=== PATIENT | female | born 1980 | race Caucasian/White ===

== ENCOUNTER 2023-03-25 15:29 | Emergency (ER) | payer MEDICAID, SELFPAY ==
[2023-03-25] VITALS (21 sets, daily range): BP systolic 124–144; BP diastolic 68–90; PULSE 68–133; RESP 15–27; TEMP 36.8; O2SAT 96–100
--- NOTE | ~2023-03-25 | CT_ITS ---
EXAMINATION: CT abdomen pelvis w con DATE: 03/25/2023 18:23 INDICATION: LUQ pain, elevated lipase TECHNIQUE: Computed tomography (CT) of the abdomen and pelvis was performed with 100 mL Omnipaque-350 intravenous contrast. Automated exposure control and iterative reconstruction technique were employe d. The dose-length product was 600.39 mGy-cm. COMPARISON: None. FINDINGS: Lower thorax: Unremarkable Liver: Normal. Biliary/Gallbladder: Gallbladder is collapsed, with mild wall hyperemia. No bile duct dilation. Pancreas: Mildly enlarged. Peripancreatic fluid about the pancreatic head Spleen: Normal. Adrenals:No mass. Kidneys: No suspicious mass, obstructing stone, or hydronephrosis. Bilateral subcentimeter hypodensit ies, likely cysts GI tract: Mild distal esophageal and gastric wall edema. Inflammatory change/fluid at the second port ion of the duodenum. No small or large bowel dilation. Normal appendix. Mesentery/Peritoneum: No ascites, mass, or free air. Retroperitoneum: No mass. Pelvis: Pelvic organs are within normal limits. Soft Tissues: Soft tissues and body wall unremarkable. Bones: No acute osseous finding. IMPRESSION: Acute uncomplicated interstitial pancreatitis. Duodenitis, possibly reactive to the pancreatitis. Mild esophagitis/gastritis. Reviewed, dictated and finalized at location K. CIATE DEAN
[2023-03-25 16:44] LABS: Basophils Percent Auto 0.3 % (0.2-1.2); Eosinophils Absolute Auto 0.2 K/mm3 (0-0.3); Eosinophils Percent Auto 1.5 % (0-4.4); Hematocrit 41.3 % (37.0-47.0); Hemoglobin 13.2 g/dL (12.0-15.0); Immature Granulocyte Absolute 0.04 K/mm3 (0.00-0.031); Immature Granulocyte Percent A 0.3 % (0-0.5); Lymphocytes Absolute Auto 2.94 K/mm3 (0.9-3.2); Lymphocytes Percent Auto 24.3 % (18.3-44.2); Mean Corpuscular Hemoglobin 29.5 pg (26-34); Mean Corpuscular Volume 92.4 fl (80-100); Mean Platelet Volume 9.2 fl (7.4-10.4); Monocytes Absolute Auto 0.9 K/mm3 (0.1-0.6); Monocytes Percent Auto 7.1 % (2.6-8.5); Neutrophils Percent Auto 66.5 % (45.5-73.1); Platelet Count Result 255 k/mm3 (150-375); Red Blood Count 4.47 M/mm3 (4.2-5.4); Red Cell Distribution Width 13.9 % (11.5-14.5); White Blood Count 12.1 K/mm3 (4.5-10.0)
[2023-03-25 16:49] LABS: Appearance Urine Clear (Clear); Bacteria Urine 3+ /hpf; Bilirubin Urine Negative (Negative); Blood Urine Negative (Negative); Color Urine Yellow (Yellow); Glucose Urine UA Negative (Negative); Ketones Urine Trace mg/dL (Negative); Leukocyte Esterase Ur Negative LEU/UL (Negative); Nitrate Urine Positive (Negative); Non Pathogenic Casts 0-2; Protein Urine Negative (Negative); RBC Urine 0-2 /hpf (0-2); Specific Grav Ur 1.027 (1.001-1.035); Squamous Epithelial Cell Urine Few /hpf (Few); Urobilinogen Urine 0.2 mg/dL (<2.0); pH Urine 5.5 (5.0-9.0)
[2023-03-25 16:59] LABS: Add Urine Microscopic? YES
[2023-03-25 17:26] LABS: Alanine Aminotransferase 19 U/L (6-35); Albumin Level 4.4 g/dL (3.5-5.1); Alkaline Phosphatase 71 U/L (38-126); Anion Gap 12 mmol/L (8-16); Aspartate Amino Transferase 26 U/L (14-36); Bilirubin,Total 0.4 mg/dL (0.2-1.3); Blood Urea Nitrogen 13 mg/dL (7-17); Calcium 9.5 mg/dL (8.4-10.2); Carbon Dioxide 23 mmol/L (22-30); Chloride 104 mmol/L (98-107); Estimated CRCL calculation 55 ml/min; Estimated Glomerular Filt Rate > 60; Glucose 109 mg/dL (65-110); Potassium 3.8 mmol/L (3.4-5.0); Sodium 139 mmol/L (137-145)
[2023-03-25] MEDS: KETOROLAC 30 MG/ML VIAL (*BKC) IV PUSH (17:26)
[2023-03-25 17:34] LABS: Pregnancy On Board Control Positive; Urine Pregnancy Test Negative
[2023-03-25 17:35] LABS: Lipase 569 U/L (23-300)
--- NOTE | 2023-03-25 18:12 | ED.ABDPAIN ---
HPI - Abdominal Pain General Chief Complaint: Abdominal Pain Stated Complaint: right abd pain Time Seen by Provider: 03/25/23 16:45 History of Present Illness HPI narrative: Patient is a 42-year-old female presenting with abdominal pain. Patient states that for the last 2 3 weeks she has had intermittent left upper quadrant pain. Associated with vomiting and diarrhea. States that she was hoping it would go away but it has continued so she came in for evaluation. States that she has not vomited in the last 4 days. She has been using Tylenol and ibuprofen with moderate temporary relief. No fevers, chest pain, shortness of breath, cough, dysuria, hematuria, flank pain, leg swelling. Related Data Allergies Allergy/AdvReac Type Severity Reaction Status Date / Time Penicillins Allergy Hives Verified 03/25/23 15:55 Review of Systems Review of Systems: All systems reviewed & are unremarkable except as noted in HPI and below Exam Narrative: GENERAL: Well-appearing, In no acute distress, pleasant cooperative HEAD: Normocephalic, atraumatic. EYES: PERRLA and EOMI. ENT: Nares clear, no rhinorrhea or epistaxis. Mucous membranes moist. NECK: Supple. CHEST: Clear to auscultation. No respiratory distress. HEART: Regular rate and rhythm. ABDOMEN: Soft,+ left upper quadrant tenderness without guarding or rebound EXTREMITIES: Normal range of motion. No edema. SKIN: Warm, dry, no rash. NEURO: No focal deficits. Alert and oriented x3. PSYCH: Normal mood and affect. Course Vital Signs Vital signs: Vital Signs Temperature 98.2 F 03/25/23 15:52 Pulse Rate 89 03/25/23 15:52 Respiratory Rate 18 03/25/23 15:52 Blood Pressure 132/80 03/25/23 15:52 Pulse Oximetry 100 03/25/23 15:52 Oxygen Delivery Room Air 03/25/23 15:52 Temperature 98.3 F 03/25/23 18:02 Pulse Rate 68 03/25/23 20:15 Respiratory Rate 15 03/25/23 20:15 Blood Pressure 124/70 03/25/23 18:02 Pulse Oximetry 99 03/25/23 20:15 Oxygen Delivery Room Air 03/25/23 15:52 MDM - Abdominal Pain MDM Narrative Medical decision making narrative: 42-year-old female presenting with several weeks of intermittent left upper quadrant pain associated with vomiting. Vital stable. Blood work with mild leukocytosis. Lipase is mildly elevated at 569. UA is contaminated, she denies urinary symptoms. CT abdomen pelvis with evidence of acute uncomplicated pancreatitis. I suspect the patient has been dealing with symptoms related to pancreatitis for the last several weeks. States that she actually has not vomited for at least 4 days. Patient is given an oral oxycodone and was able to eat a meal. States that her pain is controlled and she is not nauseated. Feel that she is safe for outpatient management. Will send in for short course of oxycodone and Zofran. Advised close PCP follow-up. Appropriate return precautions given. She is agreeable with this plan. Discharged in stable condition. Differential Diagnosis Differential diagnosis: Likely abdominal pain, acute appendicitis, constipation, diverticulitis and pancreatitis Medical Records Attestation: I reviewed the patient's medical records. Lab Data Attestation: I reviewed the patient's lab results. 03/25/23 16:38 03/25/23 16:38 Labs: Lab Results 03/25/23 03/25/23 Range/Units 16:37 16:38 WBC 12.1 H (4.5-10.0) K/mm3 RBC 4.47 (4.2-5.4) M/mm3 Hgb 13.2 (12.0-15.0) g/dL Hct 41.3 (37.0-47.0) % MCV 92.4 (80-100) fl MCH 29.5 (26-34) pg MCHC 32.0 (32-36) g/dl RDW 13.9 (11.5-14.5) % Plt Count 255 (150-375) k/mm3 MPV 9.2 (7.4-10.4) fl Immature Gran % (Auto) 0.3 (0-0.5) % Neut % (Auto) 66.5 (45.5-73.1) % Lymph % (Auto) 24.3 (18.3-44.2) % [place] % (Auto) 7.1 (2.6-8.5) % Eos % (Auto) 1.5 (0-4.4) % Baso % (Auto) 0.3 (0.2-1.2) % Lymph # (Auto) 2.94 (0.9-3.2) K/mm3 [place] # (Auto) 0.9 H (0.
--- NOTE | 2023-03-25 19:41 | PC.NURSE ---
this rn assumed care of patient. this rn took patient report from alberto dixon.
[2023-03-25] MEDS: oxyCODONE HCL (*CRX) 5 MG TAB IR PO (19:52)
--- NOTE | 2023-03-25 20:32 | PC.NURSE ---
pt stated she was able to keep food/ drink down from PO challenge. Pt was noted to continue eating her own food from personal lunchbox. EDP made aware and verbalized understanding that pt was able to pass PO challenge.
== END 2023-03-25 21:22 | disposition home or self-care (01) ==
PROVIDERS: Emergency Provider Emergency Medicine
DX: K85.80 Other acute pancreatitis without necrosis or infection (principal); K29.80 Duodenitis without bleeding; K20.90 Esophagitis, unspecified without bleeding; K29.70 Gastritis, unspecified, without bleeding
CPT/HCPCS: 36415; 74177; 80053; 81001; 81025; 83690; 85025; 87077; 87086; 87186; 96374; 99284; A9270; J1170; J1885; Q9967

== ENCOUNTER 2023-03-29 14:55 | Emergency (ER) | payer MEDICAID, SELFPAY ==
--- NOTE | ~2023-03-29 | CT_ITS ---
EXAMINATION: CT abdomen pelvis w con DATE: 03/29/2023 17:04 INDICATION: Left upper quadrant and epigastric abdominal pain. TECHNIQUE: Computed tomography (CT) of the abdomen and pelvis was performed with 100 mL Omnipaque 350 intravenous contrast. Automated exposure control and iterative reconstruction technique were employe d. The dose-length product was 629.02 mGy-cm. COMPARISON: CT abdomen and pelvis 03/25/2023 FINDINGS: The visualized portions of the lung bases demonstrate minimal atelectasis. No pleural effus ion. The heart size is normal. No pericardial effusion. The liver, gallbladder, spleen, and adrenal g lands are normal. There are cysts in the kidneys measuring up to 8 mm on the right. There is fat stra nding around the head of the pancreas, consistent with acute interstitial pancreatitis. There are no dilated loops of bowel. The appendix is normal. There are no pathologically enlarged lymph nodes. The re is no free intraperitoneal fluid. There is mild thoracic and lumbar spondylosis. IMPRESSION: 1. Stable acute interstitial pancreatitis. Reviewed, dictated and finalized at location E. L DRIER
[2023-03-29 15:03] VITALS: BP 140/79; PULSE 88; RESP 18; TEMP 36.6; O2SAT 100
--- NOTE | 2023-03-29 15:59 | ED.GENADULT ---
HPI - General Adult General Chief complaint: Abdominal Pain <REGINA Lester Last Filed: 03/29/23 16:10> Stated complaint: abd pain <Eric Terry PA-C - Last Filed: 03/29/23 16:10> Time Seen by Provider: 03/29/23 15:58 <Eric Terry PA-C - Last Filed: 03/29/23 16:10> Focused HPI: This is a 42-year-old female who presents to the ED with chief complaint of epigastric pain ongoing for the last several weeks and worse last night. Recently diagnosed with pancreatitis in the ER and was able to go home. Reports that she went to her doctor today who told her to come back to the ER since she is having increased pain. Denies fevers, chills, nausea, vomiting. Does admit to alcohol use. GENERAL: Well-appearing, well-nourished, and in no acute distress. HEAD: Normocephalic, atraumatic. CHEST: Clear to auscultation. No respiratory distress. HEART: Regular rate and rhythm. NEURO: Alert and oriented x3. Patient screened in triage and initial orders placed. Additional care and disposition to be based upon diagnostic testing and treatment. <REGINA Lester Last Filed: 03/29/23 16:10> Source: patient and old records reviewed <REGINA Wilkins Last Filed: 03/29/23 17:55> Mode of arrival: ambulatory <REGINA Wilkins Last Filed: 03/29/23 17:55> Limitations: no limitations <REGINA Wilkins Last Filed: 03/29/23 17:55> History of Present Illness HPI narrative: Patient states she has not drink in the last several days. She has been taking oxycodone for her pain which does help. She has been taking she Zofran for nausea. Denies any further vomiting. States she would not have come to the ED today if her primary did not tell her to. Denies fevers. She does mention her primary told her she had a UTI. She admits to urinary frequency over last 1 week, denies dysuria or hematuria. <REGINA Wilkins Last Filed: 03/29/23 17:55> Related Data Allergies/adverse reactions: Allergies Allergy/AdvReac Type Severity Reaction Status Date / Time Penicillins Allergy Hives Verified 03/29/23 15:07 <REGINA Lester Last Filed: 03/29/23 16:10> Review of Systems Review of Systems: CONSTITUTIONAL: Denies fever, chills, or sweats. GASTROINTESTINAL: See HPI. GENITOURINARY: See HPI. <REGINA Wilkins Last Filed: 03/29/23 17:55> All systems reviewed & are unremarkable except as noted in HPI and below <REGINA Wilkins Last Filed: 03/29/23 17:55> Exam Narrative: GENERAL: Well appearing, obese with BMI of 30.9, non-toxic, in no acute distress. HEAD: Normocephalic, atraumatic. RESPIRATORY: Airway patent, respirations nonlabored. Clear to auscultation bilaterally, no rales, rhonchi, wheezing. CARDIOVASCULAR: Regular rate and rhythm without murmurs, rubs, or gallops. ABDOMINAL: Soft, tenderness in epigastric pain and left upper quadrant, nondistended. Normoactive BS. MUSCULOSKELETAL: Moves all extremities. No gross deformities. SKIN: Warm, dry, normal color. NEURO: A&O X3. Speech clear. Cranial nerves II-XII grossly intact. Steady gait. No ataxic movements. PSYCHIATRIC: Appropriate mood and affect. Normal interaction. <REGINA Wilkins Last Filed: 03/29/23 17:55> Course Vital Signs Vital signs: Vital Signs Temperature 98 F 03/29/23 15:03 Pulse Rate 88 03/29/23 15:03 Respiratory Rate 18 03/29/23 15:03 Blood Pressure 140/79 03/29/23 15:03 Pulse Oximetry 100 03/29/23 15:03 Oxygen Delivery Room Air 03/29/23 15:03 Temperature 98 F 03/29/23 15:03 Pulse Rate 76 03/29/23 16:09 Respiratory Rate 20 03/29/23 16:09 Blood Pressure 137/66 03/29/23 16:09 Pulse Oximetry 100 03/29/23 16:09 Oxygen Delivery Room Air 03/29/23 15:03 <Eric Terry PA-C - Last Filed: 03/29/23 16:10> Vital Signs Temperature 98 F 03/29/23 15:03 Pulse Rate 88
[2023-03-29 16:09] VITALS: BP 137/66; PULSE 76; RESP 20; O2SAT 100
[2023-03-29 16:17] LABS: Basophils Absolute Auto 0.1 K/mm3 (0.0-0.1); Basophils Percent Auto 0.6 % (0.2-1.2); Eosinophils Absolute Auto 0.2 K/mm3 (0-0.3); Eosinophils Percent Auto 1.2 % (0-4.4); Hematocrit 40.2 % (37.0-47.0); Hemoglobin 12.8 g/dL (12.0-15.0); Immature Granulocyte Absolute 0.04 K/mm3 (0.00-0.031); Immature Granulocyte Percent A 0.3 % (0-0.5); Lymphocytes Absolute Auto 3.31 K/mm3 (0.9-3.2); Lymphocytes Percent Auto 25.6 % (18.3-44.2); Mean Corpuscular HGB Conc 31.8 g/dl (32-36); Mean Corpuscular Hemoglobin 29.7 pg (26-34); Mean Corpuscular Volume 93.3 fl (80-100); Mean Platelet Volume 9.4 fl (7.4-10.4); Monocytes Percent Auto 7.8 % (2.6-8.5); Neutrophils Absolute Auto 8.3 K/mm3 (1.3-6.7); Neutrophils Percent Auto 64.5 % (45.5-73.1); Platelet Count Result 326 k/mm3 (150-375); Red Blood Count 4.31 M/mm3 (4.2-5.4); Red Cell Distribution Width 13.6 % (11.5-14.5); White Blood Count 12.9 K/mm3 (4.5-10.0)
[2023-03-29 16:24] LABS: Appearance Urine Cloudy (Clear); Bacteria Urine 4+ /hpf; Bilirubin Urine Negative (Negative); Blood Urine Negative (Negative); Color Urine Yellow (Yellow); Glucose Urine UA Negative (Negative); Ketones Urine Trace mg/dL (Negative); Leukocyte Esterase Ur Negative LEU/UL (Negative); Nitrate Urine Positive (Negative); Protein Urine Negative (Negative); RBC Urine 0-2 /hpf (0-2); Specific Grav Ur 1.021 (1.001-1.035); Squamous Epithelial Cell Urine None seen /hpf (Few); Urobilinogen Urine 0.2 mg/dL (<2.0); WBC Urine 0-5 /hpf; pH Urine 5.5 (5.0-9.0)
[2023-03-29 16:27] LABS: Add Urine Microscopic? YES
[2023-03-29 16:30] LABS: Alanine Aminotransferase 18 U/L (6-35); Albumin Level 4.1 g/dL (3.5-5.1); Alkaline Phosphatase 62 U/L (38-126); Anion Gap 8 mmol/L (8-16); Aspartate Amino Transferase 25 U/L (14-36); Bilirubin,Total 0.3 mg/dL (0.2-1.3); Blood Urea Nitrogen 11 mg/dL (7-17); Calcium 9.3 mg/dL (8.4-10.2); Carbon Dioxide 25 mmol/L (22-30); Chloride 103 mmol/L (98-107); Estimated CRCL calculation 81 ml/min; Estimated Glomerular Filt Rate > 60; Glucose 109 mg/dL (65-110); Lipase 307 U/L (23-300); Potassium 3.9 mmol/L (3.4-5.0); Sodium 136 mmol/L (137-145)
[2023-03-29] MEDS: HYDROcodone/acetaminophen (*CRX) 5-325 MG TABLET 1 TAB PO (17:29)
[2023-03-29] MEDS: SULFAMETHOXAZOLE/TRIMETHOPRIM 800/160 MG DS TABLET 1 TAB PO (17:29)
[2023-03-29 18:00] VITALS: BP 148/93; PULSE 96; RESP 16; O2SAT 99
== END 2023-03-29 18:00 | disposition home or self-care (01) ==
PROVIDERS: Emergency Medicine; Emergency Provider Physician Assistant
DX: K85.90 Acute pancreatitis without necrosis or infection, unspecified (principal); N30.00 Acute cystitis without hematuria
CPT/HCPCS: 36415; 74177; 80053; 81001; 81025; 83690; 85025; 87077; 87086; 87088; 87186; 99284; A9270; Q9967

== ENCOUNTER 2023-04-06 10:36 | Emergency (ER) | payer MEDICAID, SELFPAY ==
[2023-04-06] VITALS (7 sets, daily range): BP systolic 127–142; BP diastolic 73–82; PULSE 73–88; RESP 12–22; TEMP 36.6–37.1; O2SAT 99–100
--- NOTE | ~2023-04-06 | CT_ITS ---
EXAMINATION: CT abdomen pelvis w con DATE: 04/06/2023 15:33 INDICATION: Acute pancreatitis. Nausea. TECHNIQUE: Computed tomography (CT) of the abdomen and pelvis was performed with 100 mL Omnipaque 350 intravenous contrast. Automated exposure control and iterative reconstruction technique were employe d. The dose-length product was 530.52 mGy-cm. COMPARISON: CT abdomen and pelvis 03/29/23 FINDINGS: The visualized portions of the lung bases demonstrate mild atelectasis. No pleural effusion . The heart size is normal. No pericardial effusion. The liver, gallbladder, and spleen are normal. T here is fat stranding and trace fluid around the head of the pancreas, consistent with acute intersti tial pancreatitis. The adrenal glands are normal. There are cysts in the kidneys measuring up to 7 mm on the right. There are no dilated loops of bowel. The appendix is normal. There are no pathological ly enlarged lymph nodes. There is trace pelvic ascites. There is mild lumbar spondylosis. IMPRESSION: 1. Acute interstitial pancreatitis with mildly worsened findings from 03/29/23. Reviewed, dictated and finalized at location E. L REPRINT OPERATOR
[2023-04-06 11:12] LABS: Basophils Absolute Auto 0.1 K/mm3 (0.0-0.1); Basophils Percent Auto 0.4 % (0.2-1.2); Eosinophils Absolute Auto 0.1 K/mm3 (0-0.3); Eosinophils Percent Auto 0.4 % (0-4.4); Hemoglobin 15.1 g/dL (12.0-15.0); Immature Granulocyte Absolute 0.07 K/mm3 (0.00-0.031); Immature Granulocyte Percent A 0.5 % (0-0.5); Lymphocytes Absolute Auto 4.15 K/mm3 (0.9-3.2); Lymphocytes Percent Auto 28.5 % (18.3-44.2); Mean Corpuscular HGB Conc 32.8 g/dl (32-36); Mean Corpuscular Hemoglobin 29.4 pg (26-34); Mean Corpuscular Volume 89.7 fl (80-100); Mean Platelet Volume 9.4 fl (7.4-10.4); Monocytes Absolute Auto 0.7 K/mm3 (0.1-0.6); Neutrophils Absolute Auto 9.5 K/mm3 (1.3-6.7); Neutrophils Percent Auto 65.2 % (45.5-73.1); Platelet Count Result 356 k/mm3 (150-375); Red Blood Count 5.13 M/mm3 (4.2-5.4); Red Cell Distribution Width 13.3 % (11.5-14.5); White Blood Count 14.6 K/mm3 (4.5-10.0)
[2023-04-06 11:23] LABS: Alanine Aminotransferase 26 U/L (6-35); Albumin Level 4.6 g/dL (3.5-5.1); Alkaline Phosphatase 83 U/L (38-126); Anion Gap 13 mmol/L (8-16); Aspartate Amino Transferase 27 U/L (14-36); Bilirubin,Total 0.3 mg/dL (0.2-1.3); Blood Urea Nitrogen 7 mg/dL (7-17); Calcium 9.6 mg/dL (8.4-10.2); Carbon Dioxide 20 mmol/L (22-30); Chloride 104 mmol/L (98-107); Estimated CRCL calculation 77 ml/min; Estimated Glomerular Filt Rate > 60; Glucose 103 mg/dL (65-110); Lipase 389 U/L (23-300); Potassium 3.7 mmol/L (3.4-5.0); Sodium 137 mmol/L (137-145)
[2023-04-06 14:38] LABS: Appearance Urine Clear (Clear); Bilirubin Urine Negative (Negative); Blood Urine Negative (Negative); Color Urine Yellow (Yellow); Glucose Urine UA Negative (Negative); Ketones Urine Negative (Negative); Leukocyte Esterase Ur Negative LEU/UL (Negative); Nitrate Urine Negative (Negative); Protein Urine Negative (Negative); Specific Grav Ur 1.007 (1.001-1.035); Urobilinogen Urine 0.2 mg/dL (<2.0); pH Urine 6.5 (5.0-9.0)
[2023-04-06 14:58] LABS: Add Urine Microscopic? NO
--- NOTE | 2023-04-06 15:04 | ED.ABDPAIN ---
HPI - Abdominal Pain General Chief Complaint: Abdominal Pain Stated Complaint: pancreatitis Time Seen by Provider: 04/06/23 14:50 History of Present Illness HPI narrative: 42-year-old female presenting to the emergency department for evaluation of worsening abdominal pain. Patient does have history of pancreatitis and states she was most recently diagnosed with pancreatitis but 2 weeks ago. Patient had follow-up with her primary care physician and she reports that he has suggested that she present to the emergency department for further evaluation. Patient has not yet had recent follow-up with a GI physician. Patient states that her abdominal pain worsened on Tuesday and has not improved. Patient denies any associated nausea or vomiting. Patient states she has not had alcohol for approximately 2 weeks. Related Data Allergies Allergy/AdvReac Type Severity Reaction Status Date / Time Penicillins Allergy Hives Verified 03/29/23 15:07 Review of Systems Review of Systems: All systems reviewed & are unremarkable except as noted in HPI and below Exam Narrative: APPEARANCE: Well appearing, no pain, no distress, well-nourished. HEAD: normocephalic, atraumatic. EYES: PERRLA/EOMI, conjunctivae clear. NOSE: Normal no drainage EARS:TMS clear with good light reflex. THROAT: Pharynx clear, no exudate. NECK: Supple. No adenopathy, no masses. RESPIRATORY: Airway patent, respirations nonlabored. Clear to auscultation bilaterally, no rales, rhonchi, wheezing. CARDIOVASCULAR: Regular rate and rhythm without murmurs rubs or gallops. ABDOMINAL: Epigastric pain with tenderness to palpation MUSCULOSKELETAL: Moves all extremities. Strength/ROM intact, No edema, No calf tenderness. NEURO: Alert. Cranial nerves II through XII intact. Grossly intact SKIN: Warm, dry. Normal Color Course Course Emergency Course: 42-year-old female presenting to the emergency department for evaluation of worsening epigastric pain thought to be her pancreatitis. Patient's lipase is similar to her previous. Patient is afebrile but does have a leukocytosis of 14.6. Hemoglobin is 15.1. No acute abnormalities on her CMP and UA was negative for infection. CT scan showed mild worsening of her pancreatitis but no evidence of abscess or necrosis. Discussed the findings with the patient and family and patient was offered admission for IV fluids and IV pain meds and patient prefers to have oral p.o. medications for home and follow a clear liquid diet. Patient is also being provided follow-up with GI. All questions concerns were addressed patient was comfortable with the plan for discharge and close follow-up. Vital Signs Vital signs: Vital Signs Temperature 97.9 F 04/06/23 11:00 Pulse Rate 85 04/06/23 11:00 Respiratory Rate 12 04/06/23 11:00 Blood Pressure 142/81 H 04/06/23 11:00 Pulse Oximetry 100 04/06/23 11:00 Temperature 98.8 F 04/06/23 14:18 Pulse Rate 86 04/06/23 16:30 Respiratory Rate 22 H 04/06/23 16:30 Blood Pressure 132/76 04/06/23 16:30 Pulse Oximetry 99 04/06/23 16:30 MDM - Abdominal Pain Lab Data 04/06/23 11:01 04/06/23 11:01 Labs: Lab Results 04/06/23 04/06/23 Range/Units 11:01 14:24 WBC 14.6 H (4.5-10.0) K/mm3 RBC 5.13 (4.2-5.4) M/mm3 Hgb 15.1 H (12.0-15.0) g/dL Hct 46.0 (37.0-47.0) % MCV 89.7 (80-100) fl MCH 29.4 (26-34) pg MCHC 32.8 (32-36) g/dl RDW 13.3 (11.5-14.5) % Plt Count 356 (150-375) k/mm3 MPV 9.4 (7.4-10.4) fl Immature Gran % (Auto) 0.5 (0-0.5) % Neut % (Auto) 65.2 (45.5-73.1) % Lymph % (Auto) 28.5 (18.3-44.2) % [place] % (Auto) 5.0 (2.6-8.5) % Eos % (Auto) 0.4 (0-4.4) % Baso % (Auto) 0.4 (0.2-1.2) % Lymph # (Auto) 4.15 H (0.9-3.2) K/mm3 [place] # (Auto) 0.7 H (0.1-0.6) K/mm3 Eos # (Auto) 0.1 (0-0.3) K/mm3 Baso # (Auto) 0.1 (0.0-0.1) K/mm3 Abs Immat Gran (auto) 0.07 H (0.00-0.03
[2023-04-06] MEDS: METOCLOPRAMIDE HCL INJ 10 MG/2 ML VIAL IV PUSH (15:18)
[2023-04-06] MEDS: SODIUM CHLORIDE 0.9% IV 1,000 ML 999 ML IV CONT (15:20)
[2023-04-06] MEDS: HYDROmorphone HCL INJ (*CRX) 1 MG/ML SYR 0.5 MG IV PUSH (15:20)
== END 2023-04-06 17:20 | disposition home or self-care (01) ==
PROVIDERS: Emergency Provider Emergency Medicine
DX: K85.90 Acute pancreatitis without necrosis or infection, unspecified (principal)
CPT/HCPCS: 36415; 74177; 80053; 81003; 81025; 83690; 85025; 96361; 96374; 96375; 99284; J1170; J2765; J7030; Q9967

== ENCOUNTER 2023-04-20 10:55 | Inpatient (IN) | payer OTHER, SELFPAY ==
[2023-04-20] VITALS (29 sets, daily range): BP systolic 144–188; BP diastolic 74–131; PULSE 64–114; RESP 12–22; TEMP 36.4–36.9; O2SAT 98–100; BMI 29.9
--- NOTE | ~2023-04-20 | CT_ITS ---
EXAMINATION: CT abdomen pelvis w con INDICATION: Upper quadrant pain, pancreatitis TECHNIQUE: Computed tomographic images of the abdomen and pelvis were obtained after the administrati on of 100 cc of Omnipaque 350 intravenous contrast. The dose-length product (DLP) was 534.83 mGy-cm. Automated exposure control and iterative reconstruction technique were employed. COMPARISON: 04/06/2023 FINDINGS: Minimal dependent atelectasis is present in the lung bases. The heart size is normal. There is a healing anterior right rib fracture. The liver, spleen, gallbladder, and adrenal glands are nor mal. There is persistent but improved inflammatory change in the pancreaticoduodenal groove. Cysts of the kidneys measure up to 7 mm on the right. No pathologically enlarged abdominal or pelvic lymph no rhianna are identified. There is no free intraperitoneal gas. There is mild enlargement of the second and third portions of the duodenum, likely ileus. The appendix is normal. There is a 3.2 cm cyst of the right ovary. Trace pelvic ascites is noted. There is mild lumbar spondylosis. IMPRESSION: 1. Groove pancreatitis with interval improvement. Reviewed, dictated and finalized at location B. [employer]
[2023-04-20 12:23] LABS: Basophils Absolute Auto 0.1 K/mm3 (0.0-0.1); Basophils Percent Auto 0.3 % (0.2-1.2); Eosinophils Absolute Auto 0.1 K/mm3 (0-0.3); Hematocrit 45.1 % (37.0-47.0); Hemoglobin 14.7 g/dL (12.0-15.0); Immature Granulocyte Absolute 0.04 K/mm3 (0.00-0.031); Immature Granulocyte Percent A 0.3 % (0-0.5); Lymphocytes Absolute Auto 3.57 K/mm3 (0.9-3.2); Lymphocytes Percent Auto 24.7 % (18.3-44.2); Mean Corpuscular HGB Conc 32.6 g/dl (32-36); Mean Corpuscular Hemoglobin 29.1 pg (26-34); Mean Corpuscular Volume 89.1 fl (80-100); Mean Platelet Volume 9.7 fl (7.4-10.4); Monocytes Absolute Auto 0.9 K/mm3 (0.1-0.6); Monocytes Percent Auto 6.4 % (2.6-8.5); Neutrophils Absolute Auto 9.7 K/mm3 (1.3-6.7); Neutrophils Percent Auto 67.3 % (45.5-73.1); Platelet Count Result 264 k/mm3 (150-375); Red Blood Count 5.06 M/mm3 (4.2-5.4); Red Cell Distribution Width 13.4 % (11.5-14.5); White Blood Count 14.4 K/mm3 (4.5-10.0)
[2023-04-20 12:29] LABS: Appearance Urine Clear (Clear); Bacteria Urine None Seen /hpf; Bilirubin Urine Negative (Negative); Blood Urine Negative (Negative); Color Urine Yellow (Yellow); Glucose Urine UA Negative (Negative); Ketones Urine 1+ mg/dL (Negative); Leukocyte Esterase Ur Trace LEU/UL (Negative); Nitrate Urine Negative (Negative); Protein Urine Trace mg/dL (Negative); RBC Urine 0-2 /hpf (0-2); Specific Grav Ur 1.021 (1.001-1.035); Squamous Epithelial Cell Urine Occasional /hpf (Few); WBC Urine 0-5 /hpf; pH Urine 6.5 (5.0-9.0)
[2023-04-20 12:32] LABS: Add Urine Microscopic? YES
[2023-04-20 12:40] LABS: Alanine Aminotransferase 29 U/L (6-35); Albumin Level 4.6 g/dL (3.5-5.1); Alkaline Phosphatase 72 U/L (38-126); Anion Gap 11 mmol/L (8-16); Aspartate Amino Transferase 32 U/L (14-36); Bilirubin,Total 0.7 mg/dL (0.2-1.3); Blood Urea Nitrogen 15 mg/dL (7-17); Calcium 9.8 mg/dL (8.4-10.2); Carbon Dioxide 22 mmol/L (22-30); Chloride 101 mmol/L (98-107); Estimated CRCL calculation 71 ml/min; Estimated Glomerular Filt Rate > 60; Glucose 102 mg/dL (65-110); Lipase 384 U/L (23-300); Potassium 3.9 mmol/L (3.4-5.0); Sodium 134 mmol/L (137-145)
--- NOTE | 2023-04-20 12:50 | ED.ABDPAIN ---
HPI - Abdominal Pain General Chief Complaint: Abdominal Pain Stated Complaint: pancreatitis Time Seen by Provider: 04/20/23 12:04 History of Present Illness HPI narrative: Patient is a 42-year-old female presenting with abdominal pain. Patient states that for the last 4-6 weeks she has been dealing with left upper quadrant and epigastric pain associated with vomiting. She has been diagnosed with pancreatitis. She followed up with a primary care provider who advised that she come back to the ER. She was ultimately able to be discharged as her symptoms were controlled. States that she has been unable to find a different PCP and she is unable to get into a deputy sheriff/investigator until she has a referral. Over the last 4 days her symptoms have again were sent and she has been unable to tolerate p.o. despite Zofran. Also complains of mild dysuria. No chest pain, shortness of breath, leg swelling, fevers. Related Data Allergies Allergy/AdvReac Type Severity Reaction Status Date / Time Penicillins Allergy Hives Verified 04/20/23 11:15 Review of Systems Review of Systems: All systems reviewed & are unremarkable except as noted in HPI and below PMFSH Social History Social History Smoking packs per day: 1.5 Smoking cigarettes per day: 30.0 Smoking status: Current every day smoker Tobacco type: cigarettes Second hand tobacco smoke exposure: No Alcohol intake: current Drinks per week: 12 Substance use: current Substance use type: marijuana Do You Feel Safe in your Home?: Yes Lack of Transportation: No Lack of Food: Never True Current Housing: I Have Housing Concerned About Future Housing: No Difficulty Paying Gas/Electric Bills: No Difficulty Paying for Meds: No Currently Unemployed: No Education: High School Diploma/GED Difficulty w/ Childcare or Family Care: No Spiritual care concerns: No Exam Narrative: GENERAL: Nontoxic, no acute distress, pleasant cooperative HEAD: Normocephalic, atraumatic. EYES: PERRLA and EOMI. ENT: Mucous membranes moist. NECK: Supple. CHEST: Clear to auscultation. No respiratory distress. HEART: Regular rate and rhythm. ABDOMEN: Soft, +epigastric/LUQ tenderness w/o guarding or rebound EXTREMITIES: Normal range of motion. No edema. SKIN: Warm, dry, no rash. NEURO: No focal deficits. Alert and oriented x3. PSYCH: Normal mood and affect. Course Vital Signs Vital signs: Vital Signs Temperature 97.6 F 04/20/23 11:12 Pulse Rate 114 H 04/20/23 11:12 Respiratory Rate 16 04/20/23 11:12 Blood Pressure 146/94 H 04/20/23 11:12 Pulse Oximetry 100 04/20/23 11:12 Oxygen Delivery Room Air 04/20/23 11:12 Temperature 97.4 F L 04/22/23 02:59 Pulse Rate 63 04/22/23 02:59 Respiratory Rate 20 04/22/23 02:59 Blood Pressure 121/73 04/22/23 02:59 Pulse Oximetry 100 04/22/23 02:59 Oxygen Delivery Room Air 04/22/23 09:05 MDM - Abdominal Pain MDM Narrative Medical decision making narrative: 42-year-old female presenting with recurrent pancreatitis. Patient initially tachycardic on arrival, this had resolved by the time I evaluated her. Remainder of vitals are within normal limits. Blood work with mildly elevated lipase. CT abdomen pelvis shows acute interstitial pancreatitis. Feel patient would benefit from admission for symptomatic control and GI evaluation as this is her 4th visit in the last 6 weeks for these complaints. She is agreeable with this plan. Spoke with the hospitalist who has accepted her for admission. Differential Diagnosis Differential diagnosis: Likely abdominal pain, constipation, diverticulitis, gastroenteritis and pancreatitis Medical Records Attestation: I reviewed the patient's medical records. Lab Data Attestation: I reviewed the patient's lab results. 04/22/23 06:50 04/22/23 06:50 Labs: Lab Results 04/20/23
[2023-04-20] MEDS: HYDROmorphone HCL INJ (*CRX) 1 MG/ML SYR 0.5 MG IV PUSH ×3 (12:55→20:11)
[2023-04-20] MEDS: ONDANSETRON INJ 4 MG/2 ML VIAL IV PUSH (12:55)
[2023-04-20] MEDS: SODIUM CHLORIDE 0.9% IV 1,000 ML 999 ML IV CONT (12:55)
--- NOTE | 2023-04-20 15:01 | PM.IMHP ---
H&P: HPI History of Present Illness Date/Time: 04/20/23 15:01 Chief Complaint: Abdominal Pain Narrative: 42 y/o F presents here with LUQ pain with PMH of pancreatitis. Any other hx? Patient presents here with LUQ that has been ongoing since early Mar. Initially sought care on 03/25/2023 and was diagnosed with acute uncomplicated pancreatitis. Pain was controlled with oral medications and patient was discharged home with oxycodone and Zofran. Was re-evaluated on 03/29 and 04/06 for similar symptoms and was again d/c'd home after tolerating PO and pain control from ED. Since then, she has been unable to follow-up with her PCP and GI was requesting a referral from her provider before they would schedule an appt. LUQ pain has worsened over the last 4 days. Accompanying nausea, vomiting, and PO intolerance despite zofran. No home pain medications. Additionally experiencing burning with urination (described as feeling warm) and urine has been darker . Dx with UTI on 03/25. Denies hematuria, frequency, and/or odor. + fever and chills. No body aches. Endorsing night sweats for the last 8-9 months. Believes she may be starting to go through menopause. No previous IVDU. Denying chest pain, SOB, or palpitations. ETOH use - last drink on 04/15, was drinking excessively prior. Estimates she was drinking 12 hard liquor shots and approximately a 12 pack of beer over the course of a week. Has been cutting back over the last couple of months, estimates Dec. Initial VS at presentation:97.6 F, HR 114, RR 146/94, 100% on RA. ED workup showed Mild leukocytosis with WBC of 14.4, no anemia, sodium 134, creatinine 0.8, lipase 384 (similar to last ED visit, 389), and UA showed 1+ ketones, trace leuk esterase, occasional squamous cells. Repeat CT of the abdomen/ pelvis showed groove pancreatitis with interval improvement. Review of Systems Review of Systems: All systems reviewed & are unremarkable except as noted in HPI and below PMFSH Social History Social History Smoking packs per day: 1.5 Smoking cigarettes per day: 30.0 Smoking status: Current every day smoker Tobacco type: cigarettes Second hand tobacco smoke exposure: No Alcohol intake: current Drinks per week: 12 Substance use: current Substance use type: marijuana Do You Feel Safe in your Home?: Yes Lack of Transportation: No Lack of Food: Never True Current Housing: I Have Housing Concerned About Future Housing: No Difficulty Paying Gas/Electric Bills: No Difficulty Paying for Meds: No Currently Unemployed: No Education: High School Diploma/GED Difficulty w/ Childcare or Family Care: No Spiritual care concerns: No Meds Home Medications and Allergies Home Medications Medication Instructions Recorded Confirmed Type ondansetron 4 mg disintegrating 4 mg PO Q8H PRN nausea and 03/25/23 04/20/23 Rx tablet vomiting 5 days #14 tabs oxycodone 5 mg tablet 5 mg PO Q8H PRN pain #10 tabs 03/25/23 04/20/23 Rx Allergies Allergy/AdvReac Type Severity Reaction Status Date / Time Penicillins Allergy Hives Verified 04/20/23 11:15 Vital Signs Vital Signs - 24 hr 04/20/23 11:12 04/20/23 12:11 04/20/23 12:13 Temperature 97.6 F 98.0 F Pulse Rate 114 H 83 84 Respiratory Rate 16 12 18 Blood Pressure 146/94 H 146/107 H Pulse Oximetry 100 100 100 Oxygen Delivery Room Air Room Air 04/20/23 12:21 04/20/23 12:23 04/20/23 12:30 Temperature Pulse Rate 89 83 79 Respiratory Rate 22 H 18 Blood Pressure 166/100 H Pulse Oximetry 99 100 100 Oxygen Delivery 04/20/23 12:31 04/20/23 12:32 04/20/23 12:45 Temperature Pulse Rate 79 79 78 Respiratory Rate 21 H 16 Blood Pressure 179/126 H Pulse Oximetry 100 99 100 Oxygen Delivery 04/20/23 12:46 04/20/23 12:47 04/20/23 13:12 Temperature Pulse Rate 79 84 82 Respiratory Rate 14 19 Blood Pressure 188/131 H Pul
--- NOTE | 2023-04-20 15:27 | ADMGEN ---
This patient, Lalitha Geller, was admitted to 2 Medical Room 260-. Patient/family oriented to hospital policies and general routines including ID bracelet, bed and alarms, visiting hours, pain management, procedures, bathroom and other care routines, personal items, smoking policy, room service/diet, and visiting hours. Information on how to activate the Rapid Response Team has been discussed. Patient/Family are encouraged to report perceived risks to care and to ask questions if they do not understand what they are told or what they should do.
--- NOTE | 2023-04-20 17:11 | WPDGICN ---
Assessment and Plan Assessment and plan (1) Pancreatitis: Qualifiers: Chronicity: acute Pancreatitis type: unspecified pancreatitis type Acute pancreatitis complication: no infection or necrosis Qualified Code(s): K85.90 - Acute pancreatitis without necrosis or infection, unspecified Code(s): K85.90 - Acute pancreatitis without necrosis or infection, unspecified Status: Acute Assessment and Plan: CT scans on 4 visits to emergency room have shown acute pancreatitis. Her lipase on March 25 was 569. Four days later when she returned was 307 on the 06 of April was 389 and now is 384. The last 2 CT scans read as follows; 04/06/2023 1. Acute interstitial pancreatitis with mildly worsened findings from 03/29/23. TODAY; FINDINGS: Minimal dependent atelectasis is present in the lung bases. The heart size is normal. There is a healing anterior right rib fracture. The liver, spleen, gallbladder, and adrenal glands are normal. There is persistent but improved inflammatory change in the pancreaticoduodenal groove. Cysts of the kidneys measure up to 7 mm on the right. No pathologically enlarged abdominal or pelvic lymph nodes are identified. There is no free intraperitoneal gas. There is mild enlargement of the second and third portions of the duodenum, likely ileus. The appendix is normal. There is a 3.2 cm cyst of the right ovary. Trace pelvic ascites is noted. There is mild lumbar spondylosis. (2) Alcohol use: Code(s): Z78.9 - Other specified health status Status: Acute Assessment and Plan: she was at 1st vague about using alcohol. She stated she drinks a couple of beers. Later she admitted that she had been drinking hard liquor regularly but had cut way back Plan there are no IV fluids running at present but she received 1 L in the emergency room and I see an order for lactated Ringer's. I will place her on clear liquid diet. I told her that we will not give her any food that is anything that needs to be digested by pancreas until her pain has resolved and she does not need pain medications. I did mitochondrial disorders counselor her about alcohol. I suspect alcohol abuse was the factor in her pancreatitis GI Consult Note Consult date/time: 04/20/23 17:11 HPI: Lalitha Geller is a 42 year old female who was admitted today to the emergency room with acute pancreatitis. She has actually been to the emergency room 4 times in the past month and on each occasion was found to have pancreatitis on CT scan and also elevated amylase. Nevertheless, she was discharge each time on pain medication and with recommendations to see a watch engineer or primary care physician. She has never had pancreatitis prior to this. She is not aware of any family history of pancreatitis. She admits that she drinks alcohol both beer and hard stuff but has cut way back recently this last episode began last week Tuesday she had had some cinnamon rolls and also had couple of beers. Typically she gets pain in the epigastric area which radiates towards the left side and left flank. This is usually accompanied by nausea but rarely vomiting. The last time she had any emesis was on Tuesday. She has had no fever. She does not believe that she has hyperlipidemia. She is on no medications. She has a primary care physician listed on her insurance card who she has never seen. Review of Systems Review of Systems: All systems reviewed & are unremarkable except as noted in HPI and below [facility] Social History Social History Smoking packs per day: 1.5 Smoking cigarettes per day: 30.0 Smoking status: Current every day smoker Tobacco type: cigarettes Second hand tobacco smoke exposure: No Alcohol intake: current Drinks per week: 12 Substance use: current Substance use type: marijuana Do You Feel Safe in your Home?: Yes Lack of Transportation: No Lack of Food: Never
[2023-04-20] MEDS: HYDROcodone/acetaminophen (*CRX) 5-325 MG TABLET 1 TAB PO ×2 (17:32→23:57)
[2023-04-20] MEDS: LACTATED RINGERS 1,000 ML 100 ML IV CONT (17:33)
[2023-04-20 19:44] LABS: Cholesterol 208 mg/dL (0-200); HDL Direct 64 mg/dL; Triglycerides 418 mg/dL (<150)
[2023-04-20 19:55] LABS: LDL Cholesterol Direct 55 mg/dL
[2023-04-21] MEDS: HYDROmorphone HCL INJ (*CRX) 1 MG/ML SYR 0.5 MG IV PUSH (03:36)
[2023-04-21] MEDS: LACTATED RINGERS 1,000 ML 100 ML IV CONT ×2 (03:40→14:53)
[2023-04-21 04:05] VITALS: TEMP 36.8
[2023-04-21 05:38] LABS: Hematocrit 41.2 % (37.0-47.0); Hemoglobin 13.7 g/dL (12.0-15.0); Mean Corpuscular HGB Conc 33.3 g/dl (32-36); Mean Corpuscular Hemoglobin 29.5 pg (26-34); Mean Corpuscular Volume 88.8 fl (80-100); Mean Platelet Volume 9.7 fl (7.4-10.4); Platelet Count Result 228 k/mm3 (150-375); Red Blood Count 4.64 M/mm3 (4.2-5.4); Red Cell Distribution Width 13.2 % (11.5-14.5); White Blood Count 11.5 K/mm3 (4.5-10.0)
[2023-04-21 05:54] VITALS: BP 146/97; PULSE 73; RESP 18; TEMP 36.9; O2SAT 99
[2023-04-21 05:56] LABS: Alanine Aminotransferase 24 U/L (6-35); Albumin Level 4.3 g/dL (3.5-5.1); Alkaline Phosphatase 55 U/L (38-126); Anion Gap 4 mmol/L (8-16); Aspartate Amino Transferase 28 U/L (14-36); Bilirubin,Total 0.7 mg/dL (0.2-1.3); Blood Urea Nitrogen 5 mg/dL (7-17); Carbon Dioxide 27 mmol/L (22-30); Chloride 103 mmol/L (98-107); Estimated CRCL calculation 92 ml/min; Estimated Glomerular Filt Rate > 60; Glucose 101 mg/dL (65-110); Lipase 252 U/L (23-300); Potassium 3.6 mmol/L (3.4-5.0); Sodium 134 mmol/L (137-145)
[2023-04-21] MEDS: HYDROcodone/acetaminophen (*CRX) 5-325 MG TABLET 1 TAB PO ×4 (06:11→20:18)
[2023-04-21 06:38] LABS: Hemoglobin A1C 5.7 % (<5.7)
--- NOTE | 2023-04-21 07:42 | WPDGIPROGNO ---
Progress Note: A&P Assessment and Plan (1) Pancreatitis: Qualifiers: Chronicity: acute Pancreatitis type: unspecified pancreatitis type Acute pancreatitis complication: no infection or necrosis Qualified Code(s): K85.90 - Acute pancreatitis without necrosis or infection, unspecified Code(s): K85.90 - Acute pancreatitis without necrosis or infection, unspecified Status: Acute Assessment and Plan: CT scans on 4 visits to emergency room have shown acute pancreatitis. Her lipase on March 25 was 569. Four days later when she returned was 307 on the 06 of April was 389 and now is 384. The last 2 CT scans read as follows; 04/06/2023 1. Acute interstitial pancreatitis with mildly worsened findings from 03/29/23. TODAY; FINDINGS: Minimal dependent atelectasis is present in the lung bases. The heart size is normal. There is a healing anterior right rib fracture. The liver, spleen, gallbladder, and adrenal glands are normal. There is persistent but improved inflammatory change in the pancreaticoduodenal groove. Cysts of the kidneys measure up to 7 mm on the right. No pathologically enlarged abdominal or pelvic lymph nodes are identified. There is no free intraperitoneal gas. There is mild enlargement of the second and third portions of the duodenum, likely ileus. The appendix is normal. There is a 3.2 cm cyst of the right ovary. Trace pelvic ascites is noted. There is mild lumbar spondylosis. (2) Alcohol use: Code(s): Z78.9 - Other specified health status Status: Acute Assessment and Plan: she was at 1st vague about using alcohol. She stated she drinks a couple of beers. Later she admitted that she had been drinking hard liquor regularly but had cut way back She is a bit tremulous this morning. We will need to watch for possible withdrawal symptoms although she claims that she has only had a few beers this past week. Plan there are no IV fluids running at present but she received 1 L in the emergency room and I see an order for lactated Ringer's. I will place her on clear liquid diet. I told her that we will not give her any food that is anything that needs to be digested by pancreas until her pain has resolved and she does not need pain medications. I did financial health counselor her about alcohol. I suspect alcohol abuse was the factor in her pancreatitis. I had discussed pancreatitis with her in more detail today. I told her that if she resumes alcohol she will very likely develop pancreatitis again. I told her that when she is released she will need to be on a low-fat diet for several weeks and also totally abstain from alcohol for least 6 weeks. Subjective Date/time seen: 04/21/23 07:42 She is still having pain but feels better today. She slept somewhat last night. No vomiting or nausea. She is tolerating the clear liquid diet. Last needed pain medication about 2 hours ago. Exam Const: General: cooperative and healthy appearing Orientation/consciousness: patient oriented x3 HENMT: Head: normal to inspection Ears: hearing grossly normal bilaterally Mouth: Yes Normal oral and palatal mucosa present Eyes: General: appearance normal, both eyes and all related structures Neck: Neck: normal visual inspection Chest: Chest palpation & inspection: normal inspection of the chest Resp: Effort & Inspection: normal respiratory effort Auscultation: clear to auscultation bilaterally Cardio: Rate: regular rate Rhythm: regular rhythm GI: Inspection: normal to inspection GI Palp: Yes abdominal tenderness ( Epigastric area), Yes Soft to palpation and Yes No hepatosplenomegaly present Auscultation: normal bowel sounds Skin: General skin exam: normal color and no jaundice Neuro: General: patient oriented x3 Speech: normal speech Objective Data Vital Signs Vital Signs: Vital Signs - 24 hr 04/20/23 11:12 04/20/23 12:11 04/20/23 12:13 Temperature 36.4 C 36.7 C Pulse Rate 114 H 83 84
[2023-04-21] MEDS: NICOTINE (*PBKC) 21 MG PATCH 1 PATCH TRANSDERM (08:13)
[2023-04-21 08:14] VITALS: RESP 18; O2SAT 99
[2023-04-21] MEDS: PANTOPRAZOLE SODIUM IV 40 MG VIAL IV PUSH (08:14)
--- NOTE | 2023-04-21 10:24 | PM.IMPN ---
Progress Note: A&P Assessment and Plan (1) Pancreatitis: Qualifiers: Chronicity: acute Pancreatitis type: unspecified pancreatitis type Acute pancreatitis complication: no infection or necrosis Qualified Code(s): K85.90 - Acute pancreatitis without necrosis or infection, unspecified Code(s): K85.90 - Acute pancreatitis without necrosis or infection, unspecified Status: Acute Assessment and Plan: As evidenced per CT scan. Lipase has trended this AM down to 252. Triglycerides are noted to be elevated at 418, and Total Cholesterol is 208. HDL and LDL are normal. Pt would benefit from starting on a low dose statin. Will start Zocor 5 mg daily. Transaminases and T-Bili are normal. GI has consulted and we continue to appreciate their recommendations. Continue maintenance fluids of LR at 100 ml/hr PRN pain meds, suggest backing off of IV as much as possible and transition to po. PRN anti-emetics Continue Clear liquid diet, advance per GI recommendations. Suspect pt's heavy alcohol use is the etiology of her Pancreatitis. She has been counseled regarding cessation and advised that if she continues to drink, she will continue to have flare ups of Pancreatitis. Resources for cessation have been declined. (2) Elevated BP without diagnosis of hypertension: Code(s): R03.0 - Elevated blood-pressure reading, without diagnosis of hypertension Status: Acute Assessment and Plan: As noted previously without any formal dx of HTN. SBP 140s-170s with DBP 80s-low 100s. No current treatment for her elevated readings. Starting low dose medication with Lisinopril 5 mg daily and will continue to monitor trends. Renal function is normal. Suspect pt has had elevated baseline BP for sometime, however, it has not been treated. Hydralazine ordered with parameters to give for SBP >180 and DBP >90. When able to advance diet, advance to heart healthy diet. (3) Alcohol use: Code(s): Z78.9 - Other specified health status Status: Acute Assessment and Plan: Acute on chronic in nature Pt counseled for abuse of alcohol and it's effects including Pancreatitis, irreversible damage to the liver and Pancreas as well as the stomach, and all GI structures. She was offered cessation resources and refuses. Time Spent With Patient Time with patient: 15 - 25 minutes Subjective Date/time seen: 04/21/23 0855 Interval history: This pt was examined at the bedside today in interval assessment after being admitted to the hospital for an acute pancreatitis. She has been evaluated by GI, Dr. Little and he advised that until she needed no more pain meds, he would not allow her to eat anything that must be metabolized by the pancreas. Pt. has required 4 doses of IV pain meds overnight with the last being approximately 15 minutes prior to my exam. This AM her Lipase has returned to normal level and she has tolerated the clear liquid diet, but continues to rely upon IV pain meds. She denies any vomiting or any other acute complaints or symptoms at this time. GI service continues to follow pt with us. Review of Systems Review of Systems: All systems reviewed & are unremarkable except as noted in HPI and below Exam Narrative: CONSTITUTIONAL: Pleasant, female pt sitting up in bed at this time in no acute distress as she has just received IV pain meds. HEENT: Atraumatic and normocephalic with MMM and patent oropharynx. EYES: PERRLA and EOM's intact NECK: FROM and supple. No LN RESPIRATORY: CTAB in all bustamante CARDIAC: RRR, S1 and S2 present, no S3, S4, m,r,g,h or displacement of PMI. GI: LUQ tender to palpation. BS present in all four quadrants SKIN: Clear, without rash or lesion. NEUROLOGICAL: Grossly intact and non-focal EXTREMITIES: Freely and equally MAEW without deficit. PSYCHIATRIC: Appropriate attitude and affect. Objective Data Vital Signs Vital Signs: Vital Signs - 24 hr 04/20/23 11:12
[2023-04-21] MEDS: lisinopriL 5 MG TABLET PO (10:59)
[2023-04-21 14:00] VITALS: BP 116/73; PULSE 76; RESP 14; TEMP 36.8; O2SAT 100
[2023-04-21 15:04] VITALS: BMI 29.9
--- NOTE | 2023-04-21 15:21 | PCCCNOTE ---
On 04/21/23, the student, [Joan Lai], provided care and completed [facility] documentation on this patient. I have reviewed the student's documentation and agree with the findings.
[2023-04-21 20:18] VITALS: BP 117/70; PULSE 71; RESP 20; TEMP 36.8; O2SAT 100
[2023-04-21 22:40] VITALS: O2SAT 100
[2023-04-22] MEDS: LACTATED RINGERS 1,000 ML 100 ML IV CONT (01:01)
[2023-04-22] MEDS: HYDROcodone/acetaminophen (*CRX) 5-325 MG TABLET 1 TAB PO ×2 (02:38→09:06)
[2023-04-22 02:59] VITALS: BP 121/73; PULSE 63; RESP 20; TEMP 36.3; O2SAT 100
[2023-04-22 06:58] LABS: Basophils Absolute Auto 0.1 K/mm3 (0.0-0.1); Basophils Percent Auto 0.7 % (0.2-1.2); Eosinophils Absolute Auto 0.2 K/mm3 (0-0.3); Eosinophils Percent Auto 2.6 % (0-4.4); Hematocrit 38.9 % (37.0-47.0); Hemoglobin 12.7 g/dL (12.0-15.0); Immature Granulocyte Absolute 0.03 K/mm3 (0.00-0.031); Immature Granulocyte Percent A 0.3 % (0-0.5); Lymphocytes Absolute Auto 2.84 K/mm3 (0.9-3.2); Lymphocytes Percent Auto 31.7 % (18.3-44.2); Mean Corpuscular HGB Conc 32.6 g/dl (32-36); Mean Corpuscular Hemoglobin 29.4 pg (26-34); Mean Platelet Volume 9.7 fl (7.4-10.4); Monocytes Absolute Auto 0.7 K/mm3 (0.1-0.6); Monocytes Percent Auto 7.3 % (2.6-8.5); Neutrophils Absolute Auto 5.1 K/mm3 (1.3-6.7); Neutrophils Percent Auto 57.4 % (45.5-73.1); Platelet Count Result 210 k/mm3 (150-375); Red Blood Count 4.32 M/mm3 (4.2-5.4); Red Cell Distribution Width 13.2 % (11.5-14.5)
[2023-04-22 07:07] LABS: Alanine Aminotransferase 18 U/L (6-35); Albumin Level 3.7 g/dL (3.5-5.1); Alkaline Phosphatase 53 U/L (38-126); Anion Gap 5 mmol/L (8-16); Aspartate Amino Transferase 23 U/L (14-36); Bilirubin,Total 0.5 mg/dL (0.2-1.3); Blood Urea Nitrogen 3 mg/dL (7-17); Calcium 9.1 mg/dL (8.4-10.2); Carbon Dioxide 24 mmol/L (22-30); Chloride 108 mmol/L (98-107); Estimated CRCL calculation 109 ml/min; Estimated Glomerular Filt Rate > 60; Glucose 111 mg/dL (65-110); Lipase 197 U/L (23-300); Potassium 3.8 mmol/L (3.4-5.0); Sodium 137 mmol/L (137-145)
[2023-04-22] MEDS: NICOTINE (*PBKC) 21 MG PATCH 1 PATCH TRANSDERM (09:05)
[2023-04-22] MEDS: PANTOPRAZOLE SODIUM IV 40 MG VIAL IV PUSH (09:06)
[2023-04-22] MEDS: lisinopriL 5 MG TABLET PO (09:07)
[2023-04-22] MEDS: SIMVASTATIN 5 MG TABLET PO (09:07)
--- NOTE | 2023-04-22 10:11 | PM.DS ---
DS: Admitting Diagnosis Discharge Date 04/22/23 Admitting Diagnosis Pancreatitis DS: Discharge Diagnosis Discharge Diagnosis (1) Pancreatitis: Qualifiers: Acute pancreatitis complication: no infection or necrosis Chronicity: acute Pancreatitis type: unspecified pancreatitis type Qualified Code(s): K85.90 - Acute pancreatitis without necrosis or infection, unspecified Code(s): K85.90 - Acute pancreatitis without necrosis or infection, unspecified Status: Acute Assessment and Plan: As evidenced per CT scan. Lipase has trended this AM down to 252. Triglycerides are noted to be elevated at 418, and Total Cholesterol is 208. HDL and LDL are normal. Pt would benefit from starting on a low dose statin. Will start Zocor 5 mg daily. Transaminases and T-Bili are normal. GI has consulted and we continue to appreciate their recommendations. Continue maintenance fluids of LR at 100 ml/hr PRN pain meds, suggest backing off of IV as much as possible and transition to po. PRN anti-emetics Continue Clear liquid diet, advance per GI recommendations. Suspect pt's heavy alcohol use is the etiology of her Pancreatitis. She has been counseled regarding cessation and advised that if she continues to drink, she will continue to have flare ups of Pancreatitis. Resources for cessation have been declined. 04/22/23: Date of discharge - Pt with improvement overnight, able to tolerate a low fat diet and she has only had two doses of oral pain meds overnight. Labs and VS remain stable. She has pain meds at home, I have discussed with Dr. Little who agrees to discharge at this time with low fat diet and no alcohol and she should follow up with him in the office in a couple of weeks. In addition, as pt's Triglycerides were elevated at 418, she was started on low dose Zocor that will be continued upon discharge. She is educated on following a heart healthy, low fat diet. (2) Elevated BP without diagnosis of hypertension: Code(s): R03.0 - Elevated blood-pressure reading, without diagnosis of hypertension Status: Acute Assessment and Plan: As noted previously without any formal dx of HTN. SBP 140s-170s with DBP 80s-low 100s. No current treatment for her elevated readings. Starting low dose medication with Lisinopril 5 mg daily and will continue to monitor trends. Renal function is normal. Suspect pt has had elevated baseline BP for sometime, however, it has not been treated. Hydralazine ordered with parameters to give for SBP >180 and DBP >90. When able to advance diet, advance to heart healthy diet. 04/22/23: Date of discharge - Pt was started on low dose Lisinopril yesterday and her BP has been in normal range since. Will discharge with low dose lisinopril. (3) Alcohol use: Code(s): Z78.9 - Other specified health status Status: Acute Assessment and Plan: Acute on chronic in nature Pt counseled for abuse of alcohol and it's effects including Pancreatitis, irreversible damage to the liver and Pancreas as well as the stomach, and all GI structures. She was offered cessation resources and refuses. 04/22/23: Date of discharge - Pt strongly urged to make goal alcohol cessation and absolutely no use between now and follow up with GI as outpt. She verbalizes understanding of these instructions. DS: Summary Hospital Course Reason for hospitalization: Pancreatitis Hospital Course: This 42 year female patient past medical history of alcohol abuse, was admitted to the hospital to 10/10/2003 for acute pancreatitis. This has been 1 of 3 recent flare ups the course of the past 1-2 months her pancreatitis. She was admitted to given pain medications as well as hydration. She has interval improvement to this., tolerating a diet and is stable for discharge at time. Her she was evaluated GI during visit and was strongly to occur all cessation of abuse UA advised to not use any and all until home patient is inst
== END 2023-04-22 13:31 | disposition home or self-care (01) | DRG 282 ==
LOC: ANHED 12:53 → ANH2MED 14:57
PROVIDERS: Internal Medicine Gastroenterology; Physician Assistant; Student in an Organized Health Care Education/Training Program; Admitting Provider Internal Medicine; Emergency Provider Emergency Medicine; Visit Provider Nurse Practitioner Adult Health
DX: K85.20 Alcohol induced acute pancreatitis without necrosis or infection (principal); R03.0 Elevated blood-pressure reading, without diagnosis of hypertension; F10.90 Alcohol use, unspecified, uncomplicated; F17.210 Nicotine dependence, cigarettes, uncomplicated; Z23 Encounter for immunization
CPT/HCPCS: 36415; 74177; 80053; 80061; 81001; 81025; 83036; 83690; 85025; 85027; 90471; 90686; 96361; 96374; 96375; 96376; 99285; A9270; C9113; G0008; G0378; G0379; J1170; J2405; J7030; J7120; Q9967

== ENCOUNTER 2023-06-07 12:16 | Outpatient (CLI) | payer OTHER, SELFPAY ==
[2023-06-07 13:15] LABS: Alanine Aminotransferase 23 U/L (6-35); Albumin Level 4.4 g/dL (3.5-5.1); Alkaline Phosphatase 71 U/L (38-126); Aspartate Amino Transferase 38 U/L (14-36); Bilirubin,Total 0.5 mg/dL (0.2-1.3); Lipase 388 U/L (23-300)
== END 2023-06-07 12:17 | disposition home or self-care (01) ==
LOC: ANHLAB 12:19
PROVIDERS: PCP Family Medicine; Visit Provider Nurse Practitioner
DX: K85.90 Acute pancreatitis without necrosis or infection, unspecified (principal); Z78.9 Other specified health status; R10.13 Epigastric pain
CPT/HCPCS: 36415; 80076; 83690

== ENCOUNTER 2023-06-16 00:21 | Day surgery (SDC) | payer OTHER, SELFPAY ==
[2023-06-08 12:48] VITALS: BMI 29.7
--- NOTE | 2023-06-16 08:45 | P.PNAN_ITS ---
Anes - Initial Pre Proc Eval Procedure: Operation Date: 06/16/23 13:00 Proposed Procedures p Esophagogastroduodenoscopy - Ebenezer Colmenares MD Date/Time: 06/16/23 08:45 Surgeon: Ebenezer Colmenares MD Pre Op Diagnosis: Epgastric pain, GERD, Pancreatitis Patient Data Age: 42 Gender: F Height: 1.52 m Weight: 69.05 kg Allergies Allergy/AdvReac Type Severity Reaction Status Date / Time Penicillins Allergy Hives Verified 06/16/23 11:45 Home Medications Medication Instructions Recorded Confirmed Type lisinopril 5 mg tablet 5 mg PO QAM #30 tabs 04/22/23 06/08/23 Rx simvastatin 5 mg tablet 5 mg PO QAM #30 tabs 04/22/23 06/08/23 Rx kytofs-hxojtauv-bicepac 36,000-114,000- 180,000 unit 06/07/23 06/07/23 Sample 36,000-114,000-180,000 unit Capsule,Delayed Release(Dr/Ec)#2 capsule,delay rel (Creon) Samples pantoprazole 40 mg tablet,delayed 40 mg PO QAM #30 tabs 06/07/23 06/08/23 Rx release Patient hx anesthesia problems: none Family hx anesthesia problems: none Results Review: All pre-operative results and documents have been reviewed as part of the pre- operative evaluation. [facility] Past Medical History Medical History (Updated 06/16/23 @ 08:48 by Helder Nuno DO) Anxiety Bloating Depression Dyslipidemia Epigastric pain GERD (gastroesophageal reflux disease) Hypertension Obesity Pancreatitis Tobacco abuse Surgical History Surgical History (Updated 06/16/23 @ 08:48 by Helder Nuno DO) History of tubal ligation Social History Social History Smoking packs per day: 1.5 Smoking cigarettes per day: 30.0 Smoking status: Current every day smoker Tobacco type: cigarettes Second hand tobacco smoke exposure: No Alcohol intake: former Drinks per week: 12 Alcohol use details: one month since had a drink Substance use: former Substance use type: marijuana Other substance usage details: no recent usage Do You Feel Safe in your Home?: Yes Lack of Transportation: No Lack of Food: Never True Current Housing: I Have Housing Concerned About Future Housing: No Difficulty Paying Gas/Electric Bills: No Difficulty Paying for Meds: No Currently Unemployed: No Education: High School Diploma/GED Difficulty w/ Childcare or Family Care: No Living arrangements: with family Spiritual care concerns: No Anes - Eval Final PreProcedure Day of Procedure 06/16/23 08:45 Patient weight: overweight Heart: regular rate and rhythm Lungs: clear to auscultation Airway: Mallampati scale class II Neurological: alert and oriented Last oral intake: >/= 8 hours ASA classification: III Emergent: no Anesthetic plan: proceed Anesthesia type and monitoring: general GIVS and standard monitoring Results Review: All pre-operative results and documents have been reviewed as part of the pre- operative evaluation. Informed Consent: The patient's anesthetic plan and its attendant risks and benefits were discussed with the patient/family/POA. Questions were solicited and answers provided to the satisfaction of the patient/family/POA.
[2023-06-16 11:47] VITALS: BP 152/80; PULSE 84; RESP 16; TEMP 35.9; O2SAT 100
[2023-06-16] MEDS: LACTATED RINGERS 1,000 ML 150 ML IV CONT (11:56)
--- NOTE | 2023-06-16 13:03 | WPDHPUPDATE1 ---
History and Physical Update Update Date/Time: 06/16/23 13:03 History and Physical has been reviewed, including an updated exam of the patient. There are NO changes in the patient's condition. Risks, benefits, and alternatives have been discussed and questions answered. Patient agrees to proceed with procedure.
[2023-06-16 13:20] VITALS: BP 109/66; PULSE 85; RESP 20; O2SAT 100
[2023-06-16 13:30] VITALS: BP 119/78; PULSE 81; RESP 23; O2SAT 100
[2023-06-16 13:40] VITALS: BP 129/84; PULSE 76; RESP 22; O2SAT 100
== END 2023-06-16 13:55 | disposition home or self-care (01) ==
PROVIDERS: PCP Family Medicine; Visit Provider Internal Medicine Gastroenterology
PROC: 0DJ08ZZ Inspection of Upper Intestinal Tract, Via Natural or Artificial Opening Endoscopic (ICD-10-PCS; CPT 43235; principal; 2023-06-16 13:00)
DX: K29.70 Gastritis, unspecified, without bleeding (principal); K21.9 Gastro-esophageal reflux disease without esophagitis; I10 Essential (primary) hypertension; E78.5 Hyperlipidemia, unspecified; F41.9 Anxiety disorder, unspecified; F32.A Depression, unspecified; F17.210 Nicotine dependence, cigarettes, uncomplicated; F12.90 Cannabis use, unspecified, uncomplicated; Z98.890 Other specified postprocedural states
CPT/HCPCS: 43239; 88305; J2001; J2704; J7120

== ENCOUNTER 2023-06-26 13:31 | Emergency (ER) | payer OTHER, SELFPAY ==
--- NOTE | ~2023-06-26 | XR_ITS ---
EXAMINATION: XR chest 2V DATE: 06/26/2023 14:00 INDICATION: Chest pain. TECHNIQUE: Frontal and lateral views of the chest were obtained. COMPARISON: CT abdomen and pelvis 04/20/2023 FINDINGS: There is no pneumonia, pleural effusion, or pneumothorax. The heart size is normal. IMPRESSION: 1. No acute cardiopulmonary disease. Reviewed, dictated and finalized at location E.
[2023-06-26 13:31] VITALS: BP 112/65; PULSE 84; RESP 18; TEMP 37.2; O2SAT 98
[2023-06-26 13:37] VITALS: O2SAT 98
--- NOTE | 2023-06-26 13:38 | ECG_ITS ---
SEE SCANNED COPY FOR CONFIRMED REPORT MTDD
[2023-06-26 13:46] LABS: Basophils Absolute Auto 0.1 K/mm3 (0.0-0.1); Basophils Percent Auto 0.6 % (0.2-1.2); Eosinophils Absolute Auto 0.1 K/mm3 (0-0.3); Eosinophils Percent Auto 0.8 % (0-4.4); Hematocrit 41.2 % (37.0-47.0); Hemoglobin 13.6 g/dL (12.0-15.0); Immature Granulocyte Absolute 0.02 K/mm3 (0.00-0.031); Immature Granulocyte Percent A 0.2 % (0-0.5); Lymphocytes Absolute Auto 5.63 K/mm3 (0.9-3.2); Lymphocytes Percent Auto 47.6 % (18.3-44.2); Mean Corpuscular Hemoglobin 28.6 pg (26-34); Mean Corpuscular Volume 86.7 fl (80-100); Mean Platelet Volume 9.3 fl (7.4-10.4); Monocytes Absolute Auto 0.6 K/mm3 (0.1-0.6); Monocytes Percent Auto 4.8 % (2.6-8.5); Neutrophils Absolute Auto 5.5 K/mm3 (1.3-6.7); Platelet Count Result 318 k/mm3 (150-375); Red Blood Count 4.75 M/mm3 (4.2-5.4); Red Cell Distribution Width 15.2 % (11.5-14.5); White Blood Count 11.8 K/mm3 (4.5-10.0)
[2023-06-26 13:56] LABS: INR 0.9; Prothrombin Time 11.9 Seconds (11.1-14.7)
[2023-06-26 13:57] LABS: Alanine Aminotransferase 29 U/L (6-35); Albumin Level 4.3 g/dL (3.5-5.1); Alkaline Phosphatase 69 U/L (38-126); Anion Gap 14 mmol/L (4-12); Aspartate Amino Transferase 35 U/L (14-36); Bilirubin,Total 0.4 mg/dL (0.2-1.3); Blood Urea Nitrogen 9 mg/dL (7-17); Calcium 9.2 mg/dL (8.4-10.2); Carbon Dioxide 17 mmol/L (22-30); Chloride 110 mmol/L (98-107); Estimated CRCL calculation 74 ml/min; Estimated Glomerular Filt Rate > 60; Glucose 118 mg/dL (65-110); Lipase 369 U/L (23-300); Partial Thromboplastin Time 28.5 Seconds (22.3-36.8); Potassium 3.8 mmol/L (3.4-5.0); Sodium 141 mmol/L (137-145)
--- NOTE | 2023-06-26 14:03 | ED.CHESTPAIN ---
HPI - Chest Pain General Chief Complaint: Chest Pain Stated Complaint: CP Time Seen by Provider: 06/26/23 13:34 History of Present Illness HPI narrative: Patient is a 42 year old female with history of pancreatitis, chronic ETOH use here with reported chest pain and alcohol use. Patient is unsure of why she is here. She was reportedly complaining of chest pain earlier today, EMS was called, she was picked up smoking a cigarette on her front porch. When asked, she does note maybe she has some chest pain, mid sternal, non radiating. She notes she has chest pain all the time. She also feels some abdominal pain, located in the epigastrium, also chronic in nature and usually worsens when she drinks. She does note she drank alcohol today. When attempting to ask further questions she states I don't want to talk about it. Related Data Allergies Allergy/AdvReac Type Severity Reaction Status Date / Time Penicillins Allergy Hives Verified 06/16/23 11:45 Review of Systems Review of Systems: All systems reviewed & are unremarkable except as noted in HPI and below PMFSH Past Medical History Medical History (Updated 06/26/23 @ 15:33 by Barbi Guerrero MD) Anxiety Bloating Depression Dyslipidemia Epigastric pain GERD (gastroesophageal reflux disease) Hypertension Obesity Pancreatitis Tobacco abuse Surgical History Surgical History (Updated 06/16/23 @ 08:48 by Helder Nuno DO) History of tubal ligation Social History Social History Smoking packs per day: 1.5 Smoking cigarettes per day: 30.0 Smoking status: Current every day smoker Tobacco type: cigarettes Second hand tobacco smoke exposure: No Alcohol intake: former Drinks per week: 12 Alcohol use details: one month since had a drink Substance use: former Substance use type: marijuana Other substance usage details: no recent usage Do You Feel Safe in your Home?: Yes Lack of Transportation: No Lack of Food: Never True Current Housing: I Have Housing Concerned About Future Housing: No Difficulty Paying Gas/Electric Bills: No Difficulty Paying for Meds: No Currently Unemployed: No Education: High School Diploma/GED Difficulty w/ Childcare or Family Care: No Living arrangements: with family Spiritual care concerns: No Exam Narrative: GENERAL: Well-appearing, well-nourished, and in no acute distress. HEAD: Normocephalic, atraumatic. EYES: PERRLA and EOMI. ENT: Nares clear. Mucous membranes moist. NECK: Supple. CHEST: Clear to auscultation. No respiratory distress. HEART: Regular rate and rhythm. Normal peripheral pulses. ABDOMEN: Soft, minimally tender in epigastrium without rebound or guarding, nondistended. EXTREMITIES: Normal range of motion. No edema. SKIN: Warm, dry, no rash. NEURO: No focal deficits. Alert and oriented x3. PSYCH: Normal mood and affect. Course Course Emergency Course: Chart review performed. Patient here with chest pain since 1 AM, + ETOH. Triage vitals normal. Patient seen evaluated, nontoxic appearing. She initially has no complaints after me why she ended up in the emergency department. It does appear on prior H&P that she has a history of GERD, EtOH abuse. She notes maybe she had some vague chest pain, does not really want adult any additional information. Cardiac workup is in process. Lab work and imaging reviewed, CBC grossly unremarkable, electrolytes grossly unremarkable. Troponin negative. Minimally elevated lipase at 369, this is around her baseline in our system from last visit. Patient would like to leave at this time, will attempt to find sober ride. Currently chest pain free. The results of pertinent diagnostic studies and exam findings were discussed. The patient?s provisional diagnosis and plan of care were discussed with the patient and present family. The patient and/or present family expressed understanding
[2023-06-26 14:09] LABS: Troponin I < 0.012 ng/mL (0.000-0.034)
[2023-06-26 15:13] VITALS: BP 98/73; PULSE 68; RESP 16; O2SAT 99
== END 2023-06-26 16:08 | disposition home or self-care (01) ==
PROVIDERS: Emergency Provider Student in an Organized Health Care Education/Training Program; PCP Family Medicine
DX: R07.89 Other chest pain (principal); R10.13 Epigastric pain; I10 Essential (primary) hypertension; E78.5 Hyperlipidemia, unspecified; E66.9 Obesity, unspecified; Z68.32 Body mass index [BMI] 32.0-32.9, adult; K21.9 Gastro-esophageal reflux disease without esophagitis; F17.210 Nicotine dependence, cigarettes, uncomplicated
CPT/HCPCS: 36415; 71046; 80053; 83690; 84484; 85025; 85610; 85730; 93005; 99284

== ENCOUNTER 2023-07-08 06:39 | Outpatient (CLI) | payer OTHER, SELFPAY ==
--- NOTE | ~2023-07-08 | MR_ITS ---
EXAMINATION: MR MRCP wo/w con/w 3D wo ind DATE: 07/08/2023 07:47 INDICATION: Acute pancreatitis without necrosis. Epigastric abdominal pain. TECHNIQUE: Magnetic resonance imaging (MRI) of the abdomen was performed without and with 13 mL Multi Pipo intravenous contrast. Sequences included coronal T2-weighted FS FSE, coronal T2-weighted FSE, a xial T1-weighted LAVA, coronal FS FIESTA, axial dual-echo T1-weighted SPGR, coronal lava-FLEX, sagitt al T2-weighted FSE, axial T2-weighted FSE, and axial DWI. Thick-slab T2-weighted FSE images were obta ined for magnetic resonance cholangiopancreatography (MRCP). Maximum intensity projection 3-D reconst ructions of the volumetric data were created by the technologist. Postcontrast sequences included cor onal LAVA-flex and time course of axial T1-weighted LAVA. COMPARISON: CT abdomen and pelvis 04/20/2023 FINDINGS: ABDOMEN MRI: The liver is normal. The gallbladder is normal in size. There is fat stranding adjacent to the head of the pancreas. There is an 8 mm acute peripancreatic fluid collection in the head of th e pancreas. The spleen and adrenal glands are normal. There are cysts in the kidneys measuring up to 6 mm on the right. There are no dilated loops of bowel. ABDOMEN MRCP: The common duct is normal and measures 4 mm. No choledocholithiasis. IMPRESSION: 1. Acute interstitial pancreatitis again seen. 2. Normal common duct. No choledocholithiasis. Reviewed, dictated and finalized at location A.
== END 2023-07-08 06:40 | disposition home or self-care (01) ==
PROVIDERS: PCP Family Medicine; Visit Provider Nurse Practitioner
DX: K86.1 Other chronic pancreatitis (principal); K85.90 Acute pancreatitis without necrosis or infection, unspecified; R14.0 Abdominal distension (gaseous)
CPT/HCPCS: 74183; 76376; A9577

== ENCOUNTER 2023-11-03 14:49 | Emergency (ER) | payer OTHER, SELFPAY ==
--- NOTE | ~2023-11-03 | XR_ITS ---
EXAM: XR elbow LT min 3V DATE: 11/03/2023 15:45 HISTORY: fall . COMPARISON: None available. FINDINGS: Normal mineralization. No fracture or dislocation. No lytic or blastic lesion. Joint space s are maintained. No erosion or periosteal change. Soft tissues within normal limits. IMPRESSION: Normal left elbow radiograph findings. Reviewed, dictated and finalized at location K.
--- NOTE | ~2023-11-03 | CT_ITS ---
EXAMINATION: CT abdomen pelvis w con DATE: 11/03/2023 16:59 INDICATION: Epigastric pain. TECHNIQUE: Computed tomography (CT) of the abdomen and pelvis was performed with 100 mL Omnipaque-350 intravenous contrast. Automated exposure control and iterative reconstruction technique were employe d. The dose-length product was 403.75 mGy-cm. COMPARISON: None FINDINGS: Lung bases are clear. Heart size normal. No pericardial or pleural effusion. Focal hepatic steatosis at the ligamentum teres. Gallbladder, spleen, bilateral adrenal glands and left kidney are normal. Th ere are couple subcentimeter low-attenuation right renal cysts. There is inflammatory stranding stran ding between the duodenum and the head of the pancreas suspicious for acute interstitial pancreatitis versus duodenitis or peptic ulcer disease. No significant change in a 11 x 8 mm cystic lesion at the head of the pancreas likely pseudocyst related to prior chronic pancreatitis. Bowels including the a ppendix are normal. Bladder is normal. The millimeter nabothian cyst at the cervix. There are likely tubal ligation rings near the bilateral uterine cornua. 1.5 cm right ovarian cyst/follicle. No free i ntraperitoneal gas or fluid. No pathologically enlarged abdominal or pelvic lymphadenopathy. Bones ar e unremarkable. IMPRESSION: 1. Similar pattern of acute interstitial pancreatitis with no significant change in the left leg no m atter cystic lesion at the head of the pancreas most likely a pseudocyst related to prior pancreatiti s. Reviewed, dictated and finalized at location A. IMPRESSION: 1. Similar pattern of acute interstitial pancreatitis with no significant link e in the left leg no matter cystic lesion at the head of the pancreas most like ly a pseudocyst related to prior pancreatitis.
[2023-11-03 14:53] VITALS: BP 160/98; PULSE 94; RESP 19; TEMP 36.6; O2SAT 98
[2023-11-03 16:25] LABS: Basophils Absolute Auto 0.1 K/mm3 (0.0-0.1); Basophils Percent Auto 0.5 % (0.2-1.2); Eosinophils Percent Auto 0.3 % (0-4.4); Hematocrit 40.9 % (37.0-47.0); Hemoglobin 14.1 g/dL (12.0-15.0); Immature Granulocyte Absolute 0.04 K/mm3 (0.00-0.031); Immature Granulocyte Percent A 0.3 % (0-0.5); Lymphocytes Absolute Auto 3.27 K/mm3 (0.9-3.2); Lymphocytes Percent Auto 25.3 % (18.3-44.2); Mean Corpuscular HGB Conc 34.5 g/dl (32-36); Mean Corpuscular Hemoglobin 30.2 pg (26-34); Mean Corpuscular Volume 87.6 fl (80-100); Monocytes Absolute Auto 0.7 K/mm3 (0.1-0.6); Monocytes Percent Auto 5.2 % (2.6-8.5); Neutrophils Absolute Auto 8.8 K/mm3 (1.3-6.7); Neutrophils Percent Auto 68.4 % (45.5-73.1); Platelet Count Result 275 k/mm3 (150-375); Red Blood Count 4.67 M/mm3 (4.2-5.4); Red Cell Distribution Width 16.5 % (11.5-14.5); White Blood Count 12.9 K/mm3 (4.5-10.0)
[2023-11-03 16:25] LABS: BEDSIDEPREGUCG Negative
--- NOTE | 2023-11-03 16:26 | ED.ABDPAIN ---
HPI - Abdominal Pain General Chief Complaint: Abdominal Pain Stated Complaint: abdominal pain Time Seen by Provider: 11/03/23 15:11 History of Present Illness HPI narrative: Patient is a 42-year-old female with a history of alcohol use disorder, pancreatitis, IBS presenting with abdominal pain. Patient states that she has had worsening epigastric and left upper quadrant abdominal pain for the last 2 days. States that she has been unable to tolerate anything by mouth. She is concerned pancreatitis is acting up. States that she also has a swollen left elbow after her dog knocked her over last night. No fevers, chest pain, shortness of breath, cough, dysuria, leg swelling. Related Data Home Medications Medication Instructions Recorded Confirmed quetiapine 100 mg tablet (Seroquel) 100 mg PO BID 09/30/23 09/30/23 Allergies Allergy/AdvReac Type Severity Reaction Status Date / Time Penicillins Allergy Hives Verified 11/03/23 14:56 Review of Systems Review of Systems: All systems reviewed & are unremarkable except as noted in HPI and below PMFSH Past Medical History Medical History Anxiety Bloating Depression Dyslipidemia Epigastric pain GERD (gastroesophageal reflux disease) Hypertension Obesity Pancreatitis Tobacco abuse Surgical History Surgical History History of tubal ligation Social History Social History Smoking packs per day: 1.5 Smoking cigarettes per day: 30.0 Smoking status: Current every day smoker Tobacco type: cigarettes Second hand tobacco smoke exposure: No Alcohol intake: former Drinks per week: 12 Alcohol use details: one month since had a drink Substance use: former Substance use type: marijuana Other substance usage details: no recent usage Do You Feel Safe in your Home?: Yes Lack of Transportation: No Lack of Food: Never True Current Housing: I Have Housing Concerned About Future Housing: No Difficulty Paying Gas/Electric Bills: No Difficulty Paying for Meds: No Currently Unemployed: No Education: High School Diploma/GED Difficulty w/ Childcare or Family Care: No Living arrangements: with family Spiritual care concerns: No Exam Narrative: GENERAL: In no acute distress, nontoxic, pleasant cooperative HEAD: Normocephalic, atraumatic. EYES: PERRLA and EOMI. ENT: Mucous membranes moist. NECK: Supple. CHEST: Clear to auscultation. No respiratory distress. HEART: Regular rate and rhythm ABDOMEN: Soft, + right upper quadrant, epigastric, left upper quadrant tenderness, no guarding or rebound EXTREMITIES: Left elbow is swollen, ROM limited 2/2 pain SKIN: Warm, dry. Superficial abrasions to lateral aspect of left lower extremity NEURO: No focal deficits. Alert and oriented x3. PSYCH: Normal mood and affect. Course Vital Signs Vital signs: Vital Signs Temperature 97.8 F 11/03/23 14:53 Pulse Rate 94 11/03/23 14:53 Respiratory Rate 19 11/03/23 14:53 Blood Pressure 160/98 H 11/03/23 14:53 Pulse Oximetry 98 11/03/23 14:53 Oxygen Delivery Room Air 11/03/23 14:53 Temperature 98.1 F 11/03/23 17:05 Pulse Rate 80 11/03/23 17:05 Respiratory Rate 18 11/03/23 17:05 Blood Pressure 158/100 H 11/03/23 17:05 Pulse Oximetry 100 11/03/23 17:05 Oxygen Delivery Room Air 11/03/23 14:53 MDM - Abdominal Pain MDM Narrative Medical decision making narrative: 42-year-old female presenting with abdominal pain and elbow pain. Vitals are stable. Exam remarkable for the above. Elbow x-ray shows no fractures. Blood work with mild leukocytosis. Lipase is normal. CT abdomen pelvis confirms acute interstitial pancreatitis without complication. UA is unremarkable. Patient is feeling better following IV medications. She would like to
[2023-11-03 16:39] LABS: Add Urine Microscopic? YES; Appearance Urine Clear (Clear); Bacteria Urine None Seen /hpf; Bilirubin Urine Negative (Negative); Blood Urine Negative (Negative); Color Urine Yellow (Yellow); Glucose Urine UA Negative (Negative); Ketones Urine Negative (Negative); Leukocyte Esterase Ur Negative LEU/UL (Negative); Nitrate Urine Negative (Negative); Non Pathogenic Casts 0-2; Protein Urine 1+ mg/dL (Negative); RBC Urine 0-2 /hpf (0-2); Specific Grav Ur 1.029 (1.001-1.035); Squamous Epithelial Cell Urine Few /hpf (Few); WBC Urine 0-5 /hpf (0-3)
[2023-11-03 16:40] LABS: Alanine Aminotransferase 23 U/L (6-35); Albumin Level 4.5 g/dL (3.5-5.1); Alkaline Phosphatase 76 U/L (38-126); Anion Gap 14 mmol/L (4-12); Aspartate Amino Transferase 30 U/L (14-36); Bilirubin,Total 0.3 mg/dL (0.2-1.3); Blood Urea Nitrogen 17 mg/dL (7-17); Calcium 8.4 mg/dL (8.4-10.2); Carbon Dioxide 25 mmol/L (22-30); Chloride 99 mmol/L (98-107); Estimated CRCL calculation 79 ml/min; Estimated Glomerular Filt Rate > 60; Glucose 89 mg/dL (65-110); Lipase 237 U/L (23-300); Potassium 4.5 mmol/L (3.4-5.0); Sodium 138 mmol/L (137-145)
[2023-11-03] MEDS: ONDANSETRON INJ 4 MG/2 ML VIAL IV PUSH (17:03)
[2023-11-03] MEDS: HYDROmorphone HCL INJ (*CRX) 1 MG/ML SYR IV PUSH (17:03)
[2023-11-03] MEDS: SODIUM CHLORIDE 0.9% IV 1,000 ML 999 ML IV CONT (17:03)
[2023-11-03 17:05] VITALS: BP 158/100; PULSE 80; RESP 18; TEMP 36.7; O2SAT 100
--- NOTE | 2023-11-03 18:17 | PC.NURSE ---
Patient ambulated to the restroom with steady gate
--- NOTE | 2023-11-03 18:34 | PC.NURSE ---
Patient given jello and ice chips per verbal order from provider for PO challenge
== END 2023-11-03 19:03 | disposition home or self-care (01) ==
PROVIDERS: Emergency Provider Emergency Medicine; PCP Family Medicine
DX: K86.1 Other chronic pancreatitis (principal); S59.902A Unspecified injury of left elbow, initial encounter; I10 Essential (primary) hypertension; E78.5 Hyperlipidemia, unspecified; K21.9 Gastro-esophageal reflux disease without esophagitis; F41.9 Anxiety disorder, unspecified; F32.A Depression, unspecified; F17.210 Nicotine dependence, cigarettes, uncomplicated; W01.0XXA Fall on same level from slipping, tripping and stumbling without subsequent striking against object, initial encounter
CPT/HCPCS: 36415; 73080; 74177; 80053; 81001; 81025; 83690; 85025; 96361; 96374; 96375; 99285; J1170; J2405; J7030; Q9967

== ENCOUNTER 2023-12-08 14:41 | Outpatient (CLI) | payer OTHER, SELFPAY ==
--- NOTE | ~2023-12-08 | MM_ITS ---
EXAMINATION: MM screening rosaline BI w sania HISTORY: Screening TECHNIQUE: Craniocaudal and mediolateral oblique 3-D tomosynthesis images were obtained and synthetic 2-D images were generated. CAD analysis was submitted and interpreted. COMPARISON: No prior mammogram is available for comparison at this institution. BREAST PARENCHYMAL COMPOSITION: Not dense: There are scattered areas of fibroglandular density. FINDINGS: There is no evidence of suspicious mass, calcification, or architectural distortion to sugg est malignancy in either breast. There has been no suspicious interval change. IMPRESSION: 1. No mammographic evidence of malignancy. 2. Recommend routine screening mammography in one year. BI-RADS Category 1: Negative Reviewed, dictated and finalized at location B.
== END 2023-12-08 14:42 | disposition home or self-care (01) ==
PROVIDERS: PCP Family Medicine; Visit Provider Family Medicine
DX: Z12.31 Encounter for screening mammogram for malignant neoplasm of breast (principal)
CPT/HCPCS: 77063; 77067

== ENCOUNTER 2024-01-27 03:56 | Emergency (ER) | payer OTHER, SELFPAY ==
--- NOTE | ~2024-01-27 | XR_ITS ---
Right wrist Technique: PA, oblique, lateral, and ulnar deviation views were obtained. Clinical History: Pain Findings: No acute fracture or dislocation is seen. Osseous alignment is anatomic. Joint spaces are p reserved. Soft tissues are unremarkable. Impression: Unremarkable right wrist radiographs. Reviewed, dictated and finalized at location . WELDER Impression: Unremarkable right wrist radiographs.
--- NOTE | ~2024-01-27 | XR_ITS ---
Left wrist Technique: PA, oblique, lateral, and ulnar deviation views were obtained. Clinical History: Pain Findings: No acute fracture or dislocation is seen. Osseous alignment is anatomic. Joint spaces are p reserved. Soft tissues are unremarkable. Impression: Unremarkable left wrist radiographs. Reviewed, dictated and finalized at location . N EXPORT ACCOUNT MANAGER Impression: Unremarkable left wrist radiographs.
[2024-01-27 04:04] VITALS: BP 130/99; PULSE 102; RESP 18; TEMP 36.8; O2SAT 100
--- NOTE | 2024-01-27 04:19 | ED.GENADULT ---
HPI - General Adult General Chief complaint: Extremity Injury, Upper Stated complaint: bilateral wrist swelling since 01/23 Time Seen by Provider: 01/27/24 04:09 History of Present Illness HPI narrative: patient is a 43-year-old female who presents emergency department with chief complaint of wrist pain patient states that she has been having pain since Tuesday reports that she has pain on the radial side of bilateral wrist the patient reports no trauma other than the fact that she has been building boxes in a warehouse. Related Data Home Medications Medication Instructions Recorded Confirmed quetiapine 100 mg tablet (Seroquel) 100 mg PO BID 09/30/23 09/30/23 Allergies Allergy/AdvReac Type Severity Reaction Status Date / Time Penicillins Allergy Hives Verified 01/27/24 04:08 Review of Systems Review of Systems: A 10 system review of systems was completed on the patient and is negative except for what is stated in the HPI. Nursing and ancillary documentation was reviewed. [facility] Past Medical History Medical History Anxiety Bloating Depression Dyslipidemia Epigastric pain GERD (gastroesophageal reflux disease) Hypertension Obesity Pancreatitis Tobacco abuse Surgical History Surgical History History of tubal ligation Social History Social History Smoking packs per day: 1.5 Smoking cigarettes per day: 30.0 Smoking status: Current every day smoker Tobacco type: cigarettes Second hand tobacco smoke exposure: No Alcohol intake: former Drinks per week: 12 Alcohol use details: one month since had a drink Substance use: former Substance use type: marijuana Other substance usage details: no recent usage Do You Feel Safe in your Home?: Yes Lack of Transportation: No Lack of Food: Never True Current Housing: I Have Housing Concerned About Future Housing: No Difficulty Paying Gas/Electric Bills: No Difficulty Paying for Meds: No Currently Unemployed: No Education: High School Diploma/GED Difficulty w/ Childcare or Family Care: No Living arrangements: with family Spiritual care concerns: No Exam Narrative: GENERAL: Well-appearing, well-nourished, and in no acute distress. HEAD: Normocephalic, atraumatic. EYES: PERRLA and EOMI. ENT: Nares clear, no rhinorrhea or epistaxis. Mucous membranes moist. NECK: Supple. CHEST: Clear to auscultation. No respiratory distress. HEART: Regular rate and rhythm. No murmur heard. Normal peripheral pulses. ABDOMEN: Soft, nontender, nondistended, normal active bowel sounds. EXTREMITIES: Normal range of motion Tenderness to palpation on the radial aspect of bilateral wrist. No edema. SKIN: Warm, dry, no rash. NEURO: No focal deficits. Alert and oriented x3. PSYCH: Normal mood and affect. Course Vital Signs Vital signs: Vital Signs Temperature 36.8 C 01/27/24 04:04 Pulse Rate 102 H 01/27/24 04:04 Respiratory Rate 18 01/27/24 04:04 Blood Pressure 130/99 H 01/27/24 04:04 Pulse Oximetry 100 01/27/24 04:04 Oxygen Delivery Room Air 01/27/24 04:04 Temperature 36.8 C 01/27/24 04:04 Pulse Rate 102 H 01/27/24 04:04 Respiratory Rate 18 01/27/24 04:04 Blood Pressure 130/99 H 01/27/24 04:04 Pulse Oximetry 100 01/27/24 04:04 Oxygen Delivery Room Air 01/27/24 04:04 Medical Decision Making MDM Narrative Medical decision making narrative: differential diagnosis includes fracture, sprain plain film x-ray showed no evidence of fracture Vital Signs Vital Signs: Vital Signs Temperature 36.8 C 01/27/24 04:04 Pulse Rate 102 H 01/27/24 04:04 Respiratory Rate 18 01/27/24 04:04 Blood Pressure 130/99 H 01/27/24 04:04 Pulse Oximetry 100 01/27/24 04:04 Oxygen Delivery Room Air 01/27/24 04:04 Temperature 36.8 C 01/27/24 04:04 Pulse Rate 102 H 01/27/24 04:04 Respiratory Rate 18 01/27/24 04:04 Blood Pressure 130/99 H 01/27/24 04:04 Pulse Oximetry 100 01/27/24 04:04 Oxygen Delivery Room Air 01/27/24 04:04 Discharge Plan Discharge Clinical Impression: Muscle strain of left wrist, Muscle strain of right wrist Patient Disposition: Home, Self-Care Condition: Stable Instructions: Antibiotic Form, Wrist Sprain (ED) Prescriptions: New diclofenac potassium 50 mg tablet 50 mg PO TID PRN (Reason: pain) Qty: 30 0RF No Action [id number] [Creon] 36,000-114,000- 180,000 unit capsule,delayed release(DR/EC) 0RF quetiapine [Seroquel] 100 mg tablet 100 mg PO BID pantoprazole 40 mg tablet,delayed release (DR/EC) 40 mg PO BID 90 Days Qty: 180 3RF Creon 36,000-114,000- 180,000 unit capsule,delayed release(DR/EC) 2 cap PO QID Qty: 300 11RF Rx Instructions: administer with meals and/or snacks hydrocodone-acetaminophen 5-325 mg tablet 1 tablet PO Q8H PRN (Reason: pain) Qty: 10 0RF ondansetron 4 mg tablet,disintegrating 4 mg PO Q8H PRN (Reason: nausea and vomiting) Qty: 20 0RF simvastatin 5 mg Tablet 5 mg PO QAM Qty: 30 0RF lisinopril 5 mg Tablet 5 mg PO QAM Qty: 30 0RF dicyclomine 20 mg tablet 20 mg PO .every 6 hours PRN Qty: 90 3RF Follow-up/Referrals: Batsheva,Altagracia Cruz MD [Primary Care Provider] - Time of Disposition: 05:03
[2024-01-27] MEDS: IBUPROFEN 400 MG TABLET 800 MG PO (05:07)
== END 2024-01-27 05:11 | disposition home or self-care (01) ==
PROVIDERS: Emergency Provider Emergency Medicine; PCP Family Medicine
DX: S66.912A Strain of unspecified muscle, fascia and tendon at wrist and hand level, left hand, initial encounter (principal); S66.911A Strain of unspecified muscle, fascia and tendon at wrist and hand level, right hand, initial encounter; I10 Essential (primary) hypertension; E78.5 Hyperlipidemia, unspecified; E66.9 Obesity, unspecified; Z68.28 Body mass index [BMI] 28.0-28.9, adult; K21.9 Gastro-esophageal reflux disease without esophagitis; F32.A Depression, unspecified; F41.9 Anxiety disorder, unspecified; F17.210 Nicotine dependence, cigarettes, uncomplicated; Z79.899 Other long term (current) drug therapy; X58.XXXA Exposure to other specified factors, initial encounter
CPT/HCPCS: 73110; 99284; A9270

== ENCOUNTER 2024-08-01 06:34 | Outpatient (CLI) | payer MEDICAID, SELFPAY ==
--- NOTE | ~2024-08-01 | MR_ITS ---
EXAMINATION: MR MRCP wo/w con/w 3D wo ind DATE: 08/01/2024 08:05 INDICATION: Disease of stomach and duodenum.. Alcohol and his pancreatitis and epigastric pain TECHNIQUE: Magnetic resonance imaging (MRI) of the abdomen was performed without and with 15 mL Multi chasity intravenous contrast. Sequences included coronal T2-weighted SS-FSE, coronal T2-weighted FS SS- FSE, coronal T2-weighted FS FIESTA, axial T2-weighted FS FIESTA, axial T2-weighted FIESTA, sagittal T 2-weighted SS-FSE, axial T1-weighted dual-echo FSPGR, axial T2-weighted SS-FSE, axial T1-weighted LAV A, axial T2-weighted STIR FSE. Thick-slab T2-weighted FRFSE-XL images were obtained for magnetic reso nance cholangiopancreatography (MRCP). Rotating maximum intensity projection 3-D reconstructions of t he volumetric data were created by the technologist. Postcontrast sequences included a time course of axial T1-weighted LAVA. COMPARISON: CT dated 11/03/2023 and MRI/MRCP dated 07/08/2023 FINDINGS: ABDOMEN MRI: Heart size is normal. No pericardial or pleural effusion. Liver, gallbladder, spleen, bi lateral adrenal glands and left kidney are normal. There are couple T2 hyperintense nonenhancing cyst s in the right kidney measuring up to 10 mm. Again seen is a small nonenhancing T2 hyperintense cysti c region at the anterior head of the pancreas along side the duodenum which previously measured 10 x 8 mm on the prior MRI and currently measures 12 x 5 mm. Pancreas is otherwise normal enhancement with homogeneous parenchymal enhancement no interstitial or peripancreatic edema. ABDOMEN MRCP: No intra-axial hepatic biliary ductal dilation. The common bile duct measures up to 3 mm in maximal d iameter, tapering distally with no intraluminal filling defects to suggest choledocholithiasis. Main pancreatic duct is also normal. IMPRESSION: 1. No significant interval change in a previously 10 x 8, currently 12 x 5 mm nonenhancing cystic les ion at the anterior to the pancreas most likely pseudocysts related to prior pancreatitis. 2. Unremarkable MRCP with no intra or extra hepatic biliary ductal dilation and no cholelithiasis/cho ledocholithiasis. Reviewed, dictated and finalized at location A. IMPRESSION: 1. No significant interval change in a previously 10 x 8, currently 12 x 5 mm n onenhancing cystic lesion at the anterior to the pancreas most likely pseudocys ts related to prior pancreatitis. 2. Unremarkable MRCP with no intra or extra hepatic biliary ductal dilation and no cholelithiasis/choledocholithiasis.
--- OUTSIDE RECORDS SUMMARY | 2024-08-01 06:38 | XMS_ITS | Clinical Summary ---
Author Organization [facility] Address [address] [address] Care Team Providers Care Federal Appellate Law Clerk Name Role Phone Altagracia Briones MD Primary Care Provider [phone] Source Comments [facility],non-owned Affiliates and Associated Physician Practices is amultiple site organization consisting of ambulatory clinics and hospital sitesin [place], [place], [place] and [place]. This disclosure is being madepursuant to the Care Everywhere program and may not contain all information available regarding this patient. Last updated 17.[facility] Allergies Active Allergy Reactions Criticality Noted Date Comments Penicillins Rash Low 11/08/2007 Sulfa Drugs Anaphylaxis High 03/01/2015 Medications * This document contains information received from the source organization and may not represent a complete record from that organization. * Be aware that medications may not be up to date on this document. Alwaysverify current medications with the patient. pancrelipase (Creon 36,000) [id number] units capsuleIndicatio ns:Pancreatic Insufficiency Take 2 (two) capsules by mouth 4 times daily with meals Reasons: Pancreatic Insufficiency Active dicyclomine (Bentyl) 20 MG tabletIndication s:Irritable Bowel Syndrome Take 1 (one) tablet by mouth as needed (prn EVERY HOURS NEEDED FOR ABDOMINAL PAIN) Reasons: Irritable Bowel Syndrome Active pantoprazole EC (Protonix) 40 MG tabletIndication s:Dyspepsia Take 1 (one) tablet by mouth 2 times daily Reasons: Indigestion Active ferrous sulfate 325 (65 FE) MG tabletIndication s:Iron Deficiency Take 1 (one) tablet by mouth every 2 days Reasons: Iron Deficiency Active ergocalciferol (Drisdol) 200 MCG (8000 UNITS)/ML dropsIndications :Osteoporosis Take 1.5 mL by mouth every 7 days mondays Reasons: Osteoporosis Active hydrOXYzine HCl (Atarax) 50 MG tablet TAKE 1 (ONE) TABLET BY MOUTH EVERY 6 HOURS NEEDED (ANXIETY) REASONS: FEELING ANXIOUS 60 tablet 1 09/08/19 24 025 Active atorvastatin (Lipitor) 10 MG tablet TAKE 1 (ONE) TABLET BY MOUTH AT BEDTIME REASONS: HIGH AMOUNT OF TRIGLYCERIDES IN THE BLOOD 30 tablet 1 09/08/19 24 025 Active lisinopril (Prinivil; Zestril) 5 MG tablet TAKE 1 (ONE) TABLET BY MOUTH ONCE DAILY REASONS: HIGH BLOOD PRESSURE DISORDER 30 tablet 1 09/08/19 24 025 Active sucralfate (Carafate) 1 GM tablet TAKE 1 (ONE) TABLET BY MOUTH 4 TIMES DAILY - BEFORE MEALS & NIGHTLY REASONS: GASTROESOPHAGEAL REFLUX DISEASE 120 tablet 09/08/19 24 025 Active Additional Information Patient not taking.Reason: Provider adjusted, Reported on 12/04/2023 bacitracin ointment Apply to affected area 3 times daily 1 g 12/05/19 24 Active naltrexone (Revia) 50 MG tablet Take 0.5 (one-half) tablet by mouth once daily 30 tablet 2 4 11:21 AM CDT 12/07/19 Active QUEtiapine (SEROquel) 100 MG tablet Take 1 (one) tablet by mouth at bedtime 30 tablet 2 4 11:21 AM CDT 12/06/19 24 Active Active Problems Problem Noted Date Diagnosed Date Fall, initial encounter 12/04/2023 Suicidal ideations 12/04/2023 Mixed hyperlipidemia 12/04/2023 Primary hypertension 12/04/2023 Gastroesophageal reflux disease without esophagi tis 12/04/2023 Acute encephalopathy 12/04/2023 Severe episode of recurrent major depressive disorder, without psychotic features 09/05/2023 Acute alcoholic intoxication without complicatio n 01/12/2021 Depression 10/10/2020 Alcohol withdrawal syndrome without complication 10/10/2020 Alcohol abuse 05/31/2012 Depression with anxiety 05/31/2012 Resolved Problems Problem Noted Date Diagnosed Date Resolved Date Leukocytosis, unspecified type 12/04/2023 12/05/2023 Wheezing 10/10/2020 12/05/2023 Lactic acidosis 10/10/2020 12/05/2023 Acute renal failure 05/31/2012 12/05/19 24 Acute pyelonephritis 05/31/2012 024 Immunizations Immunization Administration Dates Next Due HEP A VACCINE, ADULT 06/11/2017 Family History Relation Name Status Comments Father Alive high cholestero l Mother Alive Social History Tobacco Use Types Packs/Day Years Used Date Smoking Tobacco: Every Day Cigarettes 0.5 12 Smokeless Tobacco: Never Tobacco Cessation:Ready to Q uit: Not Asked; Counseling Given: Not Answered Alcohol Use Standard Drinks/Week Comments Yes 7 (1 standard drink = 0.6 oz pure alcohol) Drinks everyday- states a lot AUDIT-C Answer Date Recorded Q1: How often do you have a drink containing alcohol? 4 or more times a week 12/04/2023 Q2: How many drinks containi ng alcohol do you have on a typical day when you are drinking? 5 or 6 Q3: How often do you have si x or more drinks on one occasion? Daily or almost daily 12/04/2023 Overall Financial Resource Strain (CARDIA) Answe r Date Recorded How hard is it for you to pa y for the very basics like food, housing, medical care, and heating? Somewhat hard 12/05/2023 [facility] - Occupational Stress Questionnaire Answer Date Recorded Do you feel stress - tense, restless, nervous, or anxious, or unable to sleep at night because your mind is troubled all the time - these days? Very much 12/05/2023 Hunger Vital Sign Answer Date Recorded Within the past 12 months, y ou worried that your food would run out before you got the money to buy more. Sometimes true Within the past 12 months, t he food you bought just didn't last and you didn't have money to get more. Sometimes true PRAPARE - Transportation Answer Date Re corded In the past 12 months, has l ack of transportation kept you from medical appointments or from getting medications? Yes 11/13 In the past 12 months, has l ack of transportation kept you from meetings, work, or from getting things needed for daily living? Yes 12/05/2023 Housing Stability Vital Sign Answer Naresh e Recorded In the last 12 months, was t here a time when you were not able to pay the mortgage or rent on time? Yes 12/05/2023 In the last 12 months, how many places have you lived? 1 12/05/2023 In the last 12 months, was t here a time when you did not have a steady place to sleep or slept in a long term (including now)? No 12/05/2023 Comments No Sex and Gender Information Value Date Recorded Sex Assigned at Not on file Legal Sex Female 10:13 AM CDT Gender Identity Not on file Sexual Orientation Not on file Last Filed Vital Signs Vital Sign Reading Time Taken Comments Blood Pressure 142/99 02/09/2024 1:51 PM RECEIVABLE MANAGER Pulse 92 02/09/2024 1:51 PM RECEIVABLE MANAGER Temperature 36.6 C (97.9 F) 02/09/2024 1:51 PM RECEIVABLE MANAGER Respiratory Rate 18 02/09/2024 1:51 PM RECEIVABLE MANAGER Oxygen Saturation 100% 02/09/2024 1:51 PM RECEIVABLE MANAGER Inhaled Oxygen Concentration - - Weight 65 kg (143 lb 4.8 oz) 12/04/2023 9:13 PM CDT Height 152.4 cm (5') 12/04/2023 9:13 PM CDT Body Mass Index 27.99 12/04/2023 9:13 PM CDT Plan of Treatment Health Maintenance Due Date Last Done Comments MAMMOGRAM 1982 DTAP/TDAP/TD VACCINES (1 - Tdap) 2001 HEPATITIS B VACCINE (1 of 3 - 19+ 3-dose series) 2001 PNEUMOCOCCAL VACCINE (1 of 2 - PCV) 2001 HEPATITIS A VACCINE (2 of 2 - Risk 2-dose series) 12/11/2017 06/11/2017 PAP SMEAR 03/28/2022 03/28/2019 COVID-19 VACCINE (2 - 2023-2 5 season) 2023 03/01/2021 DEPRESSION SCREENING 03/14/2024 INFLUENZA VACCINE (Season Ended) 2024 04/22/2023, 12/11/2018 ZOSTER VACCINE (1 of 2) 2032 HIV SCREENING Completed 10/10/2020 HEPATITIS C SCREENING Completed 04/14/2021 HIB VACCINE Aged Out No longer eligi ble based on patient's age to complete this topic HPV VACCINE Aged Out No longer eligi ble based on patient's age to complete this topic MENINGOCOCCAL (Group B) VACCINE SHARED DECISION-MAKING Aged Out No longer eligible based on patient's age to complete this topic MENINGOCOCCAL GROUPS A/C/Y/W VACCINE Aged Out No longer eligible b ased on patient's age to complete this topic Procedures Procedure Name Priority Date/Time Associated Diagnosis Comments HIV-1 HIV-2 ANTIBODY + HIV P24 AG PANEL STAT 10/10/2020 1:23 PM CDT from Last 3 Months or Most Recently Relevant to Health Maintenance Results * HIV-1 HIV-2 ANTIBODY + HIV P24 AG PANEL (10/10/2020 1:23 PM CDT) HIV1/2 Ab + P24 Ag Non Reactive Non Reactive 10/10/2020 2:23 PM CDT [facility] Blood BLOOD SPECIMEN / Unknown Venipuncture / Unknown 10/10/2020 1:23 PM CDT 10/10/2020 1:40 PM CDT Narrative [facility] - 10/10/2020 2:23 PM CDT No Laboratory evidence of HIV infection. Carlo Stokes MD LAB - CHEMISTRY ORDERABLES Final Result [facility] [address] [place] [address] from Last 3 Months or Most Recently Relevant to Health Maintenance Insurance [facility] [place] [address] MEDICAID [facility] [employer] NO INSURANCE Member Subscriber Plan / Payer (Ef fective for All Dates) Name:Lindsay Cansecoliv Sanford Member ID:Not on file Relation to Subscriber:Not on file Name:MAKSIM CEDENO Subscriber ID:Not on file Address: [address] [place] [id number] Payer ID:Not on file Group ID:Not on file Type:Self Pay Address: [place], [place] [facility] SEL[employer] PAY NO INSURANCE Member Subscriber Plan / Payer (Ef fective for All Dates) Name:Maksim Canseco Member ID:Not on file Relation to Subscriber:Not on file Name:MAKSIM CEDENO Subscriber ID:Not on file Address: [address] [place], [place] [address] Payer ID:Not on file Group ID:Not on file Type:Self Pay Address: [place], [place] [facility] SELF PAY NO INSURANCE Member Subscriber Plan / Payer (Ef fective for All Dates) Name:Maksim Canseco Member ID:Not on file Relation to Subscriber:Not on file Name:MAKSIM CEDENO Subscriber ID:Not on file Address: [address] [place], [place] [address] Payer ID:Not on file Group ID:Not on file Type:Self Pay Address: [place], [place] [facility] * Guarantor: MAKSIM CEDENO Account Type Relation to Patient Date of Phone Billing Address Personal/Family Spouse Advance Directives * Full Code (Latest Code Status on File) Date Activated Date Inactivated Comments 12/04/2023 6:33 PM 12/07/2023 12:01 PM * Full Code Date Activated Date Inactivated Comments 09/06/2023 12:58 AM 09/09/2023 11:18 AM * Full Code Date Activated Date Inactivated Comments 10/10/2020 7:50 PM 10/13/2020 4:40 PM * Full Code Date Activated Date Inactivated Comments 10/10/2020 7:50 PM 10/10/2020 7:50 PM * Full Code Date Activated Date Inactivated Comments 10/10/2020 3:44 PM 10/10/2020 7:46 PM Care Teams Federal Appellate Law Clerk Relationship Specialty Start Date End Date Altagracia Briones MD [address] [place] [address] PCP - General Family Medicine 02/09/24
--- OUTSIDE RECORDS SUMMARY | 2024-08-01 06:38 | XMS_ITS | Clinical Summary ---
Author Organization [facility] Address [address] [place] [address] Phone Care Team Providers Care Flight Attendant Inflight Services Name Role Phone Altagracia Briones MD Primary Care Provider [phone] Allergies Active Allergy Reactions Criticality Noted Date Comments Sulfamethoxazole-Trimethoprim Unknown 2024 Penicillins Unknown,Rash High 11/08/2007 Sulfa Antibiotics Anaphylaxis High 03/01/2015 Medications simvastatin (ZOCOR) 5 MG TabletIndication s:Hyperlipidemia Take 5 mg by mouth daily. Indications: High Amount of Fats in the Blood Active QUEtiapine (SEROquel) 100 MG TabletIndication s:Bipolar Mood Disorder Take 100 mg by mouth nightly. Indications: Manic-Depressio n Active Oxiusso-Ckquvc-Q rotease (PANCRELIPASE 51904 PO) Take 36,000 Units by mouth 4 times daily. Take two tabs four times daily Active irbesartan (AVAPRO) 75 MG TabletIndication s:Hypertension Take 150 mg by mouth daily. Indications: High Blood Pressure Active ferrous sulfate 325 (65 Fe) MG TabletIndication s:Iron Deficiency Take 325 mg by mouth daily. Take one tablet every 2 days Indications: Iron Deficiency Active dicyclomine (BENTYL) 10 MG CapsuleIndicatio ns:Irritable Bowel Syndrome Take 20 mg by mouth every 6 hours as needed (Irritable bowel). Indications: Irritable Bowel Syndrome Active HYDROcodone-acet aminophen (NORCO) 5-325 MG TabletIndication s:Pain Take 1 Tablet by mouth every 8 hours as needed for Moderate or more severe pain. Indications: Pain 15 Tablet 05/21/19 25 Active ondansetron (ZOFRAN) 4 MG TabletIndication s:Nausea and Vomiting Take 1 Tablet by mouth every 8 hours as needed for Nausea - 1st line. Indications: Nausea and Vomiting 10 Tablet 05/21/19 25 Active pantoprazole (PROTONIX) 40 MG Tablet Delayed Response Take 1 Tablet by mouth daily. 30 Tablet 05/21/19 25 Active HYDROcodone-acet aminophen (NORCO) 5-325 MG TabletIndication s:Acute on chronic pancreatitis (HCC) Take 1 Tablet by mouth every 6 hours as needed for Moderate or more severe pain. 12 Tablet 05/26/19 25 Active ondansetron (ZOFRAN-ODT) 4 MG TABLET DISPERSIBLE Take 1 Tablet by mouth every 8 hours as needed for Nausea - 1st line. 10 Tablet 05/26/19 25 Active dicyclomine (BENTYL) 20 MG Tablet Take 1 Tablet by mouth every 6 hours. 30 Tablet 06/05/19 25 Active traMADol (ULTRAM) 50 MG TabletIndication s:Epigastric pain Take 1-2 Tablets by mouth every 6 hours as needed for Severe pain. 12 Tablet 07/17/19 25 Active prochlorperazine (COMPAZINE) 25 MG Suppository 1 Suppository by Rectal route every 12 hours as needed for Nausea - 1st line. 5 Suppository 07/17/19 25 Active Active Problems Problem Noted Date Diagnosed Date History of alcohol dependence 04/11/2024 Gastroesophageal reflux disease without esophagi tis 12/04/2023 Depression with anxiety 05/31/2012 Hyperlipidemia Hypertension Resolved Problems Problem Noted Date Diagnosed Date Resolved Date Acute cystitis 04/11/2024 04/11/2024 Dehydration 04/11/2024 04/11/2024 Acute on chronic pancreatitis 04/10/2024 04/11/2024 Encounters Date Type Department Care Team Description 07/16/2024 8:38 AM CDT - 07/16/2024 11:45 AM CDT Emergency [facility] Emergency [address] [place] [address] Christos Romero MD Epigastric pain Discharge Disposition: Discharged to home or Selfcare 07/16/2024 Travel 06/07/2024 5:39 PM CDT - 06/07/2024 7:49 PM CDT Emergency [facility] Emergency [address] [place] [address] Vernon Palencia MD Chronic pancreatitis, unspecified pancreatitis type (HCC) Discharge Disposition: Discharged to home or Selfcare 06/07/2024 Travel 06/04/2024 12:26 PM CDT - 06/04/2024 3:49 PM CDT Emergency [facility] Emergency [address] [place] [address] Maritza Bey APRN, EBONI Abdominal pain, unspecified abdominal location Discharge Disposition: Discharged to home or Selfcare 06/04/2024 Travel 05/25/2024 3:32 PM CDT - 05/25/2024 7:04 PM CDT Emergency [facility] Emergency [address] [place] [address] Dayanna Barker APRN, ORGAN BUILDER Acute cystitis with hematuria Discharge Disposition: Discharged to home or Selfcare 05/25/2024 Travel 05/20/2024 2:23 PM CDT - 05/20/2024 6:04 PM CDT Emergency [facility] Emergency [address] [place] [address] Luis Zuñiga PAC Acute cystitis without hematuria Discharge Disposition: Discharged to home or Selfcare 05/20/2024 Travel 05/04/2024 Transcribe Orders [facility] Central Scheduling [address] [place] [address] Altagracia Briones MD Pain in right upper arm (Primary Dx) from Last 3 Months Family History Medical History Relation Name Comments Diabetes Father Elevated Lipids Father Hypertension Father Coronary Artery Disease Mother Diabetes Mother Hypertension Mother Diabetes Sister Elevated Lipids Sister Hypertension Sister Relation Name Status Comments Brother Alive Father Alive Mother Alive Sister Alive Social History Tobacco Use Types Packs/Day Years Used Date Smoking Tobacco: Every Day Cigarettes Smokeless Tobacco: Never Tobacco Cessation:Ready to Q uit: No; Counseling Given: Yes Alcohol Use Standard Drinks/Week Comments Not Currently 0 (1 standard drink = 0.6 oz pur e alcohol) Currently not drinking [facility] Utilities Answer Date Recorded In the past 12 months has th e electric, gas, oil, or water company threatened to shut off services in your home? No 04/10/2024 Social Connection and Isolat ion Panel [NHANES] Answer Date Recorded In a typical week, how many times do you talk on the phone with family, friends, or neighbors? More than three times a week 04/10/2024 How often do you get togethe r with friends or relatives? Once a week 04/10/2024 How often do you attend chur ch or jew services? Never 04/10/2024 Do you belong to any clubs o r organizations such as anabaptism groups, unions, fraternal or athletic groups, or school groups? No 04/10/2024 How often do you attend meet ings of the clubs or organizations you belong to? Never 04/10/2024 Are you , , di vorced, , never , or living with a partner? 04/10/2024 AUDIT-C Answer Date Recorded Q1: How often do you have a drink containing alcohol? Never 04/10/2024 Q2: How many drinks containi ng alcohol do you have on a typical day when you are drinking? Patient does not drink Q3: How often do you have si x or more drinks on one occasion? Never 04/10/2024 Overall Financial Resource Strain (CARDIA) Answe r Date Recorded How hard is it for you to pa y for the very basics like food, housing, medical care, and heating? Somewhat hard 04/10/2024 [facility] - Occupational Stress Questionnaire Answer Date Recorded Do you feel stress - tense, restless, nervous, or anxious, or unable to sleep at night because your mind is troubled all the time - these days? Rather much 04/10/2024 Exercise Vital Sign Answer Date Recorde d On average, how many days pe r week do you engage in moderate to strenuous exercise (like a brisk walk)? 3 days 04/10/2024 On average, how many minutes do you engage in exercise at this level? 40 min 04/10/2024 Hunger Vital Sign Answer Date Recorded Within [...] from medical appointments or from getting medications? No 03/15 In the past 12 months, has l ack of transportation kept you from meetings, work, or from getting things needed for daily living? Yes 04/10/2024 Housing Stability Vital Sign Answer Naresh e Recorded In the last 12 months, was t here a time when you were not able to pay the mortgage or rent on time? No 04/10/2024 In the past 12 months, how m any times have you moved where you were living? 3 04/10/2024 At any time in the past 12 m [facility], were you homeless or living in a longterm (including now)? 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 Gender Identity Not on file Sexual Orientation Not on file Last Filed Vital Signs Vital Sign Reading Time Taken Comments Blood Pressure 137/89 07/16/2024 11:44 AM CDT Pulse 79 07/16/2024 11:44 AM CDT Temperature 36.7 C (98 F) 07/16/2024 11:44 AM CDT Respiratory Rate 20 07/16/2024 11:44 AM CDT Oxygen Saturation 94% 07/16/2024 11:44 AM CDT Inhaled Oxygen Concentration - - Weight 70.8 kg (156 lb 1.4 oz) 07/16/2024 8:45 A M CDT Height 162.6 cm (5' 4 ) 07/16/2024 8:45 AM CDT Body Mass Index 26.79 07/16/2024 8:45 AM CDT Plan of Treatment Health Maintenance Due Date Last Done Comments Hepatitis C Virus (HCV) Screening 1982 Mammogram 1982 TdaP Immunization 1982 Hepatitis B Immunization (1 of 3 - 19+ 3-dose series) 2001 Pneumococcal Immunization Co mbined (1 of 2 - PCV) 2001 Pap Smear 12/28/2003 Cervical Cancer Screening (CCS) 2012 HPV/Cotest 2012 Discussion re Starting/Frequ ency of Mammograms 2022 SARS-COV-2 Immunization ( - 2023-25 season) 2023 Respiratory Syncytial Virus (RSV) Immunization (Adult) (1 - 1-dose 75+ series) 2057 Influenza Immunization Completed 03/12/2024 Human Papillomavirus (HPV) Immunization Aged Out No longer eligible b ased on patient's age to complete this topic Meningococcal Immunization (ACWY) Aged Out No longer eligible based on patient's age to complete this topic Rotavirus Immunization Aged Out No lo nger eligible based on patient's age to complete this topic Interventions Community Resource Recommendations Community Resource Services Recommended Domains Addressed Status Status Reason/Outcome Date/Time [facility] General Assistance Financial Assistance Financial Resource Strain Recommended 04/11/2024 11:41 AM VEGETABLE LOADER [facility] Financial Resource Needs Financial Resource Strain Recommended 04/11/2024 11:41 AM VEGETABLE LOADER [facility] Food Pantry Food Insecurity Needs Food Insecurity Recommended 04/11/2024 11:41 AM VEGETABLE LOADER [facility] Government Benefits, [facility] Housing, Public Housing, Residential Housing Financial Resource Strain, Housing Stability Recommended 04/11/2024 11:41 AM VEGETABLE LOADER [facility] Centers for Independent Living (CIL) - Individual Services/Programs -Pharmaceutical Assistance Prescription Assistance Financial Resource Strain Recommended 04/11/2024 11:41 AM VEGETABLE LOADER [facility] Disc[facility], Government Benefits Financial Resource Strain Recommended 04/11/2024 11:41 AM VEGETABLE LOADER [place] [facility] - Division of Rehabilitation Services ([facility]) - Home Services Program (HSP) Disability Benefits Financial Resource Strain Recommended 04/11/2024 11:41 AM VEGETABLE LOADER [facility] Financial Resource Needs Financial Resource Strain Recommended 04/11/2024 11:41 AM VEGETABLE LOADER from Last 12 Months Procedures Procedure Name Priority Date/Time Associated Diagnosis Comments POCT URINE HCG () STAT 07/16/2024 9:19 AM CDT URINALYSIS REFLEX IF INDICATED BY ABNORMAL RESULTS STAT 07/16/2024 9:00 AM CDT CULTURE, URINE STAT 07/16/2024 9:00 AM CDT GOLD TOP TUBE STAT 07/16/2024 8:48 AM CDT BLUE TOP TUBE STAT 07/16/2024 8:48 AM CDT EXTRA TUBES STAT 07/16/2024 8:48 AM CDT CBC WITH AUTO DIFFERENTIAL STAT 07/16/2024 8:47 AM CDT TROPONIN I, HIGH SENSITIVITY (HSTRP) STAT 07/16/2024 8:47 AM CDT MAGNESIUM (MG) STAT 07/16/2024 8:47 AM CDT LIPASE STAT 07/16/2024 8:47 AM CDT CMP (COMPREHENSIVE METABOLIC PANEL) STAT 07/16/2024 8:47 AM CDT COMPLETE BLOOD COUNT (CBC) WITH DIFF STAT 07/16/2024 8:47 AM CDT EKG 12 LEAD STAT 07/16/2024 8:44 AM CDT EKG SCAN 07/16/2024 12:00 AM CDT CBC WITH AUTO DIFFERENTIAL STAT 06/07/2024 6:06 PM CDT LIPASE STAT 06/07/2024 6:06 PM CDT CMP (COMPREHENSIVE METABOLIC PANEL) STAT 06/07/2024 6:06 PM CDT COMPLETE BLOOD COUNT (CBC) WITH DIFF STAT 06/07/2024 6:06 PM CDT GOLD TOP TUBE STAT 06/04/2024 1:22 PM CDT EXTRA TUBES STAT 06/04/2024 1:22 PM CDT UR TEST QUAL STAT 06/04/2024 12:58 PM CDT URINE DRUG SCREEN STAT 06/04/2024 12:58 PM CDT URINALYSIS REFLEX IF INDICATED BY ABNORMAL RESULTS STAT 06/04/2024 12:58 PM CDT CULTURE, URINE STAT 06/04/2024 12:58 PM CDT CBC WITH AUTO DIFFERENTIAL STAT 06/04/2024 12:55 PM CDT ETHYL ALCOHOL (ETHANOL) STAT 06/04/2024 12:55 PM CDT LIPASE STAT 06/04/2024 12:55 PM CDT CMP (COMPREHENSIVE METABOLIC PANEL) STAT 06/04/2024 12:55 PM CDT COMPLETE BLOOD COUNT (CBC) WITH DIFF STAT 06/04/2024 12:[address] ABDOMEN PELVIS W/ CONTRAST Stat with Interpretation 05/25/2024 5:22 PM CDT URINALYSIS REFLEX IF INDICATED BY ABNORMAL RESULTS STAT 05/25/2024 3:40 PM CDT CULTURE, URINE STAT 05/25/2024 3:40 PM CDT CBC WITH AUTO DIFFERENTIAL STAT 05/25/2024 3:19 PM CDT LIPASE STAT 05/25/2024 3:19 PM CDT CMP (COMPREHENSIVE METABOLIC PANEL) STAT 05/25/2024 3:19 PM CDT COMPLETE BLOOD COUNT (CBC) WITH DIFF STAT 05/25/2024 3:[address] ABDOMEN PELVIS W/ CONTRAST Stat with Interpretation 05/20/2024 4:45 PM CDT CBC WITH AUTO DIFFERENTIAL STAT 05/20/2024 3:17 PM CDT ETHYL ALCOHOL (ETHANOL) STAT 05/20/2024 3:17 PM CDT URINE DRUG SCREEN STAT 05/20/2024 3:1 7 PM CDT URINALYSIS REFLEX IF INDICATED BY ABNORMAL RESULTS STAT 05/20/2024 3:17 PM CDT LIPASE STAT 05/20/2024 3:17 PM CDT CMP (COMPREHENSIVE METABOLIC PANEL) STAT 05/20/2024 3:17 PM CDT COMPLETE BLOOD COUNT (CBC) WITH DIFF STAT 05/20/2024 3:17 PM CDT CULTURE, URINE STAT 05/20/2024 3:17 PM CDT POCT URINE HCG () STAT 05/20/2024 3:11 PM CDT EKG 12 LEAD STAT 05/20/2024 2:32 PM CDT EKG SCAN 05/20/2024 12:00 AM VEGETABLE LOADER from Last 3 Months Results * POCT Urine HCG () (07/16/2024 9:19 AM CDT) Only the most recent of2 resultswithin the time period is included. Pathologist [facility] POC URINE Negative POC URINE CONTROL Prepared Foods Supervisor Pass Urine 07/16/2024 9:19 AM CDT Christos Romero MD POINT OF CARE TESTING (MAN UAL) Final Result * (ABNORMAL) URINALYSIS REFLEX IF INDICATED BY ABNORMAL RESULTS (07/16/2024 9:00 AM CDT) Only the most recent of4 resultswithin the time period is included. Pathologist [facility] SPECIFIC GRAVITY 1.020 1.003 - 1.030 07/16/2024 10:59 AM CDT [facility] URINE PH 6.5 5.0 - 9.0 07/16/2024 10:59 AM CDT [facility] WBC ESTERASE 25 /ul(A) Negative 07/16/2024 10:59 AM CDT [facility] NITRITE Negative Negative 07/16/2024 10:59 AM CDT [facility] PROTEIN, RANDOM URINE 30 mg/dL(A) Negative 07/16/2024 10:59 AM CDT [facility] URINE GLUCOSE, QUAL Negative Negative 07/16/2024 10:59 AM CDT [facility] URINE KETONES 5 mg/dL(A) Negative 07/16/2024 10:59 AM CDT [facility] UROBILINOGEN 1 mg/dL(A) Normal mg/dL 07/16/2024 10:59 AM CDT [facility] URINE BLOOD Negative Negative dilshad/ul 07/16/2024 10:59 AM CDT [facility] URINALYSIS COLOR Yellow 07/17/19 10:59 AM CDT [facility] URINALYSIS CLARITY Slightly Cloudy 07/16/2024 10:59 AM CDT [facility] WBC (Urine) 11-20(A) Negative, 0-5 /hpf 07/16/2024 10:59 AM CDT [facility] URINE RBC'S 0-2 Negative, 0-2 /hpf 07/16/2024 10:59 AM CDT [facility] EPITHELIAL CELLS Small amount /lpf 2024 10:59 AM CDT [facility] BACTERIA, URINE Few(A) Negative /hpf 07/16/2024 10:59 AM T [facility] Urine URINE SPECIMEN OBTAINED BY CLEAN CATCH PROCEDURE / Unknown Non-Phlebotomy Collection / Unknown 07/16/2024 9:00 AM CDT 07/16/2024 9:45 AM CDT Christos Romero MD URINE ORDERABLES Final Res ult Performing Organization Address City/[facility] Co de Phone Number [facility] [address] [place] [address] * Culture, Urine (07/16/2024 9:00 AM CDT) Only the most recent of4 resultswithin the time period is included. CULTURE RESULTS Mixed Growth of One or More Distal Urethral Contaminants 07/17/2024 3:55 PM CDT [facility] Urine URINE SPECIMEN OBTAINED BY CLEAN CATCH PROCEDURE / Unknown Non-Phlebotomy Collection / Unknown 07/16/2024 9:00 AM CDT 07/16/2024 9:45 AM CDT Christos Romero MD MICROBIOLOGY - GENERAL ORD ERABLES Final Result Performing Organization Address [facility] Co de Phone Number [facility] [address] [place] [address], [place] * Gold Top Tube (07/16/2024 8:48 AM CDT) Only the most recent of2 resultswithin the time period is included. Blood No Phlebotomy Charged / Unknown 07/16/2024 8:48 AM CDT 07/16/2024 9:00 AM CDT Christos Romero MD CHEMISTRY ORDERABLES Final Result Performing Organization Address City/[facility] Co de Phone Number [facility] [address] [place] [address] * Blue Top Tube (07/16/2024 8:48 AM CDT) Blood No Phlebotomy Charged / Unknown 07/16/2024 8:48 AM CDT 07/16/2024 9:00 AM CDT Christos Romero MD HEMATOLOGY ORDERABLES Jaqui l Result Performing Organization Address City/[facility] Co de Phone Number [facility] [address] [place] [address] * TROPONIN I, HIGH SENSITIVITY (HSTRP) (07/16/2024 8:47 AM CDT) [facility] TROPONIN I, HIGH SENSITIVITY- [place] <3 <=14 ng/L 07/16/2024 9:21 AM CDT [facility] Comment: High-sensitivity troponin I results are reported in ng/L making the result appear to be 1,000 times higher than the contemporary troponin I value which is reported in ng/ml. Results from [place]. Blood Venipuncture / Unknown 07/16/2024 8:47 AM CDT 07/16/2024 8:56 AM CDT us Christos Romero MD CHEMISTRY ORDERABLES Final Result [facility] [address] [place] [address] * (ABNORMAL) CBC with Auto Differential (07/16/2024 8:47 AM CDT) Only the most recent of5 resultswithin the time period is included. [facility] WBC 16.34(H) 4.00 - 12.00 10(3)/mcL 07/16/2024 9:03 AM CDT [facility] RBC 4.90 3.80 - 5.30 10(6)/mcL 07/16/2024 9:03 AM CDT [facility] HEMOGLOBIN (HGB) 14.2 12.0 - 15.8 g/dL 07/16/2024 9:03 AM CDT [facility] HEMATOCRIT (HCT) 41.7 36.0 - 47.0 % 07/16/2024 9:03 AM CDT [facility] MCV 85.1 82.0 - 96.0 fL 07/16/2024 9:03 AM CDT [facility] MCH 29.0 26.0 - 34.0 pg 07/16/2024 9:03 AM CDT [facility] MCHC 34.1 31.0 - 36.0 g/dL 07/16/2024 9:03 AM CDT [facility] PLATELET COUNT 327 140 - 440 10(3)/[facility] 07/16/2024 9:03 AM CDT [facility] RDW 15.8(H) 11.8 - 15.5 % 07/16/2024 9:03 AM CDT [facility] MPV 9.0(L) 9.7 - 12.4 fL 07/16/2024 9:03 AM CDT [facility] NEUTROPHILS 72.9 47.0 - 73.0 % 07/16/2024 9:03 AM CDT [facility] LYMPHOCYTES 21.7 18.0 - 42.0 % 07/16/2024 9:03 AM CDT [facility] MONOCYTES 4.9 4.0 - 12.0 % 07/16/2024 9:03 AM CDT [facility] EOSINOPHILS 0.1 0.0 - 5.0 % 07/16/2024 9:03 AM CDT [facility] BASOPHILS 0.4 0.0 - 1.0 % 07/16/2024 9:03 AM CDT [facility] ABSOLUTE NEUTROPHILS 11.93(H) 1.60 - 7.70 10(3)/[facility] 07/16/2024 9:03 AM CDT [facility] ABSOLUTE LYMPHOCYTES 3.54(H) 1.30 - 3.20 10(3)/[facility] 07/16/2024 9:03 AM CDT [facility] ABSOLUTE MONOCYTES 0.80 0.20 - 1.00 10(3)/[facility] 07/16/2024 9:03 AM CDT [facility] ABSOLUTE EOSINOPHIL 0.01 0.00 - 0.40 10(3)/[facility] 07/16/2024 9:03 AM CDT [facility] ABSOLUTE BASOPHILS 0.06 0.00 - 0.10 10(3)/[facility] 07/16/2024 9:03 AM CDT [facility] NRBC PER 100 WBC 0 07/17/19 9:03 AM CDT [facility] Blood Venipuncture / Unknown 07/16/2024 8:47 AM CDT 07/16/2024 8:56 AM CDT Christos Romero MD HEMATOLOGY ORDERABLES Jaqui l Result Performing Organization Address City/[facility]/ZIP Co de Phone Number [facility] [address] [place] [address] * (ABNORMAL) Magnesium (Mg) [id number] (07/16/2024 8:47 AM CDT) MAGNESIUM 1.5(L) 1.6 - 2.6 mg/dL 07/16/2024 9:16 AM CDT [facility] Blood Venipuncture / Unknown 07/16/2024 8:47 AM CDT 07/16/2024 8:56 AM CDT Christos Romero MD CHEMISTRY ORDERABLES Final Result Performing Organization Address City/[facility] Co de Phone Number [facility] [address] [place] [address] * Lipase [id number] (07/16/2024 8:47 AM CDT) Only the most recent of5 resultswithin the time period is included. LIPASE 32 8 - 78 U/L 07/16/2024 9:16 AM CDT [facility] Blood Venipuncture / Unknown 07/16/2024 8:47 AM CDT 07/16/2024 8:56 AM CDT Christos Romero MD CHEMISTRY ORDERABLES Final Result Performing Organization Address City/[facility]/ZIP Co de Phone Number [facility] [address] [place] [address] * (ABNORMAL) Comprehensive Metabolic Panel (Cmp) [id number] (07/16/2024 8:47 AM CDT) Only the most recent of5 resultswithin the time period is included. SODIUM 140 136 - 145 mmol/L 07/16/2024 9:16 AM CDT [facility] POTASSIUM 3.6 3.5 - 5.1 mmol/L 07/16/2024 9:16 AM CDT [facility] CHLORIDE 102 98 - 107 mmol/L 07/16/2024 9:16 AM CDT [facility] CO2, VENOUS 22 22 - 30 mmol/L 07/16/2024 9:16 AM CDT [facility] ANION GAP 19.6(H) <18.0 mmol/L 07/16/2024 9:16 AM CDT [facility] GLUCOSE 140(H) 70 - 99 mg/dL 07/16/2024 9:16 AM CDT [facility] BUN 17 5 - 18 mg/dL 07/16/2024 9:16 AM CDT [facility] CREATININE, BLOOD 0.66 0.60 - 1.00 mg/dL 07/16/2024 9:16 AM CDT [facility] BUN/CREATININE RATIO 26(H) 12 - 20 ratio 07/16/2024 9:16 AM CDT [facility] TOTAL PROTEIN 8.3(H) 6.0 - 8.0 g/dL 07/16/2024 9:16 AM CDT [facility] ALBUMIN 4.4 3.5 - 5.0 g/dL 07/16/2024 9:16 AM CDT [facility] A/G RATIO 1.1 1.0 - 2.2 07/16/2024 9:16 AM CDT [facility] CALCIUM 9.1 8.7 - 10.5 mg/dL 07/16/2024 9:16 AM CDT [facility] T BILI 0.6 0.2 - 1.2 mg/dL 07/16/2024 9:16 AM CDT [facility] SGOT (AST) 25 <43 U/L 07/16/2024 9:16 AM CDT [facility] SGPT (ALT) 24 <56 U/L 07/16/2024 9:16 AM CDT [facility] ALKALINE PHOSPHATASE 77 40 - 150 U/L 07/16/2024 9:16 AM CDT [facility] GFR, ESTIMATED >60 >=60 07/16/2024 9:16 AM CDT [facility] Comment: Creatinine Clearance is the preferred criteria for selecting drug dose adjustments in renally impaired patients. The GFR is provided as additional pertinent clinical information. GFR is reported in mL/min/1.73 sq m. Calculation based on the Chronic Kidney Disease Epidemiology Collaboration (CKD- EPI) equation refit without adjustment for race. GFR, EST. >60 >=60 025 9:16 AM CDT [facility] GFR, EST. NONAFRICAN >60 >=60 07/16/2024 9:16 AM CDT [facility] Blood Venipuncture / Unknown 07/16/2024 8:47 AM CDT 07/16/2024 8:56 AM CDT us Christos Romero MD CHEMISTRY ORDERABLES Final Result [facility] [address] [place] [address] * EKG 12 LEAD (07/16/2024 8:44 AM CDT) Only the most recent of2 resultswithin the time period is included. Ventricular Rate 93 BPM EXTERNAL EKG Atrial Rate 93 BPM EXTERNAL EKG P-R Interval 132 ms EXTERNAL EKG QRS Duration 78 ms EXTERNAL EKG Q-T Duration 364 ms EXTERNAL EKG QTC CALCULATION 452 ms EXTERNAL EKG P [place] 45 degrees EXTERNAL EKG R [place] 46 degrees EXTERNAL EKG T [place] 32 degrees EXTERNAL EKG 07/16/2024 8:44 AM CDT Impressions EXTERNAL EKG - 07/19/2024 12:12 AM CDT Normal sinus rhythm Normal ECG When compared with ECG of 20-MAY-2024 14:32, No significant change was found Confirmed by Saúl Cole ([id number]) on 07/19/2024 12:11:57 AM Narrative Procedure Note Saúl Cole MD - 07/19/2024 IMPRESSION: Normal sinus rhythm Normal ECG When compared with ECG of 20-MAY-2024 14:32, No significant change was found Confirmed by Saúl Cole ([id number]) on 07/19/2024 12:11:57 AM us Christos Romero MD IMG ECG ORDERABLES Final R esult Performing Organization Address [facility] Co de Phone Number EXTERNAL EKG * EKG SCAN (07/16/2024 12:00 AM CDT) Only the most recent of2 resultswithin the time period is included. 07/16/2024 us Provider Scan IMG ECG ORDERABLES Final Result Performing Organization Address City/[facility] Co de Phone Number RESULTING AGENCY * Ur Test Qual (06/04/2024 12:58 PM CDT) PREG TEST,MONOCLONA L Negative 06/04/2024 1:49 PM CDT [facility] Urine URINE SPECIMEN / Unknown Non-Phlebotomy Collection / Unknown 06/04/2024 12:58 PM CDT 06/04/2024 1:17 PM CDT us Maritza Bey APRN [employer] BU[employer]DER URINE ORDERABLES F inal Result Performing Organization Address City/[facility] Co de Phone Number [facility] [place] [address] * (ABNORMAL) Urine Drug Screen (06/04/2024 12:58 PM CDT) Only the most recent of2 resultswithin the time period is included. UR AMPHETAMINE NON DETECTED NON DETECTED 06/04/2024 1:52 PM CDT [facility] Comment: FOR MEDICAL USE ONLY. CUTOFF CONCENTRATION FOR DETECTED RESULT: AMPHETAMINE: 500 NG/ML UR BENZODIAZEPINES NON DETECTED NON DETECTED 06/04/2024 1:52 PM CDT [facility] Comment: FOR MEDICAL USE ONLY. CUTOFF CONCENTRATION FOR DETECTED RESULT: BENZODIAZAPINE: 200 NG/ML UR COCAINE METABOLITE NON DETECTED NON DETECTED 06/04/2024 1:52 PM CDT [facility] Comment: FOR MEDICAL USE ONLY. CUTOFF CONCENTRATION FOR DETECTED RESULT: COCAINE: 150 NG/ML UR OPIATES DETECTED(A) NON DETECTED 06/04/2024 1:52 PM CDT [facility] Comment: FOR MEDICAL USE ONLY. CUTOFF CONCENTRATION FOR DETECTED RESULT: OPIATES: 300 NG/ML UR PHENCYCLIDINE NON DETECTED NON DETECTED 06/04/2024 1:52 PM CDT [facility] Comment: FOR MEDICAL USE ONLY. CUTOFF CONCENTRATION FOR DETECTED RESULT: PCP: 25 NG/ML UR CANNABINOID DETECTED(A) NON DETECTED 06/04/2024 1:52 PM CDT [facility] Comment: FOR MEDICAL USE ONLY. CUTOFF CONCENTRATION FOR DETECTED RESULT: THC (MARIJUANA): 50 NG/ML UR BARBITURATE NON DETECTED NON DETECTED 06/04/2024 1:52 PM CDT [facility] Comment: FOR MEDICAL USE ONLY. CUTOFF CONCENTRATION FOR DETECTED RESULT: BARBITUATES: 200 NG/ML UR FENTANYL NON DETECTED NON DETECTED 06/04/2024 1:52 PM CDT [facility] Comment: FOR MEDICAL USE ONLY. CUTOFF CONCENTRATION FOR DETECTED RESULT: FENTANYL: 1.0 NG/ML Urine Non-Phlebotomy Collection / Unknown 06/04/2024 12:58 PM CDT 06/04/2024 1:29 PM CDT us Maritza Bey [employer] SALESPERSON, [employer] BUILDER URINE ORDERABLES F inal Result [facility] [address] [place] [address] * Blood Alcohol Level (06/04/2024 12:55 PM CDT) Only the most recent of2 resultswithin the time period is included. ETHANOL <10 <10 mg/dL 06/04/2024 1:3 8 PM CDT [facility] Blood Venipuncture / Unknown 06/04/2024 12:55 PM CDT 06/04/2024 1:17 PM CDT us Maritza Bey APRN, ORGAN BUILDER CHEMISTRY ORDERABL ES Final Result [facility] [address] [place] [address] * CT ABDOMEN PELVIS W/ CONTRAST (05/25/2024 5:22 PM CDT) Only the most recent of2 resultswithin the time period is included. Anatomical Region Laterality Modality Abdomen N/A Computed Tomogra phy 05/25/2024 6:32 PM CDT Impressions 05/25/2024 6:35 PM CDT IMPRESSION: Findings are similar to the recent prior study with stranding around the head of the pancreas along with a indistinct appearance of the pancreatic head. Thickening of the adjacent duodenal wall is again seen. Findings are again most suggestive of acute pancreatitis. Small cyst is again seen here which could represent pseudocyst. No acute process is otherwise seen Narrative 05/25/2024 6:35 PM CDT EXAM DESCRIPTION: CT ABDOMEN PELVIS W/ CONTRAST REASON FOR STUDY: c/o flank/abd pain that has been ongoing since her visit this past Tuesday. Pt states she has a kidney infection. HX of HTN. TECHNIQUE: CT scan of the abdomen and pelvis performed with intravenous and without oral contrast using helical scanning technique with dynamic intravenous contrast injection. Reconstructed coronal and sagittal MPR images reviewed. All images stored on PACS. Automated exposure control was used as a dose optimization technique for this examination. CONTRAST TYPE/DOSE: 71mL of IOPAMIDOL 76 % IV SOLN injected via Intravenous COMPARISON: 05/20/2024 FINDINGS: LOWER CHEST: Minimal dependent atelectasis is of doubtful significance. LIVER: Normal size. No identified cystic or solid masses. GALLBLADDER: Unremarkable BILE DUCTS: No intrahepatic or extrahepatic ductal dilatation. SPLEEN: Normal size. No focal lesions. PANCREAS: There continues to be and indistinct appearance of the pancreatic head with surrounding strandy density suggestive of pancreatitis. Small 1.1 cm cyst is again seen here. Adjacent wall thickening of the duodenal is again noted. ADRENALS: Normal. KIDNEYS/URINARY TRACT: No identified significant cystic or solid masses. No visualized stones. No hydronephrosis or hydroureter. Symmetric enhancement. Urinary bladder is unremarkable. GI: No dilated bowel loops. No obvious wall thickening. Normal appendix. No significant diverticular disease. PERITONEUM: No ascites or free air. RETROPERITONEUM: No mass or adenopathy. REPRODUCTIVE: No significant abnormality. Small nabothian cyst is suspected VASCULATURE: No abdominal aortic aneurysm. MUSCULOSKELETAL: No significant abnormality. OTHER: No other abnormality. THIS IS AN ELECTRONICALLY VERIFIED FINAL REPORT 05/25/2024 6:32 PM - Electronically signed by Ramos Burroughs M.D. KH: GREER Report ID: [id number] Reading Location: [place] [address] Procedure Note Ramos Burroughs MD - 05/25/2024 EXAM DESCRIPTION: CT ABDOMEN PELVIS W/ CONTRAST REASON FOR STUDY: c/o flank/abd pain that has been ongoing since her visit this past Tuesday. Pt states she has a kidney infection. HX of HTN. TECHNIQUE: CT scan of the abdomen and pelvis performed with intravenous and without oral contrast using helical scanning technique with dynamic intravenous contrast injection. Reconstructed coronal and sagittal MPR images reviewed. All images stored on PACS. Automated exposure control was used as a dose optimization technique for this examination. CONTRAST TYPE/DOSE: 71mL of IOPAMIDOL 76 % IV SOLN injected via Intravenous COMPARISON: 05/20/2024 FINDINGS: LOWER CHEST: Minimal dependent atelectasis is of doubtful significance. LIVER: Normal size. No identified cystic or solid masses. GALLBLADDER: Unremarkable BILE DUCTS: No intrahepatic or extrahepatic ductal dilatation. SPLEEN: Normal size. No focal lesions. PANCREAS: There continues to be and indistinct appearance of the pancreatic head with surrounding strandy density suggestive of pancreatitis. Small 1.1 cm cyst is again seen here. Adjacent wall thickening of the duodenal is again noted. ADRENALS: Normal. KIDNEYS/URINARY TRACT: No identified significant cystic or solid masses. No visualized stones. No hydronephrosis or hydroureter. Symmetric enhancement. Urinary bladder is unremarkable. GI: No dilated bowel loops. No obvious wall thickening. Normal appendix. No significant diverticular disease. PERITONEUM: No ascites or free air. RETROPERITONEUM: No mass or adenopathy. REPRODUCTIVE: No significant abnormality. Small nabothian cyst is suspected VASCULATURE: No abdominal aortic aneurysm. MUSCULOSKELETAL: No significant abnormality. OTHER: No other abnormality. THIS IS AN ELECTRONICALLY VERIFIED FINAL REPORT 05/25/2024 6:32 PM - Electronically signed by Ramos Burroughs M.D. KH: GREER Report ID: [id number] Reading Location: [place] [address] IMPRESSION: Findings are similar to the recent prior study with stranding around the head of the pancreas along with a indistinct appearance of the pancreatic head. Thickening of the adjacent duodenal wall is again seen. Findings are again most suggestive of acute pancreatitis. Small cyst is again seen here which could represent pseudocyst. No acute process is otherwise seen Dayanna Barker APRN, ORGAN BUILDER IMG CT ORDERABLES Fin al Result from Last 3 Months Insurance MEDICAID [place] Advance Directives * Full Code (Latest Code Status on File) Date Activated Date Inactivated Comments 04/11/2024 1:36 AM CPR-Full Treat ment: FULL ARREST: Attempt Resuscitation/CPR wit intubation and mechanical ventilation. PRE-ARREST: Use entire range of life support measures to stabilize the patient. * Full Code Date Activated Date Inactivated Comments 04/10/2024 4:13 PM 04/11/2024 1:36 AM CPR-Full Jovanny atment: FULL ARREST: Attempt Resuscitation/CPR wit intubation and mechanical ventilation. PRE-ARREST: Use entire range of life support measures to stabilize the patient. Care Teams Flight Attendant Inflight Services Relationship Specialty Start Date End Date Altagracia Briones MD [address] [place] [address] PCP - General Family Medicine 04/10/24
--- OUTSIDE RECORDS SUMMARY | 2024-08-01 06:39 | XMS_ITS | Clinical Summary ---
Author Organization [facility] Address [address] [place] [address] Care Team Providers Care Truckman Name Role Phone Anjelica Booth MD Unavailable [phone] Altagracia Briones MD Primary Care Provider [phone] Becky Jin TRUCKMAN Unavailable [phone] Allergies Active Allergy Reactions Criticality Noted Date Comments Penicillins High Sulfa (Sulfonamide Antibiotics) Anaphylaxis High Sulfamethoxazole-Trimethoprim Medications QUEtiapine (SEROquel) 100 mg tablet Take 1 tablet (100 mg total) by mouth nightly Active irbesartan (AVAPRO) 150 mg tablet Take 1 tablet (150 mg total) by mouth daily Active ferrous sulfate (IRON ORAL) Take 65 mg by mouth every other day Last taken today. 02/28/24 Active simvastatin (ZOCOR) 5 mg tablet Take 1 tablet (5 mg total) by mouth nightly Active ondansetron ODT (ZOFRAN-ODT) 4 mg disintegrating tabletIndications: Nausea and Vomiting Take 1 tablet (4 mg total) by mouth every 6 (six) hours as needed for nausea or vomiting 60 tablet 06/28/19 25 Active Narcan 4 mg/actuation spray,non-aerosol 0 06/20/19 25 Active omeprazole (PriLOSEC) 40 mg capsule Take 1 capsule (40 mg total) by mouth 2 (two) times a day 07/04/[address] (PROTONIX) 40 mg EC tablet Take 1 tablet (40 mg total) by mouth daily 05/21/19 25 Active prochlorperazine (COMPAZINE) 25 mg suppository UNWRAP AND INSERT 1 SUPPOSITORY RECTALLY EVERY 12 HOURS NEEDED FOR NAUSEA - USE 1ST LINE Active sucralfate (CARAFATE) 1 gram tablet TAKE 1 TABLET BY MOUTH BEFORE MEALS AND AT BEDTIME 07/04/19 25 Active traMADoL (ULTRAM) 50 mg tablet Take 1-2 tablets (50-100 mg total) by mouth every 6 (six) hours as needed 07/17/19 25 Active Creon 36,000-114,000- 180,000 unit capsule TAKE 2 CAPSULES BY MOUTH FOUR TIMES DAILY - ADMINISTER WITH MEALS AND/OR SNACKS Active gabapentin (NEURONTIN) 100 mg capsule Take 1 capsule (100 mg total) by mouth every morning for 14 days Take gabapentin 100mg in the morning for 2 weeks. THEN take gabapentin 100mg in the morning and 100mg in the afternoon. Do NOT take in the evening when you take seroquel. 14 capsule 07/25/19 25 025 Active gabapentin (NEURONTIN) 100 mg capsule Take 1 capsule (100 mg total) by mouth 2 (two) times a day Take gabapentin 100mg in the morning for 2 weeks. THEN take gabapentin 100mg in the morning and 100mg in the afternoon. Do NOT take in the evening when you take seroquel. 60 capsule 1 07/25/19 25 025 Active pancrelipase (CREON) 6,000 units of lipase capsule Take 6 capsules (36,000 units of lipase total) by mouth 4 (four) times a day 720 capsule 03/01/20 24 025 Discontin ued(Patie nt Reported) Active Problems Problem Noted Date Diagnosed Date Alcohol-induced chronic pancreatitis 07/24/2024 Hypokalemia 06/17/2024 Bipolar 1 disorder 06/17/2024 Acute on chronic pancreatitis 03/11/2024 Obesity (BMI 30-39.9) 03/11/2024 Pancreatic insufficiency 02/29/2024 IBS (irritable bowel syndrome) 02/29/2024 Marijuana use 02/29/2024 Normocytic anemia 02/29/2024 Metabolic acidosis, normal anion gap (NAG) 02/28 Duodenitis 02/29/2024 Peripancreatic fluid collection 02/29/2024 Alcohol-induced acute pancre atitis without infection or necrosis 02/28/2024 Groove pancreatitis 02/28/2024 Mixed hyperlipidemia 12/04/2023 Primary hypertension 12/04/2023 Dark stools 05/19/2021 Overview (05/19/2021): Added automatically from request for surgery [id number] Alcohol withdrawal syndrome with complication Vitamin D deficiency 04/15/2021 Overview (05/12/2021): 05/05 D 12 ->START VIT D 1000 UNITS DAILY History of alcohol abuse 04/09/2021 Acute alcoholic intoxication without complicatio n 01/12/2021 Lactic acidosis 10/10/2020 Wheezing 10/10/2020 Acute pyelonephritis 05/31/2012 Acute renal failure 05/31/2012 Alcohol abuse 05/31/2012 Depression with anxiety 05/31/2012 Encounters Date Type Department Care Team Description 07/25/2024 Telephone [facility] Gastroenterology [address] [place] [address] Medical Office Building [address], [address] [place] [phone] Ariana Wilson RN GI Preprocedure 07/24/2024 8:00 AM CDT Office Visit [facility] Gastroenterology [address] [place] [address] Medical Office Building [address], [address] [place] [phone] Kosta Rocha MD Alcohol-induced chronic pancreatitis (HCC) (Primary Dx); Acute pancreatitis without infection or necrosis, unspecified pancreatitis type; Other chronic pancreatitis (HCC); Epigastric pain; Disease of stomach and duodenum 07/24/2024 Telephone [facility] Gastroenterology [address] [place] [address] Office Building [address], [address] [place] [phone] Ariana Wilson RN GI Preprocedure 06/27/2024 4:47 AM CDT - 06/27/2024 8:53 AM CDT Emergency [facility] Emergency Department [address] [id number] Jessica Barfield MD Galicia, Edgar E., MD Abdominal pain (Primary Dx); Chronic pancreatitis, unspecified pancreatitis type (HCC) Discharge Disposition: Discharge to home or self care 06/25/2024 [facility] Post Discharge Follow up phone call [facility] Surgery Care [address] [place] [address] Sarah Carbajal 06/22/2024 [facility] Post Discharge Follow up phone call [facility] Surgery [address] [phone] Sarah Carbajal 06/16/2024 5:10 AM CDT - 06/19/2024 1:16 PM CDT Hospital Encounter [facility] Surgery [address] [address] John Cary MD [place], DO Zulay Thomas John Albert Jr., MD Bross, Audrey Zimmer MD Acute pancreatitis, unspecified complication status, unspecified pancreatitis type (Primary Dx); Acute on chronic pancreatitis (HCC); Hypokalemia; Pancreatic insufficiency; Primary hypertension; History of alcohol abuse; Mixed hyperlipidemia; Bipolar 1 disorder (HCC); Obesity (BMI 30-39.9) Discharge Disposition: Discharge to home or self care from Last 3 Months Immunizations Immunization Administration Dates Next Due Influenza, Trivalent, Preservative Free, Intramu scular 03/12/2024 Surgical History Surgery Date Site/Laterality Comments CYST REMOVAL TUBAL LIGATION Medical History Medical History Date Comments Alcoholism (HCC) Depression Family History Medical History Relation Name Comments No Known Problems Father No Known Problems Mother Relation Name Status Comments Father Mother Social History Tobacco Use Types Packs/Day Years Used Date Smoking Tobacco: Every Day Cigarettes Tobacco Cessation:Ready to Q uit: Yes; Counseling Given: No [facility] Utilities Answer Date Recorded In the past 12 months has [employer], gas, oil, or water [employer] threatened to shut off services in your home? No 06/18/2024 Social Connection and Isolat ion Panel [NHANES] Answer Date Recorded In a typical week, how many times do you talk on the phone with family, friends, or neighbors? More than three times a week 06/18/2024 How often do you get togethe r with friends or relatives? More than three times a week 06/18/2024 How often do you attend [facility] or anglican services? Patient declined 06/18/2024 Do you belong to any clubs o r organizations such as judaism groups, unions, fraternal or athletic groups, or school groups? Patient declined 06/18/2024 How often do you attend meet ings of the clubs or organizations you belong to? Patient declined 06/18/2024 Are you , , di vorced, , never , or living with a partner? 06/18/2024 AUDIT-C Answer Date Recorded Q1: How often do you have a drink containing alcohol? Never 07/24/2024 Q2: How many drinks containi ng alcohol do you have on a typical day when you are drinking? Patient does not drink Q3: How often do you have si x or more drinks on one occasion? Never 07/24/2024 Overall Financial Resource Strain (CARDIA) Answe r Date Recorded How hard is it for you to pa y for the very basics like food, housing, medical care, and heating? Somewhat hard 06/18/2024 PRAPARE - Transportation Answer Date Re corded In the past 12 months, has l ack of transportation kept you from medical appointments or from getting medications? No 09/2024 In the past 12 months, has l ack of transportation kept you from meetings, work, or from getting things needed for daily living? No 06/18/2024 Personal Safety Answer Date Recorded Have you ever been in or are you currently in a harmful physical or emotional relationship or is someone making you feel afraid or unsafe? 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 Gender Identity Not on file Sexual Orientation Not on file Obstetrics History Para Term AB IAB SAB Ectopic Multiple Livin g Live Births 3 3 Date Outcome GA Total Labor Labor/2nd/3rd Weight Sex Type Anes PTL Kasandra A1 A5 Name Clin Para Para Para Last Filed Vital Signs Vital Sign Reading Time Taken Comments Blood Pressure 124/79 07/24/2024 7:57 AM CDT Pulse 80 07/24/2024 7:57 AM CDT Temperature 36.3 C (97.3 F) 06/27/2024 4:50 AM CDT Respiratory Rate 18 06/27/2024 6:00 AM CDT Oxygen Saturation 100% 07/24/2024 7:57 AM CDT Inhaled Oxygen Concentration - - Weight 72.1 kg (159 lb) 07/24/2024 7:57 AM CDT Height 152.4 cm (5') 07/24/2024 7:57 AM CDT Body Mass Index 31.05 07/24/2024 7:57 AM CDT Plan of Treatment Upcoming Encounters Date Type Department Care Team (Latest Contact Info) Description 08/20/2024 1:00 PM CDT Hospital Encounter [facility] [address] [place] [phone] Kosta Rocha MD [address] [id number] Alcohol-induced chronic pancreatitis (HCC) 08/20/2024 1:00 PM CDT - 08/20/2024 1:30 PM CDT Surgery [facility] [address] [place] [phone] Kosta Rocha MD [address] [address] EUS [[id number]] Health Maintenance Due Date Last Done Comments Breast Cancer Screening-Mammogram 1982 Cervical Cancer Screening 1982 Depression Screening 1982 Hepatitis C Screening 1982 DTaP/Tdap/Td Vaccine (1 - Tdap) 1993 Varicella Vaccines (1 of 2 - 13+ 2-dose series) 12/28/1995 Regular Well Visit/Exam 18-64 2000 Pneumococcal vaccine <65 (1 of 2 - PCV) 2001 Hepatitis B Screening Completed 06/17/1997 Influenza Vaccine Completed 03/12/2024, 12/11/2018 HPV Vaccines Aged Out No longer eligi ble based on patient's age to complete this topic Procedures Procedure Name Priority Date/Time Associated Diagnosis Comments CT ABDOMEN PELVIS W CONTRAST ED 06/27/2024 7:08 AM CDT URINALYSIS AND REFLEX TO MICROSCOPIC AND CULTURE STAT 06/27/2024 6:46 AM CDT SEPSIS LACTATE WITH REFLEX STAT 06/27/2024 5:18 AM CDT EGFR STAT 06/27/2024 5:15 AM CDT DIFFERENTIAL AUTO STAT 06/27/2024 5:1 5 AM CDT ETHANOL STAT 06/27/2024 5:15 AM CDT PROTIME-INR STAT 06/27/2024 5:15 AM CDT TROPONIN T HIGH-SENSITIVITY SERIES (BASELINE, 2HR, 4HR, 6HR) STAT 06/27/2024 5:15 AM CDT LIPASE STAT 06/27/2024 5:15 AM CDT COMPREHENSIVE METABOLIC PANEL STAT 06/27/2024 5:15 AM CDT CBC WITH AUTO DIFFERENTIAL STAT 06/27/2024 5:15 AM CDT ECG 12-LEAD STAT 06/27/2024 5:13 AM CDT HCG, BLOOD, QUANTITATIVE Add-On 06/27/2024 3:57 AM CDT EGFR Routine 06/19/2024 7:15 AM CDT BASIC METABOLIC PANEL Routine 06/19/2024 7:15 AM CDT CBC WITHOUT DIFFERENTIAL Routine 06/19/2024 7:15 AM CDT EGFR Routine 06/18/2024 4:25 AM CDT BASIC METABOLIC PANEL Routine 06/18/2024 4:25 AM CDT CBC WITHOUT DIFFERENTIAL Routine 06/18/2024 4:25 AM CDT EGFR Routine 06/17/2024 5:04 AM CDT BASIC METABOLIC PANEL Routine 06/17/2024 5:04 AM CDT CBC WITHOUT DIFFERENTIAL Routine 06/17/2024 5:04 AM CDT MAGNESIUM Add-On 06/17/2024 5:[address] ABDOMEN PELVIS W CONTRAST ED 06/16/2024 7:35 AM CDT DRUGS OF ABUSE SCREEN, URINE WITHOUT CONFIRMATION STAT 06/16/2024 5:35 AM CDT ETHANOL STAT 06/16/2024 5:35 AM CDT EGFR STAT 06/16/2024 5:35 AM CDT URINALYSIS, MICROSCOPIC ONLY STAT 06/16/2024 5:35 AM CDT DIFFERENTIAL AUTO STAT 06/16/2024 5:3 5 AM CDT HCG, URINE, QUALITATIVE STAT 06/16/2024 5:35 AM CDT LIPASE STAT 06/16/2024 5:35 AM CDT COMPREHENSIVE METABOLIC PANEL STAT 06/16/2024 5:35 AM CDT CBC WITH AUTO DIFFERENTIAL STAT 06/16/2024 5:35 AM CDT URINE CULTURE STAT 06/16/2024 5:35 AM CDT URINALYSIS AND REFLEX TO MICROSCOPIC AND CULTURE STAT 06/16/2024 5:35 AM CDT from Last 3 Months Results * CT Abdomen Pelvis W Contrast (06/27/2024 7:08 AM CDT) Anatomical Region Laterality Modality Body N/A Computed Tomogra phy 06/27/2024 7:20 AM CDT Narrative 06/27/2024 7:30 AM CDT EXAM DESCRIPTION: CT ABDOMEN PELVIS W CONTRAST REASON FOR STUDY: Pain Epigastric swelling and pain for 2 days, pt has recently been dx with pancreatitis. TECHNIQUE: CT scan of the abdomen and pelvis performed with intravenous and without oral contrast using helical scanning technique with dynamic intravenous contrast injection. Reconstructed coronal and sagittal MPR images reviewed. All images stored on PACS. Automated exposure control was used as a dose optimization technique for this examination. CONTRAST TYPE/DOSE: 75 ML of IOVERSOL 350 MG IODINE/ML INTRAVENOUS SYRINGE injected via intravenous COMPARISON: 06/16/2024 FINDINGS: LOWER CHEST: No significant pulmonary abnormalities. No effusion. LIVER: Normal size. No identified cystic or solid masses. GALLBLADDER: Normally distended BILE DUCTS: No intrahepatic or extrahepatic ductal dilatation. SPLEEN: Normal size. No focal lesions. PANCREAS: Pancreatic body and tail appear unremarkable. The head region again demonstrates surrounding induration that is similar to slightly improved from prior exam. Focal hypodensities interposed between the pancreatic head and the descending duodenal persist and are slightly smaller than prior exam. Again changes of pancreatitis could give this appearance. Secondary or primary duodenitis or ulcer disease could give this appearance. Please correlate clinically. No peripherally enhancing or enlarging fluid collections are identified to suggest carlee abscess. The surrounding induration extends along the inferior surface of the gallbladder and along the carleen hepatis appearing similar to previous. No pancreatic ductal dilatation focal pancreatic calcification identified. ADRENALS: Normal. KIDNEYS/URINARY TRACT: No identified significant cystic or solid masses. No visualized stones. No hydronephrosis or hydroureter. Symmetric enhancement. Urinary bladder is unremarkable. GI: The stomach appears unremarkable. The duodenal bulb and descending duodenum again demonstrates surrounding induration and subtle wall thickening similar to slightly improved from prior exam. Transverse duodenum demonstrates a normal appearance. Loops of small bowel have normal caliber. Terminal ileum, cecum and appendix appear normal. Moderate stool burden diffusely. PERITONEUM: Minimal free pelvic fluid deep in the pelvis. No loculated collections or free air. RETROPERITONEUM: No mass or adenopathy. REPRODUCTIVE: No significant abnormality. VASCULATURE: No abdominal aortic aneurysm. MUSCULOSKELETAL: No significant abnormality. OTHER: No other abnormality. IMPRESSION: Redemonstration of induration surrounding the pancreatic head and descending duodenum with subtle wall thickening of the duodenum. Findings are similar to slightly improved from prior exam of 06/16/2024. Focal hypodensities interposed between the pancreatic head and descending duodenum are slightly smaller than prior exam. Again changes of pancreatitis could give this appearance. Secondary or primary duodenitis or ulcer disease could give this appearance. No peripherally enhancing or enlarging fluid collections to suggest carlee abscess. Minimal free pelvic fluid deep in the pelvis. THIS IS AN ELECTRONICALLY VERIFIED FINAL REPORT 06/27/2024 7:30 AM - Electronically signed by Vernon Sarmiento M.D. RB: PATRICE Report ID: [id number] Reading Location: [id number] Procedure Note Vernon Sarmiento MD - 06/27/2024 EXAM DESCRIPTION: CT ABDOMEN PELVIS W CONTRAST REASON FOR STUDY: Pain Epigastric swelling and pain for 2 days, pt has recently been dx with pancreatitis. TECHNIQUE: CT scan of the abdomen and pelvis performed with intravenousand without oral contrast using helical scanning technique with dynamic intravenous contrast injection. Reconstructed coronal and sagittal MPRimages reviewed. All images stored on PACS. Automated exposure control was usedas a dose optimization technique for this examination. CONTRAST TYPE/DOSE: 75 ML of IOVERSOL 350 MG IODINE/ML INTRAVENOUSSYRINGE injected via intravenous COMPARISON: 06/16/2024 FINDINGS: LOWER CHEST: No significant pulmonary abnormalities. No effusion. LIVER: Normal size. No identified cystic or solid masses. GALLBLADDER: Normally distended BILE DUCTS: No intrahepatic or extrahepatic ductal dilatation. SPLEEN: Normal size. No focal lesions. PANCREAS: Pancreatic body and tail appear unremarkable. The head region again demonstrates surrounding induration that is similar to slightlyimproved from prior exam. Focal hypodensities interposed between the pancreatichead and the descending duodenal persist and are slightly smaller than priorexam. Again changes of pancreatitis could give this appearance. Secondary or primary duodenitis or ulcer disease could give this appearance. Please correlate clinically. No peripherally enhancing or enlarging fluid collections are identified to suggest carlee abscess. The surrounding induration extends along the inferior surface of the gallbladder and alongthe carleen hepatis appearing similar to previous. No pancreatic ductaldilatation focal pancreatic calcification identified. ADRENALS: Normal. KIDNEYS/URINARY TRACT: No identified significant cystic or solid masses.No visualized stones. No hydronephrosis or hydroureter. Symmetricenhancement. Urinary bladder is unremarkable. GI: The stomach appears unremarkable. The duodenal bulb and descending duodenum again demonstrates surrounding induration and subtle wallthickening similar to slightly improved from prior exam. Transverse duodenum demonstrates a normal appearance. Loops of small bowel have normalcaliber. Terminal ileum, cecum and appendix appear normal. Moderate stool burden diffusely. PERITONEUM: Minimal free pelvic fluid deep in the pelvis. No loculated collections or free air. RETROPERITONEUM: No mass or adenopathy. REPRODUCTIVE: No significant abnormality. VASCULATURE: No abdominal aortic aneurysm. MUSCULOSKELETAL: No significant abnormality. OTHER: No other abnormality. IMPRESSION: Redemonstration of induration surrounding the pancreatic head anddescending duodenum with subtle wall thickening of the duodenum. Findings are similarto slightly improved from prior exam of 06/16/2024. Focal hypodensities interposed between the pancreatic head and descending duodenum are slightly smaller than prior exam. Again changes ofpancreatitis could give this appearance. Secondary or primary duodenitis or ulcerdisease could give this appearance. No peripherally enhancing or enlarging fluid collections to suggest carlee abscess. Minimal free pelvic fluid deep in the pelvis. THIS IS AN ELECTRONICALLY VERIFIED FINAL REPORT 06/27/2024 7:30 AM - Electronically signed by Vernon Sarmiento M.D. RB: PATRICE Report ID: [id number] Reading Location: [place] [address] Jessica Barfield MD IM CT PROCEDURES F inal Result * Urinalysis reflex to microscopic and culture Urine (06/27/2024 6:46 AM CDT) Color, ur Yellow Yellow Clarity, ur Clear Clear [facility] ([place]) Specific gravity, ur 1.014 1.003 - 1.030 [facility] ([place]) pH, urine 6.0 [facility] ([place]) Comment: Interpretive Data U rine pH is affected by diet, medications, systemic acid-base disturbances, and renal tubular function. pH may affect urinary stone formation. For example, urine pH below 6.0 may help reduce the tendency for calcium phosphate stones and pH greater than 6.0 may reduce the tendency for uric acid stone formation. Source: [facility] Current Interpretive Data was last revised on 2017 Protein, ur ql Negative Negative [facility] ([place]) Glucose, ur ql Negative Negative [facility] ([place]) Ketones, ur Negative Negative [facility] ([place]) Bilirubin, ur Negative Negative [facility] ([place]) Blood, ur Negative Negative [facility] ([place]) Urobilinogen, ur <2.0 <2.0 mg/dL [facility] ([place]) Nitrite, ur Negative Negative [facility] ([place]) Leukocyte esterase, ur Negative Negative [facility] ([place]) UA reflex comment Reflex conditions for microscopic UA and culture not met. [facility] ([place]) Urine 06/27/2024 6:46 AM CDT 06/27/2024 6:51 AM CDT us Jessica Barfield MD LAB MICROBIOLOGY - GENERAL ORDERABLES Final Result [facility] ([place]) 1 [facility] [place] [address] * Sepsis Lactate w/ Reflex (06/27/2024 5:18 AM CDT) Sepsis Lactate 1.5 0.7 - 2.0 mmol/L Blood 06/27/2024 5:18 AM CDT 06/27/2024 5:20 AM CDT Jessica Barfield MD LAB BLOOD ORDERABLE S Final Result Performing Organization Address City/[facility]/ZIP Co de Phone Number [facility] ([place]) 1 [facility] [place] [address] * Troponin T high-sensitivity series (baseline, 2hr, 4hr, 6hr) (06/27/2024 5:15 AM CDT) Trop T hs <6 <=14 ng/L Comment: Interpretive Data For further hscTnT resources including the diagnostic algorithm and an aid in interpretation, copy and paste this link: [email or web address].testcatalog.org/show/[email or web address] Current Interpretive Data last revised 2020. Blood 06/27/2024 5:15 AM CDT 06/27/2024 5:20 AM CDT us Jessica Barfield MD LAB BLOOD ORDERABLE S Final Result [facility] ([address] Department [place] [address] * eGFR (06/27/2024 5:15 AM CDT) eGFR >90 >=60 mL/min/1. 73 m2 Comment: Interpretive Data Reference Interval Normal >/= 90 mL/min/1.73m2 Mildly decreased* 60 - 89 mL/min/1.73m2 Mildly to moderately decreased 45 - 59 mL/min/1.73m2 Moderately to severely decreased 30 - 44 mL/min/1.73m2 Severely decreased 15 - 29 mL/min/1.73m2 Kidney Failure < 15 mL/min/1.73m2 *Relative to young adult level Estimated glomerular filtration rate is determined by the 2020 CKD-EPI equation recommended by the National Kid[employer] (A Unifying Approach to GFR Estimation: Recommendations of the NKF-ASK Task Force on Reassessing the Inclusion of Race in Diagnosing Kidney Disease, JASN 2020). The CKD-EPI equation should not be used for patients with unstable renal function and has not been validated in children and those over 70. Current interpretive data was last reviewed 2021. Blood 06/27/2024 5:15 AM CDT 06/27/2024 5:20 AM CDT us Jessica Barfield MD LAB BLOOD ORDERABLE S Final Result [facility] ([place]) 1 [facility] [place] [address] * (ABNORMAL) Differential, auto (06/27/2024 5:15 AM CDT) Neutrophil abs 6.35 1.50 - 6.50 K/cumm Imm gran abs 0.05 0.00 - 0.10 K/cumm [facility] ([place]) Lymphocyte abs 3.32(H) 0.80 - 3.30 K/cumm [facility] ([place]) Monocyte abs 0.70 0.20 - 0.80 K/cumm [facility] ([place]) Eosinophil abs 0.16 0.00 - 0.50 K/cumm [facility] ([place]) Basophil abs 0.08 0.00 - 0.10 K/cumm [facility] ([place]) Neutrophil pct 59.5 % [facility] ([place]) Comment: Interpretive Data Percent cell count reference ranges are not reported, since discordance with absolute values may lead to misinterpretation of CBC data. Current Interpretive Data was last revised on 2017. Imm gran pct 0.5 % [facility] ([place]) Comment: Interpretive Data Percent cell count reference ranges are not reported, since discordance with absolute values may lead to misinterpretation of CBC data. Current Interpretive Data was last revised on 2017. Lymphocyte pct 31.1 % [facility] ([place]) Comment: Interpretive Data Percent cell count reference ranges are not reported, since discordance with absolute values may lead to misinterpretation of CBC data. Current Interpretive Data was last revised on 2017. Monocyte pct 6.6 % [facility] ([place]) Comment: Interpretive Data Percent cell count reference ranges are not reported, since discordance with absolute values may lead to misinterpretation of CBC data. Current Interpretive Data was last revised on 2017. Eosinophil pct 1.5 % [facility] [facility] ([place]) Comment: Interpretive Data Percent cell count reference ranges are not reported, since discordance with absolute values may lead to misinterpretation of CBC data. Current Interpretive Data was last revised on 2017. Basophil pct 0.8 % [facility] ([place]) Comment: Interpretive Data Percent cell count reference ranges are not reported, since discordance with absolute values may lead to misinterpretation of CBC data. Current Interpretive Data was last revised on 2017. Blood 06/27/2024 5:15 AM CDT 06/27/2024 5:20 AM CDT Jessica Barfield MD LAB BLOOD ORDERABLE S Final Result [facility] ([place]) 1 [facility] [place] [address] * (ABNORMAL) CBC with auto differential (06/27/2024 5:15 AM CDT) WBC 10.66(H) 3.80 - 9.90 K/cumm Hgb 13.5 11.9 - 15.5 g/dL [facility] ([place]) Hct 41.2 35.6 - 45.5 % [facility] ([place]) Plt 425(H) 150 - 400 K/cumm [facility] ([place]) MPV 8.6(L) 9.1 - 12.3 fL [facility] ([place]) RBC 4.66 3.90 - 5.20 M/cumm [facility] ([place]) MCV 88.4 81.3 - 96.4 fL [facility] ([place]) MCH 29.0 27.1 - 33.3 pg [facility] ([place]) MCHC 32.8 32.3 - 35.7 g/dL [facility] ([place]) RDW CV 16.8(H) 11.1 - 14.9 % [facility] ([place]) RDW SD 54.3(H) 35.7 - 48.1 fL [facility] ([place]) NRBC abs 0.02(H) 0.00 - 0.01 K/cumm [facility] ([place]) Blood 06/27/2024 5:15 AM CDT 06/27/2024 5:20 AM CDT Jessica Barfield MD LAB BLOOD ORDERABLE S Final Result Performing Organization Address City/[facility]/ZIP Co de Phone Number [facility] ([place]) 1 [place] [address] * Protime-INR (06/27/2024 5:15 AM CDT) PT 11.8 9.7 - 13.0 sec [facility] ([place]) INR 1.09 0.90 - 1.20 [facility] ([place]) Comment: Interpretive data Oral anticoagulant therapeutic ranges: Venous thromboembolism prophylaxis or treatment: 2.0-3.0 CARDIOLOGY Standard range: 2.0-3.0 High-intensity range: 2.5-3.5 Refer to indication-specific guidelines for appropriate target ranges for prosthetic heart valve replacement. Current interpretive data was last revised on 2019. Blood 06/27/2024 5:15 AM CDT 06/27/2024 5:20 AM CDT Jessica Barfield MD LAB BLOOD ORDERABLE S Final Result Performing Organization Address [facility]/ZIP Co de Phone Number [facility] ([place]) 1 [place] [address] * (ABNORMAL) Lipase (06/27/2024 5:15 AM CDT) Pathologist [facility] Lipase 212(H) 10 - 99 Units/L Blood 06/27/2024 5:15 AM CDT 06/27/2024 5:20 AM CDT Jessica Barfield MD LAB BLOOD ORDERABLE S Final Result [facility] ([place]) 1 [place] [address] * Ethanol (06/27/2024 5:15 AM CDT) Ethanol <10 <=10 mg/dL Comment: Interpretive Data Legal limit of intoxication > or = 80 mg/dL Levels > or = 400 mg/dL are potentially TOXIC. Current interpretive data was last revised on 2018. Blood 06/27/2024 5:15 AM CDT 06/27/2024 5:34 AM CDT us Jessica Barfield MD LAB BLOOD ORDERABLE S Final Result [facility] ([place]) 1 [facility] Department [place] [address] * (ABNORMAL) Comprehensive metabolic panel (06/27/2024 5:15 AM CDT) Sodium 136 135 - 145 mmol/L Potassium, pl 4.1 3.3 - 4.9 mmol/L [facility] ([place]) Chloride 103 97 - 110 mmol/L [facility] ([place]) CO2 19(L) 22 - 32 mmol/L [facility] ([place]) Anion gap 14 2 - 15 mmol/L [facility] ([place]) BUN 7 6 - 25 mg/dL [facility] ([place]) Creatinine 0.74 0.60 - 1.10 mg/dL [facility] ([place]) Glucose 115 70 - 199 mg/dL [facility] ([place]) Comment: Interpretive Data Fasting glucose >/= 126 mg/dl is diagnostic for diabetes. Fasting is defined as no caloric intake for at least 8 hours. Fasting glucose between 100 mg/dl to 125 mg/dl is diagnostic of prediabetes. In a patient with classic symptoms of hyperglycemia or hyperglycemic crisis, a random glucose >/= 200 mg/dl is diagnostic for diabetes. In the absence of unequivocal hyperglycemia, results should be confirmed by repeat testing. The classification and Diagnosis of Diabetes Diabetes Care 2021; 46: S19-S40. Current interpretive data was last revised 2022. Calcium 9.8 8.5 - 10.3 mg/dL [facility] ([place]) Bilirubin, total 0.2 0.1 - 1.2 mg/dL [facility] ([place]) Protein, pl 7.4 6.5 - 8.5 g/dL [facility] ([place]) Albumin 4.2 3.5 - 5.0 g/dL [facility] ([place]) Alk phos 65 40 - 130 Units/L [facility] ([place]) ALT 13 7 - 45 Units/L [facility] ([place]) AST 10 10 - 45 Units/L [facility] ([place]) Blood 06/27/2024 5:15 AM CDT 06/27/2024 5:20 AM CDT Jessica Barfield MD LAB BLOOD ORDERABLE S Final Result Performing Organization Address City/[facility] Co de Phone Number [facility] ([place]) 1 [facility] [place] [address] * hCG, blood, quantitative (06/27/2024 3:57 AM CDT) [facility] hCG, quant <5.0 0.0 - 5.0 IUnits/L Comment: Interpretive Data Male: < 5 IU/L Non- premenopausal Female: <5 IU/L The Reginaldo hCG Beta Quant assay procedure was used. Results from different manufacturers or methods may not be comparable. Serial testing should be performed using the same method. Interpretive Data was last revised on 2023 Blood 06/27/2024 3:57 AM CDT 06/27/2024 6:26 AM CDT Jessica Barfield MD LAB BLOOD ORDERABLE S Edited Result - Final Performing Organization Address City/[facility]/ZIP Co de Phone Number [facility] ([place]) 1 [facility] [place] [address] * eGFR (06/19/2024 7:15 AM CDT) [facility] eGFR >90 >=60 mL/min/1. 73 m2 Comment: Interpretive Data Reference Interval Normal >/= 90 mL/min/1.73m2 Mildly decreased* 60 - 89 mL/min/1.73m2 Mildly to moderately decreased 45 - 59 mL/min/1.73m2 Moderately to severely decreased 30 - 44 mL/min/1.73m2 Severely decreased 15 - 29 mL/min/1.73m2 Kidney Failure < 15 mL/min/1.73m2 *Relative to young adult level Estimated glomerular filtration rate is determined by the 2020 CKD-EPI equation recommended by the National Kidney Foundation (A Unifying Approach to GFR Estimation: Recommendations of the NKF-ASK Task Force on Reassessing the Inclusion of Race in Diagnosing Kidney Disease, JASN 2020). The CKD-EPI equation should not be used for patients with unstable renal function and has not been validated in children and those over 70. Current interpretive data was last reviewed 2021. Blood 06/19/2024 7:15 AM CDT 06/19/2024 7:46 AM CDT us Macario Biswas Jr., MD LAB BLOOD ORDERABLE S Final Result [facility] ([place]) 1 [facility] Department [place] [address] * (ABNORMAL) CBC without differential (06/19/2024 7:15 AM CDT) WBC 8.44 3.80 - 9.90 K/cumm Hgb 11.0(L) 11.9 - 15.5 g/dL [facility] ([place]) Hct 33.2(L) 35.6 - 45.5 % [facility] ([place]) Plt 233 150 - 400 K/cumm [facility] ([place]) MPV 9.9 9.1 - 12.3 fL [facility] ([place]) RBC 3.79(L) 3.90 - 5.20 M/cumm [facility] ([place]) MCV 87.6 81.3 - 96.4 fL [facility] ([place]) MCH 29.0 27.1 - 33.3 pg [facility] ([place]) MCHC 33.1 32.3 - 35.7 g/dL [facility] ([place]) RDW CV 16.4(H) 11.1 - 14.9 % [facility] ([place]) RDW SD 51.8(H) 35.7 - 48.1 fL [facility] ([place]) NRBC abs 0.00 0.00 - 0.01 K/cumm [facility] ([place]) Blood 06/19/2024 7:15 AM CDT 06/19/2024 7:47 AM CDT us Macario Biswas Jr., MD LAB BLOOD ORDERABLE S Final Result Performing Organization Address City/[facility] Co de Phone Number [facility] ([place]) 1 [facility] Department [place] [address] * (ABNORMAL) Basic metabolic panel (06/19/2024 7:15 AM CDT) Sodium 138 135 - 145 mmol/L Potassium, pl 4.0 3.3 - 4.9 mmol/L [facility] ([place]) Chloride 103 97 - 110 mmol/L [facility] ([place]) CO2 24 22 - 32 mmol/L [facility] ([place]) Anion gap 11 2 - 15 mmol/L [facility] ([place]) BUN 4(L) 6 - 25 mg/dL [facility] ([place]) Creatinine 0.63 0.60 - 1.10 mg/dL [facility] ([place]) Glucose 91 70 - 199 mg/dL [facility] ([place]) Comment: Interpretive Data Fasting glucose >/= 126 mg/dl is diagnostic for diabetes. Fasting is defined as no caloric intake for at least 8 hours. Fasting glucose between 100 mg/dl to 125 mg/dl is diagnostic of prediabetes. In a patient with classic symptoms of hyperglycemia or hyperglycemic crisis, a random glucose >/= 200 mg/dl is diagnostic for diabetes. In the absence of unequivocal hyperglycemia, results should be confirmed by repeat testing. The classification and Diagnosis of Diabetes Diabetes Care 202; 46: S19-S40. Current interpretive data was last revised 2022. Calcium 8.9 8.5 - 10.3 mg/dL [facility] ([place]) Blood 06/19/2024 7:15 AM CDT 06/19/2024 7:46 AM CDT us Macario Biswas Jr., MD LAB BLOOD ORDERABLE S Final Result [facility] ([place]) 1 [facility] Department [place] [address] * eGFR (06/18/2024 4:25 AM CDT) Pathologist [facility] eGFR >90 >=60 mL/min/1. 73 m2 Comment: Interpretive Data Reference Interval Normal >/= 90 mL/min/1.73m2 Mildly decreased* 60 - 89 mL/min/1.73m2 Mildly to moderately decreased 45 - 59 mL/min/1.73m2 Moderately to severely decreased 30 - 44 mL/min/1.73m2 Severely decreased 15 - 29 mL/min/1.73m2 Kidney Failure < 15 mL/min/1.73m2 *Relative to young adult level Estimated glomerular filtration rate is determined by the 2020 CKD-EPI equation recommended by the National Kidney Foundation (A Unifying Approach to GFR Estimation: Recommendations of the NKF-ASK Task Force on Reassessing the Inclusion of Race in Diagnosing Kidney Disease, JASN 2020). The CKD-EPI equation should not be used for patients with unstable renal function and has not been validated in children and those over 70. Current interpretive data was last reviewed 2021. Blood 06/18/2024 4:25 AM CDT 06/18/2024 5:16 AM CDT us Macario Biswas Jr., MD LAB BLOOD ORDERABLE S Final Result JORDYN [facility]) 1 [facility] Department [place] [address] * (ABNORMAL) CBC without differential (06/18/2024 4:25 AM CDT) Pathologist [facility] WBC 8.36 3.80 - 9.90 K/cumm Hgb 11.2(L) 11.9 - 15.5 g/dL [facility] ([place]) Hct 34.7(L) 35.6 - 45.5 % [facility] ([place]) Plt 229 150 - 400 K/cumm [facility] ([place]) MPV 9.6 9.1 - 12.3 fL [facility] ([place]) RBC 3.89(L) 3.90 - 5.20 M/cumm [facility] ([place]) MCV 89.2 81.3 - 96.4 fL [facility] ([place]) MCH 28.8 27.1 - 33.3 pg [facility] ([place]) MCHC 32.3 32.3 - 35.7 g/dL [facility] ([place]) RDW CV 16.5(H) 11.1 - 14.9 % [facility] ([place]) RDW SD 53.1(H) 35.7 - 48.1 fL [facility] ([place]) NRBC abs 0.00 0.00 - 0.01 K/cumm [facility] Blood 06/18/2024 4:25 AM CDT 06/18/2024 5:16 AM CDT us Macario Biswas Jr., MD LAB BLOOD ORDERABLE S Final Result [facility] 1 [facility] Department [place] [address] * (ABNORMAL) Basic metabolic panel (06/18/2024 4:25 AM CDT) Sodium 137 135 - 145 mmol/L Potassium, pl 3.8 3.3 - 4.9 mmol/L [facility] Chloride 104 97 - 110 mmol/L [facility] CO2 21(L) 22 - 32 mmol/L [facility] ([place]) Anion gap 12 2 - 15 mmol/L [facility] ([place]) BUN <3(L) 6 - 25 mg/dL [facility] Creatinine 0.62 0.60 - 1.10 mg/dL [facility] ([place]) Glucose 116 70 - 199 mg/dL [facility] ([place]) Comment: Interpretive Data Fasting glucose >/= 126 mg/dl is diagnostic for diabetes. Fasting is defined as no caloric intake for at least 8 hours. Fasting glucose between 100 mg/dl to 125 mg/dl is diagnostic of prediabetes. In a patient with classic symptoms of hyperglycemia or hyperglycemic crisis, a random glucose >/= 200 mg/dl is diagnostic for diabetes. In the absence of unequivocal hyperglycemia, results should be confirmed by repeat testing. The classification and Diagnosis of Diabetes Diabetes Care 202; 46: S19-S40. Current interpretive data was last revised 2022. Calcium 8.6 8.5 - 10.3 mg/dL [facility] ([place]) Blood 06/18/2024 4:25 AM CDT 06/18/2024 5:16 AM CDT us Macario Biswas Jr., MD LAB BLOOD ORDERABLE S Final Result [facility]YN IV[facility] ([place]) 1 [facility] Department [place] [address] * eGFR (06/17/2024 5:04 AM CDT) eGFR >90 >=60 mL/min/1. 73 m2 Comment: Interpretive Data Reference Interval Normal >/= 90 mL/min/1.73m2 Mildly decreased* 60 - 89 mL/min/1.73m2 Mildly to moderately decreased 45 - 59 mL/min/1.73m2 Moderately to severely decreased 30 - 44 mL/min/1.73m2 Severely decreased 15 - 29 mL/min/1.73m2 Kidney Failure < 15 mL/min/1.73m2 *Relative to young adult level Estimated glomerular filtration rate is determined by the 2020 CKD-EPI equation recommended by the National Kidney Foundation (A Unifying Approach to GFR Estimation: Recommendations of the NKF-ASK Task Force on Reassessing the Inclusion of Race in Diagnosing Kidney Disease, JASN 2020). The CKD-EPI equation should not be used for patients with unstable renal function and has not been validated in children and those over 70. Current interpretive data was last reviewed 2021. Blood 06/17/2024 5:04 AM CDT 06/17/2024 5:41 AM CDT us Macario Biswas Jr., MD LAB BLOOD ORDERABLE S Final Result [facility] ([place]) 1 [facility] Department [place] [address] * (ABNORMAL) CBC without differential (06/17/2024 5:04 AM CDT) Pathologist [facility] WBC 8.89 3.80 - 9.90 K/cumm Hgb 11.3(L) 11.9 - 15.5 g/dL [facility] ([place]) Hct 33.5(L) 35.6 - 45.5 % [facility] ([place]) Plt 214 150 - 400 K/cumm [facility] ([place]) MPV 9.5 9.1 - 12.3 fL [facility] ([place]) RBC 3.91 3.90 - 5.20 M/cumm [facility] ([place]) MCV 85.7 81.3 - 96.4 fL [facility] ([place]) MCH 28.9 27.1 - 33.3 pg [facility] ([place]) MCHC 33.7 32.3 - 35.7 g/dL [facility] ([place]) RDW CV 16.1(H) 11.1 - 14.9 % [facility] ([place]) RDW SD 50.0(H) 35.7 - 48.1 fL [facility] ([place]) NRBC abs 0.00 0.00 - 0.01 K/cumm [facility] ([place]) Blood 06/17/2024 5:04 AM CDT 06/17/2024 5:41 AM CDT us Macario Biswas Jr., MD LAB BLOOD ORDERABLE S Final Result [facility] ([place]) 1 [facility] Department [place] [address] * (ABNORMAL) Basic metabolic panel (06/17/2024 5:04 AM CDT) [facility] Sodium 137 135 - 145 mmol/L Potassium, pl 3.2(L) 3.3 - 4.9 mmol/L [facility] ([place]) Chloride 103 97 - 110 mmol/L [facility] ([place]) CO2 24 22 - 32 mmol/L [facility] ([place]) Anion gap 10 2 - 15 mmol/L [facility] ([place]) BUN 3(L) 6 - 25 mg/dL [facility] ([place]) Creatinine 0.55(L) 0.60 - 1.10 mg/dL [facility] ([place]) Glucose 91 70 - 199 mg/dL [facility] ([place]) Comment: Interpretive Data Fasting glucose >/= 126 mg/dl is diagnostic for diabetes. Fasting is defined as no caloric intake for at least 8 hours. Fasting glucose between 100 mg/dl to 125 mg/dl is diagnostic of prediabetes. In a patient with classic symptoms of hyperglycemia or hyperglycemic crisis, a random glucose >/= 200 mg/dl is diagnostic for diabetes. In the absence of unequivocal hyperglycemia, results should be confirmed by repeat testing. The classification and Diagnosis of Diabetes Diabetes Care 2021; 46: S19-S40. Current interpretive data was last revised 2022. Calcium 8.5 8.5 - 10.3 mg/dL [facility] ([place]) Blood 06/17/2024 5:04 AM CDT 06/17/2024 5:41 AM CDT us Macario Biswas Jr., MD LAB BLOOD ORDERABLE S Final Result Performing Organization Address [facility]/ZIP Co de Phone Number JORDYN [facility] ([place]) 1 [facility] [place] [address] * Magnesium (06/17/2024 5:02 AM CDT) Magnesium 1.7 1.4 - 2.5 mg/dL Blood 06/17/2024 5:02 AM CDT 06/17/2024 9:15 AM CDT Macario Biswas Jr., MD LAB BLOOD ORDERABLE S Final Result Performing Organization Address City/[facility]/ZIP Co de Phone Number [facility]ORDYN [facility] ([place]) 1 [facility] Department [place] [address] * CT Abdomen Pelvis W Contrast (06/16/2024 7:35 AM CDT) Anatomical Region Laterality Modality Body N/A Computed Tomogra phy 06/16/2024 7:37 AM CDT Narrative 06/16/2024 7:51 AM CDT EXAM DESCRIPTION: CT ABDOMEN PELVIS W CONTRAST REASON FOR STUDY: Abdominal pain, acute, nonlocalized Epigastric pain, nausea, and vomiting for 3 days. Hx of tubal and pancreatitis TECHNIQUE: CT scan of the abdomen and pelvis performed with intravenous and without oral contrast using helical scanning technique with dynamic intravenous contrast injection. Reconstructed coronal and sagittal MPR images reviewed. All images stored on PACS. Automated exposure control was used as a dose optimization technique for this examination. CONTRAST TYPE/DOSE: 75mL of IOVERSOL 350 injected via intravenous COMPARISON: March 11, 2024 and February 28, 2024 FINDINGS: LOWER CHEST: No significant pulmonary abnormalities. No effusion. LIVER: Mild hepatomegaly and mild diffuse fatty infiltration. No identified cystic or solid masses. GALLBLADDER: Mildly distended. No definite radiopaque cholelithiasis. Small amount of pericholecystic fluid. BILE DUCTS: No intrahepatic or extrahepatic ductal dilatation. SPLEEN: Normal size. No focal lesions. PANCREAS: Pancreatic head mildly enlarged with inhomogeneous density and surrounding inflammatory changes/fluid thought to represent acute pancreatitis. Small focal hypodensities in the pancreatic head were not definitely identified on the March 11, 2024 exam but appear very similar to that seen on the February 28, 2024 exam. ADRENALS: Normal. KIDNEYS/URINARY TRACT: No identified significant cystic or solid masses. No visualized stones. No hydronephrosis or hydroureter. Symmetric enhancement. Urinary bladder is unremarkable. GI: Mild distention of the descending duodenum is probably related to ileus. Otherwise, no dilated bowel loops. No obvious wall thickening. Normal appendix. No significant diverticular disease. PERITONEUM: No ascites or free air. RETROPERITONEUM: No mass or adenopathy. REPRODUCTIVE: Endometrial thickening/fluid is likely physiologic. Otherwise, no significant abnormality. VASCULATURE: No abdominal aortic aneurysm. MUSCULOSKELETAL: No significant abnormality. OTHER: No other abnormality. IMPRESSION: Pancreatic head mildly enlarged with inhomogeneous density and surrounding inflammatory changes/fluid thought to represent acute pancreatitis. Small focal hypodensities in the pancreatic head were not definitely identified on the March 11, 2024 exam but appear very similar to that seen on the February 28, 2024 exam. Mildly distended gallbladder. No definite radiopaque cholelithiasis. Small amount of pericholecystic fluid. No biliary dilatation. Mild hepatomegaly and mild diffuse fatty infiltration of the liver. Mild distention of descending duodenum is probably related to ileus. No dilated bowel. No free intraperitoneal fluid or free intraperitoneal air. Normal appendix. Endometrial thickening/fluid is likely physiologic. THIS IS AN ELECTRONICALLY VERIFIED FINAL REPORT 06/16/2024 7:51 AM - Electronically signed by Marcel Humphrey M.D. RB: PATRICE Report ID: [id number] Reading Location: [id number] Procedure Note Marcel Humphrey MD - 06/16/2024 EXAM DESCRIPTION: CT ABDOMEN PELVIS W CONTRAST REASON FOR STUDY: Abdominal pain, acute, nonlocalized Epigastric pain, nausea, and vomiting for 3 days. Hx of tubal andpancreatitis TECHNIQUE: CT scan of the abdomen and pelvis performed with intravenousand without oral contrast using helical scanning technique with dynamic intravenous contrast injection. Reconstructed coronal and sagittal MPRimages reviewed. All images stored on PACS. Automated exposure control was usedas a dose optimization technique for this examination. CONTRAST TYPE/DOSE: 75mL of IOVERSOL 350 injected via intravenous COMPARISON: March 11, 2024 and February 28, 2024 FINDINGS: LOWER CHEST: No significant pulmonary abnormalities. No effusion. LIVER: Mild hepatomegaly and mild diffuse fatty infiltration. Noidentified cystic or solid masses. GALLBLADDER: Mildly distended. No definite radiopaque cholelithiasis. Small amount of pericholecystic fluid. BILE DUCTS: No intrahepatic or extrahepatic ductal dilatation. SPLEEN: Normal size. No focal lesions. PANCREAS: Pancreatic head mildly enlarged with inhomogeneous density and surrounding inflammatory changes/fluid thought to represent acute pancreatitis. Small focal hypodensities in the pancreatic head were not definitely identified on the March 11, 2024 exam but appear verysimilar to that seen on the February 28, 2024 exam. ADRENALS: Normal. KIDNEYS/URINARY TRACT: No identified significant cystic or solid masses.No visualized stones. No hydronephrosis or hydroureter. Symmetricenhancement. Urinary bladder is unremarkable. GI: Mild distention of the descending duodenum is probably related toileus. Otherwise, no dilated bowel loops. No obvious wall thickening. Normal appendix. No significant diverticular disease. PERITONEUM: No ascites or free air. RETROPERITONEUM: No mass or adenopathy. REPRODUCTIVE: Endometrial thickening/fluid is likely physiologic. Otherwise, no significant abnormality. VASCULATURE: No abdominal aortic aneurysm. MUSCULOSKELETAL: No significant abnormality. OTHER: No other abnormality. IMPRESSION: Pancreatic head mildly enlarged with inhomogeneous density andsurrounding inflammatory changes/fluid thought to represent acute pancreatitis. Small focal hypodensities in the pancreatic head were not definitely identifiedon the March 11, 2024 exam but appear very similar to that seen on the February 28, 2024 exam. Mildly distended gallbladder. No definite radiopaque cholelithiasis.Small amount of pericholecystic fluid. No biliary dilatation. Mild hepatomegaly and mild diffuse fatty infiltration of the liver. Mild distention of descending duodenum is probably related to ileus. No dilated bowel. No free intraperitoneal fluid or free intraperitonealair. Normal appendix. Endometrial thickening/fluid is likely physiologic. THIS IS AN ELECTRONICALLY VERIFIED FINAL REPORT 06/16/2024 7:51 AM - Electronically signed by Marcel Humphrey M.D. RB: PATRICE Report ID: [id number] Reading Location: [place] [address] John Cary MD IMG CT PROCEDURES Final Resu lt * eGFR (06/16/2024 5:35 AM CDT) eGFR >90 >=60 mL/min/1. 73 m2 Comment: Interpretive Data Reference Interval Normal >/= 90 mL/min/1.73m2 Mildly decreased* 60 - 89 mL/min/1.73m2 Mildly to moderately decreased 45 - 59 mL/min/1.73m2 Moderately to severely decreased 30 - 44 mL/min/1.73m2 Severely decreased 15 - 29 mL/min/1.73m2 Kidney Failure < 15 mL/min/1.73m2 *Relative to young adult level Estimated glomerular filtration rate is determined by the 2020 CKD-EPI equation recommended by the National Kidney Foundation (A Unifying Approach to GFR Estimation: Recommendations of the NKF-ASK Task Force on Reassessing the Inclusion of Race in Diagnosing Kidney Disease, JASN 2020). The CKD-EPI equation should not be used for patients with unstable renal function and has not been validated in children and those over 70. Current interpretive data was last reviewed 2021. Blood 06/16/2024 5:35 AM CDT 06/16/2024 5:42 AM CDT us Laura Herrera MD LAB BLOOD ORDERABLES Fin al Result [facility] ([place]) 1 [facility] [place] [address] * (ABNORMAL) Differential, auto (06/16/2024 5:35 AM CDT) Neutrophil abs 11.85(H) 1.50 - 6.50 K/cumm Imm gran abs 0.04 0.00 - 0.10 K/cumm [facility] ([place]) Lymphocyte abs 3.30 0.80 - 3.30 K/cumm [facility] ([place]) Monocyte abs 0.85(H) 0.20 - 0.80 K/cumm [facility] ([place]) Eosinophil abs 0.16 0.00 - 0.50 K/cumm [facility] ([place]) Basophil abs 0.07 0.00 - 0.10 K/cumm [facility] ([place]) Neutrophil pct 72.9 % [facility] ([place]) Comment: Interpretive Data Percent cell count reference ranges are not reported, since discordance with absolute values may lead to misinterpretation of CBC data. Current Interpretive Data was last revised on 2017. Imm gran pct 0.2 % [facility] ([place]) Comment: Interpretive Data Percent cell count reference ranges are not reported, since discordance with absolute values may lead to misinterpretation of CBC data. Current Interpretive Data was last revised on 2017. Lymphocyte pct 20.3 % [facility] ([place]) Comment: Interpretive Data Percent cell count reference ranges are not reported, since discordance with absolute values may lead to misinterpretation of CBC data. Current Interpretive Data was last revised on 2017. Monocyte pct 5.2 % JORD[facility] VINCENT ([place]) Comment: Interpretive Data Percent cell count reference ranges are not reported, since discordance with absolute values may lead to misinterpretation of CBC data. Current Interpretive Data was last revised on 2017. Eosinophil pct 1.0 % [facility] ([place]) Comment: Interpretive Data Percent cell count reference ranges are not reported, since discordance with absolute values may lead to misinterpretation of CBC data. Current Interpretive Data was last revised on 2017. Basophil pct 0.4 % [facility] VINCENT ([place]) Comment: Interpretive Data Percent cell count reference ranges are not reported, since discordance with absolute values may lead to misinterpretation of CBC data. Current Interpretive Data was last revised on 2017. Blood 06/16/2024 5:35 AM CDT 06/16/2024 5:42 AM CDT us Laura Herrera MD LAB BLOOD ORDERABLES Fin al Result [facility] VINCENT ([place]) 1 [facility] [place] [address] * (ABNORMAL) Urinalysis reflex to microscopic and culture Urine (06/16/2024 5:35 AM CDT) Color, ur Yellow Yellow Clarity, ur Turbid(A) Clear JORDYN Awad ([place]) Specific gravity, ur 1.033(H) 1.003 - 1.030 [facility] VINCENT ([place]) pH, urine 6.0 [facility] VINCENT ([place]) Comment: Interpretive Data U rine pH is affected by diet, medications, systemic acid-base disturbances, and renal tubular function. pH may affect urinary stone formation. For example, urine pH below 6.0 may help reduce the tendency for calcium phosphate stones and pH greater than 6.0 may reduce the tendency for uric acid stone formation. Source: [facility] Free Flow Power Current Interpretive Data was last revised on 2017 Protein, ur ql Trace Negative [facility] ([place]) Glucose, ur ql Negative Negative [facility] ([place]) Ketones, ur Negative Negative [facility] ([place]) Bilirubin, ur Negative Negative [facility] ([place]) Blood, ur Negative Negative [facility] ([place]) Urobilinogen, ur <2.0 <2.0 mg/dL [facility] ([place]) Nitrite, ur Negative Negative [facility] ([place]) Leukocyte esterase, ur 3+(A) Negative [facility] ([place]) UA reflex comment Reflex to microscopic UA will be performed. [facility] ([place]) Urine 06/16/2024 5:35 AM CDT 06/16/2024 5:42 AM CDT us Laura Herrera MD LAB MICROBIOLOGY - GENER AL ORDERABLES Final Result [facility] ([place]) 1 [facility] [place] [address] * (ABNORMAL) CBC with auto differential (06/16/2024 5:35 AM CDT) WBC 16.27(H) 3.80 - 9.90 K/cumm Hgb 12.7 11.9 - 15.5 g/dL [facility] ([place]) Hct 36.5 35.6 - 45.5 % [facility] ([place]) Plt 264 150 - 400 K/cumm [facility] ([place]) MPV 9.1 9.1 - 12.3 fL [facility] ([place]) RBC 4.37 3.90 - 5.20 M/cumm [facility] ([place]) MCV 83.5 81.3 - 96.4 fL [facility] ([place]) MCH 29.1 27.1 - 33.3 pg [facility] ([place]) MCHC 34.8 32.3 - 35.7 g/dL [facility] ([place]) RDW CV 16.2(H) 11.1 - 14.9 % [facility] ([place]) RDW SD 49.6(H) 35.7 - 48.1 fL [facility] ([place]) NRBC abs 0.04(H) 0.00 - 0.01 K/cumm [facility] ([place]) Blood 06/16/2024 5:35 AM CDT 06/16/2024 5:42 AM CDT Laura Herrera MD LAB BLOOD ORDERABLES Fin al Result JORDYN VINCENT ([place]) 1 [facility] [place] [address] * (ABNORMAL) Drugs of Abuse Screen, Urine without Confirmation (06/16/2024 5:35 AM CDT) Amphetamine, ur Not Detected CutOff 500ng/mL Comment: Interpretive Data - Amphetamines: Samples containing greater than 500 ng/mL d-methamphetamine or other cross-reacting amphetamine compounds are reported as positive. Amphetamine immunoassays are subject to significant false positive rates due to cross-reactivity of non-amphetamine drugs. Confirmatory testing required for definitive results. Current Interpretive Data was last reviewed 2022. Barbiturates, ur Not Detected CutOff 200ng/mL [facility] ([place]) Comment: Interpretive Data - Barbiturates: Samples containing greater than 200 ng/mL secobarbital or other cross-reacting barbiturate compounds are reported as positive. False positive and false negative results are possible. Confirmatory testing required for definitive results. Current Interpretive Data was last reviewed 2022. Benzodiazepines, ur Not Detected CutOff 100ng/mL [facility] ([place]) Comment: Interpretive Data - Benzodiazepines: Samples containing greater than 100 ng/mL nordiazepam or other cross-reacting compounds are reported as positive. False positive and false negative results are possible. Confirmatory testing required for definitive results. Current Interpretive Data was last reviewed 2022. Cannabinoids, ur Screen Positive, presumptive (A) CutOff 50 ng/mL [facility] ([place]) Comment: Interpretive Data - Cannabinoids: Samples containing greater than 50 ng/mL delta-9 THC -COOH or other cross- reacting compounds are reported as positive. False positive and false negative results are possible. Confirmatory testing required for definitive results. Current Interpretive Data was last reviewed 2022. Cocaine, ur Not Detected CutOff 150ng/mL [facility] ([place]) Comment: Interpretive Data - Cocaine: Samples containing greater than 150 ng/mL benzoylecgonine or other cross- reacting compounds are reported as positive. False positive and false negative results are possible. Confirmatory testing required for definitive results. Current Interpretive Data was last reviewed 2022. Fentanyl, Ur Not Detected CutOff 5 ng/mL [facility] ([place]) Comment: Interpretive Data - Fentanyl: Samples containing greater than 5 ng/mL norfentanyl, fentanyl, or other cross-reacting fentanyl compounds are reported as positive. False positive and false negative results are possible. Confirmatory testing required for definitive results. Current Interpretive Data was last reviewed 2023. Methadone, ur Not Detected CutOff 300ng/mL [facility] ([place]) Comment: Interpretive Data - Methadone: Samples containing greater than 300 ng/mL d,l-methadone or other cross-reacting compounds are reported as positive. False positive and false negative results are possible. Confirmatory testing required for definitive results. Current Interpretive Data was last reviewed 2022. Opiates, ur Not Detected CutOff 300ng/mL [facility] ([place]) Comment: Interpretive Data - Opiates: Samples containing greater than 300 ng/mL morphine or other cross-reacting compounds are reported as positive. False positive and false negative results are possible. Confirmatory testing required for definitive results. Current Interpretive Data was last reviewed 2022. Oxycodone, ur Not Detected CutOff 100ng/mL [facility] ([place]) Comment: Interpretive Data - Oxycodone: Samples containing greater than 100 ng/mL oxycodone or other cross-reacting compounds are reported as positive. False positive and false negative results are possible. Confirmatory testing required for definitive results. Current Interpretive Data was last reviewed 2022. Phencyclidine, ur Not Detected CutOff 25 ng/mL [facility] ([place]) Comment: Interpretive Data - Phencyclidine: Samples containing greater than 25 ng/mL phencyclidine or other cross-reacting compounds are reported as positive. False positive and false negative results are possible. Confirmatory testing required for definitive results. Current Interpretive Data was last reviewed 2022. Urine Creatinine 107 mg/dL [facility] ([place]) Comment: Interpretive Data Urine Creatinine: < 10 mg/dL is extremely dilute = or > 10 but < 20 mg/dL is dilute = or > 20 mg/dL is normal Current Interpretive Data was last revised on 2017. Urine 06/16/2024 5:35 AM CDT 06/16/2024 7:21 AM CDT Narrative [facility] ([place]) - 06/16/2024 7:46 AM CDT Drug of Abuse screening is performed by immunoassay for medical purposes only. This is not to be used for Pain Management purposes. John Cary MD LAB URINE ORDERABLES Final R esult [facility] ([place] 1 [facility] [place] [address] * hCG, urine, qualitative (06/16/2024 5:35 AM CDT) HCG, ur Negative Negative Urine 06/16/2024 5:35 AM CDT 06/16/2024 5:42 AM CDT Laura Herrera MD LAB URINE ORDERABLES Fin al Result Performing Organization Address [facility]/ZIP Co de Phone Number [facility] ([place]) 1 [facility] [place] [address] * (ABNORMAL) Urinalysis, microscopic only (06/16/2024 5:35 AM CDT) WBC, ur 11-20(A) 0 - 5 /HPF RBC, ur 3-5(A) 0 - 2 /HPF [facility] ([place]) Epithelial cells, squamous, ur 21-50(A) 0 - 5 /HPF [facility] ([place]) Comment:Suggestive of contam ination. Consider recollection by clean catch. Bacteria, ur 1+(A) [facility] ([place]) Mucous, ur Present(A) [facility]ER A ([place]) Culture Reflex Comment Reflex to urine culture will be performed. [facility] ([place]) Urine 06/16/2024 5:35 AM CDT 06/16/2024 5:42 AM CDT Laura Herrera MD LAB URINE ORDERABLES Fin al Result JORDYN MELISA ([place]) 1 [facility] [place] [address] * Urine culture Urine (06/16/2024 5:35 AM CDT) Report Final Report: Less than 100,000 colonies/mL (clinically insignificant growth based on current clinical standards) Comment:Testing performed by : [facility], 1 [place]., [address] Organism (CLINICALLY INSIGNIFICANT GROWTH JORDYN VINCENT ([place]) Urine 06/16/2024 5:35 AM CDT 06/16/2024 9:59 AM CDT Narrative JORD[facility] VINCENT ([place]) - 06/17/2024 12:21 PM CDT Urine culture reflexed based upon urinalysis results. Testing performed by [facility] ([phone]) Laura Herrera MD LAB MICROBIOLOGY - GENER AL ORDERABLES Final Result Performing Organization Address [facility] Co de Phone Number [facility]INC[facility] ([place]) 1 [place] [address] * (ABNORMAL) Lipase (06/16/2024 5:35 AM CDT) Lipase 154(H) 10 - 99 Units/L Blood 06/16/2024 5:35 AM CDT 06/16/2024 5:42 AM CDT Laura Herrera MD LAB BLOOD ORDERABLES Fin al Result Performing Organization Address City/[facility] Co de Phone Number [facility] ([place]) 1 [facility] [place] [address] * Ethanol (06/16/2024 5:35 AM CDT) Ethanol <10 <=10 mg/dL Comment: Interpretive Data Legal limit of intoxication > or = 80 mg/dL Levels > or = 400 mg/dL are potentially TOXIC. Current interpretive data was last revised on 2018. Blood 06/16/2024 5:35 AM CDT 06/16/2024 7:00 AM CDT John Cary MD LAB BLOOD ORDERABLES Final R esult [facility] ([place]) 1 [facility] [place] [address] * (ABNORMAL) Comprehensive metabolic panel (06/16/2024 5:35 AM CDT) Sodium 134(L) 135 - 145 mmol/L Potassium, pl 3.3 3.3 - 4.9 mmol/L [facility] ([place]) Chloride 101 97 - 110 mmol/L [facility] ([place]) CO2 19(L) 22 - 32 mmol/L [facility] ([place]) Anion gap 14 2 - 15 mmol/L [facility] ([place]) BUN 9 6 - 25 mg/dL [facility] ([place]) Creatinine 0.61 0.60 - 1.10 mg/dL [facility] ([place]) Glucose 102 70 - 199 mg/dL [facility] ([place]) Comment: Interpretive Data Fasting glucose >/= 126 mg/dl is diagnostic for diabetes. Fasting is defined as no caloric intake for at least 8 hours. Fasting glucose between 100 mg/dl to 125 mg/dl is diagnostic of prediabetes. In a patient with classic symptoms of hyperglycemia or hyperglycemic crisis, a random glucose >/= 200 mg/dl is diagnostic for diabetes. In the absence of unequivocal hyperglycemia, results should be confirmed by repeat testing. The classification and Diagnosis of Diabetes Diabetes Care 2021; 46: S19-S40. Current interpretive data was last revised 2022. Calcium 9.1 8.5 - 10.3 mg/dL [facility] ([place]) Bilirubin, total 0.4 0.1 - 1.2 mg/dL [facility] ([place]) Protein, pl 7.2 6.5 - 8.5 g/dL [facility] ([place]) Albumin 4.0 3.5 - 5.0 g/dL [facility] ([place]) Alk phos 79 40 - 130 Units/L [facility] ([place]) ALT 21 7 - 45 Units/L [facility] ([place]) AST 14 10 - 45 Units/L [facility] ([place]) Blood 06/16/2024 5:35 AM CDT 06/16/2024 5:42 AM CDT us Laura Herrera MD LAB BLOOD ORDERABLES Fin al Result [facility] ([place]) 1 [facility] [place] [address] from Last 3 Months Insurance IDPA IDPA Advance Directives For more information, please contact: [phone] * Full Code (Latest Code Status on File) Date Activated Date Inactivated Comments 06/16/2024 8:22 AM 06/19/2024 5:21 PM * Full Code Date Activated Date Inactivated Comments 03/12/2024 7:18 AM 03/12/2024 7:57 PM * Full Code Date Activated Date Inactivated Comments 02/28/2024 7:29 PM 03/01/2024 10:43 PM * Full Code Date Activated Date Inactivated Comments 02/28/2024 7:27 PM 02/28/2024 7:29 PM * Full Code Date Activated Date Inactivated Comments 05/12/2021 4:34 PM 05/14/2021 7:00 PM Care Teams Truckman Relationship Specialty Start Date End Date Altagracia Briones MD [address] [facility] [address] [place] [address] PCP - General Obstetrics and Gynecology 02/28/24 [place] [address] [facility] [address] [place] [address] Consulting Physician Gastroenterology 05/14/21 Becky Jin NP [address] [facility] [address] [facility] [address] [place] [address] Nurse Practitioner Nurse Practitioner 03/01/24
--- OUTSIDE RECORDS SUMMARY | 2024-08-01 06:39 | XMS_ITS ---
count 29.1 pg low: 26pghi gh: 34pg MCH 29.1 26.0 - 34.0 pg 06/07 6:55 PM CDT [facility] Dada Room[employer] R LAB Not Available Not Available 06/25/2024 14:34:37 06/08/19 25 06/07/2024 CBC W Auto Diffe renti al panel - Blood MCHC [entitic mass/volume] in red blood cells by automated count 32.2 g/dL low: 31g/dL high: 36g/dL MCHC 32.2 31.0 - 36.0 g/dL 06/07 6:55 PM CDT [facility] Dada RoomE R LAB Not Available Not Available 06/25/2024 14:34:37 06/08/19 25 06/07/2024 CBC W Auto Diffe renti al panel - Blood platelets [#/volume] in blood 268 text: 140 - 440 10(3)/ mcL PLATE LET COUNT 268 140 - 440 10(3) /mcL 06/07 6:55 PM CDT [facility] [place] [employer] R LAB Not Available Not Available 06/25/2024 14:34:37 06/08/19 25 06/07/2024 CBC W Auto Diffe renti al panel - Blood erythrocyte [distwidth] in red blood cells by automated count 16.8 % low: 11.8%h igh: 15.5% high RDW 16.8 (H) 11.8 - 15.5 % 06/07 6:55 PM CDT [facility] Dada RoomE R LAB Not Available Not Available 06/25/2024 14:34:37 06/08/19 25 06/07/2024 CBC W Auto Diffe renti al panel - Blood platelet [entitic mean volume] in blood by automated count 9.9 fL low: 9.7fLh igh: 12.4fL MPV 9.9 9.7 - 12.4 fL 06/07 6:55 PM CDT [facility] Dada RoomE R LAB Not Available Not Available 06/25/2024 14:34:37 06/08/19 25 06/07/2024 CBC W Auto Diffe renti al panel - Blood neutrophils/ leukocytes in blood by automated count 55.7 % low: 47%hig h: 73% NEUTR OPHIL S 55.7 47.0 - 73.0 % 06/07 6:55 PM CDT [facility] Not Available Not Available 06/25/2024 14:34:37 06/08/19 25 06/07/2024 CBC W Auto Diffe renti al panel - Blood lymphocytes/ leukocytes in blood by automated count 34 % low: 18%hig h: 42% LYMPH OCYTE S 34.0 18.0 - 42.0 % 06/07 6:55 PM CDT [facility] LAB Not Available Not Available 06/25/2024 14:34:37 06/08/19 25 06/07/2024 CBC W Auto Diffe renti al panel - Blood monocytes/le ukocytes in blood by automated count 6.8 % low: 4%high : 12% MONOC YTES 6.8 4.0 - 12.0 % 06/07 6:55 PM CDT [facility] Not Available Not Available 06/25/2024 14:34:37 06/08/19 25 06/07/2024 CBC W Auto Diffe renti al panel - Blood eosinophils/ leukocytes in blood by automated count 3 % low: 0%high : 5% EOSIN OPHIL S 3.0 0.0 - 5.0 % 06/07 6:55 PM CDT [facility] Not Available Not Available 06/25/2024 14:34:37 06/08/19 25 06/07/2024 CBC W Auto Diffe renti al panel - Blood basophils/le ukocytes in blood by automated count 0.5 % low: 0%high : 1% BASOP HILS 0.5 0.0 - 1.0 % 06/07 6:55 PM CDT [facility] Not Available Not Available 06/25/2024 14:34:37 06/08/19 25 06/07/2024 CBC W Auto Diffe renti al panel - Blood neutrophils [#/volume] in blood by automated count 6.78 text: 1.60 - 7.70 10(3)/ mcL ABSOL YOMBA SHOSHONE NEUTR OPHIL S 6.78 1.60 - 7.70 10(3) /mcL 06/07 6:55 PM [facility] Not Available Not Available 06/25/2024 14:34:37 06/08/19 25 06/07/2024 CBC W Auto Diffe renti al panel - Blood lymphocytes [#/volume] in blood by automated count 4.14 text: 1.30 - 3.20 10(3)/ mcL high ABSOL YOMBA SHOSHONE LYMPH OCYTE S 4.14 (H) 1.30 - 3.20 10(3) /mcL 06/07 6:55 PM CD[facility] Not Available Not Available 06/25/2024 14:34:37 06/08/19 25 06/07/2024 CBC W Auto Diffe renti al panel - Blood monocytes [#/volume] in blood by automated count 0.83 text: 0.20 - 1.00 10(3)/ mcL ABSOL YOMBA SHOSHONE MONOC YTES 0.83 0.20 - 1.00 10(3) /mcL 06/07 6:55 PM CDT [facility] Not Available Not Available 06/25/2024 14:34:37 06/08/19 25 06/07/2024 CBC W Auto Diffe renti al panel - Blood eosinophils [#/volume] in blood by automated count 0.36 text: 0.00 - 0.40 10(3)/ mcL ABSOL YOMBA SHOSHONE EOSIN OPHIL 0.36 0.00 - 0.40 10(3) /mcL 06/07 6:55 PM CDT [facility] Not Available Not Available 06/25/2024 14:34:37 06/08/19 25 06/07/2024 CBC W Auto Diffe renti al panel - Blood basophils [#/volume] in blood by automated count 0.06 text: 0.00 - 0.10 10(3)/ mcL ABSOL YOMBA SHOSHONE BASOP HILS 0.06 0.00 - 0.10 10(3) /mcL 06/07 6:55 PM CDT [facility] LAB Not Available Not Available 06/25/2024 14:34:37 06/08/19 25 06/07/2024 CBC W Auto Diffe renti al panel - Blood nucleated erythrocytes /leukocytes [ratio] in blood 0 NRBC PER 100 WBC 0 06/07 6:55 PM CDT [facility] LAB Not Available Not Available 06/25/2024 14:34:37 06/08/19 25 06/07/2024 CBC W Auto Diffe renti al panel - Blood interpretati on and review of laboratory results Abnorm al Not Available Not Available 14:34:37 06/08/19 25 06/07/2024 Lipas e [Enzy matic activ ity/v olume ] in Serum or Plasm a lipase [enzymatic activity/vol ume] in serum or plasma 87 U/L low: 8U/Lhi gh: 78U/L high LIPAS E 87 (H) 8 - 78 U/L 06/07 7:15 PM CDT [facility] Dada RoomE R LAB Not Available Not Available 06/25/2024 14:34:37 06/08/19 25 06/07/2024 Lipas e [Enzy matic activ ity/v olume ] in Serum or Plasm a interpretati on and review of laboratory results Abnorm al Not Available Not Available 14:34:37 06/08/19 25 06/07/2024 Compr ehens sabrina metab olic 1999 panel - Serum or Plasm a sodium [moles/volum e] in serum or plasma 140 mmol/ L low: 136mmo l/Lhig h: 145mmo l/L SODIU M 140 136 - 145 mmol/ L 06/07 7:15 PM [facility] Not Available Not Available 06/25/2024 14:34:37 06/08/19 25 06/07/2024 Compr ehens sabrina metab olic 1999 panel - Serum or Plasm a potassium [moles/volum e] in serum or plasma 4.1 mmol/ L low: 3.5mmo l/Lhig h: 5.1mmo l/L POTAS SIUM 4.1 3.5 - 5.1 mmol/ L 06/07 7:15 PM CDT [facility] Not Available Not Available 06/25/2024 14:34:37 06/08/19 25 06/07/2024 Compr ehens sabrina metab olic 1999 panel - Serum or Plasm a chloride [moles/volum e] in serum or plasma 112 mmol/ L low: 98mmol /Lhigh : 107mmo l/L high CHLOR KALE 112 (H) 98 - 107 mmol/ L 06/07 7:15 PM CDT [facility] Not Available Not Available 06/25/2024 14:34:37 06/08/19 25 06/07/2024 Compr ehens sabrina metab olic 2000 panel - Serum or Plasm a carbon dioxide, total [moles/volum e] in serum or plasma 20 mmol/ L low: 22mmol /Lhigh : 30mmol /L low CO2, VENOU S 20 (L) 22 - 30 mmol/ L 06/07 7:15 PM CDT [facility] Dada RoomE R LAB Not Available Not Available 06/25/2024 14:34:37 06/08/19 25 06/07/2024 Compr ehens sabrina metab olic 1999 panel - Serum or Plasm a anion gap in serum or plasma by calculation 12.1 mmol/ L high: 18mmol /L ANION GAP 12.1 <18.0 mmol/ L 06/07 7:15 PM CDT [facility] Not Available Not Available 06/25/2024 14:34:37 06/08/19 25 06/07/2024 Compr ehens sabrina metab olic 2000 panel - Serum or Plasm a glucose [mass/volume ] in serum or plasma 105 mg/dL low: 70mg/d Lhigh: 99mg/d L high GLUCO SE 105 (H) 70 - 99 mg/dL 06/07 7:15 PM CDT [facility] Not Available Not Available 06/25/2024 14:34:37 06/08/19 25 06/07/2024 Compr ehens sabrina metab olic 1999 panel - Serum or Plasm a urea nitrogen [mass/volume ] in serum or plasma 15 mg/dL low: 5mg/dL high: 18mg/d L BUN 15 5 - 18 mg/dL 06/07 7:15 PM CDT [facility] Dada Room R LAB Not Available Not Available 06/25/2024 14:34:37 06/08/19 25 06/07/2024 Compr ehens sabrina metab olic 1999 panel - Serum or Plasm a creatinine [mass/volume ] in serum or plasma 1.04 mg/dL low: 0.6mg/ dLhigh : 1mg/dL high CREAT ININE , BLOOD 1.04 (H) 0.60 - 1.00 mg/dL 06/07 7:15 PM CDT [facility] [place] LAB Not Available Not Available 06/25/2024 14:34:37 06/08/19 25 06/07/2024 Compr ehens sabrina metab olic 1999 panel - Serum or Plasm a urea nitrogen/cre atinine [mass ratio] in serum or plasma 14 text: 12 - 20 ratio BUN/C REATI NINE RATIO 14 12 - 20 ratio 06/07 7:15 PM CDT [facility] [place] LAB Not Available Not Available 06/25/2024 14:34:37 06/08/19 25 06/07/2024 Compr ehens sabrina metab olic 1999 panel - Serum or Plasm a protein [mass/volume ] in serum or plasma 6.9 g/dL low: 6g/dLh igh: 8g/dL TOTAL PROTE IN 6.9 6.0 - 8.0 g/dL 06/07 7:15 PM CDT [facility] [place] [employer] R LAB Not Available Not Available 06/25/2024 14:34:37 06/08/19 25 06/07/2024 Compr ehens sabrina metab olic 2000 panel - Serum or Plasm a albumin [mass/volume ] in serum or plasma 3.8 g/dL low: 3.5g/d Lhigh: 5g/dL ALBUM IN 3.8 3.5 - 5.0 g/dL 06/07 7:15 PM CDT [facility] [employer] R LAB Not Available Not Available 06/25/2024 14:34:37 06/08/19 25 06/07/2024 Compr Number 1 Products [employer] Servicesens sabrina metab olic 1999 panel - Serum or Plasm a albumin/glob ulin [mass ratio] in serum or plasma 1.2 low: 1high: 2.2 A/G RATIO 1.2 1.0 - 2.2 06/07 7:15 PM CDT [facility] [employer] R LAB Not Available Not Available 06/25/2024 14:34:37 06/08/19 25 06/07/2024 Compr [employer] sabrina [employer] olic 1999 panel - Serum or Plasm a calcium [mass/volume ] in serum or plasma 8.5 mg/dL low: 8.7mg/ dLhigh : 10.5mg /dL low CALCI UM 8.5 (L) 8.7 - 10.5 mg/dL 06/07 7:15 PM CDT [facility] [employer] R LAB Not Available Not Available 06/25/2024 14:34:37 06/08/19 25 06/07/2024 Compr Number 1 Products [employer]ens sabrina [employer] olic 1999 panel - Serum or Plasm a bilirubin.to glo [mass/volume ] in serum or plasma 0.1 mg/dL low: 0.2mg/ dLhigh : 1.2mg/ dL low T BILI 0.1 (L) 0.2 - 1.2 mg/dL 06/07 7:15 PM CDT [facility] [employer] R LAB Not Available Not Available 06/25/2024 14:34:37 06/08/19 25 06/07/2024 Compr [employer] sabrina [employer] olic 1999 panel - Serum or Plasm a aspartate aminotransfe rase [enzymatic activity/vol ume] in serum or plasma 23 U/L high: 43U/L SGOT (AST) 23 <43 U/L 06/07 7:15 PM CDT [facility] LAB Not Available Not Available 06/25/2024 14:34:37 06/08/19 25 06/07/2024 Compr ehens sabrina metab olic 1999 panel - Serum or Plasm a alanine aminotransfe rase [enzymatic activity/vol ume] in serum or plasma 33 U/L high: 56U/L SGPT (ALT) 33 <56 U/L 06/07 7:15 PM CDT [facility] [employer] H CENTE R LAB Not Available Not Available 06/25/2024 14:34:37 06/08/19 25 06/07/2024 Compr ehens sabrina metab olic 2000 panel - Serum or Plasm a alkaline phosphatase [enzymatic activity/vol ume] in serum or plasma 65 U/L low: 40U/Lh igh: 150U/L ALKAL INE PHOSP HATAS E 65 40 - 150 U/L 06/07 7:15 PM CDT [facility] [employer] R LAB Not Available Not Available 06/25/2024 14:34:37 06/08/19 25 06/07/2024 Compr ehens sabrina metab olic 2000 panel - Serum or Plasm a glomerular filtration rate [volume rate/area] in serum, plasma or blood by creatinine-b ased formula (CKD-epi 2020)/1.73 sq M low: 60 GFR, ESTIM ATED >60 >=60 06/07 7:15 PM CDT [facility] [employer] R LAB Not Available Not Available 06/25/2024 14:34:37 06/08/19 25 06/07/2024 Compr ehens sabrina metab olic 2000 panel - Serum or Plasm a glomerular filtration rate [volume rate/area] in serum, plasma or blood by creatinine-b ased formula (MDRD)/1.73 sq M among black population low: 60 GFR, EST. AFRIC AN >60 >=60 06/07 7:15 PM CDT [facility] [employer]metricksT H CENTE R LAB Not Available Not Available 06/25/2024 14:34:37 06/08/19 25 06/07/2024 Compr ehens sabrina metab olic 2000 panel - Serum or Plasm a glomerular filtration rate [volume rate/area] in serum, plasma or blood by creatinine-b ased formula (MDRD)/1.73 sq M among non black population 58 low: 60 low GFR, EST. NONAF RICAN 58 (L) >=60 06/07 7:15 PM CDT [facility] R LAB Not Available Not Available 06/25/2024 14:34:37 06/08/19 25 06/07/2024 Compr ehens sabrina metab olic 2000 panel - Serum or Plasm a interpretati on and review of laboratory results Abnorm al Not Available Not Available 14:34:37 07/17/19 25 07/17/2024 Bacte tye ident ified in Urine by Cultu re bacteria identified in urine by culture Mixed Growth of One or More Distal Urethr al Contam inants CULTU RE RESUL TS Mixed Growt h of One or More Dista l Ureth ral Conta minan ts 07/17 3:55 PM CDT [facility] R Not Available Not Available 07/20/2024 11:35:07 07/17/19 25 07/16/2024 CBC W Auto Diffe renti al panel - Blood leukocytes [#/volume] in blood by automated count 16.34 text: 4.00 - 12.00 10(3)/ mcL high WBC 16.34 (H) 4.00 - 12.00 10(3) /mcL 07/16 9:03 AM CDT [facility] Not Available Not Available 07/20/2024 11:35:07 07/17/19 25 07/16/2024 CBC W Auto Diffe renti al panel - Blood erythrocytes [#/volume] in blood by automated count 4.9 text: 3.80 - 5.30 10(6)/ mcL RBC 4.90 3.80 - 5.30 10(6) /mcL 07/16 9:03 AM CDT [facility] LAB Not Available Not Available 07/20/2024 11:35:07 07/17/19 25 07/16/2024 CBC W Auto Diffe renti al panel - Blood hemoglobin [mass/volume ] in blood 14.2 g/dL low: 12g/dL high: 15.8g/ dL HEMOG LOBIN (HGB) 14.2 12.0 - 15.8 g/dL 07/16 9:03 AM CDT [facility] Not Available Not Available 07/20/2024 11:35:07 07/17/19 25 07/16/2024 CBC W Auto Diffe renti al panel - Blood hematocrit [volume fraction] of blood by automated count 41.7 % low: 36%hig h: 47% HEMAT OCRIT (HCT) 41.7 36.0 - 47.0 % 07/16 9:03 AM CDT [facility] Not Available Not Available 07/20/2024 11:35:07 07/17/19 25 07/16/2024 CBC W Auto Diffe renti al panel - Blood MCV [entitic mean volume] in red blood cells by automated count 85.1 fL low: 82fLhi gh: 96fL MCV 85.1 82.0 - 96.0 fL 07/16 9:03 AM CDT [facility] Not Available Not Available 07/20/2024 11:35:07 07/17/19 25 07/16/2024 CBC W Auto Diffe renti al panel - Blood MCH [entitic mass] by automated count 29 pg low: 26pghi gh: 34pg MCH 29.0 26.0 - 34.0 pg 07/16 9:03 AM CDT [facility] Not Available Not Available 07/20/2024 11:35:07 07/17/19 25 07/16/2024 CBC W Auto Diffe renti al panel - Blood MCHC [entitic mass/volume] in red blood cells by automated count 34.1 g/dL low: 31g/dL high: 36g/dL MCHC 34.1 31.0 - 36.0 g/dL 07/16 9:03 AM CD[facility] LAB Not Available Not Available 07/20/2024 11:35:07 07/17/19 25 07/16/2024 CBC W Auto Diffe renti al panel - Blood platelets [#/volume] in blood 327 text: 140 - 440 10(3)/ mcL PLATE LET COUNT 327 140 - 440 10(3) /mcL 07/16 9:03 AM CDT [facility] Not Available Not Available 07/20/2024 11:35:07 07/17/19 25 07/16/2024 CBC W Auto Diffe renti al panel - Blood erythrocyte [distwidth] in red blood cells by automated count 15.8 % low: 11.8%h igh: 15.5% high RDW 15.8 (H) 11.8 - 15.5 % 07/16 9:03 AM CDT [facility] Not Available Not Available 07/20/2024 11:35:07 07/17/19 25 07/16/2024 CBC W Auto Diffe renti al panel - Blood platelet [entitic mean volume] in blood by automated count 9 fL low: 9.7fLh igh: 12.4fL low MPV 9.0 (L) 9.7 - 12.4 fL 07/16 9:03 AM CDT [facility] Not Available Not Available 07/20/2024 11:35:07 07/17/19 25 07/16/2024 CBC W Auto Diffe renti al panel - Blood neutrophils/ leukocytes in blood by automated count 72.9 % low: 47%hig h: 73% NEUTR OPHIL S 72.9 47.0 - 73.0 % 07/16 9:03 AM CDT [facility] Not Available Not Available 07/20/2024 11:35:07 07/17/19 25 07/16/2024 CBC W Auto Diffe renti al panel - Blood lymphocytes/ leukocytes in blood by automated count 21.7 % low: 18%hig h: 42% LYMPH OCYTE S 21.7 18.0 - 42.0 % 07/16 9:03 AM CDT [facility] Not Available Not Available 07/20/2024 11:35:07 07/17/19 25 07/16/2024 CBC W Auto Diffe renti al panel - Blood monocytes/le ukocytes in blood by automated count 4.9 % low: 4%high : 12% MONOC YTES 4.9 4.0 - 12.0 % 07/16 9:03 AM CDT [facility] LAB Not Available Not Available 07/20/2024 11:35:07 07/17/19 25 07/16/2024 CBC W Auto Diffe renti al panel - Blood eosinophils/ leukocytes in blood by automated count 0.1 % low: 0%high : 5% EOSIN OPHIL S 0.1 0.0 - 5.0 % 07/16 9:03 AM CDT [facility] Dada RoomE R LAB Not Available Not Available 07/20/2024 11:35:07 07/17/19 25 07/16/2024 CBC W Auto Diffe renti al panel - Blood basophils/le ukocytes in blood by automated count 0.4 % low: 0%high : 1% BASOP HILS 0.4 0.0 - 1.0 % 07/16 9:03 AM CDT [facility] [employer]ada RoomE R LAB Not Available Not Available 07/20/2024 11:35:07 07/17/19 25 07/16/2024 CBC W Auto Diffe renti al panel - Blood neutrophils [#/volume] in blood by automated count 11.93 text: 1.60 - 7.70 10(3)/ mcL high ABSOL YOMBA SHOSHONE NEUTR OPHIL S 11.93 (H) 1.60 - 7.70 10(3) /mcL 07/16 9:03 AM CDT [facility] LAB Not Available Not Available 07/20/2024 11:35:07 07/17/19 25 07/16/2024 CBC W Auto Diffe renti al panel - Blood lymphocytes [#/volume] in blood by automated count 3.54 text: 1.30 - 3.20 10(3)/ mcL high ABSOL YOMBA SHOSHONE LYMPH OCYTE S 3.54 (H) 1.30 - 3.20 10(3) /mcL 07/16 9:03 AM [facility] Not Available Not Available 07/20/2024 11:35:07 07/17/19 25 07/16/2024 CBC W Auto Diffe renti al panel - Blood monocytes [#/volume] in blood by automated count 0.8 text: 0.20 - 1.00 10(3)/ mcL ABSOL YOMBA SHOSHONE MONOC YTES 0.80 0.20 - 1.00 10(3) /mcL 07/16 9:03 AM CDT [facility] Not Available Not Available 07/20/2024 11:35:07 07/17/19 25 07/16/2024 CBC W Auto Diffe renti al panel - Blood eosinophils [#/volume] in blood by automated count 0.01 text: 0.00 - 0.40 10(3)/ mcL ABSOL YOMBA SHOSHONE EOSIN OPHIL 0.01 0.00 - 0.40 10(3) /mcL 07/16 9:03 AM CDT [facility] Not Available Not Available 07/20/2024 11:35:07 07/17/19 25 07/16/2024 CBC W Auto Diffe renti al panel - Blood basophils [#/volume] in blood by automated count 0.06 text: 0.00 - 0.10 10(3)/ mcL ABSOL YOMBA SHOSHONE BASOP HILS 0.06 0.00 - 0.10 10(3) /mcL 07/16 9:03 AM CDT [facility] Not Available Not Available 07/20/2024 11:35:07 07/17/19 25 07/16/2024 CBC W Auto Diffe renti al panel - Blood nucleated erythrocytes /leukocytes [ratio] in blood 0 NRBC PER 100 WBC 0 07/16 9:03 AM CDT [facility] Not Available Not Available 07/20/2024 11:35:07 07/17/19 25 07/16/2024 CBC W Auto Diffe renti al panel - Blood interpretati on and review of laboratory results Abnorm al Not Available Not Available 11:35:07 07/17/19 25 07/16/2024 Magne sium [Mass /volu me] in Serum or Plasm a magnesium [mass/volume ] in serum or plasma 1.5 mg/dL low: 1.6mg/ dLhigh : 2.6mg/ dL low MAGNE SIUM 1.5 (L) 1.6 - 2.6 mg/dL 07/16 9:16 AM CDT [facility] Not Available Not Available 07/20/2024 11:35:07 07/17/19 25 07/16/2024 Magne sium [Mass /volu me] in Serum or Plasm a interpretati on and review of laboratory results Abnorm al Not Available Not Available 11:35:07 07/17/19 25 07/16/2024 Lipas e [Enzy matic activ ity/v olume ] in Serum or Plasm a lipase [enzymatic activity/vol ume] in serum or plasma 32 U/L low: 8U/Lhi gh: 78U/L LIPAS E 32 8 - 78 U/L 07/16 9:16 AM CDT [facility] Room R LAB Not Available Not Available 07/20/2024 11:35:07 07/17/19 25 07/16/2024 Lipas e [Enzy matic activ ity/v olume ] in Serum or Plasm a interpretati on and review of laboratory results Normal Not Available Not Available 11/2024 11:35:07 07/17/19 25 07/16/2024 Compr ehens sabrina metab olic 1999 panel - Serum or Plasm a sodium [moles/volum e] in serum or plasma 140 mmol/ L low: 136mmo l/Lhig h: 145mmo l/L SODIU M 140 136 - 145 mmol/ L 07/16 9:16 AM CDT [facility] Dada RoomE R LAB Not Available Not Available 07/20/2024 11:35:07 07/17/19 25 07/16/2024 Compr ehens sabrina metab olic 1999 panel - Serum or Plasm a potassium [moles/volum e] in serum or plasma 3.6 mmol/ L low: 3.5mmo l/Lhig h: 5.1mmo l/L POTAS SIUM 3.6 3.5 - 5.1 mmol/ L 07/16 9:16 AM CDT [facility] Dada RoomE R LAB Not Available Not Available 07/20/2024 11:35:07 07/17/19 25 07/16/2024 Compr ehens sabrina metab olic 2000 panel - Serum or Plasm a chloride [moles/volum e] in serum or plasma 102 mmol/ L low: 98mmol /Lhigh : 107mmo l/L CHLOR KALE 102 98 - 107 mmol/ L 07/16 9:16 AM CDT [facility] LAB Not Available Not Available 07/20/2024 11:35:07 07/17/19 25 07/16/2024 Compr ehens sabrina metab olic 2000 panel - Serum or Plasm a carbon dioxide, total [moles/volum e] in serum or plasma 22 mmol/ L low: 22mmol /Lhigh : 30mmol /L CO2, VENOU S 22 22 - 30 mmol/ L 07/16 9:16 AM CDT [facility] Room R LAB Not Available Not Available 07/20/2024 11:35:07 07/17/19 25 07/16/2024 Compr ehens sabrina metab olic 2000 panel - Serum or Plasm a anion gap in serum or plasma by calculation 19.6 mmol/ L high: 18mmol /L high ANION GAP 19.6 (H) <18.0 mmol/ L 07/16 9:16 AM CDT [facility] Dada Room R LAB Not Available Not Available 07/20/2024 11:35:07 07/17/19 25 07/16/2024 Compr ehens sabrina metab olic 1999 panel - Serum or Plasm a glucose [mass/volume ] in serum or plasma 140 mg/dL low: 70mg/d Lhigh: 99mg/d L high GLUCO SE 140 (H) 70 - 99 mg/dL 07/16 9:16 AM CDT [facility] Dada RoomE R LAB Not Available Not Available 07/20/2024 11:35:07 07/17/19 25 07/16/2024 Compr ehens sabrina metab olic 1999 panel - Serum or Plasm a urea nitrogen [mass/volume ] in serum or plasma 17 mg/dL low: 5mg/dL high: 18mg/d L BUN 17 5 - 18 mg/dL 07/16 9:16 AM CDT [facility] R LAB Not Available Not Available 07/20/2024 11:35:07 07/17/19 25 07/16/2024 Compr ehens sabrina metab olic 1999 panel - Serum or Plasm a creatinine [mass/volume ] in serum or plasma 0.66 mg/dL low: 0.6mg/ dLhigh : 1mg/dL CREAT ININE , BLOOD 0.66 0.60 - 1.00 mg/dL 07/16 9:16 AM CDT [facility] Dada RoomBlayne R LAB Not Available Not Available 07/20/2024 11:35:07 07/17/19 25 07/16/2024 Compr ehens sabrina metab olic 2000 panel - Serum or Plasm a urea nitrogen/cre atinine [mass ratio] in serum or plasma 26 text: 12 - 20 ratio high BUN/C REATI NINE RATIO 26 (H) 12 - 20 ratio 07/16 9:16 AM CDT [facility] R LAB Not Available Not Available 07/20/2024 11:35:07 07/17/19 25 07/16/2024 Compr ehens sabrina metab olic 1999 panel - Serum or Plasm a protein [mass/volume ] in serum or plasma 8.3 g/dL low: 6g/dLh igh: 8g/dL high TOTAL PROTE IN 8.3 (H) 6.0 - 8.0 g/dL 07/16 9:16 AM CDT [facility] RoomBlayne R LAB Not Available Not Available 07/20/2024 11:35:07 07/17/19 25 07/16/2024 Compr ehens sabrina metab olic 2000 panel - Serum or Plasm a albumin [mass/volume ] in serum or plasma 4.4 g/dL low: 3.5g/d Lhigh: 5g/dL ALBUM IN 4.4 3.5 - 5.0 g/dL 07/16 9:16 AM CDT [facility] Dada RoomE R LAB Not Available Not Available 07/20/2024 11:35:07 07/17/19 25 07/16/2024 Compr Number 1 [employer] sabrina metab olic 1999 panel - Serum or Plasm a albumin/glob ulin [mass ratio] in serum or plasma 1.1 low: 1high: 2.2 A/G RATIO 1.1 1.0 - 2.2 07/16 9:16 AM CDT [facility] RoomE R LAB Not Available Not Available 07/20/2024 11:35:07 07/17/19 25 07/16/2024 Compr Number 1 [employer] sabrina metab olic 2000 panel - Serum or Plasm a calcium [mass/volume ] in serum or plasma 9.1 mg/dL low: 8.7mg/ dLhigh : 10.5mg /dL CALCI UM 9.1 8.7 - 10.5 mg/dL 07/16 9:16 AM CDT [facility] Dada RoomE R LAB Not Available Not Available 07/20/2024 11:35:07 07/17/19 25 07/16/2024 Compr Number 1 Products and Servicesens sabrina metab olic 2000 panel - Serum or Plasm a bilirubin.to glo [mass/volume ] in serum or plasma 0.6 mg/dL low: 0.2mg/ dLhigh : 1.2mg/ dL T BILI 0.6 0.2 - 1.2 mg/dL 07/16 9:16 AM CDT [facility] Dada RoomE R LAB Not Available Not Available 07/20/2024 11:35:07 07/17/19 25 07/16/2024 Compr Number 1 Products and Servicesens sabrina metab olic 1999 panel - Serum or Plasm a aspartate aminotransfe rase [enzymatic activity/vol ume] in serum or plasma 25 U/L high: 43U/L SGOT (AST) 25 <43 U/L 07/16 9:16 AM CDT [facility] Dada RoomE R LAB Not Available Not Available 07/20/2024 11:35:07 07/17/19 25 07/16/2024 Compr ehens sabrina metab olic 1999 panel - Serum or Plasm a alanine aminotransfe rase [enzymatic activity/vol ume] in serum or plasma 24 U/L high: 56U/L SGPT (ALT) 24 <56 U/L 07/16 9:16 AM CDT [facility] KeclonE R LAB Not Available Not Available 07/20/2024 11:35:07 07/17/19 25 07/16/2024 Compr ehens sabrina metab olic 1999 panel - Serum or Plasm a alkaline phosphatase [enzymatic activity/vol ume] in serum or plasma 77 U/L low: 40U/Lh igh: 150U/L ALKAL INE PHOSP HATAS E 77 40 - 150 U/L 07/16 9:16 AM CDT [facility] [employer] KeclonE R LAB Not Available Not Available 07/20/2024 11:35:07 07/17/19 25 07/16/2024 Compr ehens sabrina metab olic 1999 panel - Serum or Plasm a glomerular filtration rate [volume rate/area] in serum, plasma or blood by creatinine-b ased formula (CKD-epi 2020)/1.73 sq M low: 60 GFR, ESTIM ATED >60 >=60 07/16 9:16 AM CDT [facility] KeclonE R LAB Not Available Not Available 07/20/2024 11:35:07 07/17/19 25 07/16/2024 Compr ehens sabrina metab olic 1999 panel - Serum or Plasm a glomerular filtration rate [volume rate/area] in serum, plasma or blood by creatinine-b ased formula (MDRD)/1.73 sq M among black population low: 60 GFR, EST. AFRIC AN >60 >=60 07/16 9:16 AM CDT [facility] [employer] KeclonE R LAB Not Available Not Available 07/20/2024 11:35:07 07/17/19 25 07/16/2024 Compr ehens sabrina metab olic 2000 panel - Serum or Plasm a glomerular filtration rate [volume rate/area] in serum, plasma or blood by creatinine-b ased formula (MDRD)/1.73 sq M among non black population low: 60 GFR, EST. NONAF RICAN >60 >=60 07/16 9:16 AM CDT [facility] Not Available Not Available 07/20/2024 11:35:07 07/17/19 25 07/16/2024 Compr ehens sabrina metab olic 2000 panel - Serum or Plasm a interpretati on and review of laboratory results Abnorm al Not Available Not Available 11:35:07 07/08/19 24 07/08/2023 MR, chino ngiop ancre atogr am, w/wo contr ast No observ ation record ed. [address] [address], [place], [address], 07/28/2023 11:29:03 11/03/19 24 11/03/2023 XR, elbow No observ ation record ed. [address] [address], [place], [address], 11/07/2023 10:52:02 11/03/19 24 11/03/2023 CT, abdom en + pelvi s, w/ contr ast No observ ation record ed. [address] [address], [place], [address], 11/07/2023 10:51:42 12/08/19 24 12/08/2023 MAMMO , scree lissa, digit al, bilat eral No observ ation record ed. [address] [address], [place], [address], 12/12/2023 06:58:48 01/27/20 24 01/27/2024 XR, wrist , 3 or more view No observ ation record ed. [address] [address], [place], [address], 01/27/2024 10:57:58 Result Notes None recorded. Problems Name Problem SNOMED Code Status Onset Date Resolution Date Notes Provider Name and Address Organization Details Recorded Time Hypertensiv e disorder 97072566 Active 2023 KIKE GONZALES MD Attn: Altaf smith,[address] [place], [address], [facility] - [facility] 4 10:00:48 History of pancreatiti s 5062942245838 7 Active 2023 KIKE GONZALES MD Attn: Altaf smith,[address] [place], [address], [facility] - [facility] 4 09:29:09 Mixed anxiety and depressive disorder 164274413 Active 2023 KIKE GONZALES MD Attn: Altaf smith,[address] [place], [address], [facility] - [facility] 4 09:49:49 Tobacco user 912789469 Active 2023 KIKE GONZALES MD Attn: Apolinarradha smith,[address] [place], [address], [facility] - [facility] 4 10:00:46 Body mass index 30+ - obesity 026869959 Active 2023 KIKE GONZALES MD Attn: Apolinarradha smith,[address] [place], [address], [facility] - [facility] 4 10:00:40 Palpitation s 75472852 Active 2023 KIKE GONZALES MD Attn: Apolinarradha smith,[address] [place], [address], [facility] - [facility] 4 10:00:44 History of anemia 360374130 Active 2023 KIKE GONZALES MD Attn: Apolinarradha smtih,[address] [place], [address], [facility] - [facility] 4 10:00:29 Dyslipidemi a 329957666 Active 2023 KIKE GONZALES MD Attn: Altaf luis,[address] [place], [address], [place] [facility] 4 10:00:41 Iron deficiency 81264974 Active 2023 KIKE GONZALES MD Attn: Altaf smith,[address] [facility], [place], [address], [place] - [facility] 4 18:14:00 Insomnia 684974540 Active 2023 KIKE GONZALES MD Attn: Altaf smith,[address] [facility], [place], [address], [place] - [facility] 4 17:26:40 Harmful pattern of use of alcohol 20351404 Active 2023 KIKE GONZALES MD Attn: Altaf smith,[address] [facility], [place], [address], [facility] - [facility] 4 21:27:01 Problem Notes None recorded. Procedures Surgical History Date Name Laterality Status Provider Name and Address Organization Details Recorded Time 4 Date of Last Mammogram completed Judy Delarosa [place] - [facility] 01/11/2024 15:52:39 4 Date of Last Pap Smear completed Judy Delarosa MA [facility] 09/29/2023 16:33:42 4 endoscopy completed Judy Delarosa MA [facility] 06/30/2023 16:44:30 2 Tubal Ligation completed Judy Delarosa MA [facility] 05/25/2023 09:15:48 8 Other completed KIKE GONZALES MD Attn: Accounting,[address] [facility], [place], [address], [facility] 05/25/2023 09:23:42 Imaging Results Imaging Date Name Status LastModified by Organiz ation Details LastModified Time 07/08/2023 MR, cholangiopancr eatogram, w/wo contrast completed [address], [place], [address], 07/28/2023 11:29:03 11/03/2023 XR, elbow completed [email or web address] [address], [place], [address], 11/07/2023 10:52:02 11/03/2023 CT, abdomen + pelvis, w/ contrast completed [address] [address], [place], [address], 11/07/2023 10:51:42 12/08/2023 MAMMO, screening, digital, bilateral completed [address] [address], [place], [address], 12/12/2023 06:58:48 01/27/2024 XR, wrist, 3 or more view completed [address], [address], 01/27/2024 10:57:58 Procedure Notes None recorded. Medical Equipment None Reported. Allergies Allergen ID Allergen Name Allergen Category Reaction Reaction Severity Criticality Documentation Date Start Date Code Code System Note Provider Name and Address Organization Details Recorded Time 335502 Product containin g penicilli n (product) medicatio n rash Not available Not available 05/25/2023 83200 8001 [facility] [place] - [facility] 4 09:05:23 076900 Substance with sulfonami de structure and antibacte rial mechanism of action (substanc e) medicatio n anaphylax is Not available high 05/04/20242014 31585 8003 [facility] KATI Das, [place] - [facility] 5 12:36:23 Medications Name Sig Start Date Stop Date Status Note LastModified by Organization Details LastModified Time nicotine 14 mg/24 hr daily transdermal patch Apply 1 patch every day by transderm al route, for smoking cessation . 05/04 completed Not Available Not Available Not Available hydrocodone 5 mg-acetamin ophen 325 mg tablet TAKE 1 TABLET BY MOUTH EVERY 6 HOURS NEEDED FOR MODERATE TO SEVERE PAIN active Not Available Not Available No t Available sucralfate 1 gram tablet TAKE 1 TABLET BY MOUTH BEFORE MEAL(S) AND AT BEDTIME 05/04 completed Not Available Not Available Not Available naltrexone 50 mg tablet Take 0.5 tablet every day. Take extra 0.5 tablet when about to drink. Do not take more than 1 full tablet per day. 2024 active Not Available Not Available Not Avai lable ondansetron HCl 4 mg tablet TAKE 1 TABLET BY MOUTH EVERY 8 HOURS NEEDED FOR NAUSEA AND VOMITING active Not Available Not Available No t Available metronidazo le 500 mg tablet TAKE 1 TABLET BY MOUTH TWICE DAILY FOR 7 DAYS 09/28 completed Not Available Not Available Not Available sulfamethox azole 800 mg-trimetho prim 160 mg tablet TAKE 1 TABLET BY MOUTH EVERY 12 HOURS FOR 7 DAYS 05/24 completed Not Available Not Available Not Available quetiapine 100 mg tablet TAKE 1 TABLET BY MOUTH EVERY DAY AT BEDTIME active Not Available Not Available No t Available carbamazepi ne 200 mg tablet TAKE 1 TABLET BY MOUTH TWICE DAILY active Not Available Not Available No t Available dicyclomine 20 mg tablet TAKE 1 TABLET BY MOUTH EVERY 6 HOURS active Not Available Not Available No t Available simvastatin 5 mg tablet TAKE 1 TABLET BY MOUTH ONCE DAILY active Not Available Not Available No t Available cephalexin 500 mg capsule TAKE 1 CAPSULE BY MOUTH THREE TIMES DAILY FOR 7 DAYS FOR UTI active Not Available Not Available No t Available pantoprazol e 40 mg tablet,dann yed release TAKE 1 TABLET BY MOUTH DAILY active Not Available Not Available No t Available oxycodone 5 mg capsule TAKE 1 CAPSULE BY MOUTH EVERY 8 HOURS NEEDED FOR PAIN 05/24 completed Not Available Not Available Not Available diclofenac potassium 50 mg tablet TAKE 1 TABLET BY MOUTH THREE TIMES DAILY NEEDED FOR PAIN active Not Available Not Available No t Available hydroxyzine HCl 25 mg tablet TAKE 1 TABLET BY MOUTH ONCE DAILY AT BEDTIME FOR INSOMNIA 01/10 completed Not Available Not Available Not Available lisinopril 5 mg tablet TAKE 1 TABLET BY MOUTH ONCE DAILY 01/10 completed Not Available Not Available Not Available ergocalcife rol (vitamin D2) 1,250 mcg (50,000 unit) capsule Take 1 capsule every week by oral route. 05/04 completed Not Available Not Available Not Available irbesartan 150 mg tablet TAKE 1 TABLET BY MOUTH ONCE DAILY 05/04 completed Not Available Not Available Not Available ondansetron 4 mg disintegrat ing tablet DISSOLVE ONE TABLET BY MOUTH EVERY 8 HOURS NEEDED FOR NAUSEA - 1ST LINE active Not Available Not Available No t Available oxycodone 5 mg tablet TAKE 1 TABLET BY MOUTH EVERY 6 HOURS NEEDED FOR PAIN 05/24 completed Not Available Not Available Not Available nitrofurant oin monohydrate /macrocryst als 100 mg capsule TAKE 1 CAPSULE BY MOUTH TWICE DAILY FOR 7 DAYS FOR UTI active Not Available Not Available No t Available FeroSul 325 mg (65 mg iron) tablet TAKE 1 TABLET BY MOUTH EVERY OTHER DAY active Not Available Not Available No t Available Creon 6,000-19,00 0-30,000 unit capsule,del ayed release active Not Available Not Available Not Available Creon 36,000 unit-114,00 0 unit-180,00 0 unit capsule,del ayed release TAKE 2 CAPSULES BY MOUTH 4 TIMES DAILY ADMINISTE R WITH MEALS AND/OR SNACKS active Not Available Not Available No t Available Voltaren Arthritis Pain 1 % topical gel APPLY 2 GRAMS TO THE AFFECTED AREA(S) BY TOPICAL ROUTE 4 TIMES PER DAY 2024 active Not Available Not Available Not Avai lable quetiapine 150 mg tablet Take 1 tablet every day by oral route at bedtime. 2024 active Not Available Not Available Not Avai lable Vitals Date Recorded Body weight Body mass index (BMI) Body height Body temperature Oxygen saturation Oxygen saturation in Arterial blood by Pulse oximetry Heart rate Systolic blood pressure Diastolic blood pressure Provider Name and Address Organization Details Last Updated DateTime 4 70485.7 8 g 30 kg/m2 152.4 cm 97.1 [degF] 99 % 99 % 66 /min 124 mm[Hg] 77 mm[Hg] [facility] 4 09:03:36 Date Recorded Body height Body mass index (BMI) Body weight Body temperature Heart rate Oxygen saturation Oxygen saturation in Arterial blood by Pulse oximetry Systolic blood pressure Diastolic blood pressure Provider Name and Address Organization Details Last Updated DateTime 4 152.4 cm 28.9 kg/m2 91272.3 7 g 98.8 [degF] 82 /min 99 % 99 % 111 mm[Hg] 75 mm[Hg] [facility] 4 16:42:07 Date Recorded Body height Body mass index (BMI) Body weight Oxygen saturation Oxygen saturation in Arterial blood by Pulse oximetry Heart rate Body temperature Systolic blood pressure Diastolic blood pressure Provider Name and Address Organization Details Last Updated DateTime 4 152.4 cm 29.8 kg/m2 38384.8 4 g 99 % 99 % 69 /min 98.4 [degF] 139 mm[Hg] 87 mm[Hg] Judy Delarosa MA [facility] 4 16:30:47 Date Recorded Body height Body mass index (BMI) Body weight Oxygen saturation Oxygen saturation in Arterial blood by Pulse oximetry Body temperature Heart rate Systolic blood pressure Diastolic blood pressure Provider Name and Address Organization Details Last Updated DateTime 4 152.4 cm 28.8 kg/m2 37470.5 3 g 99 % 99 % 98.6 [degF] 84 /min 148 mm[Hg] 101 mm[Hg] Judy Delarosa MA [facility] 4 15:51:47 Date Recorded Systolic blood pressure Diastolic blood pressure Provider Name and Address Organization Details Last Updated DateTime 01/11/2024 142 mm[Hg] 98 mm[Hg] Kayce Silvestre MA [facility] 01/11/2024 16:20:43 Date Recorded Body height Body mass index (BMI) Body weight Oxygen saturation Oxygen saturation in Arterial blood by Pulse oximetry Heart rate Body temperature Systolic blood pressure Diastolic blood pressure Provider Name and Address Organization Details Last Updated DateTime 5 152.4 cm 31.3 kg/m2 32706.8 8 g 97 % 97 % 105 /min 97.6 [degF] 107 mm[Hg] 69 mm[Hg] Judy Delarosa MA [facility] 5 12:35:03 Social History Question Answer Notes LastModified by Organizat ion Details LastModified Time Tobacco Smoking Status Current Every Day Smoker Judy Delarosa MA null, [facility] 05/25/2023 09:14:10 Are You Blind Or Do You Have Difficulty Seeing? No Information not available 05/25/2023 What Is Your Level Of Caffeine Consumption? Occasional Coffee Information not available 05/04/2024 In The 14 Days Before Symptom Onset, Have You Had Close Contact With A Laboratory-confir [facility] While That Case Was Ill? No Information not available 05/25/2023 In The 14 Days Before Symptom Onset, Have You Had Close Contact With A Person Who Is Under Investigation For COVID-19 While That Person Was Ill? No Information not available 05/25/2023 Have You Been To An Area Known To Be High Risk For COVID-19? No Information not available 05/25/2023 Are You Deaf Or Do You Have Serious Difficulty Hearing? No Information not available 05/25/2023 What Type Of Diet Are You Following? REGULAR Information not available 05/25/2023 Are There Any Guns Present In Your Home? No Information not available 05/25/2023 What Was The Date Of Your Most Recent Tobacco Screening? 05/04/2024 Information not available 05/04/2024 How Many Children Do You Have? 3 Information not available 05/25/2023 What Is Your Current Pack Years? 20-29packyears Information not available 05/25/2023 Do You Use Protection During Sex? No Information not available 05/25/2023 What Is Your Relationship Status? Information not available 05/25/2023 Do You Use Your Seat Belt Or Car Seat Routinely? Yes Information not available 05/25/2023 Are You Sexually Active? Yes Information not available 05/25/2023 Do You Have Smoke And Carbon Monoxide Detectors In Your Home? Yes Information not available 05/25/2023 At What Age Did You Start Smoking Tobacco? 17 Information not available 05/25/2023 Are You Passively Exposed To Smoke? Yes Information no t available 05/25/2023 How Much Tobacco Do You Smoke? 0.25 PPD Information not available 05/04/2024 Do You Use Sunscreen Routinely? No Information not available 05/25/2023 Has Tobacco Cessation Counseling Been Provided? Yes Information not available 05/25/2023 On What Date Was Tobacco Cessation Counseling Provided? 05/04/2024 Information not available 05/04/2024 How Many Years Have You Smoked Tobacco? 25 Information not available 05/25/2023 How Many Years Have You Used E-cigarettes Or Vape? 3 Information not available 05/25/2023 Sex: Female Functional Status Question Answer Note LastModified by Organizat ion Details LastModified Time Do you use any illicit or recreational drugs? No 05/04/24 hx [facility] Information not available 05/04/2024 Do you or have you ever used any other forms of tobacco or nicotine? Yes Information not available 05/25/2023 What is your level of alcohol consumption? Occasional Information not available 05/25/2023 Do you or have you ever used smokeless tobacco? Never used smokeless tobacco Information not available 05/25/2023 Are you currently employed? Yes Information not available 05/25/2023 Are you able to care for yourself? 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 Current user of electronic cigarettes 05/04/24 sometimes vapes Information not available 05/04/2024 What is your exercise level? None Information not available 05/04/2024 Mental Status Question Answer Note LastModified by Organization D etails LastModified Time Do you feel stressed (tense, restless, nervous, or anxious, or unable to sleep at night)? [id number] Information not available 05/04/2024 Family History Relationship Description Onset Age of this Age Resolved Age Notes LastModified by Organization Details LastModified Time Mother Hypertensive disorder crexfordma Not available 05/24 09:10:16 Mother Hypercholest erolemia crexfordma Not available 05/24 09:10:24 Mother Diabetes mellitus crexfordma Not available 05/24 09:11:03 Mother Cerebrovascu lar accident crexfordma Not available 09:11:16 Father Hypertensive disorder crexfordma Not available 05/24 09:10:16 Father Diabetes mellitus crexfordma Not available 05/24 09:11:03 Father Malignant neoplasm of prostate crexfordma Not available 05/04 12:39:23 Maternal Grandmother Hypertensive disorder crexfordma Not available 05/24 09:10:16 Maternal Grandmother Hypercholest erolemia crexfordma Not available 05/24 09:10:29 Paternal Grandfather Diabetes mellitus crexfordma Not available 05/24 09:11:03 Paternal Grandfather Malignant neoplasm of lung crexfordma Not available 05/24 09:11:58 Paternal Grandmother Depressive disorder crexfordma Not available 05/24 09:11:37 Paternal Grandmother Malignant tumor of breast crexfordma Not available 05/24 09:12:18 Medical History Condition Response Coronary Artery Disease N Other N Atrial Fibrillation N High Blood Pressure Y Thyroid Problems N Kidney or Bladder Problems Y GI Problems N Depression Y COPD N Blood Clots N Have you had a mammogram in the last yea r? Y Eating Disorder N Skin Problems N Anemia Y Heart Attack (AZ) N Diabetes N Anxiety Disorder Y Muscle, Joint, or Bone Problems Y Seizures/Epilepsy N Arthritis Y Acid Reflux (GERD) N Cancer N Stroke N Asthma N Allergies Y ADHD Y Substance Abuse Y High Cholesterol Y Hepatitis N Liver Disease N Schizophrenia N Headaches Y Osteoporosis Y Heart Failure N Gynecological History Statement/Question Response Flow Moderate Date of Last Mammogram 12/08/2023 Date of LMP 04/27/2024 On BCP's at Conception? N Duration of Flow (days) 3 Current Control Method Tubal Ligat ion Age at Menarche 12 Age at First Child 23 Menses Monthly N Date of Last Pap Smear 07/01/2023 LMP Approximate Obstetrics History GPAL:G 4 P 3 0 1 3 Type Value Multiple Births 0 Full Term 3 Induced 1 Spontaneous 0 Premature 0 Living 3 Ectopics 0 Total 4 Immunizations Vaccine Type Date Status Note Provider Nam e and Address Organization Details Recorded Time Influenza, split virus, quadrivalent, PF 04/22/2023 completed KIKE GONZALES MD Attn: [address] [place], [address], [facility] 05/25/2023 09:21:42 Past Encounters Encounter ID Performer Location Encounter Start Date Encounter Closed Date Diagnosis/Indication Diagnosis SNOMED-CT Code Diagnosis ICD10 Code Diagnosis Note [id number] KIKE GONZALES MD [facility] ([employer]) [address] [place] [address] 05/25/2023 08:53:48 06/10/2023 09:49:41 Positive screening for depression on PHQ-9 (Patient Health Questionnaire 9) [id number] 74861 Z13.31 - Reports diagnosis of anxiety and depression , as well as ADHD- f/u outside medical records from previous psychiatri st Body mass index 30+ - obesity 779013010 Z68.30 - f/u vitamin D, A1c- Advised patient to continue cutting back alcohol use Hypertensive disorder 38 315872 I10 - Refilled home lisinopril 5 mg daily- f/u CMP Dyslipidemia 881501255 E 78.5 - Refilled home simvastati n 5 mg daily- f/u lipid panel History of anemia 713199 002 Z86.2 - Reports history of needing iron pills for anemia- f/u CBC, vitamin B12 and folate (especiall y in setting of chronic alcohol use), and iron studies Palpitations 69257924 R0 0.2 - DDx includes thyroid disease, SVT, Afib, electrolyt e abnormalit ies, acute pancreatit is- f/u TSH- Will evaluate further at next visit and determine whether Holter monitor is needed to diagnose arrhythmia [id number] KIKE GONZALES MD [facility] ([employer]) [address] [place] [address] 06/30/2023 16:30:11 07/01/2023 16:30:52 Screening for malignant neoplasm of cervix 693903091 Z12.4 - Due for co-testing ; collected today Screening for malignant neoplasm of breast 152653844 Z12.31 - Due for screening mammogram; ordered today Tobacco user 794764940 Z 72.0 - Smoking 0.5 ppd- Encouraged cessation- Patient interested in nicotine patches Insomnia 091312260 G47.0 0 - Will trial hydroxyzin e 25 mg at bedtime for insomnia until patient able to find out how else to manage GI pain Adult heal th examination 952480273 Z00.00 - Reviewed risks for cardiovasc ular disease, infection, and cancer; ordered screening tests as appropriat e [id number] [facility] [address] [place] [address] 09/29/2023 15:59:06 10/12/2023 15:05:44 Insomnia 388390253 G47.00 - Likely related to bipolar disorder- Not well managed on hydroxyzin e or low dose Seroquel alone Leukocytosis 020857022 D 72.829 - Noted on prior CBC; repeat CBC ordered Bipolar disorder 8085817 4 F31.9 - Advised patient to call [facility] to set up appointmen t with psychiatri st- Will up-titrate Seroquel to improve sleep and mood until able to see psych [id number] MD [facility] [employer]) [address] [place] [address] 01/11/2024 15:41:56 01/14/2024 12:38:04 Hypertensive disorder 03252595 I10 - Chronic, not controlled - Will switch from lisinopril 5 mg daily to irbesartan 150 mg daily- RTC in 4 weeks for BP check Harmful pa ttern of use of alcohol 02708432 F10.10 - Chronic, not controlled - Prescribed naltrexone 25 mg daily and instructed to take an additional 25 mg when about to drink; not taking regularly- Advised more regular use of naltrexone , continuing to cut back on alcohol use Mixed anxi ety and depressive disorder 005017256 F41.8 - Chronic, controlled - Continue nightly quetiapine 100 mg [id number] [facility] [employer] [address] [place] [address] 05/04/2024 12:22:07 05/07/2024 11:56:25 Hospital inpatient stay within past 30 days 7835865956 106 Z76.89 - Reviewed hospital discharge summary Mixed anxi ety and depressive disorder 745914889 F41.8 - Chronic, uncontroll ed on nightly quetiapine 100 mg- Will increase quetiapine to 150 mg at nighttime- Recommende d patient call [facility] again to reestablis for Psychiatry Services Chronic pancreatitis 235 005065 K86.1 - Advise alcohol use cessation- Refilled home ondansetro n and dicyclomin e Pain of ri ght upper arm 8819103490 60947 M79.621 - DDX includes superficia l venous thrombosis vs phlebitis vs MSK strain- F/u right upper extremity duplex to rule out thrombosis - Advised limiting Tylenol to no more than 4 g per day. May add Voltaren 1% gel 2 gj 4 times daily as needed since oral NSAIDs are contraindi cated in the setting of patient's chronic gastritis- Return to clinic in 4 weeks to evaluate response to conservati ve management Harmful pa ttern of use of alcohol [id number] F10.10 - Chronic, not controlled - Prescribed naltrexone 25 mg daily and instructed to take an additional 25 mg when about to drink after hospitaliz ation in the past, which patient is not taking- Patient open to taking naltrexone now; re-prescri bed today Health Concerns Section Related Observation LastModified by Organization Detai ls LastModified Time None Recorded Concern Status LastModified by Organization Details LastModified Time None Recorded Advance Directives Directive None Recorded Payers Encounter Date Sequence Insurance Name Policy Number Policy Ashley Covered Member ID Ashley Member ID Guarantor Name 05/25/2023 1 [facility] ON OR AFTER 09/11/20 (MEDICAID REPLACEMENT - HMO) Lalitha Geller [id number] Lalitha Canseco 06/30/2023 1 [facility] ON OR AFTER 09/11/20 (MEDICAID REPLACEMENT - HMO) Lalitha Geller [id number] Lalitha Canseco 09/29/2023 1 [facility] ON OR AFTER 09/11/20 (MEDICAID REPLACEMENT - HMO) Lalitha Geller [id number] Lalitha Canseco 01/11/2024 1 [facility] ON OR AFTER 20 (MEDICAID REPLACEMENT - HMO) Lalitha Geller [id number] Lalitha Canseco 05/04/2024 1 [place] [employer] Lalitha Canseco [id number] Lalitha Canseco Notes Date Note Type Note Provider Name and Address Organization Details Recorded Time 4 text/html Hospital follow upEstablishing care- Last seen old PCP Dr. Keron Gallagher about 3 years ago.- Has had 4 episodes of pancreatitis since the new year: 03/25, 03/29, 04/06, 04/22. Was admitted on 04/22.- Has decreased drinking since hospitalization. Currently drinks about 4 beers per week. Has not had any pancreatitis since cutting back drinking. No nausea or vomiting.- Currently has appointment on 06/06 with GI at [facility].- Wondering if she needs to increase her BP medication due to feeling fluttering in chest.- Over past year, has noticed fluttering in chest (notices fast heart rate; no skipping beats) and will get short of breath and lightheaded. Associated with pinching sensation underneath the left breast and then will radiates more medially; when it's really bad, will have similar pain but on both sides of the back. Episodes last about 30 minutes. Sometimes occurs without triggers but also can occur with strenuous activity or when taking dog outside. Occurs 1-2 times every other day. GI doctor while hospitalized said that this is normal when having pancreatitis.- No known FHx of heart arrhythmias or thyroid disease. FHx of heart attack in mother at over age 55.- Would like to get medication for depression. Was diagnosed about 3 years ago and was on medication for a month.- Also reports diagnosis of ADHD about 4 years ago. Was on Vivance for management. Was seeing psychiatrist for management. KIKE GONZALES MD Attn: Accounting,[address] [place], [address], [facility] 05/25/2023 10:01:31 4 text/html Annual wellnessConcerns today- Has persistent abdominal pain that keeps her up at night- Takes Tylenol 650 mg every 4 hours and Tylenol PM 2 tablets before bedtime. Tylenol PM does not help with sleep; helps with falling asleep but then wakes up after 3 hours. Stays awake for 1-2.5 hours; will smoke, be on phone, or talk to dog. Gets about 5 hours of sleep per night total.- Abdominal pain better with Creon- On pantoprazole prescribed by GI doctor. Had EGD and is waiting for biopsy results. Cardiovascular risk- HTN: On lisinopril 5 mg daily- DM2: A1c wnl- HLD: On simvastatin 5 mg daily- Personal history of AZ, CVA? No- Family history of [place], CVA? FHx of CVA in mother Infection risk- Prior testing for HIV? Neg in - Currently having unprotected sex? Yes - with - Vaccines due? KAYLINID, Tdginger Plans for - S/p tubal ligation in 2012 Cancer screenings- Breast cancer: No breast changes.- Cervical cancer: Denies history of abnormal Pap.- Colon cancer: No known FHx.- Lung cancer: Current smoker, 0.5 ppd since age 17 KIKE GONZALES MD Attn: Nicholas,[address] [facility], [place], [address], [facility] 06/30/2023 17:31:26 4 text/html Insomnia- Abdominal pain has been much better since GI doctor has changed her medications, so GI pain is no longer keeping her up at night- Was recently hospitalized for psych reasons after drinking too much. Was started on Zoloft and Seroquel; thinks dose is 50 mg for each but not sure- Currently having difficulty staying asleep even with Seroquel- Follows with psych at [facility]. States diagnosis includes bipolar disorder. No follow up scheduled yet.- Goes to bed between 9 and 11 pm/12 am, and then will wake up 3:30 am and can't fall back asleep. 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 On a bad day, smokes 0.5 ppd.- Has been walking every day, which helps with regulate stress- Prescribed naltrexone for EtOH use, which helps when she does take it. Has been taking medicine every other day. States she is still drinking but has cut back. - Has been under more stress with losing trailer, moving back in with mother.- Has new job as a business administrator for [employer] KIKE GONZALES MD Attn: Accounting,[address] [place], [address], [facility] 01/12/2024 21:27:42 5 text/html Hospital f/uAcute on chronic pancreatitisAlcohol use disorder- Continuing to have nausea and vomiting since discharge from hospital at the end of March- Needs more Zofran- Has not been using naltrexone previously prescribed by Psychiatry during a previous hospitalization- Still drinking, although states she has been cutting back Bipolar disorder- Wakes up every 2-3 hours despite use of quetiapine- Does not have a psychiatrist right now due to insurance lapsing. Would like to re-establish with [facility] for psych care. Right forearm pain- Ongoing for past 2 months- Feels like the arm is getting harder to move and feels firmer- Had most of her blood draws and IV placements in her right arm in the hospital- Using 4 regular strength Tylenol 6 times per day, which does not help KIKE GONZALES MD Attn: Accounting,[address] [place], [address], [facility] 05/04/2024 22:24:23 OBGyn Episode Ob Episode Information Episode Created Date Number of Fetuses Patient Bloodtype Patient rh Status Prepregnancy Weight lbs Domestic Partner Domestic Partner Phone Father Name Circulation Worker Status 05/25/19 24 1 CLOSED Fetus Data First Name Last Name Admitted to NICU Weight (g) Sex Living Outcome Pediatric Complications Fetus ID Race Codes Race Delivery Type , Induced [id number] Edin Calculation Initial Edin Date Initial Exam Date Initial Exam Provider Initial Ultrasound Date Last Menstrual Period Date Ultra Sound Weeks Gestation 0 Eighteen To Twenty Week Edin Update Ultra Sound Date Fundal Height At Umbil Quickening Date Ultra Sound Latest Weeks Gestation Final Edin Confirmed By Final Edin Confirmed Date Final Edin Date Ultra Sound Latest Days Gestation 0 0 Menstrual History Last Menstrual Date Menses Monthly On Bcp Conception Prior Menses Frequency Hcg Plus Date Menarche Onset Age Delivery Information Delivery Date Delivery Type Labor Anesthesia Weeks Gestation Incision Type Labor Labor Length Hrs Delivered By Post Complications Tubal Sterilization Discharge Date Comments 7 Discharge Information Feeding Method Contraceptive Method Maternal HG B and HCT Levels Ob Episode Information Episode Created Date Number of Fetuses Patient Bloodtype Patient rh Status Prepregnancy Weight lbs Domestic Partner Domestic Partner Phone Father Name Circulation Worker Status 05/25/19 24 1 CLOSED Fetus Data First Name Last Name Admitted to NICU Weight (g) Sex Living Outcome Pediatric Complications Fetus ID Race Codes Race Delivery Type M Full Term [id number] Vaginal Edin Calculation Initial Edin Date Initial Exam Date Initial Exam Provider Initial Ultrasound Date Last Menstrual Period Date Ultra Sound Weeks Gestation 0 Eighteen To Twenty Week Edin Update Ultra Sound Date Fundal Height At Umbil Quickening Date Ultra Sound Latest Weeks Gestation Final Edin Confirmed By Final Edin Confirmed Date Final Edin Date Ultra Sound Latest Days Gestation 0 0 Menstrual History Last Menstrual Date Menses Monthly On Bcp Conception Prior Menses Frequency Hcg Plus Date Menarche Onset Age Delivery Information Delivery Date Delivery Type Labor Anesthesia Weeks Gestation Incision Type Labor Labor Length Hrs Delivered By Post Complications Tubal Sterilization Discharge Date Comments 6 Discharge Information Feeding Method Contraceptive Method Maternal HG B and HCT Levels Ob Episode Information Episode Created Date Number of Fetuses Patient Bloodtype Patient rh Status Prepregnancy Weight lbs Domestic Partner Domestic Partner Phone Father Name Circulation Worker Status 05/25/19 24 1 CLOSED Fetus Data First Name Last Name Admitted to NICU Weight (g) Sex Living Outcome Pediatric Complications Fetus ID Race Codes Race Delivery Type F Full Term [id number] Vaginal Edin Calculation Initial Edin Date Initial Exam Date Initial Exam Provider Initial Ultrasound Date Last Menstrual Period Date Ultra Sound Weeks Gestation 0 Eighteen To Twenty Week Edin Update Ultra Sound Date Fundal Height At Umbil Quickening Date Ultra Sound Latest Weeks Gestation Final Edin Confirmed By Final Edin Confirmed Date Final Edin Date Ultra Sound Latest Days Gestation 0 0 Menstrual History Last Menstrual Date Menses Monthly On Bcp Conception Prior Menses Frequency Hcg Plus Date Menarche Onset Age Delivery Information Delivery Date Delivery Type Labor Anesthesia Weeks Gestation Incision Type Labor Labor Length Hrs Delivered By Post Complications Tubal Sterilization Discharge Date Comments 0 Discharge Information Feeding Method Contraceptive Method Maternal HG B and HCT Levels Ob Episode Information Episode Created Date Number of Fetuses Patient Bloodtype Patient rh Status Prepregnancy Weight lbs Domestic Partner Domestic Partner Phone Father Name Circulation Worker Status 05/25/19 24 1 CLOSED Fetus Data First Name Last Name Admitted to NICU Weight (g) Sex Living Outcome Pediatric Complications Fetus ID Race Codes Race Delivery Type M Full Term [id number] Vaginal Edin Calculation Initial Edin Date Initial Exam Date Initial Exam Provider Initial Ultrasound Date Last Menstrual Period Date Ultra Sound Weeks Gestation 0 Eighteen To Twenty Week Edin Update Ultra Sound Date Fundal Height At Umbil Quickening Date Ultra Sound Latest Weeks Gestation Final Edin Confirmed By Final Edin Confirmed Date Final Edin Date Ultra Sound Latest Days Gestation 0 0 Menstrual History Last Menstrual Date Menses Monthly On Bcp Conception Prior Menses Frequency Hcg Plus Date Menarche Onset Age Delivery Information Delivery Date Delivery Type Labor Anesthesia Weeks Gestation Incision Type Labor Labor Length Hrs Delivered By Post Complications Tubal Sterilization Discharge Date Comments 5 Discharge Information Feeding Method Contraceptive Method Maternal HG B and HCT Levels Data Portability Created on: August 01, 2024 Lalitha Canseco .[id number] : 1980 Sex: Female Author [facility] Address [address] [place] [address] Care Team Providers Care [employer] Repairer Name Role Phone KIKE GONZALES [facility] Assessment No assessment recorded. Plan of Treatment Reminders Order Date Submit Date Provider Last Modified By Organization Details Last Modified Time Details Appointments None recorded. Lab CBC w/ auto diff 2023 024 [facility], [address] [facility], [facility], [place], [address], 4 03:36:30 cytology report, thin prep, smear or scraping, cervical or vaginal 2023 024 [facility], [address] [facility], [facility], [place], [address], 4 12:37:25 TSH, ultra-sensi tive, serum 2023 024 [facility], [address] [facility], [place], [address], 4 06:38:34 CMP, serum or plasma 2023 024 [facility], [address], [place], [address], 4 20:35:57 lipid panel, serum 2023 024 [facility], [address], [place], [address], 4 20:35:57 CBC w/ auto diff 2023 024 [facility], [address], [place], [address], 4 20:35:58 vitamin B12 + folate, serum or blood 2023 024 [facility], [address], [place], [address], 4 06:38:35 iron + total iron-bindin g capacity (TIBC), serum 2023 024 [facility], [address], [place], [address], 4 06:38:35 ferritin, serum or plasma 2023 024 [facility], [address], [place], [address], 4 06:38:36 vitamin D, 25-hydroxy, total, serum 2023 024 [facility], [address], [place], [address], 4 06:38:37 HbA1c (hemoglobin A1c), blood 2023 024 [facility], [address], [place], [address], 4 06:38:36 Referral None recorded. Procedures None recorded. Surgeries None recorded. Imaging US, duplex, venous, upper extremity, unilateral - right forearm pain for 2 months; had multiple IVs placed and venous draws from right arm; evaluate for possible DVT. please schedule SUNITA. 2024 025 [email or web address]uling, [address] [place], [address], 5 09:58:49 MAMMO, screening, digital, bilateral 2023 024 [facility] (Mammography) , [address], [place], [address], 4 18:02:36 Medication Orders naltrexone 50 mg tablet 2024 025 [facility], [address] [place] [address], [address], 5 13:28:07 Voltaren Arthritis Pain 1 % topical gel 2024 025 [facility], [address] [place] [address], [address], 5 13:28:50 quetiapine 150 mg tablet 2024 025 [facility] [address], [address] [place] [address], [address], 5 13:28:07 ondansetron 4 mg disintegrat ing tablet 2024 025 [facility] [address], [address] [place] [address], [address], 5 13:28:08 dicyclomine 20 mg tablet 2024 025 [facility] [address], [address] [place] [address], [address], 5 13:28:08 irbesartan 150 mg tablet 2023 025 [facility], [address] [place] [address], [address], 5 12:37:16 quetiapine 100 mg tablet 2023 024 [facility], [address] [place] [address], [address], 4 16:56:46 nicotine 14 mg/24 hr daily transdermal patch 2023 025 [facility], [address] [place] [address], [address], 5 12:37:21 hydroxyzine HCl 25 mg tablet [address]23 [email or web address] [place] [address] [address], [address] [place] [address], [address], 4 16:27:05 lisinopril 5 mg tablet 2023 [email or web address] [place] [address] [address], [address] [place] [address], [address], 4 16:26:34 simvastatin 5 mg tablet 2023 024 [place] [address], [address] [place] [address], [address], 4 09:56:13 Patient TargetsNo targets recorded. Patient Instructions Encounter Date Encounter Id Patient Instructions Last Modified By Organization Details Last Modified Time 05/25/2023 [id number] A healthy lifestyle: care instructions [email or web address] Not available 05/25/2023 09:48:33 Reason for Referral None Reported. Results Created Date Observation Date Name Description Value Unit Range Abnormal Flag Note LastModifiedBy Organization Detail LastModifiedTime 05/25/19 24 05/25/2023 LIPID PANEL cholesterol, total 135 mg/dL 100-19 9 Not Available [facility] Department [address] [place], [address], 05/25/2023 20:35:57 05/25/19 24 05/25/2023 LIPID PANEL triglyceride s 142 mg/dL 0-149 Not Available [facility] Department [address] [place], [address], 05/25/2023 20:35:57 05/25/19 24 05/25/2023 LIPID PANEL HDL cholesterol 49 mg/dL 40-999 Not Available [facility] Department [address] [place], [address], 05/25/2023 20:35:57 05/25/19 24 05/25/2023 LIPID PANEL VLDL cholesterol joaquin 28 mg/dL 5-40 Not Available [facility] Department [address] [place], [address], 05/25/2023 20:35:57 05/25/19 24 05/25/2023 LIPID PANEL LDL chol calc (nih) 79 mg/dL 0-99 Not Available [facility] Department [address] [place], [address], 05/25/2023 20:35:57 05/25/19 24 05/25/2023 COMP. METAB OLIC PANEL (14) glucose 101 mg/dL 70-99 above high normal Not Available [facility] Department [address] [place], [address], 05/25/2023 20:35:57 05/25/19 24 05/25/2023 COMP. METAB OLIC PANEL (14) BUN 8 mg/dL 6-24 Not Available [facility] Department [address] [place], [address], 05/25/2023 20:35:57 05/25/19 24 05/25/2023 COMP. METAB OLIC PANEL (14) creatinine 0.64 mg/dL 0.76-1 .27 below low normal Not Available [facility] Department [address] [place] [address], [address], 05/25/2023 20:35:57 05/25/19 24 05/25/2023 COMP. METAB OLIC PANEL (14) eGFR 115 >=60 Units for eGFR value s are mL/mi n/1.7 3 The eGFR Calcu latio n has not been valid ated for patie nts under the age of 18. If test resul ts are displ ayed for a patie nt under the age of 18, disre miranda that value . Not Available [facility] Department [address] [place] [address], [address], 05/25/2023 20:35:57 05/25/19 24 05/25/2023 COMP. METAB OLIC PANEL (14) BUN/creatini ne ratio 12 9-23 Not Available [facility] Department [address] [place] [address], [address], 05/25/2023 20:35:57 05/25/19 24 05/25/2023 COMP. METAB OLIC PANEL (14) sodium 138 mmol/ L 134-14 4 Not Available [facility] Department [address] [place] [address], [address], 05/25/2023 20:35:57 05/25/19 24 05/25/2023 COMP. METAB OLIC PANEL (14) potassium 4.8 mmol/ L 3.5-5. 2 Not Available [facility] Department [address] [place] [address], [address], 05/25/2023 20:35:57 05/25/19 24 05/25/2023 COMP. METAB OLIC PANEL (14) chloride 101 mmol/ L 96-106 Not Available [facility] Department [address] [place] [address], [address], 05/25/2023 20:35:57 05/25/19 24 05/25/2023 COMP. METAB OLIC PANEL (14) carbon dioxide, total 22 mmol/ L 20-29 Not Available [facility] Department [address] [place], [address], 05/25/2023 20:35:57 05/25/19 24 05/25/2023 COMP. METAB OLIC PANEL (14) calcium 9.7 mg/dL 8.7-10 .2 Not Available [facility] Department [address] [place], [address], 05/25/2023 20:35:57 05/25/19 24 05/25/2023 COMP. METAB OLIC PANEL (14) protein, total 7.3 g/dL 6.0-8. 5 Not Available [facility] Department [address] [place], [address], 05/25/2023 20:35:57 05/25/19 24 05/25/2023 COMP. METAB OLIC PANEL (14) albumin 4.3 g/dL 3.9-4. 9 Not Available [facility] Department [address] [place], [address], 05/25/2023 20:35:57 05/25/19 24 05/25/2023 COMP. METAB OLIC PANEL (14) globulin, total 3.0 g/dL 1.5-4. 5 Not Available [facility] Department [address] [place], [address], 05/25/2023 20:35:57 05/25/19 24 05/25/2023 COMP. METAB OLIC PANEL (14) A/G ratio 1.0 1.2-2. 2 below low normal Not Available [facility] Department [address] [place], [address], 05/25/2023 20:35:57 05/25/19 24 05/25/2023 COMP. METAB OLIC PANEL (14) bilirubin, total 0.2 mg/dL 0.0-1. 2 Not Available [facility] Department [address] [place], [address], 05/25/2023 20:35:57 05/25/19 24 05/25/2023 COMP. METAB OLIC PANEL (14) alkaline phosphatase 64 IU/L 44-121 Not Available [facility] Department [address] [place], [address], 05/25/2023 20:35:57 05/25/19 24 05/25/2023 COMP. METAB OLIC PANEL (14) AST (SGOT) 20 IU/L 0-40 Not Available [facility] Department [address] [place], [address], 05/25/2023 20:35:57 05/25/19 24 05/25/2023 COMP. METAB OLIC PANEL (14) ALT (SGPT) 16 IU/L 0-32 Not Available [facility] Department [address] [place], [address], 05/25/2023 20:35:57 05/25/19 24 05/25/2023 CBC WITH DIFFE RENTI AL/PL ATELE T WBC 11.5 x10e3 /uL 3.4-10 .8 above high normal Not Available [facility] Department [address] [place], [address], 05/25/2023 20:35:58 05/25/19 24 05/25/2023 CBC WITH DIFFE RENTI AL/PL ATELE T RBC 4.33 x10e6 /uL 3.77-5 .28 Not Available [facility] Department [address] [place], [address], 05/25/2023 20:35:58 05/25/19 24 05/25/2023 CBC WITH DIFFE RENTI AL/PL ATELE T hemoglobin 12.6 g/dL 11.1-1 5.9 Not Available [facility] Department [address] [place], [address], 05/25/2023 20:35:58 05/25/19 24 05/25/2023 CBC WITH DIFFE RENTI AL/PL ATELE T hematocrit 39.8 % 34.0-4 6.6 Not Available [facility] Department [address] [place], [address], 05/25/2023 20:35:58 05/25/19 24 05/25/2023 CBC WITH DIFFE RENTI AL/PL ATELE T MCV 92 fL 79-97 Not Available [facility] Department [address] [place], [address], 05/25/2023 20:35:58 05/25/19 24 05/25/2023 CBC WITH DIFFE RENTI AL/PL ATELE T MCH 29.1 pg 26.6-3 3.0 Not Available [facility] Department [address] [place] [address], [address], 05/25/2023 20:35:58 05/25/19 24 05/25/2023 CBC WITH DIFFE RENTI AL/PL ATELE T MCHC 31.7 g/dL 31.5-3 5.7 Not Available [facility] Department [address] [place], [address], 05/25/2023 20:35:58 05/25/19 24 05/25/2023 CBC WITH DIFFE RENTI AL/PL ATELE T RDW 15.1 % 11.5-1 4.5 above high normal Not Available [facility] Department [address] [place], [address], 05/25/2023 20:35:58 05/25/19 24 05/25/2023 CBC WITH DIFFE RENTI AL/PL ATELE T platelets 376 x10e3 /uL 150-45 0 Not Available [facility] Department [address] [place] [address], [address], 05/25/2023 20:35:58 05/25/19 24 05/25/2023 CBC WITH DIFFE RENTI AL/PL ATELE T neutrophils 63 % notest b. Not Available [facility] Department [address] [place], [address], 05/25/2023 20:35:58 05/25/19 24 05/25/2023 CBC WITH DIFFE RENTI AL/PL ATELE T lymphs 28 % notest b. Not Available [facility] Department [address] [place], [address], 05/25/2023 20:35:58 05/25/19 24 05/25/2023 CBC WITH DIFFE RENTI AL/PL ATELE T monocytes 8 % notest b. Not Available [facility] Department [address] [place], [address], 05/25/2023 20:35:58 05/25/19 24 05/25/2023 CBC WITH DIFFE RENTI AL/PL ATELE T eos 1 % notest b. Not Available [facility] Department [address] [place], [address], 05/25/2023 20:35:58 05/25/19 24 05/25/2023 CBC WITH DIFFE RENTI AL/PL ATELE T basos 1 % notest b. Not Available [facility] Department [address] [place], [address], 05/25/2023 20:35:58 05/25/19 24 05/25/2023 CBC WITH DIFFE RENTI AL/PL ATELE T neutrophils (absolute) 7.2 x10e3 /uL 1.4-7. 0 above high normal Not Available [facility] Department [address] [place], [address], 05/25/2023 20:35:58 05/25/19 24 05/25/2023 CBC WITH DIFFE RENTI AL/PL ATELE T lymphs (absolute) 3.2 x10e3 /uL 0.7-3. 1 above high normal Not Available [facility] Department [address] [place], [address], 05/25/2023 20:35:58 05/25/19 24 05/25/2023 CBC WITH DIFFE RENTI AL/PL ATELE T monocytes(ab solute) 0.9 x10e3 /uL 0.1-0. 9 Not Available [facility] Department [address] [place], [address], 05/25/2023 20:35:58 05/25/19 24 05/25/2023 CBC WITH DIFFE RENTI AL/PL ATELE T eos (absolute) 0.1 x10e3 /uL 0.0-0. 4 Not Available [facility] Department [address] [place], [address], 05/25/2023 20:35:58 05/25/19 24 05/25/2023 CBC WITH DIFFE RENTI AL/PL ATELE T baso (absolute) 0.1 x10e3 /uL 0.0-0. 2 Not Available [facility] Department [address] [place], [address], 05/25/2023 20:35:58 05/25/19 24 05/25/2023 CBC WITH DIFFE RENTI AL/PL ATELE T immature granulocytes 0.3 % notest b. Not Available [facility] Department [address] [place], [address], 05/25/2023 20:35:58 05/25/19 24 05/25/2023 CBC WITH DIFFE RENTI AL/PL ATELE T immature grans (abs) 0.0 x10e3 /uL 0.0-0. 1 Not Available [facility] Department [address] [place], [address], 05/25/2023 20:35:58 05/25/19 24 05/25/2023 CBC WITH DIFFE RENTI AL/PL ATELE T NRBC 0 % 0-0 Not Available [facility] Department [address] [place] [address], [address], 05/25/2023 20:35:58 05/25/19 24 05/26/2023 TSH RFX ON ABNOR MAL TO FREE T4 TSH 0.571 uIU/m L 0.450- 4.500 Not Available [facility] ([facility]) [address] [facility], [place], [address], 05/26/2023 06:38:34 05/25/19 24 05/26/2023 VITAM IN B12 AND FOLAT E vitamin B12 598 pg/mL 232-12 45 Not Available [facility] ([facility]) [address] [facility], [place], [address], 05/26/2023 06:38:35 05/25/19 24 05/26/2023 VITAM IN B12 AND FOLAT E folate (folic acid), serum 7.4 NG/mL >3.0 A serum folat e mario ntrat ion of less than 3.1 ng/mL is consi dered to repre sent clini joaquin defic iency . Not Available [facility] ([facility]) [address] [facility], [place], [address], 05/26/2023 06:38:35 05/25/19 24 05/26/2023 IRON AND TIBC iron bind.cap.(TI BC) 412 ug/dL 250-45 0 Not Available [facility] ([facility]) [address] [facility], [place], [address], 05/26/2023 06:38:35 05/25/19 24 05/26/2023 IRON AND TIBC UIBC 363 ug/dL 131-42 5 Not Available [facility] ([facility]) [address] [facility], [place], [address], 05/26/2023 06:38:35 05/25/19 24 05/26/2023 IRON AND TIBC iron 49 ug/dL 27-159 Not Available [facility] ([facility]) [address] [facility], [place], [address], 05/26/2023 06:38:35 05/25/19 24 05/26/2023 IRON AND TIBC iron saturation 12 % 15-55 below low normal Not Available [facility] ([facility]) [address] [facility], [place], [address], 05/26/2023 06:38:35 05/25/19 24 05/26/2023 HEMOG LOBIN A1C hemoglobin A1C 5.6 % 4.8-5. 6 Predi abete s: 5.7 - 6.4 Diabe regine: >6.4 Glyce nusrat contr ol for adult s with diabe regine: <7.0 Not Available [facility] ([facility]) [address] [facility], [place], [address], 05/26/2023 06:38:36 05/25/19 24 05/26/2023 ZO TIN ferritin 74 NG/mL 15-150 Not Available [facility] ([facility]) [address] [facility], [place], [address], 05/26/2023 06:38:36 05/25/19 24 05/26/2023 VITAM IN D, 25-HY DROXY vitamin D, 25-hydroxy 17.4 NG/mL 30.0-1 00.0 below low normal Vitam in D defic iency has been defin ed by the Insti tute of Medic ine and an Endoc rine Socie ty pract ice guide line as a level of serum 25-OH vitam in D less than 20 ng/mL (1,2) . The Endoc rine Socie ty went on to furth er defin e vitam in D insuf ficie ncy as a level betwe en 21 and 29 ng/mL (2). 1. IOM (Inst itute of Medic ine). 2010. Dieta ry refer ence mary es for calci um and D. Bang rogers [place]: The Natio nal [facility] Press . 2. Thea frank MF, Binedwin ey [place], Jerad off-F errar i TELLEZ, et al. Evalu ation , treat ment, and preve ntion of vitam in D defic iency : an Endoc rine Socie ty clini joaquin pract ice guide line. JCEM. 2010; 96(7) :1911 -30. Not Available [facility] ([facility]) [address] [place], [address], 05/26/2023 06:38:37 07/01/19 24 07/04/2023 IGP, APTIM A HPV, RFX 16/18 ,45 HPV aptima Negati ve negati ve This nucle ic acid ampli ficat ion test detec ts fourt een high- risk HPV types (16,1 8,31, 33,35 ,39,4 5,51, 52,56 ,58,5 9,66, 68) witho ut diffe renti ation . Not Available [facility] ([facility]) [address] [facility], [place], [address], 07/08/2023 12:37:25 07/01/19 24 07/08/2023 IGP, APTIM A HPV, RFX 16/18 ,45 diagnosis: Commen t NEGAT SABRINA FOR INTRA EPITH ELIAL LESIO N OR MALIG LANE . REACT SABRINA CELLU LAR MARIE ES AND/O R REPAI R ARE PRESE NT. TRICH OMONA S VAGIN FAINA IS PRESE NT. Not Available [facility] ([facility]) [address] [place], [address], 07/08/2023 12:37:25 07/01/19 24 07/08/2023 IGP, APTIM A HPV, RFX 16/18 ,45 specimen adequacy: Commen t Satis facto ry for evalu ation . Endoc ervic al and/o r squam ous metap lasti c cells (endo cervi joaquin compo nent) are prese nt. Areas of parti ally obscu ring infla mmato ry exuda te are prese nt. Not Available [facility] ([facility]) [address] [place], [address], 07/08/2023 12:37:25 07/01/19 24 07/08/2023 IGP, APTIM A HPV, RFX 16/18 ,45 clinician provided ICD10: Karly jones Z12.4 Not Available [facility] ([facility]) [address] [place], [address], 07/08/2023 12:37:25 07/01/19 24 07/08/2023 IGP, APTIM A HPV, RFX 16/18 ,45 performed by: Praveen Ruiz Not Available [facility] ([facility]) [address] [place], [address], 07/08/2023 12:37:25 07/01/19 24 07/08/2023 IGP, APTIM A HPV, RFX 16/18 ,45 electronical ly signed by: Karly Cortes MD, Patho jayden t Not Available [facility] ([facility]) [address] [place], [address], 07/08/2023 12:37:25 07/01/19 24 07/08/2023 IGP, APTIM A HPV, RFX 16/18 ,45 . . Not Available [facility] ([facility]) [address] [place], [address], 07/08/2023 12:37:25 07/01/19 24 07/08/2023 IGP, APTIM A HPV, RFX 16/18 ,45 pathologist provided ICD10: Karly jones R87.5 Not Available [facility] ([facility]) [address] [place], [address], 07/08/2023 12:37:25 07/01/19 24 07/08/2023 IGP, APTIM A HPV, RFX 16/18 ,45 note: Karly jones The Pap smear is a scree lissa test desig fabi to aid in the detec tion of lilliana ligna nt and malig nant condi tions of the uteri ne cervi x. It is not a diagn ostic proce dure and shoul d not be used as the sole means of detec ting cervi joaquin cance r. Both false -posi tive and false -nega tive repor ts do occur . Not Available [facility] ([facility]) [address] [place], [address], 07/08/2023 12:37:25 07/01/19 24 07/08/2023 IGP, APTIM A HPV, RFX 16/18 ,45 test methodology: Commen t This liqui d based ThinP rep(R ) pap test was scree fabi with the use of an image guide meredith devine. Not Available [facility] ([facility]) [address] [place], [address], 07/08/2023 12:37:25 07/01/19 24 07/08/2023 IGP, APTIM A HPV, RFX 16/18 ,45 HPV genotype reflex Commen t Crite tye not met, HPV Genot ype not perfo rmed. Not Available [facility] ([facility]) [address] [facility], [place], [address], 07/08/2023 12:37:25 07/08/19 24 07/08/2023 CBC WITH DIFFE RENTI AL/PL ATELE T WBC 11.4 x10e3 /uL 3.4-10 .8 above high normal Not Available [facility] Department [address] [place], [address], 07/09/2023 03:36:14 07/08/19 24 07/08/2023 CBC WITH DIFFE RENTI AL/PL ATELE T RBC 4.14 x10e6 /uL 3.77-5 .28 Not Available [facility] Department [address] [place], [address], 07/09/2023 03:36:14 07/08/19 24 07/08/2023 CBC WITH DIFFE RENTI AL/PL ATELE T hemoglobin 12.2 g/dL 11.1-1 5.9 Not Available [facility] Department [address] [place], [address], 07/09/2023 03:36:14 07/08/19 24 07/08/2023 CBC WITH DIFFE RENTI AL/PL ATELE T hematocrit 37.7 % 34.0-4 6.6 Not Available [facility] Department [address] [place], [address], 07/09/2023 03:36:14 07/08/19 24 07/08/2023 CBC WITH DIFFE RENTI AL/PL ATELE T MCV 91 fL 79-97 Not Available [facility] Department [address] [place], [address], 07/09/2023 03:36:14 07/08/19 24 07/08/2023 CBC WITH DIFFE RENTI AL/PL ATELE T MCH 29.5 pg 26.6-3 3.0 Not Available [facility] Department [address] [place], [address], 07/09/2023 03:36:14 07/08/19 24 07/08/2023 CBC WITH DIFFE RENTI AL/PL ATELE T MCHC 32.4 g/dL 31.5-3 5.7 Not Available [facility] Department [address] [place], [address], 07/09/2023 03:36:14 07/08/19 24 07/08/2023 CBC WITH DIFFE RENTI AL/PL ATELE T RDW 15.5 % 11.5-1 4.5 above high normal Not Available [facility] Department [address] [place], [address], 07/09/2023 03:36:14 07/08/19 24 07/08/2023 CBC WITH DIFFE RENTI AL/PL ATELE T platelets 389 x10e3 /uL 150-45 0 Not Available [facility] Department [address] [place], [address], 07/09/2023 03:36:14 07/08/19 24 07/08/2023 CBC WITH DIFFE RENTI AL/PL ATELE T neutrophils 54 % notest b. Not Available [facility] Department [address] [place], [address], 07/09/2023 03:36:14 07/08/19 24 07/08/2023 CBC WITH DIFFE RENTI AL/PL ATELE T lymphs 34 % notest b. Not Available [facility] Department [address] [place], [address], 07/09/2023 03:36:14 07/08/19 24 07/08/2023 CBC WITH DIFFE RENTI AL/PL ATELE T monocytes 9 % notest b. Not Available [facility] Department [address] [place], [address], 07/09/2023 03:36:14 07/08/19 24 07/08/2023 CBC WITH DIFFE RENTI AL/PL ATELE T eos 2 % notest b. Not Available [facility] Department [address] [place], [address], 07/09/2023 03:36:14 07/08/19 24 07/08/2023 CBC WITH DIFFE RENTI AL/PL ATELE T basos 1 % notest b. Not Available [facility] Department [address] [place], [address], 07/09/2023 03:36:14 07/08/19 24 07/08/2023 CBC WITH DIFFE RENTI AL/PL ATELE T neutrophils (absolute) 6.1 x10e3 /uL 1.4-7. 0 Not Available [facility] Department [address] [place], [address], 07/09/2023 03:36:14 07/08/19 24 07/08/2023 CBC WITH DIFFE RENTI AL/PL ATELE T lymphs (absolute) 3.9 x10e3 /uL 0.7-3. 1 above high normal Not Available [facility] Department [address] [place] [address], [address], 07/09/2023 03:36:14 07/08/19 24 07/08/2023 CBC WITH DIFFE RENTI AL/PL ATELE T monocytes(ab solute) 1.1 x10e3 /uL 0.1-0. 9 above high normal Not Available [facility] Department [address] [place], [address], 07/09/2023 03:36:14 07/08/19 24 07/08/2023 CBC WITH DIFFE RENTI AL/PL ATELE T eos (absolute) 0.2 x10e3 /uL 0.0-0. 4 Not Available [facility] Department [address] [place] [address], [address], 07/09/2023 03:36:14 07/08/19 24 07/08/2023 CBC WITH DIFFE RENTI AL/PL ATELE T baso (absolute) 0.1 x10e3 /uL 0.0-0. 2 Not Available [facility] Department [address] [place] [address], [address], 07/09/2023 03:36:14 07/08/19 24 07/08/2023 CBC WITH DIFFE RENTI AL/PL ATELE T immature granulocytes 0.3 % notest b. Not Available [facility] Department [address] [place], [address], 07/09/2023 03:36:14 07/08/19 24 07/08/2023 CBC WITH DIFFE RENTI AL/PL ATELE T immature grans (abs) 0.0 x10e3 /uL 0.0-0. 1 Not Available [facility] Department [address] [place] [address], [address], 07/09/2023 03:36:14 07/08/19 24 07/08/2023 CBC WITH DIFFE RENTI AL/PL ATELE T NRBC 0 % 0-0 Not Available [facility] Department [address] [place], [address], 07/09/2023 03:36:14 10/07/19 24 10/07/2023 CBC WITH DIFFE RENTI AL/PL ATELE T WBC 16.1 x10e3 /uL 3.4-10 .8 above high normal Not Available [facility] Department [address] [place], [address], 10/08/2023 03:36:29 10/07/19 24 10/07/2023 CBC WITH DIFFE RENTI AL/PL ATELE T RBC 4.40 x10e6 /uL 3.77-5 .28 Not Available [facility] Department [address] [place], [address], 10/08/2023 03:36:29 10/07/19 24 10/07/2023 CBC WITH DIFFE RENTI AL/PL ATELE T hemoglobin 12.7 g/dL 11.1-1 5.9 Not Available [facility] Department [address] [place], [address], 10/08/2023 03:36:29 10/07/19 24 10/07/2023 CBC WITH DIFFE RENTI AL/PL ATELE T hematocrit 38.9 % 34.0-4 6.6 Not Available [facility] Department [address] [place], [address], 10/08/2023 03:36:29 10/07/19 24 10/07/2023 CBC WITH DIFFE RENTI AL/PL ATELE T MCV 88 fL 79-97 Not Available [facility] Department [address] [place], [address], 10/08/2023 03:36:29 10/07/19 24 10/07/2023 CBC WITH DIFFE RENTI AL/PL ATELE T MCH 28.9 pg 26.6-3 3.0 Not Available [facility] Department [address] [place], [address], 10/08/2023 03:36:29 10/07/19 24 10/07/2023 CBC WITH DIFFE RENTI AL/PL ATELE T MCHC 32.6 g/dL 31.5-3 5.7 Not Available [facility] [address] [place], [address], 10/08/2023 03:36:29 10/07/19 24 10/07/2023 CBC WITH DIFFE RENTI AL/PL ATELE T RDW 16.8 % 11.5-1 4.5 above high normal Not Available [facility] [address] [place], [address], 10/08/2023 03:36:29 10/07/19 24 10/07/2023 CBC WITH DIFFE RENTI AL/PL ATELE T platelets 301 x10e3 /uL 150-45 0 Not Available [facility] [address] [place], [address], 10/08/2023 03:36:29 10/07/19 24 10/07/2023 CBC WITH DIFFE RENTI AL/PL ATELE T neutrophils 68 % notest b. Not Available [facility] [address] [place], [address], 10/08/2023 03:36:29 10/07/19 24 10/07/2023 CBC WITH DIFFE RENTI AL/PL ATELE T lymphs 23 % notest b. Not Available [facility] [address] [place], [address], 10/08/2023 03:36:29 10/07/19 24 10/07/2023 CBC WITH DIFFE RENTI AL/PL ATELE T monocytes 5 % notest b. Not Available [facility] [address] [place], [address], 10/08/2023 03:36:29 10/07/19 24 10/07/2023 CBC WITH DIFFE RENTI AL/PL ATELE T eos 3 % notest b. Not Available [facility] Department [address] [place] [address], [address], 10/08/2023 03:36:29 10/07/19 24 10/07/2023 CBC WITH DIFFE RENTI AL/PL ATELE T basos 1 % notest b. Not Available [facility] [address] [place], [address], 10/08/2023 03:36:29 10/07/19 24 10/07/2023 CBC WITH DIFFE RENTI AL/PL ATELE T neutrophils (absolute) 11.0 x10e3 /uL 1.4-7. 0 above high normal Not Available [facility] Department [address] [place] [address], [address], 10/08/2023 03:36:29 10/07/19 24 10/07/2023 CBC WITH DIFFE RENTI AL/PL ATELE T lymphs (absolute) 3.7 x10e3 /uL 0.7-3. 1 above high normal Not Available [facility] Department [address] [place], [address], 10/08/2023 03:36:29 10/07/19 24 10/07/2023 CBC WITH DIFFE RENTI AL/PL ATELE T monocytes(ab solute) 0.9 x10e3 /uL 0.1-0. 9 Not Available [facility] Department [address] [place], [address], 10/08/2023 03:36:29 10/07/19 24 10/07/2023 CBC WITH DIFFE RENTI AL/PL ATELE T eos (absolute) 0.5 x10e3 /uL 0.0-0. 4 above high normal Not Available [facility] Department [address] [place], [address], 10/08/2023 03:36:29 10/07/19 24 10/07/2023 CBC WITH DIFFE RENTI AL/PL ATELE T baso (absolute) 0.1 x10e3 /uL 0.0-0. 2 Not Available [facility] Department [address] [place], [address], 10/08/2023 03:36:29 10/07/19 24 10/07/2023 CBC WITH DIFFE RENTI AL/PL ATELE T immature granulocytes 0.4 % notest b. Not Available [facility] Department [address] [place], [address], 10/08/2023 03:36:29 10/07/19 24 10/07/2023 CBC WITH DIFFE RENTI AL/PL ATELE T immature grans (abs) 0.1 x10e3 /uL 0.0-0. 1 Not Available [facility] Department [address] [place], [address], 10/08/2023 03:36:29 10/07/19 24 10/07/2023 CBC WITH DIFFE RENTI AL/PL ATELE T NRBC 0 % 0-0 Not Available [facility] Department [address] [place], [address], 10/08/2023 03:36:29 10/07/19 24 10/08/2023 VITAM IN D, 25-HY DROXY vitamin D, 25-hydroxy 44.8 NG/mL 30.0-1 00.0 Vitam in D defic iency has been defin ed by the Insti tute of Medic ine and an Endoc rine Socie ty pract ice guide line as a level of serum 25-OH vitam in D less than 20 ng/mL (1,2) . The Endoc rine Socie ty went on to furth er defin e vitam in D insuf ficie ncy as a level betwe en 21 and 29 ng/mL (2). 1. IOM (Inst itute of Medic ine). 2010. Dieta ry refer ence mary es for calci um and D. Bang rogers [place]: The Natio nal [facility] Press . 2. Holic k MF, Lisa petit [place], Jerad off-F errar i TELLEZ, et al. Evalu ation , treat ment, and preve ntion of vitam in D defic iency : an Endoc rine Socie ty clini joaquin pract ice guide line. JCEM. 2010; 96(7) :1911 -30. Not Available [facility] ([facility]) [address] [facility], [place], [address], 10/08/2023 08:37:31 11/10/19 24 11/10/2023 CBC WITH DIFFE RENTI AL/PL ATELE T WBC 8.7 x10e3 /uL 3.4-10 .8 Not Available [facility] ([facility]) [address] [facility], [place], [address], 11/11/2023 03:36:35 11/10/19 24 11/10/2023 CBC WITH DIFFE RENTI AL/PL ATELE T RBC 4.12 x10e6 /uL 3.77-5 .28 Not Available [facility] ([facility]) [address] [facility], [place], [address], 11/11/2023 03:36:35 11/10/19 24 11/10/2023 CBC WITH DIFFE RENTI AL/PL ATELE T hemoglobin 12.0 g/dL 11.1-1 5.9 Not Available [facility] ([facility]) [address] [facility], [place], [address], 11/11/2023 03:36:35 11/10/19 24 11/10/2023 CBC WITH DIFFE RENTI AL/PL ATELE T hematocrit 38.7 % 34.0-4 6.6 Not Available [facility] ([facility]) [address] [facility], [place], [address], 11/11/2023 03:36:35 11/10/19 24 11/10/2023 CBC WITH DIFFE RENTI AL/PL ATELE T MCV 94 fL 79-97 Not Available [facility] ([facility]) [address] [facility], [place], [address], 11/11/2023 03:36:35 11/10/19 24 11/10/2023 CBC WITH DIFFE RENTI AL/PL ATELE T MCH 29.1 pg 26.6-3 3.0 Not Available [facility] ([facility]) [address] [facility], [place], [address], 11/11/2023 03:36:35 11/10/19 24 11/10/2023 CBC WITH DIFFE RENTI AL/PL ATELE T MCHC 31.0 g/dL 31.5-3 5.7 below low normal Not Available [facility] ([facility]) [address] [facility], [place], [address], 11/11/2023 03:36:35 11/10/19 24 11/10/2023 CBC WITH DIFFE RENTI AL/PL ATELE T RDW 15.4 % 11.7-1 5.4 Not Available [facility] ([facility]) [address] [facility], [place], [address], 11/11/2023 03:36:35 11/10/19 24 11/10/2023 CBC WITH DIFFE RENTI AL/PL ATELE T platelets 305 x10e3 /uL 150-45 0 Not Available [facility] ([facility]) [address] [facility], [place], [address], 11/11/2023 03:36:35 11/10/19 24 11/10/2023 CBC WITH DIFFE RENTI AL/PL ATELE T neutrophils 51 % notest ab. Not Available [facility] ([facility]) [address] [facility], [place], [address], 11/11/2023 03:36:35 11/10/19 24 11/10/2023 CBC WITH DIFFE RENTI AL/PL ATELE T lymphs 37 % notest ab. Not Available [facility] ([facility]) [address] [facility], [place], [address], 11/11/2023 03:36:35 11/10/19 24 11/10/2023 CBC WITH DIFFE RENTI AL/PL ATELE T monocytes 8 % notest ab. Not Available [facility] ([facility]) [address] [facility], [place], [address], 11/11/2023 03:36:35 11/10/19 24 11/10/2023 CBC WITH DIFFE RENTI AL/PL ATELE T eos 3 % notest ab. Not Available [facility] ([facility]) [address] [facility], [place], [address], 11/11/2023 03:36:35 11/10/19 24 11/10/2023 CBC WITH DIFFE RENTI AL/PL ATELE T basos 1 % notest ab. Not Available [facility] ([facility]) [address] [facility], [place], [address], 11/11/2023 03:36:35 11/10/19 24 11/10/2023 CBC WITH DIFFE RENTI AL/PL ATELE T neutrophils (absolute) 4.4 x10e3 /uL 1.4-7. 0 Not Available [facility] ([facility]) [address] [facility], [place], [address], 11/11/2023 03:36:35 11/10/19 24 11/10/2023 CBC WITH DIFFE RENTI AL/PL ATELE T lymphs (absolute) 3.3 x10e3 /uL 0.7-3. 1 above high normal Not Available [facility] ([facility]) [address] [place], [address], 11/11/2023 03:36:35 11/10/19 24 11/10/2023 CBC WITH DIFFE RENTI AL/PL ATELE T monocytes(ab solute) 0.7 x10e3 /uL 0.1-0. 9 Not Available [facility] ([facility]) [address] [facility], [place], [address], 11/11/2023 03:36:35 11/10/19 24 11/10/2023 CBC WITH DIFFE RENTI AL/PL ATELE T eos (absolute) 0.2 x10e3 /uL 0.0-0. 4 Not Available [facility] ([facility]) [address] [facility], [place], [address], 11/11/2023 03:36:35 11/10/19 24 11/10/2023 CBC WITH DIFFE RENTI AL/PL ATELE T baso (absolute) 0.1 x10e3 /uL 0.0-0. 2 Not Available [facility] ([facility]) [address] [facility], [place], [address], 11/11/2023 03:36:35 11/10/19 24 11/10/2023 CBC WITH DIFFE RENTI AL/PL ATELE T immature granulocytes 0 % notest ab. Not Available [facility] ([facility]) [address] [facility], [place], [address], 11/11/2023 03:36:35 11/10/19 24 11/10/2023 CBC WITH DIFFE RENTI AL/PL ATELE T immature grans (abs) 0.0 x10e3 /uL 0.0-0. 1 Not Available [facility] ([facility]) [address] [place], [address], 11/11/2023 03:36:35 02/09/20 24 02/09/2024 Henry ol [Mass /volu me] in Serum or Plasm a ethanol [mass/volume ] in serum or plasma 417.6 mg/dL high: 10mg/d L high Henry ol 417.6 (H) <10 mg/dL 02/08 2:49 PM [facility] Not Available Not Available 05/01/2024 03:19:50 02/09/20 24 02/09/2024 Henry ol [Mass /volu me] in Serum or Plasm a ethanol [mass/volume ] in blood 0.418 text: <=0.10 0 gm/dL high Henry ol Calcu lated 0.418 (H) <=0.1 00 gm/dL 02/08 2:49 PM [facility] Not Available Not Available 05/01/2024 03:19:50 02/09/20 24 02/09/2024 Henry ol [Mass /volu me] in Serum or Plasm a Unknown Analyte Ethano l Interp <10: None Detect ed Depres coty of CSN: >100 mg/dL Potent ially Critic al: >250 mg/dL Potent ially Fatal >400 mg/dL Ethano l in the patien t's blood will contri bute to the osmola r gap. Ethano l's contri bution to the osmola r gap can be estima rama by dividi ng the concen tratio n of ethano l in mg/dL by 4.6. This test is for clinic al use only and does not equal a KEITH for legal purpos es. Henry ol Inter p <10: None Detec rama Depre ssion of CSN: >100 mg/dL Poten tiall y Criti joaquin: >250 mg/dL Poten tiall y Fatal >400 mg/dL Henry ol in the patie nt's blood will contr ibute to the osmol ar gap. Henry ol's contr ibuti on to the osmol ar gap can be estim ated by divid ing the mario ntrat ion of henry ol in mg/dL by 4.6. This test is for clini joaquin use only and does not equal a KEITH for legal purpo ses. Not Available Not Available 05/01/2024 03:19:50 02/09/20 24 02/09/2024 Henry ol [Mass /volu me] in Serum or Plasm a interpretati on and review of laboratory results Abnorm al Not Available Not Available 03:19:50 02/09/20 24 02/09/2024 Compr ehens sabrina metab olic 2000 panel - Serum or Plasm a glucose [mass/volume ] in serum or plasma 111 mg/dL low: 70mg/d Lhigh: 99mg/d L high Gluco se 111 (H) 70 - 99 mg/dL 02/08 2:47 PM [facility] Not Available Not Available 05/01/2024 03:19:50 02/09/20 24 02/09/2024 Compr ehens sabrina metab olic 1999 panel - Serum or Plasm a sodium [moles/volum e] in serum or plasma 143 mmol/ L low: 136mmo l/Lhig h: 145mmo l/L Sodiu m 143 136 - 145 mmol/ L 02/08 2:47 PM [facility] Not Available Not Available 05/01/2024 03:19:50 02/09/20 24 02/09/2024 Compr ehens sabrina metab olic 1999 panel - Serum or Plasm a potassium [moles/volum e] in serum or plasma 3.7 mmol/ L low: 3.5mmo l/Lhig h: 5.1mmo l/L Potas sium 3.7 3.5 - 5.1 mmol/ L 02/08 2:47 PM [facility] Not Available Not Available 05/01/2024 03:19:50 02/09/20 24 02/09/2024 Compr ehens sabrina metab olic 1999 panel - Serum or Plasm a chloride [moles/volum e] in serum or plasma 107 mmol/ L low: 98mmol /Lhigh : 107mmo l/L Chlor kale 107 98 - 107 mmol/ L 02/08 2:47 PM [facility] Not Available Not Available 05/01/2024 03:19:50 02/09/20 24 02/09/2024 Compr ehens sabrina metab olic 1999 panel - Serum or Plasm a carbon dioxide, total [moles/volum e] in serum or plasma 21 mmol/ L low: 22mmol /Lhigh : 29mmol /L low CO2 21 (L) 22 - 29 mmol/ L 02/08 2:47 PM [facility] Not Available Not Available 05/01/2024 03:19:50 02/09/20 24 02/09/2024 Compr ehens sabrina metab olic 1999 panel - Serum or Plasm a calcium [mass/volume ] in serum or plasma 8.6 mg/dL low: 8.4mg/ dLhigh : 10.4mg /dL Calci um 8.6 8.4 - 10.4 mg/dL 02/08 2:47 PM [facility] LABOR AT[facility] Not Available Not Available 05/01/2024 03:19:50 02/09/20 24 02/09/2024 Compr Number 1 Products and Servicesens sabrina metab olic 1999 panel - Serum or Plasm a anion gap in blood 15 mmol/ L low: 6mmol/ Lhigh: 16mmol /L Anion Gap 15 6 - 16 mmol/ L 02/08 2:47 PM [facility] Not Available Not Available 05/01/2024 03:19:50 02/09/20 24 02/09/2024 Compr Number 1 Products [employer] Servicesens sabrina [employer] olic 1999 panel - Serum or Plasm a urea nitrogen [mass/volume ] in serum or plasma 11 mg/dL low: 5.3mg/ dLhigh : 18.7mg /dL BUN 11 5.3 - 18.7 mg/dL 02/08 2:47 PM [facility] Not Available Not Available 05/01/2024 03:19:50 02/09/20 24 02/09/2024 Compr [employer] sabrina [employer] olic 1999 panel - Serum or Plasm a creatinine [mass/volume ] in serum or plasma 0.78 mg/dL low: 0.57mg /dLhig h: 1.11mg /dL Creat inine 0.78 0.57 - 1.11 mg/dL 02/08 2:47 PM [facility] Not Available Not Available 05/01/2024 03:19:50 02/09/20 24 02/09/2024 Compr [employer] sabrina [employer] olic 1999 panel - Serum or Plasm a alkaline phosphatase [enzymatic activity/vol ume] in serum or plasma 70 U/L low: 40U/Lh igh: 150U/L Alkal ine Phosp hatas e 70 40 - 150 U/L 02/08 2:47 PM [facility] Not Available Not Available 05/01/2024 03:19:50 02/09/20 24 02/09/2024 Compr Number 1 Products and Servicesens sabrina metab olic 2000 panel - Serum or Plasm a alanine aminotransfe rase [enzymatic activity/vol ume] in serum or plasma 20 U/L low: 0U/Lhi gh: 55U/L ALT 20 0 - 55 U/L 02/08 2:47 PM [facility] Not Available Not Available 05/01/2024 03:19:50 02/09/20 24 02/09/2024 Compr Number 1 Products [employer] sabrina [employer] olic 1999 panel - Serum or Plasm a aspartate aminotransfe rase [enzymatic activity/vol ume] in serum or plasma 22 U/L low: 5U/Lhi gh: 34U/L AST 22 5 - 34 U/L 02/08 2:47 PM [facility] Not Available Not Available 05/01/2024 03:19:50 02/09/20 24 02/09/2024 Compr [employer] sabrina [employer] olic 1999 panel - Serum or Plasm a protein [mass/volume ] in serum or plasma 7.5 text: 6.4 - 8.3 gm/dL Prote in Total 7.5 6.4 - 8.3 gm/dL 02/08 2:47 PM [facility] Not Available Not Available 05/01/2024 03:19:50 02/09/20 24 02/09/2024 Compr [employer] sabrina [employer] olic 1999 panel - Serum or Plasm a albumin [mass/volume ] in serum or plasma 3.8 text: 3.4 - 5.0 gm/dL Album in 3.8 3.4 - 5.0 gm/dL 02/08 2:47 PM [facility] LAB[facility] Not Available Not Available 05/01/2024 03:19:50 02/09/20 24 02/09/2024 Compr [employer] sabrina [employer] olic 1999 panel - Serum or Plasm a bilirubin.to glo [mass/volume ] in serum or plasma 0.2 mg/dL low: 0.2mg/ dLhigh : 1.2mg/ dL Bilir ubin Total 0.2 0.2 - 1.2 mg/dL 02/08 2:47 PM [facility] Not Available Not Available 05/01/2024 03:19:50 02/09/20 24 02/09/2024 Compr [employer] sabrina metab olic 2000 panel - Serum or Plasm a glomerular filtration rate/1.73 sq M.predicted [volume rate/area] in serum, plasma or blood by creatinine-b ased formula (CKD-epi 2020) text: >=90 mL/min /1.73 m2 eGFR by CKD-E PI >90 >=90 mL/mi n/1.7 3 m2 02/08 2:47 PM [facility] Not Available Not Available 05/01/2024 03:19:50 02/09/2002/09/2024 Violet ayers metab olic 1999 panel - Serum or Plasm a interpretati on and review of laboratory results Abnorm al Not Available Not Available 03:19:50 02/09/2002/09/2024 CBC W Auto Diffe renti al panel - Blood leukocytes [#/volume] in blood by automated count 9.4 text: 4.0 - 10.7 x10e9/ L WBC 9.4 4.0 - 10.7 x10E9 /L 02/08 2:35 PM [facility] Not Available Not Available 05/01/2024 03:19:50 02/09/20 24 02/09/2024 CBC W Auto Diffe renti al panel - Blood erythrocytes [#/volume] in blood by automated count 4.75 text: 3.90 - 5.20 x10e12 /L RBC Count 4.75 3.90 - 5.20 x10E1 2/L 02/08 2:35 PM [facility] Not Available Not Available 05/01/2024 03:19:50 02/09/20 24 02/09/2024 CBC W Auto Diffe renti al panel - Blood hemoglobin [mass/volume ] in blood 13.7 g/dL low: 11.9g/ dLhigh : 15.8g/ dL Hemog lobin 13.7 11.9 - 15.8 g/dL 02/08 2:35 PM [facility] Not Available Not Available 05/01/2024 03:19:50 02/09/20 24 02/09/2024 CBC W Auto Diffe renti al panel - Blood hematocrit [volume fraction] of blood by automated count 39.5 % low: 34.8%h igh: 46.1% Hemat ocrit 39.5 34.8 - 46.1 % 02/08 2:35 PM [facility] Not Available Not Available 05/01/2024 03:19:50 02/09/20 24 02/09/2024 CBC W Auto Diffe renti al panel - Blood MCV [entitic volume] by automated count 83.2 fL low: 80fLhi gh: 98fL MCV 83.2 80.0 - 98.0 fL 02/08 2:35 PM [facility] Not Available Not Available 05/01/2024 03:19:50 02/09/20 24 02/09/2024 CBC W Auto Diffe renti al panel - Blood MCH [entitic mass] by automated count 28.8 pg low: 26.7pg high: 33.6pg MCH 28.8 26.7 - 33.6 pg 02/08 2:35 PM [facility] Not Available Not Available 05/01/2024 03:19:50 02/09/20 24 02/09/2024 CBC W Auto Diffe renti al panel - Blood MCHC [mass/volume ] by automated count 34.7 g/dL low: 31.7g/ dLhigh : 36.3g/ dL MCHC 34.7 31.7 - 36.3 g/dL 02/08 2:35 PM [facility] Not Available Not Available 05/01/2024 03:19:50 02/09/20 24 02/09/2024 CBC W Auto Diffe renti al panel - Blood erythrocyte distribution width [ratio] by automated count 15.3 % low: 11.3%h igh: 14.8% high RDW-C V 15.3 (H) 11.3 - 14.8 % 02/08 2:35 PM [facility] Not Available Not Available 05/01/2024 03:19:50 02/09/20 24 02/09/2024 CBC W Auto Diffe renti al panel - Blood platelets [#/volume] in blood by automated count 295 text: 150 - 420 x10e9/ L Plate let Count 295 150 - 420 x10E9 /L 02/08 2:35 PM [facility] Not Available Not Available 05/01/2024 03:19:50 02/09/20 24 02/09/2024 CBC W Auto Diffe renti al panel - Blood platelet mean volume [entitic volume] in blood by automated count 8.9 fL low: 7.8fLh igh: 11.4fL MPV 8.9 7.8 - 11.4 fL 02/08 2:35 PM [facility] Not Available Not Available 05/01/2024 03:19:50 02/09/20 24 02/09/2024 CBC W Auto Diffe renti al panel - Blood neutrophils/ 100 leukocytes in blood by automated count 46 % low: 41%hig h: 74% Neutr ophil % 46.0 41.0 - 74.0 % 02/08 2:35 PM [facility] Not Available Not Available 05/01/2024 03:19:50 02/09/20 24 02/09/2024 CBC W Auto Diffe renti al panel - Blood lymphocytes/ 100 leukocytes in blood by automated count 47.8 % low: 17%hig h: 47% high Lymph ocyte % 47.8 (H) 17.0 - 47.0 % 02/08 2:35 PM [facility] Not Available Not Available 05/01/2024 03:19:50 02/09/20 24 02/09/2024 CBC W Auto Diffe renti al panel - Blood monocytes/10 0 leukocytes in blood by automated count 4.4 % low: 3%high : 11% Monoc yte % 4.4 3.0 - 11.0 % 02/08 2:35 PM [facility] Not Available Not Available 05/01/2024 03:19:50 02/09/20 24 02/09/2024 CBC W Auto Diffe renti al panel - Blood eosinophils/ 100 leukocytes in blood by automated count 0.5 % low: 0%high : 7% Eosin ophil % 0.5 0.0 - 7.0 % 02/08 2:35 PM [facility] Not Available Not Available 05/01/2024 03:19:50 02/09/20 24 02/09/2024 CBC W Auto Diffe renti al panel - Blood basophils/10 0 leukocytes in blood by automated count 1.1 % low: 0%high : 1.6% Basop hil % 1.1 0.0 - 1.6 % 02/08 2:35 PM [facility] Not Available Not Available 05/01/2024 03:19:50 02/09/20 24 02/09/2024 CBC W Auto Diffe renti al panel - Blood immature granulocytes /100 leukocytes in blood by automated count 0.2 % low: 0%high : 1% Immat ure Granu locyt es % 0.2 0.0 - 1.0 % 02/08 2:35 PM [facility] Not Available Not Available 05/01/2024 03:19:50 02/09/20 24 02/09/2024 CBC W Auto Diffe renti al panel - Blood neutrophils [#/volume] in blood by automated count 4.32 text: 1.60 - 7.50 x10e9/ L Neutr ophil Absol [place] 4.32 1.60 - 7.50 x10E9 /L 02/08 2:35 PM [facility] Not Available Not Available 05/01/2024 03:19:50 02/09/20 24 02/09/2024 CBC W Auto Diffe renti al panel - Blood lymphocytes [#/volume] in blood by automated count 4.49 text: 1.00 - 4.40 x10e9/ L high Lymph ocyte Absol [place] 4.49 (H) 1.00 - 4.40 x10E9 /L 02/08 2:35 PM [facility] Not Available Not Available 05/01/2024 03:19:50 02/09/20 24 02/09/2024 CBC W Auto Diffe renti al panel - Blood monocytes [#/volume] in blood by automated count 0.41 text: 0.15 - 1.00 x10e9/ L Monoc yte Absol [place] 0.41 0.15 - 1.00 x10E9 /L 02/08 2:35 PM [facility] Not Available Not Available 05/01/2024 03:19:50 02/09/20 24 02/09/2024 CBC W Auto Diffe renti al panel - Blood eosinophils [#/volume] in blood 0.05 text: 0.00 - 0.60 x10e9/ L Eosin ophil Absol [place] 0.05 0.00 - 0.60 x10E9 /L 02/08 2:35 PM [facility] Not Available Not Available 05/01/2024 03:19:50 02/09/20 24 02/09/2024 CBC W Auto Diffe renti al panel - Blood basophils [#/volume] in blood by automated count 0.1 text: 0.00 - 0.13 x10e9/ L Basop hil Absol [place] 0.10 0.00 - 0.13 x10E9 /L 02/08 2:35 PM [facility] Not Available Not Available 05/01/2024 03:19:50 02/09/20 24 02/09/2024 CBC W Auto Diffe renti al panel - Blood interpretati on and review of laboratory results Abnorm al Not Available Not Available 03:19:50 02/17/20 24 02/17/2024 SARS- CoV-2 (COVI D-19) RNA [Pres ence] in Speci men by RONA with probe detec tion sars-cov-2 (covid-19) N gene [presence] in specimen by RONA with probe detection NOT DETECT ED text: (refer ence range for this test IS not detect ed) SARSC OV2 NOT DETEC RAMA (Refe rence Range for this test is Not Detec rama) 02/16 6:36 PM [facility] Not [facility] Not Available 05/04/2024 12:24:08 02/17/20 24 02/17/2024 SARS- CoV-2 (COVI D-19) RNA [Pres ence] in Speci men by RONA with probe detec tion Unknown Analyte Author ized Fact Sheets about this test for provid ers and patien ts are availa ble at: https: //www. fda.go v/medi joaquin-de vices/ emerge ncy-si tuatio ns-med ical-d evices /emerg ency-u se-aut horiza tions Autho rized Fact Sheet s about this test for provi ders and patie nts are avail able at: https ://ww w.fda .gov/ medic al-de vices /bailey gency -situ ation s-med ical- devi es/em ergen cy-us e-aut horiz ation s Not Available Not Available 05/04/2024 12:24:08 02/17/20 24 02/17/2024 SARS- CoV-2 (COVI D-19) RNA [Pres ence] in Speci men by RONA with probe detec tion interpretati on and review of laboratory results Normal Not Available Not Available 04/15 12:24:08 02/17/20 24 02/17/2024 Aceta minop hen [Mass /volu me] in Serum or Plasm a acetaminophe n [mass/volume ] in serum or plasma text: 10 - 30 mcg/mL low ACETA MINOP HEN <3 (L) 10 - 30 mcg/m L 02/16 6:18 PM [facility] [employer] Not Available Not Available 05/04/2024 12:24:07 02/17/20 24 02/17/2024 Aceta minop hen [Mass /volu me] in Serum or Plasm a interpretati on and review of laboratory results Abnorm al Not Available Not Available 12:24:07 02/17/20 24 02/17/2024 Thyro tropi n [Unit s/vol ume] in Serum or Plasm a thyrotropin [units/volum e] in serum or plasma 0.425 text: 0.300 - 5.000 mIU/L TSH 0.425 0.300 - 5.000 mIU/L 02/16 6:35 PM [facility] Not Available Not Available 05/04/2024 12:24:07 02/17/20 24 02/17/2024 Thyro tropi n [Unit s/vol ume] in Serum or Plasm a interpretati on and review of laboratory results Normal Not Available Not Available 04/15 12:24:07 02/17/20 24 02/17/2024 Salic ylate s [Mass /volu me] in Serum or Plasm a salicylates [mass/volume ] in serum or plasma low: 15mg/d Lhigh: 30mg/d L low SALIC YLATE <5.0 (L) 15.0 - 30.0 mg/dL 02/16 6:17 PM [facility] Not Available Not Available 05/04/2024 12:24:07 02/17/20 24 02/17/2024 Salic ylate s [Mass /volu me] in Serum or Plasm a interpretati on and review of laboratory results Abnorm al Not Available Not Available 12:24:07 02/17/20 24 02/17/2024 Magne sium [Mass /volu me] in Serum or Plasm a magnesium [mass/volume ] in serum or plasma 1.7 mg/dL low: 1.6mg/ dLhigh : 2.6mg/ dL MAGNE SIUM 1.7 1.6 - 2.6 mg/dL 02/16 6:17 PM [facility] Not Available Not Available 05/04/2024 12:24:07 02/17/20 24 02/17/2024 Magne sium [Mass /volu me] in Serum or Plasm a interpretati on and review of laboratory results Normal Not Available Not Available 04/15 12:24:07 04/10/19 25 04/10/2024 Drugs of abuse panel - Urine by Scree n metho d amphetamine [presence] in urine by screen method NON DETECT ED text: non detect ed UR AMPHE TAMIN E NON DETEC RAMA NON DETEC RAMA 04/10 5:03 PM [facility] Not Available Not Available 05/04/2024 12:24:06 04/10/1904/10/2024 Drugs of abuse panel - Urine by Scree n metho d benzodiazepi evan [presence] in urine NON DETECT ED text: non detect ed UR BENZO DIAZE PINES NON DETEC RAMA NON DETEC RAMA 04/10 5:03 PM [facility] Not Available Not Available 05/04/2024 12:24:06 04/10/19 25 04/10/2024 Drugs of abuse panel - Urine by Scree n metho d benzoylecgon ine [presence] in urine NON DETECT ED text: non detect ed UR COCAI NE METAB OLITE NON DETEC RAMA NON DETEC RAMA 04/10 5:03 PM [facility] [employer] [facility] Not Available Not Available 05/04/2024 12:24:06 04/10/19 25 04/10/2024 Drugs of abuse panel - Urine by Scree n metho d opiates [presence] in urine NON DETECT ED text: non detect ed UR OPIAT ES NON DETEC RAMA NON DETEC RAMA 04/10 5:03 PM [facility] Not Available Not Available 05/04/2024 12:24:06 04/10/19 25 04/10/2024 Drugs of abuse panel - Urine by Scree n metho d phencyclidin e [presence] in urine NON DETECT ED text: non detect ed UR PHENC YCLID INE NON DETEC RAMA NON DETEC RAMA 04/10 5:03 PM [facility] Not Available Not Available 05/04/2024 12:24:06 04/10/19 25 04/10/2024 Drugs of abuse panel - Urine by Scree n metho d cannabinoids [presence] in urine DETECT ED text: non detect ed abnormal UR CANNA BINOI D DETEC RAMA (A) NON DETEC RAMA 04/10 5:03 PM [facility] Not Available Not Available 05/04/2024 12:24:06 04/10/19 25 04/10/2024 Drugs of abuse panel - Urine by Scree n metho d barbiturates [presence] in urine NON DETECT ED text: non detect ed UR KARLA TURAT E NON DETEC RAMA NON DETEC RAMA 04/10 5:03 PM [facility] Not Available Not Available 05/04/2024 12:24:06 04/10/19 25 04/10/2024 Drugs of abuse panel - Urine by Timur harper ur fentanyl NON DETECT ED text: non detect ed UR FENTA NYL NON DETEC RAMA NON DETEC RAMA 04/10 5:03 PM [facility] Not Available Not Available 05/04/2024 12:24:06 04/10/19 25 04/10/2024 Drugs of abuse panel - Urine by Timur harper interpretati on and review of laboratory results Abnorm al Not Available Not Available 12:24:06 04/10/19 25 04/10/2024 Lipid 1996 panel - Serum or Plasm a cholesterol [mass/volume ] in serum or plasma 230 mg/dL high: 200mg/ dL high LUCIANO STERO L 230 (H) <200 mg/dL 04/10 4:42 PM [facility] Not Available Not Available 05/04/2024 12:24:07 04/10/19 25 04/10/2024 Lipid 1996 panel - Serum or Plasm a triglyceride [mass/volume ] in serum or plasma 302 mg/dL high: 150mg/ dL high TRIGL YCERI MARIBELL 302 (H) <150 mg/dL 04/10 4:42 PM [facility] Not Available Not Available 05/04/2024 12:24:07 04/10/19 25 04/10/2024 Lipid 1996 panel - Serum or Plasm a cholesterol in HDL [mass/volume ] in serum or plasma 70 mg/dL low: 40mg/d L HDL LUCIANO STERO L 70 >40 mg/dL 04/10 4:42 PM [facility] [employer] [facility] Not Available Not Available 05/04/2024 12:24:07 04/10/19 25 04/10/2024 Lipid 1996 panel - Serum or Plasm a cholesterol in LDL [mass/volume ] in serum or plasma 100 mg/dL high: 130mg/ dL LDL 100 <130 mg/dL 04/10 4:42 PM [facility] [employer] [facility] Not Available Not Available 05/04/2024 12:24:07 04/10/19 25 04/10/2024 Lipid 1995 panel - Serum or Plasm a cholesterol in VLDL [mass/volume ] in serum or plasma 60 mg/dL low: 10mg/d Lhigh: 50mg/d L high VLDL 60 (H) 10 - 50 mg/dL 04/10 4:42 PM [facility] Not Available Not Available 05/04/2024 12:24:07 04/10/19 25 04/10/2024 Lipid 1995 panel - Serum or Plasm a cholesterol. total/choles terol in HDL [mass ratio] in serum or plasma 3.3 low: 0high: 4.4 CHOL/ HDL RATIO 3.3 0.0 - 4.4 04/10 4:42 PM [facility] Not Available Not Available 05/04/2024 12:24:07 04/10/19 25 04/10/2024 Lipid 1995 panel - Serum or Plasm a cholesterol non HDL [mass/volume ] in serum or plasma 160 mg/dL high: 130mg/ dL high NON-H DL LUCIANO STERO L 160 (H) <130 mg/dL 04/10 4:42 PM [facility] Not Available Not Available 05/04/2024 12:24:07 04/10/19 25 04/10/2024 Lipid 1996 panel - Serum or Plasm a interpretati on and review of laboratory results Abnorm al Not Available Not Available 12:24:07 04/10/19 25 04/10/2024 Henry ol [Mass /volu me] in Serum or Plasm a ethanol [mass/volume ] in serum or plasma high: 10mg/d L HENRY OL <10 <10 mg/dL 04/10 4:42 PM [facility] Not Available Not Available 05/04/2024 12:24:07 04/10/19 25 04/10/2024 Henry ol [Mass /volu me] in Serum or Plasm a interpretati on and review of laboratory results Normal Not Available Not Available 04/15 12:24:07 04/10/19 25 04/10/2024 Creat ine kinas e [Enzy matic activ ity/v olume ] in Serum or Plasm a creatine kinase [enzymatic activity/vol ume] in serum or plasma 73 U/L low: 29U/Lh igh: 168U/L CK (CPK) 73 29 - 168 U/L 04/10 4:42 PM [facility] Dada RoomE R LAB Not Available Not Available 05/04/2024 12:24:07 04/10/19 25 04/10/2024 Creat ine kinas e [Enzy matic activ ity/v olume ] in Serum or Plasm a interpretati on and review of laboratory results Normal Not Available Not Available 04/15 12:24:07 04/10/19 25 04/10/2024 C react sabrina prote in [Mass /volu me] in Serum or Plasm a C reactive protein [mass/volume ] in serum or plasma 0.64 mg/dL high: 0.5mg/ dL high C-SAYDA CTIVE PROTE IN 0.64 (H) <0.50 mg/dL 04/10 4:42 PM [facility] Dada RoomE R LAB Not Available Not Available 05/04/2024 12:24:07 04/10/19 25 04/10/2024 C react sabrina prote in [Mass /volu me] in Serum or Plasm a interpretati on and review of laboratory results Abnorm al Not Available Not Available 12:24:07 04/11/19 25 04/11/2024 CBC W Auto Diffe renti al panel - Blood leukocytes [#/volume] in blood by automated count 14.52 text: 4.00 - 12.00 10(3)/ mcL high WBC 14.52 (H) 4.00 - 12.00 10(3) /mcL 04/11 6:19 AM [facility] Not Available Not Available 05/04/2024 12:24:08 04/11/19 25 04/11/2024 CBC W Auto Diffe renti al panel - Blood erythrocytes [#/volume] in blood by automated count 4.1 text: 3.80 - 5.30 10(6)/ mcL RBC 4.10 3.80 - 5.30 10(6) /mcL 04/11 6:19 AM [facility] Not Available Not Available 05/04/2024 12:24:08 04/11/19 25 04/11/2024 CBC W Auto Diffe renti al panel - Blood hemoglobin [mass/volume ] in blood 11.9 g/dL low: 12g/dL high: 15.8g/ dL low HEMOG LOBIN (HGB) 11.9 (L) 12.0 - 15.8 g/dL 04/11 6:19 AM [facility] Not Available Not Available 05/04/2024 12:24:08 04/11/1904/11/2024 CBC W Auto Diffe renti al panel - Blood hematocrit [volume fraction] of blood by automated count 34.8 % low: 36%hig h: 47% low HEMAT OCRIT (HCT) 34.8 (L) 36.0 - 47.0 % 04/11 6:19 AM [facility] Not Available Not Available 05/04/2024 12:24:08 04/11/1904/11/2024 CBC W Auto Diffe renti al panel - Blood MCV [entitic volume] by automated count 84.9 fL low: 82fLhi gh: 96fL MCV 84.9 82.0 - 96.0 fL 04/11 6:19 AM [facility] Not Available Not Available 05/04/2024 12:24:08 04/11/19 25 04/11/2024 CBC W Auto Diffe renti al panel - Blood MCH [entitic mass] by automated count 29 pg low: 26pghi gh: 34pg MCH 29.0 26.0 - 34.0 pg 04/11 6:19 AM [facility] Not Available Not Available 05/04/2024 12:24:08 04/11/19 25 04/11/2024 CBC W Auto Diffe renti al panel - Blood MCHC [mass/volume ] by automated count 34.2 g/dL low: 31g/dL high: 36g/dL MCHC 34.2 31.0 - 36.0 g/dL 04/11 6:19 [facility] Not Available Not Available 05/04/2024 12:24:08 04/11/19 25 04/11/2024 CBC W Auto Diffe renti al panel - Blood platelets [#/volume] in blood 279 text: 140 - 440 10(3)/ mcL PLATE LET COUNT 279 140 - 440 10(3) /mcL 04/11 6:19 AM [facility] Not Available Not Available 05/04/2024 12:24:08 04/11/19 25 04/11/2024 CBC W Auto Diffe renti al panel - Blood erythrocyte distribution width [ratio] by automated count 14.9 % low: 11.8%h igh: 15.5% RDW 14.9 11.8 - 15.5 % 04/11 6:19 [facility] Not Available Not Available 05/04/2024 12:24:08 04/11/19 25 04/11/2024 CBC W Auto Diffe renti al panel - Blood platelet mean volume [entitic volume] in blood by automated count 9 fL low: 9.7fLh igh: 12.4fL low MPV 9.0 (L) 9.7 - 12.4 fL 04/11 6:19 AM [facility] Not Available Not Available 05/04/2024 12:24:08 04/11/19 25 04/11/2024 CBC W Auto Diffe renti al panel - Blood neutrophils/ 100 leukocytes in blood by automated count 71.3 % low: 47%hig h: 73% NEUTR OPHIL S 71.3 47.0 - 73.0 % 04/11 6:19 AM [facility] Not Available Not Available 05/04/2024 12:24:08 04/11/19 25 04/11/2024 CBC W Auto Diffe renti al panel - Blood lymphocytes/ 100 leukocytes in blood by automated count 21.2 % low: 18%hig h: 42% LYMPH OCYTE S 21.2 18.0 - 42.0 % 04/11 6:19 AM [facility] Not Available Not Available 05/04/2024 12:24:08 04/11/19 25 04/11/2024 CBC W Auto Diffe renti al panel - Blood monocytes/10 0 leukocytes in blood by automated count 6.7 % low: 4%high : 12% MONOC YTES 6.7 4.0 - 12.0 % 04/11 6:19 AM [facility] Not Available Not Available 05/04/2024 12:24:08 04/11/19 25 04/11/2024 CBC W Auto Diffe renti al panel - Blood eosinophils/ 100 leukocytes in blood by automated count 0.5 % low: 0%high : 5% EOSIN OPHIL S 0.5 0.0 - 5.0 % 04/11 6:19 AM [facility] Not Available Not Available 05/04/2024 12:24:08 04/11/19 25 04/11/2024 CBC W Auto Diffe renti al panel - Blood basophils/10 0 leukocytes in blood by automated count 0.3 % low: 0%high : 1% BASOP HILS 0.3 0.0 - 1.0 % 04/11 6:19 AM [facility] Not Available Not Available 05/04/2024 12:24:08 04/11/19 25 04/11/2024 CBC W Auto Diffe renti al panel - Blood neutrophils [#/volume] in blood by automated count 10.35 text: 1.60 - 7.70 10(3)/ mcL high ABSOL YOMBA SHOSHONE NEUTR OPHIL S 10.35 (H) 1.60 - 7.70 10(3) /mcL 04/11 6:19 [facility] Not Available Not Available 05/04/2024 12:24:08 04/11/19 25 04/11/2024 CBC W Auto Diffe renti al panel - Blood lymphocytes [#/volume] in blood by automated count 3.08 text: 1.30 - 3.20 10(3)/ mcL ABSOL YOMBA SHOSHONE LYMPH OCYTE S 3.08 1.30 - 3.20 10(3) /mcL 04/11 6:19 AM [facility] D[facility] Room[facility] R LAB Not Available Not Available 05/04/2024 12:24:08 04/11/19 25 04/11/2024 CBC W Auto Diffe renti al panel - Blood monocytes [#/volume] in blood by automated count 0.98 text: 0.20 - 1.00 10(3)/ mcL ABSOL YOMBA SHOSHONE MONOC YTES 0.98 0.20 - 1.00 10(3) /mcL 04/11 6:19 AM [facility] Room[facility] R LAB Not Available Not Available 05/04/2024 12:24:08 04/11/19 25 04/11/2024 CBC W Auto Diffe renti al panel - Blood eosinophils [#/volume] in blood by automated count 0.07 text: 0.00 - 0.40 10(3)/ mcL ABSOL YOMBA SHOSHONE EOSIN OPHIL 0.07 0.00 - 0.40 10(3) /mcL 04/11 6:19 AM [facility] Room[facility] R LAB Not Available Not Available 05/04/2024 12:24:08 04/11/19 25 04/11/2024 CBC W Auto Diffe renti al panel - Blood basophils [#/volume] in blood by automated count 0.04 text: 0.00 - 0.10 10(3)/ mcL ABSOL YOMBA SHOSHONE BASOP HILS 0.04 0.00 - 0.10 10(3) /mcL 04/11 6:19 AM [facility] D[facility] RoomE R LAB Not Available Not Available 05/04/2024 12:24:08 04/11/19 25 04/11/2024 CBC W Auto Diffe renti al panel - Blood nucleated erythrocytes /100 leukocytes [ratio] in blood 0 NRBC PER 100 WBC 0 04/11 6:19 AM [facility] Room[facility] R LAB Not Available Not Available 05/04/2024 12:24:08 04/11/19 25 04/11/2024 CBC W Auto Diffe renti al panel - Blood interpretati on and review of laboratory results Abnorm al Not Available Not Available 12:24:08 04/11/19 25 04/11/2024 Lipas e [Enzy matic activ ity/v olume ] in Serum or Plasm a lipase [enzymatic activity/vol ume] in serum or plasma 108 U/L low: 8U/Lhi gh: 78U/L high LIPAS E 108 (H) 8 - 78 U/L 04/11 10:49 AM [facility] Not Available Not Available 05/04/2024 12:24:07 04/11/19 25 04/11/2024 Lipas e [Enzy matic activ ity/v olume ] in Serum or Plasm a interpretati on and review of laboratory results Abnorm al Not Available Not Available 12:24:07 04/11/19 25 04/11/2024 Compr ehens sabrina metab olic 1999 panel - Serum or Plasm a sodium [moles/volum e] in serum or plasma 136 mmol/ L low: 136mmo l/Lhig h: 145mmo l/L SODIU M 136 136 - 145 mmol/ L 04/11 6:39 AM [facility] D[facility] RoomBlayne R LAB Not Available Not Available 05/04/2024 12:24:07 04/11/19 25 04/11/2024 Compr ehens sabrina metab olic 1999 panel - Serum or Plasm a potassium [moles/volum e] in serum or plasma 3.7 mmol/ L low: 3.5mmo l/Lhig h: 5.1mmo l/L POTAS SIUM 3.7 3.5 - 5.1 mmol/ L 04/11 6:39 AM [facility] Not Available Not Available 05/04/2024 12:24:07 04/11/19 25 04/11/2024 Compr ehens sabrina metab olic 1999 panel - Serum or Plasm a chloride [moles/volum e] in serum or plasma 105 mmol/ L low: 98mmol /Lhigh : 107mmo l/L CHLOR KALE 105 98 - 107 mmol/ L 04/11 6:39 AM [facility] Not Available Not Available 05/04/2024 12:24:07 04/11/19 25 04/11/2024 Compr ehens sabrina metab olic 2000 panel - Serum or Plasm a carbon dioxide, total [moles/volum e] in serum or plasma 23 mmol/ L low: 22mmol /Lhigh : 30mmol /L CO2, VENOU S 23 22 - 30 mmol/ L 04/11 6:39 AM [facility] Not Available Not Available 05/04/2024 12:24:07 04/11/19 25 04/11/2024 Compr ehens sabrina metab olic 2000 panel - Serum or Plasm a anion gap in serum or plasma 11.7 mmol/ L high: 18mmol /L ANION GAP 11.7 <18.0 mmol/ L 04/11 6:39 AM [facility] Not Available Not Available 05/04/2024 12:24:07 04/11/19 25 04/11/2024 Compr ehens sabrina metab olic 2000 panel - Serum or Plasm a glucose [mass/volume ] in serum or plasma 106 mg/dL low: 70mg/d Lhigh: 99mg/d L high GLUCO SE 106 (H) 70 - 99 mg/dL 04/11 6:39 AM [facility] Not Available Not Available 05/04/2024 12:24:07 04/11/19 25 04/11/2024 Compr ehens sabrina metab olic 2000 panel - Serum or Plasm a urea nitrogen [mass/volume ] in serum or plasma 10 mg/dL low: 5mg/dL high: 18mg/d L BUN 10 5 - 18 mg/dL 04/11 6:39 AM [facility] Not Available Not Available 05/04/2024 12:24:07 04/11/19 25 04/11/2024 Compr Number 1 Products [employer] Services[employer] sabrina metab olic 1999 panel - Serum or Plasm a creatinine [mass/volume ] in serum or plasma 0.66 mg/dL low: 0.6mg/ dLhigh : 1mg/dL CREAT ININE , BLOOD 0.66 0.60 - 1.00 mg/dL 04/11 6:39 AM [facility] [employer] C[facility] LAB Not Available Not Available 05/04/2024 12:24:07 04/11/19 25 04/11/2024 Compr Number 1 Products and Servicesens sabrina metab olic 1999 panel - Serum or Plasm a urea nitrogen/cre atinine [mass ratio] in serum or plasma 15 text: 12 - 20 ratio BUN/C REATI NINE RATIO 15 12 - 20 ratio 04/11 6:39 AM [facility] [employer] Keclon[employer] R LAB Not Available Not Available 05/04/2024 12:24:07 04/11/19 25 04/11/2024 Compr Number 1 Products and Servicesens sabrina metab olic 1999 panel - Serum or Plasm a protein [mass/volume ] in serum or plasma 6.6 g/dL low: 6g/dLh igh: 8g/dL TOTAL PROTE IN 6.6 6.0 - 8.0 g/dL 04/11 6:39 AM [facility] [employer] C[facility] R LAB Not Available Not Available 05/04/2024 12:24:07 04/11/19 25 04/11/2024 Compr [employer] sabrina metab olic 1999 panel - Serum or Plasm a albumin [mass/volume ] in serum or plasma 3.6 g/dL low: 3.5g/d Lhigh: 5g/dL ALBUM IN 3.6 3.5 - 5.0 g/dL 04/11 6:39 AM [facility] [employer]T [employer] CENT[facility] R LAB Not Available Not Available 05/04/2024 12:24:07 04/11/19 25 04/11/2024 Compr Number 1 Products and Servicesens sabrina metab olic 2000 panel - Serum or Plasm a albumin/glob ulin [mass ratio] in serum or plasma 1.2 low: 1high: 2.2 A/G RATIO 1.2 1.0 - 2.2 04/11 6:39 AM [facility] Not Available Not Available 05/04/2024 12:24:07 04/11/19 25 04/11/2024 Compr ehens sabrina metab olic 1999 panel - Serum or Plasm a calcium [mass/volume ] in serum or plasma 8.4 mg/dL low: 8.7mg/ dLhigh : 10.5mg /dL low CALCI UM 8.4 (L) 8.7 - 10.5 mg/dL 04/11 6:39 AM [facility] Not Available Not Available 05/04/2024 12:24:07 04/11/1904/11/2024 Compr ehens sabrina metab olic 2000 panel - Serum or Plasm a bilirubin.to glo [mass/volume ] in serum or plasma 0.5 mg/dL low: 0.2mg/ dLhigh : 1.2mg/ dL T BILI 0.5 0.2 - 1.2 mg/dL 04/11 6:39 AM [facility] Not Available Not Available 05/04/2024 12:24:07 04/11/19 25 04/11/2024 Compr ehens sabrina metab olic 2000 panel - Serum or Plasm a aspartate aminotransfe rase [enzymatic activity/vol ume] in serum or plasma 15 U/L low: 6U/Lhi gh: 42U/L SGOT (AST) 15 6 - 42 U/L 04/11 6:39 AM [facility] Not Available Not Available 05/04/2024 12:24:07 04/11/19 25 04/11/2024 Compr ehens sabrina metab olic 2000 panel - Serum or Plasm a alanine aminotransfe rase [enzymatic activity/vol ume] in serum or plasma 13 U/L low: 6U/Lhi gh: 55U/L SGPT (ALT) 13 6 - 55 U/L 04/11 6:39 AM [facility] Not Available Not Available 05/04/2024 12:24:07 04/11/19 25 04/11/2024 Compr ehens sabrina metab olic 1999 panel - Serum or Plasm a alkaline phosphatase [enzymatic activity/vol ume] in serum or plasma 56 U/L low: 40U/Lh igh: 150U/L ALKAL INE PHOSP HATAS E 56 40 - 150 U/L 04/11 6:39 AM [facility] [employer]T Keclon[facility] R LAB Not Available Not Available 05/04/2024 12:24:07 04/11/19 25 04/11/2024 Compr ehens sabrina metab olic 1999 panel - Serum or Plasm a glomerular filtration rate/1.73 sq M.predicted among non-blacks [volume rate/area] in serum, plasma or blood by creatinine-b ased formula (MDRD) low: 60 GFR, ESTIM ATED >60 >=60 04/11 6:39 AM [facility] [employer] R LAB Not Available Not Available 05/04/2024 12:24:07 04/11/19 25 04/11/2024 Compr ehens sabrina metab olic 1999 panel - Serum or Plasm a glomerular filtration rate/1.73 sq M.predicted among blacks [volume rate/area] in serum, plasma or blood by creatinine-b ased formula (MDRD) low: 60 GFR, EST. AFRIC AN >60 >=60 04/11 6:39 AM [facility] [employer]T [employer] CENTE R LAB Not Available Not Available 05/04/2024 12:24:07 04/11/19 25 04/11/2024 Compr ehens sabrina metab olic 1999 panel - Serum or Plasm a glomerular filtration rate/1.73 sq M.predicted among non-blacks [volume rate/area] in serum, plasma or blood by creatinine-b ased formula (MDRD) low: 60 GFR, EST. NONAF RICAN >60 >=60 04/11 6:39 AM [facility] LOANZT [employer] CENTE R LAB Not Available Not Available 05/04/2024 12:24:07 04/11/19 25 04/11/2024 Compr ehens sabrina metab olic 2000 panel - Serum or Plasm a interpretati on and review of laboratory results Abnorm al Not Available Not Available 12:24:07 04/11/19 25 04/11/2024 Amyla se [Enzy matic activ ity/v olume ] in Serum or Plasm a amylase [enzymatic activity/vol ume] in serum or plasma 81 U/L low: 25U/Lh igh: 125U/L AMYLA SE 81 25 - 125 U/L 04/11 10:49 AM [facility] LAB Not Available Not Available 05/04/2024 12:24:07 04/11/19 25 04/11/2024 Amyla se [Enzy matic activ ity/v olume ] in Serum or Plasm a interpretati on and review of laboratory results Normal Not Available Not Available 04/15 12:24:07 04/11/19 25 04/12/2024 Bacte tye ident ified in Urine by Cultu re bacteria identified in urine by culture Mixed Growth of One or More Distal Urethr al Contam inants CULTU RE RESUL TS Mixed Growt h of One or More Dista l Ureth ral Conta minan ts 04/12 12:14 PM [facility] CENTE R Not Available Not Available 05/04/2024 12:24:07 05/21/19 25 05/20/2024 CBC W Auto Diffe renti al panel - Blood leukocytes [#/volume] in blood by automated count 11.08 text: 4.00 - 12.00 10(3)/ mcL WBC 11.08 4.00 - 12.00 10(3) /mcL 05/20 3:44 PM CDT [facility] LAB Not Available Not Available 05/23/2024 15:17:11 05/21/19 25 05/20/2024 CBC W Auto Diffe renti al panel - Blood erythrocytes [#/volume] in blood by automated count 4.07 text: 3.80 - 5.30 10(6)/ mcL RBC 4.07 3.80 - 5.30 10(6) /mcL 05/20 3:44 PM CDT [facility] LAB Not Available Not Available 05/23/2024 15:17:11 05/21/19 25 05/20/2024 CBC W Auto Diffe renti al panel - Blood hemoglobin [mass/volume ] in blood 12.1 g/dL low: 12g/dL high: 15.8g/ dL HEMOG LOBIN (HGB) 12.1 12.0 - 15.8 g/dL 05/20 3:44 PM CDT [facility] Not Available Not Available 05/23/2024 15:17:11 05/21/1905/20/2024 CBC W Auto Diffe renti al panel - Blood hematocrit [volume fraction] of blood by automated count 36.2 % low: 36%hig h: 47% HEMAT OCRIT (HCT) 36.2 36.0 - 47.0 % 05/20 3:44 PM CDT [facility] Not Available Not Available 05/23/2024 15:17:11 05/21/19 25 05/20/2024 CBC W Auto Diffe renti al panel - Blood MCV [entitic volume] by automated count 88.9 fL low: 82fLhi gh: 96fL MCV 88.9 82.0 - 96.0 fL 05/20 3:44 PM CDT [facility] Not Available Not Available 05/23/2024 15:17:11 05/21/19 25 05/20/2024 CBC W Auto Diffe renti al panel - Blood MCH [entitic mass] by automated count 29.7 pg low: 26pghi gh: 34pg MCH 29.7 26.0 - 34.0 pg 05/20 3:44 PM CDT [facility] Not Available Not Available 05/23/2024 15:17:11 05/21/19 25 05/20/2024 CBC W Auto Diffe renti al panel - Blood MCHC [mass/volume ] by automated count 33.4 g/dL low: 31g/dL high: 36g/dL MCHC 33.4 31.0 - 36.0 g/dL 05/20 3:44 PM CDT [facility] Not Available Not Available 05/23/2024 15:17:11 05/21/19 25 05/20/2024 CBC W Auto Diffe renti al panel - Blood platelets [#/volume] in blood 367 text: 140 - 440 10(3)/ mcL PLATE LET COUNT 367 140 - 440 10(3) /mcL 05/20 3:44 PM CDT [facility] Not Available Not Available 05/23/2024 15:17:11 05/21/19 25 05/20/2024 CBC W Auto Diffe renti al panel - Blood erythrocyte distribution width [ratio] by automated count 16.5 % low: 11.8%h igh: 15.5% high RDW 16.5 (H) 11.8 - 15.5 % 05/20 3:44 PM CDT [facility] Not Available Not Available 05/23/2024 15:17:11 05/21/19 25 05/20/2024 CBC W Auto Diffe renti al panel - Blood platelet mean volume [entitic volume] in blood by automated count 9 fL low: 9.7fLh igh: 12.4fL low MPV 9.0 (L) 9.7 - 12.4 fL 05/20 3:44 PM CDT [facility] Not Available Not Available 05/23/2024 15:17:11 05/21/19 25 05/20/2024 CBC W Auto Diffe renti al panel - Blood neutrophils/ 100 leukocytes in blood by automated count 49.6 % low: 47%hig h: 73% NEUTR OPHIL S 49.6 47.0 - 73.0 % 05/20 3:44 PM CDT [facility] Not Available Not Available 05/23/2024 15:17:11 05/21/19 25 05/20/2024 CBC W Auto Diffe renti al panel - Blood lymphocytes/ 100 leukocytes in blood by automated count 37.1 % low: 18%hig h: 42% LYMPH OCYTE S 37.1 18.0 - 42.0 % 05/20 3:44 PM [facility] Not Available Not Available 05/23/2024 15:17:11 05/21/19 25 05/20/2024 CBC W Auto Diffe renti al panel - Blood monocytes/10 0 leukocytes in blood by automated count 11.3 % low: 4%high : 12% MONOC YTES 11.3 4.0 - 12.0 % 05/20 3:44 PM CDT [facility] Not Available Not Available 05/23/2024 15:17:11 05/21/19 25 05/20/2024 CBC W Auto Diffe renti al panel - Blood eosinophils/ 100 leukocytes in blood by automated count 1.3 % low: 0%high : 5% EOSIN OPHIL S 1.3 0.0 - 5.0 % 05/20 3:44 PM CDT [facility] Not Available Not Available 05/23/2024 15:17:11 05/21/19 25 05/20/2024 CBC W Auto Diffe renti al panel - Blood basophils/10 0 leukocytes in blood by automated count 0.7 % low: 0%high : 1% BASOP HILS 0.7 0.0 - 1.0 % 05/20 3:44 PM CDT [facility] Not Available Not Available 05/23/2024 15:17:11 05/21/19 25 05/20/2024 CBC W Auto Diffe renti al panel - Blood neutrophils [#/volume] in blood by automated count 5.5 text: 1.60 - 7.70 10(3)/ mcL ABSOL YOMBA SHOSHONE NEUTR OPHIL S 5.50 1.60 - 7.70 10(3) /mcL 05/20 3:44 PM CDT [facility] Not Available Not Available 05/23/2024 15:17:11 05/21/19 25 05/20/2024 CBC W Auto Diffe renti al panel - Blood lymphocytes [#/volume] in blood by automated count 4.11 text: 1.30 - 3.20 10(3)/ mcL high ABSOL YOMBA SHOSHONE LYMPH OCYTE S 4.11 (H) 1.30 - 3.20 10(3) /mcL 05/20 3:44 PM CDT [facility] C[facility] LAB Not Available Not Available 05/23/2024 15:17:11 05/21/19 25 05/20/2024 CBC W Auto Diffe renti al panel - Blood monocytes [#/volume] in blood by automated count 1.25 text: 0.20 - 1.00 10(3)/ mcL high ABSOL YOMBA SHOSHONE MONOC YTES 1.25 (H) 0.20 - 1.00 10(3) /mcL 05/20 3:44 PM CDT [facility] LAB Not Available Not Available 05/23/2024 15:17:11 05/21/19 25 05/20/2024 CBC W Auto Diffe renti al panel - Blood eosinophils [#/volume] in blood by automated count 0.14 text: 0.00 - 0.40 10(3)/ mcL ABSOL YOMBA SHOSHONE EOSIN OPHIL 0.14 0.00 - 0.40 10(3) /mcL 05/20 3:44 PM CDT [facility] C[facility] LAB Not Available Not Available 05/23/2024 15:17:11 05/21/19 25 05/20/2024 CBC W Auto Diffe renti al panel - Blood basophils [#/volume] in blood by automated count 0.08 text: 0.00 - 0.10 10(3)/ mcL ABSOL YOMBA SHOSHONE BASOP HILS 0.08 0.00 - 0.10 10(3) /mcL 05/20 3:44 PM CDT [facility] Not Available Not Available 05/23/2024 15:17:11 05/21/19 25 05/20/2024 CBC W Auto Diffe renti al panel - Blood nucleated erythrocytes /100 leukocytes [ratio] in blood 0 NRBC PER 100 WBC 0 05/20 3:44 PM CDT [facility] Not Available Not Available 05/23/2024 15:17:11 05/21/19 25 05/20/2024 CBC W Auto Diffe renti al panel - Blood interpretati on and review of laboratory results Abnorm al Not Available Not Available 15:17:11 05/21/19 25 05/20/2024 Lipas e [Enzy matic activ ity/v olume ] in Serum or Plasm a lipase [enzymatic activity/vol ume] in serum or plasma 63 U/L low: 8U/Lhi gh: 78U/L LIPAS E 63 8 - 78 U/L 05/20 4:01 PM CDT [facility] Not Available Not Available 05/23/2024 15:17:11 05/21/19 25 05/20/2024 Lipas e [Enzy matic activ ity/v olume ] in Serum or Plasm a interpretati on and review of laboratory results Normal Not Available Not Available 05/12 15:17:11 05/21/19 25 05/20/2024 Henry ol [Mass /volu me] in Serum or Plasm a ethanol [mass/volume ] in serum or plasma high: 10mg/d L HENRY OL <10 <10 mg/dL 05/20 3:59 PM CDT [facility] LAB Not Available Not Available 05/23/2024 15:17:11 05/21/19 25 05/20/2024 Henry ol [Mass /volu me] in Serum or Plasm a interpretati on and review of laboratory results Normal Not Available Not Available 05/12 15:17:11 05/21/19 25 05/22/2024 Bacte tye ident ified in Urine by Cultu re bacteria identified in urine by culture Mixed Growth of One or More Distal Urethr al Contam inants CULTU RE RESUL TS Mixed Growt h of One or More Dista l Ureth ral Conta minan ts 05/22 8:56 AM CDT [facility] Not Available Not Available 05/23/2024 15:17:11 05/21/19 25 05/20/2024 Compr ehens sabrina metab olic 2000 panel - Serum or Plasm a sodium [moles/volum e] in serum or plasma 139 mmol/ L low: 136mmo l/Lhig h: 145mmo l/L SODIU M 139 136 - 145 mmol/ L 05/20 4:01 PM [facility] Not Available Not Available 05/23/2024 15:17:11 05/21/19 25 05/20/2024 Compr ehens sabrina metab olic 2000 panel - Serum or Plasm a potassium [moles/volum e] in serum or plasma 3.9 mmol/ L low: 3.5mmo l/Lhig h: 5.1mmo l/L POTAS SIUM 3.9 3.5 - 5.1 mmol/ L 05/20 4:01 PM CD[facility] Not Available Not Available 05/23/2024 15:17:11 05/21/19 25 05/20/2024 Compr ehens sabrina metab olic 2000 panel - Serum or Plasm a chloride [moles/volum e] in serum or plasma 107 mmol/ L low: 98mmol /Lhigh : 107mmo l/L CHLOR KALE 107 98 - 107 mmol/ L 05/20 4:01 PM [facility] Not Available Not Available 05/23/2024 15:17:11 05/21/19 25 05/20/2024 Compr ehens sabrina metab olic 2000 panel - Serum or Plasm a carbon dioxide, total [moles/volum e] in serum or plasma 21 mmol/ L low: 22mmol /Lhigh : 30mmol /L low CO2, VENOU S 21 (L) 22 - 30 mmol/ L 05/20 4:01 PM [facility] Not Available Not Available 05/23/2024 15:17:11 05/21/19 25 05/20/2024 Compr ehens sabrina metab olic 2000 panel - Serum or Plasm a anion gap in serum or plasma 14.9 mmol/ L high: 18mmol /L ANION GAP 14.9 <18.0 mmol/ L 05/20 4:01 PM [facility] Not Available Not Available 05/23/2024 15:17:11 05/21/19 25 05/20/2024 Compr ehens sabrina metab olic 1999 panel - Serum or Plasm a glucose [mass/volume ] in serum or plasma 92 mg/dL low: 70mg/d Lhigh: 99mg/d L GLUCO SE 92 70 - 99 mg/dL 05/20 4:01 PM CDT [facility] [employer] [facility] LAB Not Available Not Available 05/23/2024 15:17:11 05/21/19 25 05/20/2024 Compr ehens sabrina metab olic 1999 panel - Serum or Plasm a urea nitrogen [mass/volume ] in serum or plasma 8 mg/dL low: 5mg/dL high: 18mg/d L BUN 8 5 - 18 mg/dL 05/20 4:01 PM CDT [facility] [employer] [facility] LAB Not Available Not Available 05/23/2024 15:17:11 05/21/19 25 05/20/2024 Compr ehens sabrina metab olic 2000 panel - Serum or Plasm a creatinine [mass/volume ] in serum or plasma 0.78 mg/dL low: 0.6mg/ dLhigh : 1mg/dL CREAT ININE , BLOOD 0.78 0.60 - 1.00 mg/dL 05/20 4:01 PM CDT [facility] [employer] [facility] LAB Not Available Not Available 05/23/2024 15:17:11 05/21/19 25 05/20/2024 Compr ehens sabrina metab olic 1999 panel - Serum or Plasm a urea nitrogen/cre atinine [mass ratio] in serum or plasma 10 text: 12 - 20 ratio low BUN/C REATI NINE RATIO 10 (L) 12 - 20 ratio 05/20 4:01 PM CDT [facility] Not Available Not Available 05/23/2024 15:17:11 05/21/19 25 05/20/2024 Compr ehens sabrina metab olic 2000 panel - Serum or Plasm a protein [mass/volume ] in serum or plasma 7.4 g/dL low: 6g/dLh igh: 8g/dL TOTAL PROTE IN 7.4 6.0 - 8.0 g/dL 05/20 4:01 PM CDT [facility] Not Available Not Available 05/23/2024 15:17:11 05/21/19 25 05/20/2024 Compr Number 1 Products and Servicesens sabrina metab olic 2000 panel - Serum or Plasm a albumin [mass/volume ] in serum or plasma 4 g/dL low: 3.5g/d Lhigh: 5g/dL ALBUM IN 4.0 3.5 - 5.0 g/dL 05/20 4:01 PM CDT [facility] Not Available Not Available 05/23/2024 15:17:11 05/21/19 25 05/20/2024 Compr Number 1 Products and Servicesens sabrina metab olic 2000 panel - Serum or Plasm a albumin/glob ulin [mass ratio] in serum or plasma 1.2 low: 1high: 2.2 A/G RATIO 1.2 1.0 - 2.2 05/20 4:01 PM CDT [facility] Dada RoomE R LAB Not Available Not Available 05/23/2024 15:17:11 05/21/19 25 05/20/2024 Compr Number 1 [employer] Services[employer] sabrina metab olic 2000 panel - Serum or Plasm a calcium [mass/volume ] in serum or plasma 9 mg/dL low: 8.7mg/ dLhigh : 10.5mg /dL CALCI UM 9.0 8.7 - 10.5 mg/dL 05/20 4:01 PM CDT [facility] Not Available Not Available 05/23/2024 15:17:11 05/21/1905/20/2024 Compr Number 1 [employer] Services[employer] sabrina metab olic 2000 panel - Serum or Plasm a bilirubin.to lgo [mass/volume ] in serum or plasma 0.1 mg/dL low: 0.2mg/ dLhigh : 1.2mg/ dL low T BILI 0.1 (L) 0.2 - 1.2 mg/dL 05/20 4:01 PM CDT [facility] Not Available Not Available 05/23/2024 15:17:11 05/21/19 25 05/20/2024 Compr ehens sabrina metab olic 1999 panel - Serum or Plasm a aspartate aminotransfe rase [enzymatic activity/vol ume] in serum or plasma 14 U/L high: 43U/L SGOT (AST) 14 <43 U/L 05/20 4:01 PM CDT [facility] [employer]is [facility] Not Available Not Available 05/23/2024 15:17:11 05/21/19 25 05/20/2024 Compr ehens sabrina metab olic 1999 panel - Serum or Plasm a alanine aminotransfe rase [enzymatic activity/vol ume] in serum or plasma 9 U/L high: 56U/L SGPT (ALT) 9 <56 U/L 05/20 4:01 PM CDT [facility] Not Available Not Available 05/23/2024 15:17:11 05/21/19 25 05/20/2024 Compr ehens sabrina metab olic 1999 panel - Serum or Plasm a alkaline phosphatase [enzymatic activity/vol ume] in serum or plasma 55 U/L low: 40U/Lh igh: 150U/L ALKAL INE PHOSP HATAS E 55 40 - 150 U/L 05/20 4:01 PM CDT [facility] Not Available Not Available 05/23/2024 15:17:11 05/21/19 25 05/20/2024 Compr Number 1 Products and Servicesens sabrina metab olic 1999 panel - Serum or Plasm a glomerular filtration rate/1.73 sq M.predicted among non-blacks [volume rate/area] in serum, plasma or blood by creatinine-b ased formula (MDRD) low: 60 GFR, ESTIM ATED >60 >=60 05/20 4:01 PM CDT [facility] Not Available Not Available 05/23/2024 15:17:11 05/21/19 25 05/20/2024 Compr ehens sabrina metab olic 2000 panel - Serum or Plasm a glomerular filtration rate/1.73 sq M.predicted among blacks [volume rate/area] in serum, plasma or blood by creatinine-b ased formula (MDRD) low: 60 GFR, EST. AFRIC AN >60 >=60 05/20 4:01 PM CDT [facility] [employer]T H [facility] LAB Not Available Not Available 05/23/2024 15:17:11 05/21/19 25 05/20/2024 Compr ehens sabrina metab olic 2000 panel - Serum or Plasm a glomerular filtration rate/1.73 sq M.predicted among non-blacks [volume rate/area] in serum, plasma or blood by creatinine-b ased formula (MDRD) low: 60 GFR, EST. NONAF RICAN >60 >=60 05/20 4:01 PM CDT [facility] admetricksT H [facility] LAB Not Available Not Available 05/23/2024 15:17:11 05/21/1905/20/2024 Compr ehens sabrina metab olic 2000 panel - Serum or Plasm a interpretati on and review of laboratory results Abnorm al Not Available Not Available 15:17:11 05/21/19 25 05/20/2024 Drugs of abuse panel - Urine by Scree n metho d amphetamine [presence] in urine by screen method NON DETECT ED text: non detect ed UR AMPHE TAMIN E NON DETEC RAMA NON DETEC RAMA 05/20 4:00 PM CDT [facility] admetricksT H [facility] LAB Not Available Not Available 05/23/2024 15:17:11 05/21/19 25 05/20/2024 Drugs of abuse panel - Urine by Scree n metho d benzodiazepi evan [presence] in urine NON DETECT ED text: non detect ed UR BENZO DIAZE PINES NON DETEC RAMA NON DETEC RAMA 05/20 4:00 PM CDT [facility] admetricksT H [facility] LAB Not Available Not Available 05/23/2024 15:17:11 05/21/19 25 05/20/2024 Drugs of abuse panel - Urine by Scree n metho d benzoylecgon ine [presence] in urine NON DETECT ED text: non detect ed UR COCAI NE METAB OLITE NON DETEC RAMA NON DETEC RAMA 05/20 4:00 PM CDT [facility] admetricksT H [facility] LAB Not Available Not Available 05/23/2024 15:17:11 05/21/19 25 05/20/2024 Drugs of abuse panel - Urine by Scree n metho d opiates [presence] in urine NON DETECT ED text: non detect ed UR OPIAT ES NON DETEC RAMA NON DETEC RAMA 05/20 4:00 PM CDT [facility] admetricksT H [facility] LAB Not Available Not Available 05/23/2024 15:17:11 05/21/19 25 05/20/2024 Drugs of abuse panel - Urine by Scree n metho d phencyclidin e [presence] in urine NON DETECT ED text: non detect ed UR PHENC YCLID INE NON DETEC RAMA NON DETEC RAMA 05/20 4:00 PM CDT [facility] admetricksT H [facility] LAB Not Available Not Available 05/23/2024 15:17:11 05/21/19 25 05/20/2024 Drugs of abuse panel - Urine by Scree n metho d cannabinoids [presence] in urine DETECT ED text: non detect ed abnormal UR CANNA BINOI D DETEC RAMA (A) NON DETEC RAMA 05/20 4:00 PM CDT [facility] admetricksT H [facility] Not Available Not Available 05/23/2024 15:17:11 05/21/19 25 05/20/2024 Drugs of abuse panel - Urine by Scree n metho d barbiturates [presence] in urine NON DETECT ED text: non detect ed UR KARLA TURAT E NON DETEC RAMA NON DETEC RAMA 05/20 4:00 PM CDT [facility] ad[facility]T H [facility] LAB Not Available Not Available 05/23/2024 15:17:11 05/21/19 25 05/20/2024 Drugs of abuse panel - Urine by Scree n metho d ur fentanyl NON DETECT ED text: non detect ed UR FENTA NYL NON DETEC RAMA NON DETEC RAMA 05/20 4:00 PM CDT [facility] ad[facility]ksT H [facility] Not Available Not Available 05/23/2024 15:17:11 05/21/19 05/20/2024 Drugs of abuse panel - Urine by Scree n metho d interpretati on and review of laboratory results Abnorm al Not Available Not Available 15:17:11 05/26/1905/26/2024 Bacte tye ident ified in Urine by Cultu re bacteria identified in urine by culture Mixed Growth of One or More Distal Urethr al Contam inants CULTU RE RESUL TS Mixed Growt h of One or More Dista l Ureth ral Conta minan ts 05/26 9:43 PM CDT [facility] Not Available Not Available 06/05/2024 10:42:37 06/05/19 25 06/05/2024 Bacte tye ident ified in Urine by Cultu re bacteria identified in urine by culture No growth final CULTU RE RESUL TS No growt h final 06/05 9:34 PM CDT [facility] Not Available Not Available 06/06/2024 11:45:00 06/05/1906/04/2024 Chori ogona dotro pin.b eta subun it (preg lane test) [Pres ence] in Urine choriogonado tropin.beta subunit ( test) [presence] in urine Negati ve PREG TEST, MONOC LONAL Negat sabrina 06/04 1:49 PM CDT [facility] Not Available Not Available 06/05/2024 10:42:38 06/05/19 25 06/04/2024 Drugs of abuse panel - Urine by Timur ye metho d amphetamine [presence] in urine by screen method NON DETECT ED text: non detect ed UR AMPHE TAMIN E NON DETEC RAMA NON DETEC RAMA 06/04 1:52 PM CDT [facility] Not Available Not Available 06/05/2024 10:42:37 06/05/19 25 06/04/2024 Drugs of abuse panel - Urine by Screblayne n metho d benzodiazepi evan [presence] in urine NON DETECT ED text: non detect ed UR BENZO DIAZE PINES NON DETEC RAMA NON DETEC RAMA 06/04 1:52 PM CDT [facility] Not Available Not Available 06/05/2024 10:42:37 06/05/19 25 06/04/2024 Drugs of abuse panel - Urine by Scree n metho d benzoylecgon ine [presence] in urine NON DETECT ED text: non detect ed UR COCAI NE METAB OLITE NON DETEC RAMA NON DETEC RAMA 06/04 1:52 PM CDT [facility] admetricksT H [facility] Not Available Not Available 06/05/2024 10:42:37 06/05/19 25 06/04/2024 Drugs of abuse panel - Urine by Scree n metho d opiates [presence] in urine DETECT ED text: non detect ed abnormal UR OPIAT ES DETEC RAMA (A) NON DETEC RAMA 06/04 1:52 PM CDT [facility] ad[facility]ksT H [facility] LAB Not Available Not Available 06/05/2024 10:42:37 06/05/19 25 06/04/2024 Drugs of abuse panel - Urine by Scree n metho d phencyclidin e [presence] in urine NON DETECT ED text: non detect ed UR PHENC YCLID INE NON DETEC RAMA NON DETEC RAMA 06/04 1:52 PM CDT [facility] ad[employer]T H [facility] Not Available Not Available 06/05/2024 10:42:37 06/05/19 25 06/04/2024 Drugs of abuse panel - Urine by Scree n metho d cannabinoids [presence] in urine DETECT ED text: non detect ed abnormal UR CANNA BINOI D DETEC RAMA (A) NON DETEC RAMA 06/04 1:52 PM CDT [facility]T H [facility] Not Available Not Available 06/05/2024 10:42:37 06/05/19 25 06/04/2024 Drugs of abuse panel - Urine by Scree n metho d barbiturates [presence] in urine NON DETECT ED text: non detect ed UR KARLA TURAT E NON DETEC RAMA NON DETEC RAMA 06/04 1:52 PM CDT [facility] [employer]T H [facility] Not Available Not Available 06/05/2024 10:42:37 06/05/19 25 06/04/2024 Drugs of abuse panel - Urine by Timur harper ur fentanyl NON DETECT ED text: non detect ed UR FENTA NYL NON DETEC RAMA NON DETEC RAMA 06/04 1:52 PM CDT [facility] Not Available Not Available 06/05/2024 10:42:37 06/05/19 25 06/04/2024 Drugs of abuse panel - Urine by Timur haprer interpretati on and review of laboratory results Abnorm al Not Available Not Available 10:42:37 06/05/19 25 06/04/2024 CBC W Auto Diffe renti al panel - Blood leukocytes [#/volume] in blood by automated count 11.85 text: 4.00 - 12.00 10(3)/ mcL WBC 11.85 4.00 - 12.00 10(3) /mcL 06/04 1:21 PM CDT [facility] admetricksT H [facility] LAB Not Available Not Available 06/05/2024 10:42:38 06/05/19 25 06/04/2024 CBC W Auto Diffe renti al panel - Blood erythrocytes [#/volume] in blood by automated count 4.49 text: 3.80 - 5.30 10(6)/ mcL RBC 4.49 3.80 - 5.30 10(6) /mcL 06/04 1:21 PM CDT [facility] admetricksT H [facility] LAB Not Available Not Available 06/05/2024 10:42:38 06/05/19 25 06/04/2024 CBC W Auto Diffe renti al panel - Blood hemoglobin [mass/volume ] in blood 13 g/dL low: 12g/dL high: 15.8g/ dL HEMOG LOBIN (HGB) 13.0 12.0 - 15.8 g/dL 06/04 1:21 PM CDT [facility] admetricksT H [facility] LAB Not Available Not Available 06/05/2024 10:42:38 06/05/19 25 06/04/2024 CBC W Auto Diffe renti al panel - Blood hematocrit [volume fraction] of blood by automated count 39.1 % low: 36%hig h: 47% HEMAT OCRIT (HCT) 39.1 36.0 - 47.0 % 06/04 1:21 PM CDT [facility] Not Available Not Available 06/05/2024 10:42:38 06/05/19 25 06/04/2024 CBC W Auto Diffe renti al panel - Blood MCV [entitic volume] by automated count 87.1 fL low: 82fLhi gh: 96fL MCV 87.1 82.0 - 96.0 fL 06/04 1:21 PM CDT [facility] Dada RoomE R LAB Not Available Not Available 06/05/2024 10:42:38 06/05/19 25 06/04/2024 CBC W Auto Diffe renti al panel - Blood MCH [entitic mass] by automated count 29 pg low: 26pghi gh: 34pg MCH 29.0 26.0 - 34.0 pg 06/04 1:21 PM CDT [facility] Dada RoomE R LAB Not Available Not Available 06/05/2024 10:42:38 06/05/19 25 06/04/2024 CBC W Auto Diffe renti al panel - Blood MCHC [mass/volume ] by automated count 33.2 g/dL low: 31g/dL high: 36g/dL MCHC 33.2 31.0 - 36.0 g/dL 06/04 1:21 PM CDT [facility] Not Available Not Available 06/05/2024 10:42:38 06/05/19 25 06/04/2024 CBC W Auto Diffe renti al panel - Blood platelets [#/volume] in blood 392 text: 140 - 440 10(3)/ mcL PLATE LET COUNT 392 140 - 440 10(3) /mcL 06/04 1:21 PM CDT [facility] Dada RoomE R LAB Not Available Not Available 06/05/2024 10:42:38 06/05/19 25 06/04/2024 CBC W Auto Diffe renti al panel - Blood erythrocyte distribution width [ratio] by automated count 15.9 % low: 11.8%h igh: 15.5% high RDW 15.9 (H) 11.8 - 15.5 % 06/04 1:21 PM CDT [facility] Not Available Not Available 06/05/2024 10:42:38 06/05/19 25 06/04/2024 CBC W Auto Diffe renti al panel - Blood platelet mean volume [entitic volume] in blood by automated count 9.2 fL low: 9.7fLh igh: 12.4fL low MPV 9.2 (L) 9.7 - 12.4 fL 06/04 1:21 PM CDT [facility] Not Available Not Available 06/05/2024 10:42:38 06/05/19 25 06/04/2024 CBC W Auto Diffe renti al panel - Blood neutrophils/ 100 leukocytes in blood by automated count 61.9 % low: 47%hig h: 73% NEUTR OPHIL S 61.9 47.0 - 73.0 % 06/04 1:21 PM CDT [facility] Not Available Not Available 06/05/2024 10:42:38 06/05/19 25 06/04/2024 CBC W Auto Diffe renti al panel - Blood lymphocytes/ 100 leukocytes in blood by automated count 31.1 % low: 18%hig h: 42% LYMPH OCYTE S 31.1 18.0 - 42.0 % 06/04 1:21 PM CDT [facility] Not Available Not Available 06/05/2024 10:42:38 06/05/19 25 06/04/2024 CBC W Auto Diffe renti al panel - Blood monocytes/10 0 leukocytes in blood by automated count 5.4 % low: 4%high : 12% MONOC YTES 5.4 4.0 - 12.0 % 06/04 1:21 PM CDT [facility] Not Available Not Available 06/05/2024 10:42:38 06/05/19 25 06/04/2024 CBC W Auto Diffe renti al panel - Blood eosinophils/ 100 leukocytes in blood by automated count 1.2 % low: 0%high : 5% EOSIN OPHIL S 1.2 0.0 - 5.0 % 06/04 1:21 PM CDT [facility] Not Available Not Available 06/05/2024 10:42:38 06/05/19 25 06/04/2024 CBC W Auto Diffe renti al panel - Blood basophils/10 0 leukocytes in blood by automated count 0.4 % low: 0%high : 1% BASOP HILS 0.4 0.0 - 1.0 % 06/04 1:21 PM CDT [facility] Not Available Not Available 06/05/2024 10:42:38 06/05/19 25 06/04/2024 CBC W Auto Diffe renti al panel - Blood neutrophils [#/volume] in blood by automated count 7.33 text: 1.60 - 7.70 10(3)/ mcL ABSOL YOMBA SHOSHONE NEUTR OPHIL S 7.33 1.60 - 7.70 10(3) /mcL 06/04 1:21 PM CDT [facility] Dada RoomE R LAB Not Available Not Available 06/05/2024 10:42:38 06/05/19 25 06/04/2024 CBC W Auto Diffe renti al panel - Blood lymphocytes [#/volume] in blood by automated count 3.69 text: 1.30 - 3.20 10(3)/ mcL high ABSOL YOMBA SHOSHONE LYMPH OCYTE S 3.69 (H) 1.30 - 3.20 10(3) /mcL 06/04 1:21 PM CDT [facility] Not Available Not Available 06/05/2024 10:42:38 06/05/19 25 06/04/2024 CBC W Auto Diffe renti al panel - Blood monocytes [#/volume] in blood by automated count 0.64 text: 0.20 - 1.00 10(3)/ mcL ABSOL YOMBA SHOSHONE MONOC YTES 0.64 0.20 - 1.00 10(3) /mcL 03/24 /2025 1:21 PM CDT [facility] Dada Room R LAB Not Available Not Available 06/05/2024 10:42:38 06/05/19 25 06/04/2024 CBC W Auto Diffe renti al panel - Blood eosinophils [#/volume] in blood by automated count 0.14 text: 0.00 - 0.40 10(3)/ mcL ABSOL YOMBA SHOSHONE EOSIN OPHIL 0.14 0.00 - 0.40 10(3) /mcL 06/04 1:21 PM CDT [facility] Not Available Not Available 06/05/2024 10:42:38 06/05/19 25 06/04/2024 CBC W Auto Diffe renti al panel - Blood basophils [#/volume] in blood by automated count 0.05 text: 0.00 - 0.10 10(3)/ mcL ABSOL YOMBA SHOSHONE BASOP HILS 0.05 0.00 - 0.10 10(3) /mcL 06/04 1:21 PM CDT [facility] Dada Room R LAB Not Available Not Available 06/05/2024 10:42:38 06/05/19 25 06/04/2024 CBC W Auto Diffe renti al panel - Blood nucleated erythrocytes /100 leukocytes [ratio] in blood 0 NRBC PER 100 WBC 0 06/04 1:21 PM CDT [facility]ada Room R LAB Not Available Not Available 06/05/2024 10:42:38 06/05/19 25 06/04/2024 CBC W Auto Diffe renti al panel - Blood interpretati on and review of laboratory results Abnorm al Not Available Not Available 10:42:38 06/05/19 25 06/04/2024 Lipas e [Enzy matic activ ity/v olume ] in Serum or Plasm a lipase [enzymatic activity/vol ume] in serum or plasma 44 U/L low: 8U/Lhi gh: 78U/L LIPAS E 44 8 - 78 U/L 06/04 1:38 PM CDT [facility] Dada Room R LAB Not Available Not Available 06/05/2024 10:42:38 06/05/19 25 06/04/2024 Lipas e [Enzy matic activ ity/v olume ] in Serum or Plasm a interpretati on and review of laboratory results Normal Not Available Not Available 05/13 10:42:38 06/05/19 25 06/04/2024 Henry ol [Mass /volu me] in Serum or Plasm a ethanol [mass/volume ] in serum or plasma high: 10mg/d L HENRY OL <10 <10 mg/dL 06/04 1:38 PM CDT [facility] Dada RoomE R LAB Not Available Not Available 06/05/2024 10:42:37 06/05/19 25 06/04/2024 Henry ol [Mass /volu me] in Serum or Plasm a interpretati on and review of laboratory results Normal Not Available Not Available 05/13 10:42:37 06/05/19 25 06/04/2024 Compr ehens sabrina metab olic 1999 panel - Serum or Plasm a sodium [moles/volum e] in serum or plasma 138 mmol/ L low: 136mmo l/Lhig h: 145mmo l/L SODIU M 138 136 - 145 mmol/ L 06/04 1:38 PM CDT [facility] Dada RoomE R LAB Not Available Not Available 06/05/2024 10:42:37 06/05/19 25 06/04/2024 Compr ehens sabrina metab olic 1999 panel - Serum or Plasm a potassium [moles/volum e] in serum or plasma 3.9 mmol/ L low: 3.5mmo l/Lhig h: 5.1mmo l/L POTAS SIUM 3.9 3.5 - 5.1 mmol/ L 06/04 1:38 PM CDT [facility] Dada RoomE R LAB Not Available Not Available 06/05/2024 10:42:37 06/05/19 25 06/04/2024 Compr ehens sabrina metab olic 1999 panel - Serum or Plasm a chloride [moles/volum e] in serum or plasma 107 mmol/ L low: 98mmol /Lhigh : 107mmo l/L CHLOR KALE 107 98 - 107 mmol/ L 06/04 1:38 PM CDT [facility] Not Available Not Available 06/05/2024 10:42:37 06/05/19 25 06/04/2024 Compr ehens sabrina metab olic 1999 panel - Serum or Plasm a carbon dioxide, total [moles/volum e] in serum or plasma 24 mmol/ L low: 22mmol /Lhigh : 30mmol /L CO2, VENOU S 24 22 - 30 mmol/ L 06/04 1:38 PM CDT [facility] Not Available Not Available 06/05/2024 10:42:37 06/05/19 25 06/04/2024 Compr ehens sabrina metab olic 2000 panel - Serum or Plasm a anion gap in serum or plasma 10.9 mmol/ L high: 18mmol /L ANION GAP 10.9 <18.0 mmol/ L 06/04 1:38 PM CDT [facility] Not Available Not Available 06/05/2024 10:42:37 06/05/19 25 06/04/2024 Compr ehens sabrina metab olic 1999 panel - Serum or Plasm a glucose [mass/volume ] in serum or plasma 125 mg/dL low: 70mg/d Lhigh: 99mg/d L high GLUCO SE 125 (H) 70 - 99 mg/dL 06/04 1:38 PM CDT [facility] Not Available Not Available 06/05/2024 10:42:37 06/05/19 25 06/04/2024 Compr ehens sabrina metab olic 1999 panel - Serum or Plasm a urea nitrogen [mass/volume ] in serum or plasma 13 mg/dL low: 5mg/dL high: 18mg/d L BUN 13 5 - 18 mg/dL 06/04 1:38 PM CDT [facility] Not Available Not Available 06/05/2024 10:42:37 06/05/19 25 06/04/2024 Compr ehens sabrina metab olic 2000 panel - Serum or Plasm a creatinine [mass/volume ] in serum or plasma 0.89 mg/dL low: 0.6mg/ dLhigh : 1mg/dL CREAT ININE , BLOOD 0.89 0.60 - 1.00 mg/dL 06/04 1:38 PM CDT [facility] H [facility] Not Available Not Available 06/05/2024 10:42:37 06/05/19 25 06/04/2024 Compr Number 1 Products and Servicesens sabrina metab olic 1999 panel - Serum or Plasm a urea nitrogen/cre atinine [mass ratio] in serum or plasma 15 text: 12 - 20 ratio BUN/C REATI NINE RATIO 15 12 - 20 ratio 06/04 1:38 PM [facility] Not Available Not Available 06/05/2024 10:42:37 06/05/19 25 06/04/2024 Compr Number 1 Products and Servicesens sabrina metab olic 1999 panel - Serum or Plasm a protein [mass/volume ] in serum or plasma 7.8 g/dL low: 6g/dLh igh: 8g/dL TOTAL PROTE IN 7.8 6.0 - 8.0 g/dL 06/04 1:38 PM CD[facility] Not Available Not Available 06/05/2024 10:42:37 06/05/19 25 06/04/2024 Compr Number 1 Products and Servicesens sabrina metab olic 2000 panel - Serum or Plasm a albumin [mass/volume ] in serum or plasma 4.1 g/dL low: 3.5g/d Lhigh: 5g/dL ALBUM IN 4.1 3.5 - 5.0 g/dL 06/04 1:38 PM CD[facility] Not Available Not Available 06/05/2024 10:42:37 06/05/19 25 06/04/2024 Compr Number 1 Products and Servicesens sabrina metab olic 2000 panel - Serum or Plasm a albumin/glob ulin [mass ratio] in serum or plasma 1.1 low: 1high: 2.2 A/G RATIO 1.1 1.0 - 2.2 06/04 1:38 PM CDT [facility] Not Available Not Available 06/05/2024 10:42:37 06/05/19 25 06/04/2024 Compr ehens sabrina metab olic 1999 panel - Serum or Plasm a calcium [mass/volume ] in serum or plasma 9 mg/dL low: 8.7mg/ dLhigh : 10.5mg /dL CALCI UM 9.0 8.7 - 10.5 mg/dL 06/04 1:38 PM CDT [facility] Dada RoomE R LAB Not Available Not Available 06/05/2024 10:42:37 06/05/19 25 06/04/2024 Compr ehens sabrina metab olic 1999 panel - Serum or Plasm a bilirubin.to glo [mass/volume ] in serum or plasma 0.2 mg/dL low: 0.2mg/ dLhigh : 1.2mg/ dL T BILI 0.2 0.2 - 1.2 mg/dL 06/04 1:38 PM CDT [facility] Dada RoomE R LAB Not Available Not Available 06/05/2024 10:42:37 06/05/19 25 06/04/2024 Compr ehens sabrina metab olic 1999 panel - Serum or Plasm a aspartate aminotransfe rase [enzymatic activity/vol ume] in serum or plasma 28 U/L high: 43U/L SGOT (AST) 28 <43 U/L 06/04 1:38 PM CDT [facility] [employer]ks [place] R LAB Not Available Not Available 06/05/2024 10:42:37 06/05/19 25 06/04/2024 Compr ehens sabrina metab olic 1999 panel - Serum or Plasm a alanine aminotransfe rase [enzymatic activity/vol ume] in serum or plasma 49 U/L high: 56U/L SGPT (ALT) 49 <56 U/L 06/04 1:38 PM CDT [facility] R LAB Not Available Not Available 06/05/2024 10:42:37 06/05/19 25 06/04/2024 Compr ehens sabrina metab olic 1999 panel - Serum or Plasm a alkaline phosphatase [enzymatic activity/vol ume] in serum or plasma 61 U/L low: 40U/Lh igh: 150U/L ALKAL INE PHOSP HATAS E 61 40 - 150 U/L 06/04 1:38 PM CDT [facility] [employer]metricksT [employer] [facility]ENT[facility] LAB Not Available Not Available 06/05/2024 10:42:37 06/05/1906/04/2024 Compr ehens sabrina metab olic 2000 panel - Serum or Plasm a glomerular filtration rate/1.73 sq M.predicted [volume rate/area] in serum, plasma or blood by creatinine-b ased formula (CKD-epi 2020) low: 60 GFR, ESTIM ATED >60 >=60 06/04 1:38 PM CDT [facility] admetricksT H CENT[facility] R LAB Not Available Not Available 06/05/2024 10:42:37 06/05/1906/04/2024 Compr ehens sabrina metab olic 2000 panel - Serum or Plasm a glomerular filtration rate/1.73 sq M.predicted among blacks [volume rate/area] in serum, plasma or blood by creatinine-b ased formula (MDRD) low: 60 GFR, EST. AFRIC AN >60 >=60 06/04 1:38 PM CDT [facility] [employer] [facility] C[facility] LAB Not Available Not Available 06/05/2024 10:42:37 06/05/1906/04/2024 Compr ehens sabrina metab olic 2000 panel - Serum or Plasm a glomerular filtration rate/1.73 sq M.predicted among non-blacks [volume rate/area] in serum, plasma or blood by creatinine-b ased formula (MDRD) low: 60 GFR, EST. NONAF RICAN >60 >=60 06/04 1:38 PM CDT [facility] admetricksT H [facility] R LAB Not Available Not Available 06/05/2024 10:42:37 06/05/1906/04/2024 Compr ehens sabrina metab olic 2000 panel - Serum or Plasm a interpretati on and review of laboratory results Abnorm al Not Available Not Available 10:42:37 06/08/19 25 06/07/2024 CBC W Auto Diffe renti al panel - Blood leukocytes [#/volume] in blood by automated count 12.17 text: 4.00 - 12.00 10(3)/ mcL high WBC 12.17 (H) 4.00 - 12.00 10(3) /mcL 06/07 6:55 PM CDT [facility] Not Available Not Available 06/25/2024 14:34:37 06/08/19 25 06/07/2024 CBC W Auto Diffe renti al panel - Blood erythrocytes [#/volume] in blood by automated count 3.99 text: 3.80 - 5.30 10(6)/ mcL RBC 3.99 3.80 - 5.30 10(6) /mcL 06/07 6:55 PM CDT [facility] Not Available Not Available 06/25/2024 14:34:37 06/08/19 25 06/07/2024 CBC W Auto Diffe renti al panel - Blood hemoglobin [mass/volume ] in blood 11.6 g/dL low: 12g/dL high: 15.8g/ dL low HEMOG LOBIN (HGB) 11.6 (L) 12.0 - 15.8 g/dL 06/07 6:55 PM CDT [facility] Not Available Not Available 06/25/2024 14:34:37 06/08/19 25 06/07/2024 CBC W Auto Diffe renti al panel - Blood hematocrit [volume fraction] of blood by automated count 36 % low: 36%hig h: 47% HEMAT OCRIT (HCT) 36.0 36.0 - 47.0 % 06/07 6:55 PM CDT [facility] Not Available Not Available 06/25/2024 14:34:37 06/08/19 25 06/07/2024 CBC W Auto Diffe renti al panel - Blood MCV [entitic mean volume] in red blood cells by automated count 90.2 fL low: 82fLhi gh: 96fL MCV 90.2 82.0 - 96.0 fL 06/07 6:55 PM CDT [facility] Not Available Not Available 06/25/2024 14:34:37 06/08/19 25 06/07/2024 CBC W Auto Diffe mariah al panel - Blood MCH [entitic mass] by automated
--- OUTSIDE RECORDS SUMMARY | 2024-08-01 06:39 | XMS_ITS | Referral Summary ---
Author Organization [facility] Address [address] [place] [address] Care Team Providers Care Supervisor [employer] Name Role Phone Anjelica Booth MD Unavailable [phone] Altagracia Briones MD Primary Care Provider [phone] Becky Jin NP Unavailable [phone] Encounters Date Type Department Care Team Description 07/25/2024 Telephone [facility] Gastroenterology [address] [place] [address] Medical Office Building [address], [address] [place] [phone] Ariana Wilson RN GI Preprocedure 07/24/2024 Telephone [facility] Gastroenterology [address] [place] [address] Medical Office Building [address], [address] [place] [phone] Ariana Wilson, MARIA LUISA GI Preprocedure 07/24/2024 8:00 AM CDT Office Visit [facility] Gastroenterology [address] [place] [address] Medical Office Building [address], [address] [place] [phone] Kosta Rocha MD Alcohol-induced chronic pancreatitis (HCC) (Primary Dx); Acute pancreatitis without infection or necrosis, unspecified pancreatitis type; Other chronic pancreatitis (HCC); Epigastric pain; Disease of stomach and duodenum 06/27/2024 4:47 AM CDT - 06/27/2024 8:53 AM CDT Emergency [facility] Emergency Department [address] [place] [address] Jessica Barfield MD Galicia, Edgar E., MD Abdominal pain (Primary Dx); Chronic pancreatitis, unspecified pancreatitis type (HCC) Discharge Disposition: Discharge to home or self care 06/25/2024 [facility] Post Discharge Follow up phone call [facility] Surgery Care [address] [place] [address] Sarah Carbajal 06/22/2024 [facility] Post Discharge Follow up phone call [facility] Surgery [address] [address] Sarah Carbajal 06/16/2024 5:10 AM CDT - 06/19/2024 1:16 PM CDT Hospital Encounter [facility] Surgery [address] [address] John Cary MD Nations, DO Zulay Thomas John Albert Jr., MD Bross, Audrey Zimmer MD Acute pancreatitis, unspecified complication status, unspecified pancreatitis type (Primary Dx); Acute on chronic pancreatitis (HCC); Hypokalemia; Pancreatic insufficiency; Primary hypertension; History of alcohol abuse; Mixed hyperlipidemia; Bipolar 1 disorder (HCC); Obesity (BMI 30-39.9) Discharge Disposition: Discharge to home or self care from Last 3 Months Allergies Active Allergy Reactions Criticality Noted Date [...] (05/19/2021): Added automatically from request for surgery [id number] Alcohol withdrawal syndrome with complication Vitamin D deficiency 04/15/2021 Overview (05/12/2021): 05/05 D 12 ->START VIT D 1000 UNITS DAILY History of alcohol abuse 04/09/2021 Acute alcoholic intoxication without complicatio n 01/12/2021 Lactic acidosis 10/10/2020 Wheezing 10/10/2020 Acute pyelonephritis 05/31/2012 Acute renal failure 05/31/2012 Alcohol abuse 05/31/2012 Depression with anxiety 05/31/2012 Immunizations Immunization Administration Dates Next Due Influenza, Trivalent, Preservative Free, Intramu scular 03/12/2024 Social History Tobacco Use Types Packs/Day Years Used Date Smoking Tobacco: Every Day Cigarettes Tobacco Cessation:Ready to Q uit: Yes; Counseling Given: No [facility] Utilities Answer Date Recorded In the past 12 months has e [employer], oil, or water [employer] threatened to shut off services in your [...] week 06/18/2024 How often do you attend chur or hoahaoism services? 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 Gender Identity Not on file Sexual Orientation [...] Description 08/20/2024 1:00 PM CDT Hospital Encounter [facility] [address] [place] [phone] Kosta Rocha MD [address] [address] Alcohol-induced chronic pancreatitis (HCC) 08/20/2024 1:00 PM CDT - 08/20/2024 1:30 PM CDT Surgery [facility] [address] [place] [phone] Kosta Rocha MD [address] [id number] EUS [[id number]] Procedures Procedure Name Priority Date/Time Associated Diagnosis [...] Vernon Sarmiento M.D. RB: PATRICE Report ID: [id number] Reading Location: [id number] Procedure Note Vernon Sarmiento MD - 06/27/2024 [...] Vernon Sarmiento M.D. RB: PATRICE Report ID: [id number] Reading Location: [id number] Jessica Barfield MD IMG CT PROCEDURES F inal Result * Urinalysis reflex to microscopic and culture Urine (06/27/2024 6:46 AM CDT) Color, ur Yellow Yellow Clarity, ur Clear Clear [facility] ([place]) Specific gravity, ur 1.014 1.003 - 1.030 [facility] ([place]) pH, urine 6.0 [facility] ([place]) Comment: Interpretive Data U rine pH is affected by diet, medications, systemic acid-base disturbances, and renal tubular function. pH may affect urinary stone formation. For example, urine pH below 6.0 may help reduce the tendency for calcium phosphate stones and pH greater than 6.0 may reduce the tendency for uric acid stone formation. Source: [facility] [place] [facility] Current Interpretive Data was last revised on [...] 6:46 AM CDT 06/27/2024 6:51 AM CDT Jessica Barfield MD LAB MICROBIOLOGY - GENERAL ORDERABLES Final Result [facility] ([place]) 1 [facility] [place] [address] * Sepsis Lactate w/ Reflex (06/27/2024 5:18 AM CDT) Pathologist [facility] Sepsis Lactate 1.5 0.7 - 2.0 mmol/L Blood 06/27/2024 5:18 AM CDT 06/27/2024 5:20 AM CDT Jessica Barfield MD LAB BLOOD ORDERABLE S Final Result Performing Organization Address [facility] Co de Phone Number [facility] ([place]) 1 [facility] [place] [address] * Troponin T high-sensitivity series (baseline, 2hr, 4hr, 6hr) (06/27/2024 5:15 AM CDT) Pathologist [facility] Trop T hs <6 <=14 ng/L Comment: Interpretive Data For further hscTnT resources including the diagnostic algorithm and an aid in interpretation, copy and paste this link: https://nrl.testcatalog.org/show/hsTrop Current Interpretive Data last revised 2020. Blood 06/27/2024 5:15 AM CDT 06/27/2024 5:20 AM CDT Jessica Barfield MD LAB BLOOD ORDERABLE S Final Result Performing Organization Address City/[facility]/ZIP Co de Phone Number [facility] ([place]) 1 [facility] [place] [address] * eGFR (06/27/2024 5:15 AM CDT) Pathologist [facility] eGFR >90 >=60 mL/min/1. 73 m2 Comment: [...] MD LAB BLOOD ORDERABLE S Final Result [facility] ([place]) 1 [facility] Department of Laboratories [place] [id number] * (ABNORMAL) Differential, auto (06/27/2024 5:15 AM [...] Neutrophil pct 59.5 % [facility] ([place]) Comment: Interpretive [...] Eosinophil pct 1.5 % [facility] ([place]) Comment: Interpretive [...] S Final Result [facility] ([place]) 1 [facility] Department [place] [address] * (ABNORMAL) CBC with auto differential (06/27/2024 5:15 AM CDT) WBC 10.66(H) 3.80 - 9.90 K/cumm Hgb 13.5 11.9 - 15.5 g/dL [facility] ([place]) Hct 41.2 35.6 - 45.5 % [facility] ([place]) Plt 425(H) 150 - 400 K/cumm [facility] ([place]) MPV 8.6(L) 9.1 - 12.3 fL [facility] ([place]) RBC 4.66 3.90 - 5.20 M/cumm [facility] ([place]) MCV 88.4 81.3 - 96.4 fL [facility] ([place]) MCH 29.0 27.1 - 33.3 pg [facility] ([place]) MCHC 32.8 32.3 - 35.7 g/dL [facility] ([place]) RDW CV 16.8(H) 11.1 - 14.9 % [facility] ([place]) RDW SD 54.3(H) 35.7 - 48.1 fL [facility] ([place]) NRBC abs 0.02(H) 0.00 - 0.01 K/cumm [facility] ([place]) Blood 06/27/2024 5:15 AM CDT 06/27/2024 5:20 AM CDT Jessica Barfield MD LAB BLOOD ORDERABLE S Final Result [facility] ([place]) 1 [facility] Department of Laboratories [place], [place] [id number] * Protime-INR (06/27/2024 5:15 AM CDT) PT 11.8 9.7 - 13.0 sec [facility] ([place]) INR 1.09 0.90 - 1.20 [facility] ([place]) Comment: Interpretive data Oral anticoagulant therapeutic ranges: Venous thromboembolism prophylaxis or treatment: 2.0-3.0 CARDIOLOGY Standard range: 2.0-3.0 High-intensity range: 2.5-3.5 Refer to indication-specific guidelines for appropriate target ranges for prosthetic heart valve replacement. Current interpretive data was last revised on 2019. Blood 06/27/2024 5:15 AM CDT 06/27/2024 5:20 AM CDT Jessica Barfield MD LAB BLOOD ORDERABLE S Final Result [facility] ([place]) 1 [place] [address] * (ABNORMAL) Lipase (06/27/2024 5:15 AM CDT) Pathologist [facility] Lipase 212(H) 10 - 99 Units/L Blood 06/27/2024 5:15 AM CDT 06/27/2024 5:20 AM CDT Jessica Barfield MD LAB BLOOD ORDERABLE S Final Result Performing Organization Address City/[facility] Co de Phone Number [facility] ([place]) 1 [place] [address] * Ethanol (06/27/2024 5:15 AM CDT) [facility] Ethanol <10 <=10 mg/dL Comment: Interpretive Data Legal limit of intoxication > or = 80 mg/dL Levels > or = 400 mg/dL are potentially TOXIC. Current interpretive data was last revised on 2018. Blood 06/27/2024 5:15 AM CDT 06/27/2024 5:34 AM CDT Jessica Barfield MD LAB BLOOD ORDERABLE S Final Result Performing Organization Address City/[facility] Co de Phone Number [facility] ([place]) 1 [facility] [place] [address] * (ABNORMAL) Comprehensive metabolic panel (06/27/2024 5:15 AM CDT) [facility] Sodium 136 135 - 145 mmol/L Potassium, pl 4.1 3.3 - 4.9 mmol/L [facility] ([place]) Chloride 103 97 - 110 mmol/L [facility] ([place]) CO2 19(L) 22 - 32 mmol/L [facility] ([place]) Anion gap 14 2 - 15 mmol/L [facility] ([place]) BUN 7 6 - 25 mg/dL [...] MD LAB BLOOD ORDERABLE S Final Result [facility] 1 [facility] Department [place] [address] * hCG, blood, quantitative (06/27/2024 3:57 AM CDT) hCG, quant <5.0 0.0 - 5.0 IUnits/L Comment: Interpretive Data Male: < 5 IU/L Non- premenopausal Female: <5 IU/L The Reginaldo hCG Beta Quant assay procedure was used. Results from different manufacturers or methods may not be comparable. Serial testing should be performed using the same method. Interpretive Data was last revised on 2023 Blood 06/27/2024 3:57 AM CDT 06/27/2024 6:26 AM CDT us Jessica Barfield MD LAB BLOOD ORDERABLE S Edited Result - Final [facility] ([place]) 1 [facility] [place] [address] * eGFR (06/19/2024 7:15 AM CDT) eGFR >90 >=60 mL/min/1. 73 [...] S Final Result [facility] ([place]) 1 [facility] [place] [address] * (ABNORMAL) CBC without differential (06/19/2024 7:15 [...] S Final Result [facility] ([place]) 1 [facility] Department [place] [address] * (ABNORMAL) Basic metabolic panel (06/19/2024 7:15 AM CDT) Pathologist [facility] Sodium 138 135 - 145 mmol/L Potassium, pl 4.0 3.3 - 4.9 mmol/L [facility] ([place]) Chloride 103 97 - 110 mmol/L [facility] ([place]) CO2 24 22 - 32 mmol/L [facility] ([place]) Anion gap 11 2 - 15 mmol/L [facility] ([place]) BUN 4(L) 6 - 25 mg/dL [facility] ([place]) Creatinine 0.63 0.60 - 1.10 mg/dL [facility] ([place]) Glucose 91 70 - 199 mg/dL [facility] ([place]) Comment: Interpretive Data Fasting glucose >/= [...] 2022. Calcium 8.9 8.5 - 10.3 mg/dL [facility] ([place]) Blood 06/19/2024 7:15 AM CDT 06/19/2024 7:46 AM CDT Macario Biswas Jr., MD LAB BLOOD ORDERABLE S Final Result [facility] ([place]) 1 [facility] Department of Laboratories [place], [place] [id number] * eGFR (06/18/2024 4:25 AM CDT) eGFR >90 >=60 mL/min/1. 73 [...] ORDERABLE S Final Result Performing Organization Address City/[facility]/ZIP Co de Phone Number [facility] ([place]) 1 [facility] Department [place] [address] * (ABNORMAL) CBC without differential (06/18/2024 4:25 AM CDT) WBC 8.36 3.80 - 9.90 K/cumm Hgb 11.2(L) 11.9 - 15.5 g/dL [facility] ([place]) Hct 34.7(L) 35.6 - 45.5 % [facility] ([place]) Plt 229 150 - 400 K/cumm [facility] ([place]) MPV 9.6 9.1 - 12.3 [...] - 0.01 K/cumm [facility] ([place]) Blood 06/18/2024 4:25 AM CDT 06/18/2024 5:16 AM CDT us Macario Biswas Jr., MD LAB BLOOD ORDERABLE S Final Result Performing Organization Address City/[facility] Co de Phone Number [facility] ([place]) 1 [facility] Department [place] [address] * (ABNORMAL) Basic metabolic panel (06/18/2024 4:25 AM CDT) [facility] Sodium 137 135 - 145 mmol/L Potassium, pl 3.8 3.3 - 4.9 mmol/L [facility] ([place]) Chloride 104 97 - 110 mmol/L [facility] ([place]) CO2 21(L) 22 - 32 mmol/L [facility] ([place]) Anion gap 12 2 - 15 mmol/L [facility] ([place]) BUN <3(L) 6 - 25 mg/dL [facility] ([place]) Creatinine 0.62 0.60 - 1.10 mg/dL [facility] ([place]) Glucose 116 70 - 199 mg/dL [facility] ([place]) Comment: Interpretive Data Fasting glucose >/= [...] 2022. Calcium 8.6 8.5 - 10.3 mg/dL [facility] ([place]) Blood 06/18/2024 4:25 AM CDT 06/18/2024 5:16 AM CDT us Macario Biswas Jr., MD LAB BLOOD ORDERABLE S Final Result [facility]) 1 [facility] Department [place] [address] * eGFR (06/17/2024 5:04 AM CDT) [facility] eGFR >90 >=60 mL/min/1. 73 m2 Comment: [...] MD LAB BLOOD ORDERABLE S Final Result [facility] ([place]) 1 [facility] Department [place] [address] * (ABNORMAL) CBC without differential (06/17/2024 5:04 AM CDT) WBC 8.89 3.80 - 9.90 K/cumm Hgb [...] NRBC abs 0.00 0.00 - 0.01 K/cumm [facility] ([place] Blood 06/17/2024 5:04 AM CDT 06/17/2024 5:41 AM CDT us Macario Biswas Jr., MD LAB BLOOD ORDERABLE S Final Result [facility] ([place] 1 [facility] Department [place] [address] * (ABNORMAL) Basic metabolic panel (06/17/2024 5:04 AM CDT) Sodium 137 135 - 145 mmol/L Potassium, pl 3.2(L) 3.3 - 4.9 mmol/L [facility] ([place]) Chloride 103 97 - 110 mmol/L [facility] ([place]) CO2 24 22 - 32 mmol/L [facility] ([place]) Anion gap 10 2 - 15 mmol/L [facility] ([place]) BUN 3(L) 6 - 25 mg/dL [facility] ([place]) Creatinine 0.55(L) 0.60 - 1.10 mg/dL [facility] ([place]) Glucose 91 70 - 199 mg/dL [facility] ([place]) Comment: Interpretive Data Fasting glucose [...] 2022. Calcium 8.5 8.5 - 10.3 mg/dL [facility] ([place]) Blood 06/17/2024 5:04 AM CDT 06/17/2024 5:41 AM CDT Macario Biswas Jr., MD LAB BLOOD ORDERABLE S Final Result Performing Organization Address City/[facility] Co de Phone Number [facility] ([place]) 1 [place] [address] * Magnesium (06/17/2024 5:02 AM CDT) Magnesium 1.7 1.4 - 2.5 mg/dL Blood 06/17/2024 5:02 AM CDT 06/17/2024 9:15 AM CDT us Macario Biswas Jr., MD LAB BLOOD ORDERABLE S Final Result Performing Organization Address [facility] de Phone Number [facility] ([place]) 1 [facility] [place] [address] * CT Abdomen Pelvis W Contrast (06/16/2024 [...] Marcel Humphrey M.D. RB: PATRICE Report ID: [id number] Reading Location: [id number] Procedure Note Marcel Humphrey MD - 06/16/2024 [...] Marcel Humphrey M.D. RB: PATRICE Report ID: [id number] Reading Location: [place] [address] us John Cary MD IMG CT PROCEDURES Final [...] MD LAB BLOOD ORDERABLES Fin al Result [facility] [place]) 1 [facility] Department [place] [address] * (ABNORMAL) Differential, auto (06/16/2024 5:35 AM [...] revised on 2017. Monocyte pct 5.2 % [facility] ([place]) Comment: Interpretive Data Percent cell count reference ranges are not reported, since discordance with absolute values may lead to misinterpretation of CBC data. Current Interpretive Data was last revised on 2017. Eosinophil pct 1.0 % [facility] ([place]) Comment: Interpretive Data Percent cell count reference ranges are not reported, since discordance with absolute values may lead to misinterpretation of CBC data. Current Interpretive Data was last revised on 2017. Basophil pct 0.4 % [facility] ([place]) Comment: Interpretive Data Percent cell count reference ranges are not reported, since discordance with absolute values may lead to misinterpretation of CBC data. Current Interpretive Data was last revised on 2017. Blood 06/16/2024 5:35 AM CDT 06/16/2024 5:42 AM CDT us Laura Herrera MD LAB BLOOD ORDERABLES Fin al Result Performing Organization Address City/[facility]/ZIP Co de Phone Number [facility] ([place]) 1 [facility] [employer] [place] [address] * (ABNORMAL) Urinalysis reflex to microscopic and culture Urine (06/16/2024 5:35 AM CDT) Color, ur Yellow Yellow Clarity, ur Turbid(A) Clear [facility] ([place]) Specific gravity, ur 1.033(H) 1.003 - 1.030 [facility] ([place]) pH, urine 6.0 [facility] ([place]) Comment: Interpretive Data U rine pH is affected by diet, medications, systemic acid-base disturbances, and renal tubular function. pH may affect urinary stone formation. For example, urine pH below 6.0 may help reduce the tendency for calcium phosphate stones and pH greater than 6.0 may reduce the tendency for uric acid stone formation. Source: [facility] Current Interpretive Data was last revised on [...] 5:42 AM CDT Laura Herrera MD LAB MICROBIOLOGY - GENER AL ORDERABLES Final Result Performing Organization Address City/[facility]/ZIP Co de Phone Number [facility] ([place]) 1 [facility] Department [place] [address] * (ABNORMAL) CBC with auto differential (06/16/2024 5:35 AM CDT) WBC 16.27(H) 3.80 - 9.90 K/cumm Hgb 12.7 11.9 - 15.5 g/dL [facility] ([place]) Hct 36.5 35.6 - 45.5 % [facility] ([place]) Plt 264 150 - 400 K/cumm [facility] ([place]) MPV 9.1 9.1 - 12.3 fL [facility] ([place]) RBC 4.37 3.90 - 5.20 M/cumm [facility] ([place]) MCV 83.5 81.3 - 96.4 fL [facility] ([place]) MCH 29.1 27.1 - 33.3 pg [facility] ([place]) MCHC 34.8 32.3 - 35.7 g/dL [facility] ([place]) RDW CV 16.2(H) 11.1 - 14.9 % [facility] ([place]) RDW SD 49.6(H) 35.7 - 48.1 fL [facility] ([place]) NRBC abs 0.04(H) 0.00 - 0.01 K/cumm [facility] ([place]) Blood 06/16/2024 5:35 AM CDT 06/16/2024 5:42 AM CDT us Laura Herrera MD LAB BLOOD ORDERABLES Fin al Result [facility] ([place]) 1 [facility] Department [place] [address] * (ABNORMAL) Drugs of Abuse Screen, Urine [...] 2022. Oxycodone, ur Not Detected CutOff 100ng/mL [facility] ([place]) Comment: Interpretive Data - Oxycodone: Samples containing greater than 100 ng/mL oxycodone or other cross-reacting compounds are reported as positive. False positive and false negative results are possible. Confirmatory testing required for definitive results. Current Interpretive Data was last reviewed 2022. Phencyclidine, ur Not Detected CutOff 25 ng/mL [facility] ([place]) Comment: Interpretive Data - Phencyclidine: Samples containing greater than 25 ng/mL phencyclidine or other cross-reacting compounds are reported as positive. False positive and false negative results are possible. Confirmatory testing required for definitive results. Current Interpretive Data was last reviewed 2022. Urine Creatinine 107 mg/dL [facility] ([place]) Comment: Interpretive Data Urine Creatinine: < 10 mg/dL is extremely dilute = or > 10 but < 20 mg/dL is dilute = or > 20 mg/dL is normal Current Interpretive Data was last revised on 2017. Urine 06/16/2024 5:3 5 AM CDT 06/16/2024 7:21 AM CDT Narrative [facility] ([place]) - 06/16/2024 7:46 AM CDT Drug of Abuse screening is performed by immunoassay for medical purposes only. This is not to be used for Pain Management purposes. us John Cary MD LAB URINE ORDERABLES Final R esult [facility] ([place]) 1 [facility] Department [place] [address] * hCG, urine, qualitative (06/16/2024 5:35 AM CDT) HCG, ur Negative Negative Urine 06/16/2024 5:35 AM CDT 06/16/2024 5:42 AM CDT Laura Herrera MD LAB URINE ORDERABLES Fin al Result Performing Organization Address [facility]/ZIP Co de Phone Number [facility] ([place]) [address] [place] [address] * (ABNORMAL) Urinalysis, microscopic only (06/16/2024 5:35 AM CDT) WBC, ur 11-20(A) 0 - 5 /HPF RBC, ur 3-5(A) 0 - 2 /HPF [facility] ([place]) Epithelial cells, squamous, ur 21-50(A) 0 - 5 /HPF [facility] ([place]) Comment:Suggestive of contam ination. Consider recollection by clean catch. Bacteria, ur 1+(A) [facility] ([place]) Mucous, ur Present(A) [facility] ([place]) Culture Reflex Comment Reflex to urine culture will be performed. [facility] ([place]) Urine 06/16/2024 5:35 AM CDT 06/16/2024 5:42 AM CDT Laura Herrera MD LAB URINE ORDERABLES Fin al Result Performing Organization Address [facility] de Phone Number [facility] ([place]) [address] [place] [phone] * Urine culture Urine (06/16/2024 5:35 AM CDT) Report Final Report: Less than 100,000 colonies/mL (clinically insignificant growth based on current clinical standards) Comment:Testing performed by : [facility], 1 [facility] [place]., [address] Organism (CLINICALLY INSIGNIFICANT GROWTH [facility] ([place]) Urine 06/16/2024 5:35 AM CDT 06/16/2024 9:59 AM CDT Narrative [facility] ([place]) - 06/17/2024 12:21 PM CDT Urine culture reflexed based upon urinalysis results. Testing performed by [facility] ([phone]) Laura Herrera MD LAB MICROBIOLOGY - GENER AL ORDERABLES Final Result Performing Organization Address City/[facility] Co de Phone Number [facility] ([place]) 1 [place] [address] * (ABNORMAL) Lipase (06/16/2024 5:35 AM CDT) Lipase 154(H) 10 - 99 Units/L Blood 06/16/2024 5:35 AM CDT 06/16/2024 5:42 AM CDT Laura Herrera MD LAB BLOOD ORDERABLES Fin al Result Performing Organization Address [facility] Co de Phone Number [facility] ([place]) 1 [place] [address] * Ethanol (06/16/2024 5:35 AM CDT) Ethanol <10 <=10 mg/dL Comment: Interpretive Data Legal limit of intoxication > or = 80 mg/dL Levels > or = 400 mg/dL are potentially TOXIC. Current interpretive data was last revised on 2018. Blood 06/16/2024 5:35 AM CDT 06/16/2024 7:00 AM CDT us John Cary MD LAB BLOOD ORDERABLES Final R esult Performing Organization Address [facility] Co de Phone Number [facility] ([place]) 1 [place] [address] * (ABNORMAL) Comprehensive metabolic panel (06/16/2024 5:35 AM CDT) Sodium 134(L) 135 - 145 mmol/L Potassium, pl 3.3 3.3 - 4.9 mmol/L [facility] ([place]) Chloride 101 97 - 110 mmol/L [...] Fin al Result [facility] ([place]) 1 [facility] Department [place] [address] from Last 3 Months Insurance [facility] [address] BLUE [facility] [address] Advance Directives For more information, please contact: [phone] * Full Code (Latest Code Status on [...] 4:34 PM 05/14/2021 7:00 PM Care Teams Supervisor [employer] Relationship Specialty Start Date End Date Altagracia Briones MD [address] [facility] [address] [place] [address] PCP - General Obstetrics and Gynecology 02/28/24 [place] [id number] [address] Consulting Physician Gastroenterology 05/14/21 Becky Jin NP [address] [facility] [address] [place] [address] [address] [place] [address] Nurse Practitioner Nurse Practitioner 03/01/24
== END 2024-08-01 06:35 | disposition home or self-care (01) ==
PROVIDERS: PCP Family Medicine; Visit Provider Nurse Practitioner
DX: K31.9 Disease of stomach and duodenum, unspecified (principal); R10.13 Epigastric pain; K86.1 Other chronic pancreatitis; K85.20 Alcohol induced acute pancreatitis without necrosis or infection
CPT/HCPCS: 74183; 76376; A9577

== ENCOUNTER 2024-11-16 10:35 | Outpatient (CLI) | payer OTHER, SELFPAY ==
--- NOTE | ~2024-11-16 | US_ITS ---
EXAMINATION: US pelvic complete DATE: 11/16/2024 11:48 INDICATION: Excessive bleeding, perimenopausal. TECHNIQUE: Multiple transabdominal sonographic images of the pelvis were obtained. COMPARISON: CT abdomen and pelvis 11/03/2023 FINDINGS: The uterus measures 7.2 x 3.0 x 4.8 cm. There is no free fluid in the pelvis. The endometrial complex measures 8 mm in thickness. There is a 2.4 cm submucosal fibroid. The right ovary measures 3.6 x 2.6 x 2.4 centers. The left ovary is not visualized. IMPRESSION: 1. Uterine fibroid. Reviewed, dictated and finalized at location E. IMPRESSION: 1. Uterine fibroid.
--- OUTSIDE RECORDS SUMMARY | 2024-11-16 10:46 | XMS_ITS | Clinical Summary ---
Author Organization [facility] Address [address] [place] [address] Care Team Providers Care Cane Flume Watcher Name Role Phone Anjelica Booth MD Unavailable [phone] Altagracia Briones MD Primary Care Provider [phone] Becky Jin CARPENTER REPAIR Unavailable [phone] Allergies Active Allergy Reactions Criticality Noted Date Comments Penicillins Unknown Ceftriaxone was given in 05/2021 Sulfa (Sulfonamide Antibiotics) Anaphylaxis High 03/01/2015 Sulfamethoxazole-Trimethopr im Medications QUEtiapine (SEROquel) 100 mg tablet Take [...] you take seroquel. 14 capsule 07/25/19 25 Active gabapentin (NEURONTIN) 100 mg capsule Take 1 capsule (100 mg total) by mouth 2 (two) times a day Take gabapentin 100mg in the morning for 2 weeks. THEN take gabapentin 100mg in the morning and 100mg in the afternoon. Do NOT take in the evening when you take seroquel. 60 capsule 1 07/25/19 25 Active Active Problems Problem Noted Date [...] (05/19/2021): Added automatically from request for surgery [id number] Alcohol withdrawal syndrome with complication Vitamin D deficiency 04/15/2021 Overview (05/12/2021): 05/05 D 12 ->START VIT D 1000 UNITS DAILY History of alcohol abuse 04/09/2021 Acute alcoholic intoxication without complicatio n 01/12/2021 Lactic acidosis 10/10/2020 Wheezing 10/10/2020 Acute pyelonephritis 05/31/2012 Acute renal failure 05/31/2012 Alcohol abuse 05/31/2012 Depression with anxiety 05/31/2012 Encounters Date Type Department Care Team Description 09/13/2024 2:30 PM CDT - 09/13/2024 3:[address] [facility] [address] [place] [phone] Kosta Rocha MD ESOPHAGOGASTRODUODENOSCOPY ULTRASOUND EXAM LIMITED 09/13/2024 2:18 PM CDT Anesthesia Event [facility] [address] [place] [phone] Macario Smith MD Winfrey, Tonya M., JADYN 09/13/2024 12:39 PM CDT - 09/13/2024 3:45 PM CDT Hospital Encounter [facility] [address] [place] [phone] Kosta Rocha MD Alcohol-induced chronic pancreatitis (HCC) Discharge Disposition: Discharge to home or self care 08/28/2024 Telephone [facility] Medicine Gastroenterology [address] [place] [address] [address] [place] [phone] Haleigh Lindquist RN GI Preprocedure 08/21/2024 Telephone [facility] Medicine Gastroenterology [address] [place] [address] [address] [place] [phone] Haleigh Lindquist RN GI Preprocedure from Last 3 Months Immunizations Immunization Administration Dates Next Due Influenza, Trivalent, Preservative Free, Intramu scular 03/12/2024 Surgical History Surgery Date Site/Laterality Comments CYST REMOVAL TUBAL LIGATION Medical History Medical History Date Comments Alcoholism (HCC) Depression Anemia GERD (gastroesophageal reflux disease) Family History Medical History Relation Name Comments No Known Problems Father No Known Problems Mother Relation Name Status Comments Father Mother Social History Tobacco Use Types Packs/Day Years Used Date Smoking Tobacco: Every Day Cigarettes Tobacco Cessation:Ready to Q uit: Yes; Counseling Given: No [facility] Utilities Answer Date Recorded In the past 12 months has th e [employer], gas, oil, or water [employer] threatened to shut off services in your home? No 06/18/2024 Social Connection and Isolation Panel Answer Date Recorded In a typical week, how many times do you talk on the phone with family, friends, or neighbors? More than three times a week 06/18/2024 How often do you get togethe r with friends or relatives? More than three times a week 06/18/2024 How often do you attend [facility] or temple services? Patient declined 06/18/2024 Do you belong to any clubs o r organizations such as christianity groups, unions, fraternal or athletic groups, or school groups? Patient declined 06/18/2024 How often do you attend meet ings of the clubs or organizations you belong to? Patient declined 06/18/2024 Are you , , di vorced, , never , or living with a partner? 06/18/2024 AUDIT-C Answer Date Recorded Q1: How often do you have a drink containing alcohol? Never 09/13/2024 Q2: How many drinks containi ng alcohol do you have on a typical day when you are drinking? Patient does not drink Q3: How often do you have si x or more drinks on one occasion? Never 09/13/2024 Overall Financial Resource Strain (CARDIA) Answe r [...] making you feel afraid or unsafe? 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 Gender Identity Not on file Sexual Orientation Not on file Obstetrics History Para Term AB IAB SAB Ectopic Multiple Livin g Live Births 3 3 Date Outcome GA Total Labor Labor/2nd/3rd Weight Sex Type Anes PTL Kasandra A1 A5 Name Clin Para Para Para Last Filed Vital Signs Vital Sign Reading Time Taken Comments Blood Pressure 122/109 09/13/2024 3:10 PM CDT Pulse 76 09/13/2024 3:10 PM CDT Temperature 36.5 C (97.7 F) 09/13/2024 1:29 PM CDT Respiratory Rate 20 09/13/2024 3:10 PM CDT Oxygen Saturation 100% 09/13/2024 3:10 PM CDT Inhaled Oxygen Concentration - - Weight 65.8 kg (145 lb) 09/13/2024 1:29 PM CDT Height 152.4 cm (5') 09/13/2024 1:29 PM CDT Body Mass Index 28.32 09/13/2024 1:29 PM CDT Plan of Treatment Health Maintenance Due Date Last Done Comments Breast Cancer Screening-Mammogram 1982 Cervical Cancer Screening 1982 Depression Screening 1982 Hepatitis C Screening 1982 DTaP/Tdap/Td Vaccine (1 - Tdap) 1993 Varicella Vaccines (1 of 2 - 13+ 2-dose series) 12/28/1995 Regular Well Visit/Exam 18-64 2000 Pneumococcal vaccine <65 (1 of 2 - PCV) 2001 HPV Vaccines (1 - 3-dose SCDM series) 2009 Influenza Vaccine (#1) 2024 03/12/2024, 2018 Hepatitis B Screening Completed 06/17/1997 Procedures Procedure Name Priority Date/Time Associated Diagnosis Comments US ENDOSCOPIC IP Routine 09/13/2024 2:36 PM CDT Alcohol-induced chronic pancreatitis (HCC) ESOPHAGOGASTRODUODENOSCOPY ULTRASOUND EXAM LIMITED 09/13/2024 2:18 PM CDT Alcohol-induced chronic pancreatitis (HCC) UPPER EUS 09/13/2024 2:15 PM CDT from Last 3 Months Results * Upper EUS (09/13/2024 2:15 PM CDT) Anatomical Region Laterality Modality Other Narrative Procedure Note Kosta Rocha MD - 09/13/2024 2:15 PM CDT ENDOSCOPY LAB Patient Name: Lalitha Canseco Procedure Date: 09/13/2024 2:15 PM Admit Type: Emergency Department Room: [facility] Date of : 1980 Instrument Name: [id number] Gender: Female Note Status: Finalized Procedure: Upper EUS Indications: Suspected chronic pancreatitis Providers: Kosta Rocha M.D. Referring MD: Fran Heredia Medicines: Monitored Anesthesia Care Complications: No immediate complications. Estimated Blood Loss: Estimated blood loss: none. Procedure: Pre-Anesthesia Assessment: - The risks and benefits of the procedure and the sedation options and risks were discussed with the patient. All questions were answered and informed consent was obtained. - Immediately prior to administration ofmedications, the patient was re-assessed for adequacy to receive sedatives. The risks, benefits and alternatives were discussed and informed consent was obtained.The Endoscope was introduced through the mouth, and advanced to the second part of duodenum The risks, benefits and alternatives were discussed and informed consentwas obtained. The upper EUS was accomplished without difficulty. The patient tolerated the procedurewell. Findings: ENDOSCOPIC FINDING: : The examined esophagus was normal. The entire examined stomach was normal. Diffuse moderately congested mucosa without active bleeding and withno stigmata of bleeding was found in the first portion of theduodenum. ENDOSONOGRAPHIC FINDING: : There was no sign of significant endosonographic abnormality in the ampulla. There was no sign of significant endosonographic abnormality in the common bile duct. The maximum diameter of the duct was 3 mm. There was no sign of significant endosonographic abnormality in theleft lobe of the liver. Pancreatic parenchymal abnormalities were noted in the entirepancreas. These consisted of hyperechoic strands. The ventral pancreatic ductwas non-dilated and easured 2 mm in greatest dimension. No pathologic lymphadenopathy seen. Impression: - Normal esophagus. - Normal stomach. - Congested duodenal mucosa suggestive of groove pancreatitis. - There was no sign of significant pathology in the ampulla. - There was no sign of significant pathology in the common bile duct. - There was no evidence of significant pathology in the left lobe of the liver. - Pancreatic parenchymal abnormalities consistingof hyperechoic strands were noted in the entirepancreas. Recommendation: - Return to referring physician as previously scheduled. - Observe patient's clinical course. - Return to my office in 3 months. - Smoking and alcohol cessation. This is criticalto improve your symptoms. Attending Participation: I personally performed the entire procedure. Electronically signed by Kosta Rocha M.D. Kosta Rocha M.D. 09/13/2024 2:55:37 PM This document was signed electronically. Number of Addenda: 0 Note Initiated On: 09/13/2024 2:15 PM Scope In: Scope Out: Kosta Rocha MD ENDOSCOPY PROCEDURES Final Result from Last 3 Months Insurance [facility] [id number] Advance Directives For more information, please contact: [phone] * Full Code (Latest Code Status on File) Date Activated Date Inactivated Comments 09/13/2024 1:21 PM 09/13/2024 7:54 PM * Full Code Date Activated Date Inactivated Comments 06/16/2024 8:22 AM 06/19/2024 5:21 PM * Full Code Date Activated Date Inactivated Comments 03/12/2024 7:18 AM 03/12/2024 7:57 PM * Full Code Date Activated Date Inactivated Comments 02/28/2024 7:29 PM 03/01/2024 10:43 PM * Full Code Date Activated Date Inactivated Comments 02/28/2024 7:27 PM 02/28/2024 7:29 PM Care Teams Cane Flume Watcher Relationship Specialty Start Date End Date Altagracia Briones MD [address] [facility] [address] [place] [address] PCP - General Obstetrics and Gynecology 02/28/24 [place] [address] [facility] [address] [place] [address] Consulting Physician Gastroenterology 05/14/21 Becky Jin NP [address] [facility] [address] [facility] [address] [place] [address] Nurse Practitioner Nurse Practitioner 03/01/24
--- OUTSIDE RECORDS SUMMARY | 2024-11-16 10:46 | XMS_ITS | Clinical Summary ---
Author Organization [facility] Address [address] [facility] [address] Care Team Providers Care Acoustical Tile Carpenters Supervisor Name Role Phone Altagracia Briones MD Primary Care Provider [phone] Source Comments [facility],non-owned Affiliates and Associated Physician Practices is amultiple site organization consisting of ambulatory clinics and hospital sitesin [place], [place], [place] and [place]. This disclosure is being madepursuant to the Care Everywhere program and may not contain all information available regarding this patient. Last updated 17.[facility] Allergies Active Allergy Reactions Criticality Noted Date Comments Penicillins Rash Low 11/08/2007 Sulfa Drugs Anaphylaxis High 03/01/2015 Medications * This document contains information received from the source organization and may not represent a complete record from that organization. * Be aware that medications may not be up to date on this document. Alwaysverify current medications with the patient. pancrelipase (Creon 36,000) [id number] units capsuleIndicatio ns:Pancreatic Insufficiency Take 2 (two) [...] FEELING ANXIOUS 60 tablet 1 09/08/19 24 Active atorvastatin (Lipitor) 10 MG tablet TAKE 1 (ONE) TABLET BY MOUTH AT BEDTIME REASONS: HIGH AMOUNT OF TRIGLYCERIDES IN THE BLOOD 30 tablet 1 09/08/19 24 Active lisinopril (Prinivil; Zestril) 5 MG tablet TAKE 1 (ONE) TABLET BY MOUTH ONCE DAILY REASONS: HIGH BLOOD PRESSURE DISORDER 30 tablet 1 09/08/19 24 Active sucralfate (Carafate) 1 GM tablet TAKE 1 (ONE) TABLET BY MOUTH 4 TIMES DAILY - BEFORE MEALS & NIGHTLY REASONS: GASTROESOPHAGEAL REFLUX DISEASE 120 tablet 09/08/19 24 Active Additional Information Patient not taking.Reason: Provider [...] medical care, and heating? Somewhat hard 12/05/2023 [facility] [place] [facility] Occupat ional Health - Occupational Stress [...] place to sleep or slept in a senior living (including now)? No 12/05/2023 Comments No Sex and Gender Information Value Date Recorded Sex Assigned at Not on file Legal Sex Female 10:13 AM CDT Gender Identity Not on file Sexual Orientation Not on file Last Filed Vital Signs Vital Sign Reading Time Taken Comments Blood Pressure 142/99 02/09/2024 1:51 PM [employer] Pulse 92 02/09/2024 1:51 PM [employer] Temperature 36.6 C (97.9 F) 02/09/2024 1:51 PM [employer] Respiratory Rate 18 02/09/2024 1:51 PM [employer] Oxygen Saturation 100% 02/09/2024 1:51 PM [employer] Inhaled Oxygen Concentration - - Weight 65 [...] VACCINE (1 of 2 - PCV) 2001 HPV VACCINE (1 - 3-dose SCDM series) 2009 HEPATITIS A VACCINE (2 of 2 - Risk 2-dose series) 12/11/2017 06/11/2017 PAP SMEAR 03/28/2022 03/28/2019 DEPRESSION SCREENING 03/14/2024 COVID-19 VACCINE (2 - 2024-2 6 season) 2024 03/01/2021 INFLUENZA VACCINE (#1) 2024 4, 12/11/2018 LIPID TESTING 09/06/2028 09/07/2023 ZOSTER VACCINE (1 of 2) 2032 HIV [...] Procedure Name Priority Date/Time Associated Diagnosis Comments LIPID PROFILE AM Draw 09/07/2023 7:02 AM CDT HIV-1 HIV-2 ANTIBODY + HIV P24 AG PANEL STAT 10/10/2020 1:23 PM CDT from Last 3 Months or Most Recently Relevant to Health Maintenance Results * (ABNORMAL) LIPID PROFILE (09/07/2023 7:02 AM CDT) [facility] Cholesterol 176 <200 mg/dL 09/07/2023 10:13 AM CDT [facility] Triglycerides 227(H) <150 mg/dL 09/07/2023 10:13 AM CDT [facility] HDL Cholesterol 61 >40 mg/dL 4 10:13 AM CDT [facility] LDL Calculated 70 <130 mg/dL 09/07/2023 10:13 AM CDT [facility] VLDL Calculated 45(H) <=30 mg/dL 4 10:13 AM CDT [facility] Chol HDL Ratio 2.9 <4.5 09/07/2023 10:13 AM CDT [facility] LDL/HDL Ratio 1.1 <5.0 09/07/2023 10:13 AM T [facility] Blood BLOOD SPECIMEN / Unknown Venipuncture / Unknown 09/07/2023 7:02 AM CDT 09/07/2023 8:07 AM CDT Kayce Cardozo MD LAB - CHEMISTRY ORDERABLES Final Result [facility] [address] [place] [address] * HIV-1 HIV-2 ANTIBODY + HIV P24 AG PANEL (10/10/2020 1:23 PM CDT) HIV1/2 Ab + P24 Ag Non Reactive Non Reactive 10/10/2020 2:23 PM CDT [facility] Blood BLOOD SPECIMEN / Unknown Venipuncture / Unknown 10/10/2020 1:23 PM CDT 10/10/2020 1:40 PM CDT Narrative [facility] - 10/10/2020 2:23 PM CDT No Laboratory evidence of HIV infection. us Carlo Stokes MD LAB - CHEMISTRY ORDERABLES Final Result Performing Organization Address City/[facility] Co de Phone Number [facility] [address] [place], [place] [id number] from Last 3 Months or Most Recently Relevant to Health Maintenance Insurance MEDICAID [facility] SELF PAY NO INSURANCE Member Subscriber Plan / Payer (Ef fective for All Dates) Name:Maksim Canseco Member ID:Not on file Relation to Subscriber:Not on file Name:MAKSIM CEDENO Subscriber ID:Not on file Address: [address] [place] [phone] Payer ID:Not on file Group ID:Not on file Type:Self Pay Address: [place], [place] [facility] SELF PAY NO INSURANCE Member Subscriber Plan / Payer (Ef fective for All Dates) Name:Maksim Canseco Member ID:Not on file Relation to Subscriber:Not on file Name:MAKSIM CEDENO Subscriber ID:Not on file Address: [address] [place] [phone] Payer ID:Not on file Group ID:Not on file Type:Self Pay Address: [place], [place] [facility] SELF PAY NO INSURANCE Member Subscriber Plan / Payer (Ef fective for All Dates) Name:Maksim Canseco Member ID:Not on file Relation to Subscriber:Not on file Name:MAKSIM CEDENO Subscriber ID:Not on file Address[address] [place], [place] [address] Payer ID:Not on file Group ID:Not on file Type:Self Pay Address: [place], [place] [facility] * Guarantor: MAKSIM CEDENO Account Type Relation to Patient Date of Phone Billing Address Personal/Family Spouse [place] Member Subscriber Plan / Payer (Ef fective for All Dates) Name:Maksim Canseco Claribel Relation to Subscriber:Self Name:Maksim Canseco Claribel Payer ID:Not on file Group ID:Not on file Type:Medicaid [place] Address: [address] HEALTH PLAN [facility] [employer] Advance Directives * Full Code (Latest Code [...] 3:44 PM 10/10/2020 7:46 PM Care Teams Acoustical Tile Carpenters Supervisor Relationship Specialty Start Date End Date Altagracia Briones MD [address] [place] [address] PCP - General Family Medicine 02/09/24
--- OUTSIDE RECORDS SUMMARY | 2024-11-16 10:46 | XMS_ITS | Clinical Summary ---
Author Organization [facility] Address [address] [place] [address] Phone Care Team Providers Care Superintendent Circus Name Role Phone Altagracia Briones MD Primary Care Provider [phone] Allergies Active Allergy Reactions Criticality Noted Date Comments Sulfamethoxazole-Trimethoprim Unknown 2024 Penicillins Unknown,Rash High 11/08/2007 Sulfa Antibiotics Anaphylaxis High 03/01/2015 Medications simvastatin (ZOCOR) 5 MG TabletIndicatio ns:Hyperlipidem ia Take 5 mg by mouth daily. Indications: High Amount of Fats in the Blood Active QUEtiapine (SEROquel) 100 MG TabletIndicatio ns:Bipolar Mood Disorder Take 100 mg by mouth nightly. Indications: Manic-Depressio n Active Amylase-Lipase- Protease (PANCRELIPASE 41491 PO) Take 36,000 Units by mouth 4 times daily. Take two tabs four times daily Active prochlorperazin e (COMPAZINE) 25 MG Suppository 1 Suppository by Rectal route every 12 hours as needed for Nausea - 1st line. 5 Suppository 07/17/19 25 Active sucralfate (CARAFATE) 1 GM Tablet Take 1 Tablet by mouth 4 times daily. 120 Tablet 08/11/19 25 Active omeprazole (PriLOSEC) 40 MG CAPSULE DELAYED RELEASE Take 40 mg by mouth 2 times daily. Active Creon 59265-187394 units Capsule DR Particles Take 1 Capsule by mouth 3 times daily (with meals). 08/03/19 25 Active thiamine (VITAMIN B1) 100 MG Tablet Take 1 Tablet by mouth daily for 90 days. 90 Tablet 09/02/19 25 025 Active folic acid (FOLVITE) 1 MG Tablet Take 1 Tablet by mouth daily for 90 days. 90 Tablet 09/02/19 25 025 Active traMADol (ULTRAM) 50 MG TabletIndicatio ns:Acute pancreatitis,Du odenitis Take 2 Tablets by mouth every 8 hours as needed for Moderate or more severe pain. 15 Tablet 09/02/19 25 Active chlordiazePOXID E (LIBRIUM) 10 MG CapsuleIndicati ons:Acute pancreatitis,Du odenitis Take 1 Capsule by mouth every 8 hours as needed for Withdrawal. 10 Capsule 09/02/19 25 Active Active Problems Problem Noted Date Diagnosed Date History of alcohol dependence 04/11/2024 Gastroesophageal reflux disease without esophagi tis 12/04/2023 Depression with anxiety 05/31/2012 Hyperlipidemia Hypertension Alcohol abuse Overview (08/09/2024): last drink 02/2024 Chronic pancreatitis due to chronic alcoholism Depression Bipolar 1 disorder Resolved Problems Problem Noted Date Diagnosed Date Resolved Date Duodenitis 08/09/2024 09/01/2024 Acute cystitis 04/11/2024 04/11/2024 Dehydration 04/11/2024 04/11/2024 Pancreatitis 04/10/2024 09/01/2024 Encounters Date Type Department Care Team Description 09/27/2024 Telephone [facility] [address] [place] [address] Newton Nunez MD Results 09/04/2024 Travel 08/31/2024 11:30 AM CDT - 08/31/2024 12:00 PM CDT [facility] [address] [place] [address] Newton Nunez MD EGD- DUODENAL BULB BIOPSY, ANTRAL BIOPSY RULE OUT H. PYLORI 08/31/2024 11:28 AM CDT [facility] [address] [place] [address] Ramos Tyler APRN, CRNA 08/31/2024 10:50 AM CDT [facility]illary [facility] Main [address] [facility] [place] [address] Newton Nunez MD 08/31/2024 7:05 AM CDT [facility]illary [facility] [address] [facility] [address] [facility] [place] [address] Newton Nunez MD 08/30/2024 Telephone [facility] - Gastroenterology [facility] [address] [place] [address] Newton Nunez MD Results 08/29/2024 1:13 PM CDT - 09/01/2024 11:12 AM CDT [facility] [address] [place] [address] Delfino Plasencia DO Patel, Satyen V, MD Duodenitis Discharge Disposition: Discharged to home or Selfcare 08/29/2024 Travel from Last 3 Months Immunizations Immunization Administration Dates Next Due Pneumococcal conjugate PCV20 , polysaccharide RAZ243 conjugate, adjuvant, PF 08/10/2024() Family History Medical History Relation Name Comments [...] Not Answered Alcohol Use Standard Drinks/Week Comments Not Currently 0 (1 standard drink = 0.6 oz pur e alcohol) Currently not drinking Social Connection and Isolation Panel Answer Date Recorded In a typical week, how many times do you talk on the phone with family, friends, or neighbors? Patient declined 08/09/2024 How often do you get togethe r with friends or relatives? Patient declined 08/09/2024 How often do you attend yarsani or episcopalian serv ices? Patient declined 08/09/2024 Do you belong to any clubs o r organizations such as yarsani groups, unions, fraternal or athletic groups, or school groups? Patient declined 08/09/2024 How often do you attend meet ings of the clubs or organizations you belong to? Patient declined 08/09/2024 Are you , , di vorced, , never , or living with a partner? Patient declined 08/09/2024 AUDIT-C Answer Date Recorded Q1: How often do you have a drink containing alc ohol? Patient declined 08/09/2024 Q2: How many drinks containi ng alcohol do you have on a typical day when you are drinking? Patient declined 08/09/2024 Q3: How often do you have si x or more drinks on one occasion? Patient declined 08/09/2024 Overall Financial Resource Strain (CARDIA) Answe r Date Recorded How hard is it for you to pa y for the very basics like food, housing, medical care, and heating? Patient declined 08/09/2024 [facility] Occupat ional [facility] - Occupational Stress Questionnaire Answer Date Recorded Do you feel stress - tense, restless, nervous, or anxious, or unable to sleep at night because your mind is troubled all the time - these days? Patient declined 08/09/2024 Exercise Vital Sign Answer Date Recorde d On average, how many days pe r week do you engage in moderate to strenuous exercise (like a brisk walk)? Patient declined On average, how many minutes do you engage in exercise at this level? Patient declined 08/09/2024 Housing Stability Vital Sign Answer Naresh e Recorded In the last 12 months, was t here a time when you were not able to pay the mortgage or rent on time? Patient declined 08/10/19 25 In the past 12 months, how m any times have you moved where you were living? 1 08/09/2024 At any time in the past 12 m [facility], were you homeless or living in a chcf (including now)? Patient declined 08/09/2024 Hunger Vital Sign Answer Date Recorded Within the past 12 months, y ou worried that your food would run out before you got the money to buy more. Patient declined Within the past 12 months, t he food you bought just didn't last and you didn't have money to get more. Patient declined [facility] - Transportation Answer Date Re corded In the past 12 months, has l ack of transportation kept you from medical appointments or from getting medications? Patient declined 08/29/2024 In the past 12 months, has l ack of transportation kept you from meetings, work, or from getting things needed for daily living? Patient declined 08/29/2024 Housing Stability Vital Sign Answer Naresh e Recorded In the last 12 months, was t here a time when you were not able to pay the mortgage or rent on time? Patient declined 08/30/19 25 In the past 12 months, how m any times have you moved where you were living? 1 08/29/2024 At any time in the past 12 m [facility], were you homeless or living in a chcf (including now)? Patient declined 08/29/2024 [facility] Utilities Answer Date Recorded In the past 12 months has th e electric, gas, oil, or water company threatened to shut off services in your home? Patient declined 08/29/2024 Sexually Active Control Partners Comments Yes Male Comments No Sex and Gender Information Value Date Recorded Sex Assigned at Not on file Legal Sex Female 4:18 PM [employer] Gender Identity Not on file Sexual Orientation Not on file Last Filed Vital Signs Vital Sign Reading Time Taken Comments Blood Pressure 154/95 09/01/2024 8:44 AM CDT Pulse 77 09/01/2024 8:44 AM CDT Temperature 36.7 C (98.1 F) 09/01/2024 8:44 AM CDT Respiratory Rate 20 09/01/2024 8:44 AM CDT Oxygen Saturation 99% 09/01/2024 8:44 AM CDT Inhaled Oxygen Concentration - - Weight 68 kg (150 lb) 08/29/2024 1:17 PM CDT Height 152.4 cm (5') 08/29/2024 1:17 PM CDT Body Mass Index 29.29 08/29/2024 1:17 PM CDT Plan of Treatment Health Maintenance Due Date Last Done Comments Hepatitis C Virus (HCV) Screening 1982 Mammogram 1982 TdaP Immunization 1982 Hepatitis B Immunization (1 of 3 - 19+ 3-dose series) 2001 Pneumococcal Immunization Co mbined (1 of 2 - PCV) 2001 Pap Smear 12/28/2003 Human Papillomavirus (HPV) Immunization (1 - 3-dose SCDM series) 2009 Cervical Cancer Screening (CCS) 2012 HPV/Cotest 2012 Discussion re Starting/Frequ ency of Mammograms 2022 Influenza Immunization (#1) 2024 03/12/2024 SARS-COV-2 Immunization ( season) 2024 Respiratory Syncytial Virus (RSV) Immunization (Adult) (1 - 1-dose 75+ series) 2057 Meningococcal Immunization (ACWY) Aged Out No longer eligible based on patient's age to complete this topic Rotavirus Immunization Aged Out No lo nger eligible based on patient's age to complete this topic Interventions Community Resource Recommendations Community Resource Services Recommended Domains Addressed Status Status Reason/Outcome Date/Time [facility] General Assistance Financial Assistance Financial Resource Strain Recommended 04/11/2024 11:41 AM CALENDER WIND UP HELPER [facility] Financial Resource Needs Financial Resource Strain Recommended 04/11/2024 11:41 AM CALENDER WIND UP HELPER [facility] Food Pantry Food Insecurity Needs Food Insecurity Recommended 04/11/2024 11:41 AM CALENDER WIND UP HELPER [facility] Government Benefits, [facility] Housing, Public Housing, Residential Housing Financial Resource Strain, Housing Stability Recommended 04/11/2024 11:41 AM CALENDER WIND UP HELPER [facility] Centers for Independent Living (CIL) - Individual Services/Programs -Pharmaceutical Assistance Prescription Assistance Financial Resource Strain Recommended 04/11/2024 11:41 AM CALENDER WIND UP HELPER [facility] Discounted Healthcare, Government Benefits Financial Resource Strain Recommended 04/11/2024 11:41 AM CALENDER WIND UP HELPER [place] [facility] Human Services - Division of Rehabilitation Services ([facility]) - Home Services Waiver Program Disability Benefits Financial Resource Strain Recommended 04/11/2024 11:41 AM CALENDER WIND UP HELPER [facility] Financial Resource Needs Financial Resource Strain Recommended 04/11/2024 11:41 AM CALENDER WIND UP HELPER from Last 12 Months Procedures Procedure Name Priority Date/Time Associated Diagnosis Comments CBC WITH AUTO DIFFERENTIAL Routine 09/04 8:47 AM CDT Acute pancreatitis Duodenitis LIPASE Routine 09/04/2024 8:47 AM CDT Acute pancreatitis Duodenitis AMYLASE Routine 09/04/2024 8:47 AM CDT Acute pancreatitis Duodenitis CMP (COMPREHENSIVE METABOLIC PANEL) Routine 09/04/2024 8:47 AM CDT Acute pancreatitis Duodenitis COMPLETE BLOOD COUNT (CBC) WITH DIFF Routine 09/04/2024 8:47 AM CDT Acute pancreatitis Duodenitis CBC WITH AUTO DIFFERENTIAL Routine 09/01 4:06 AM CDT LIPASE Routine 09/01/2024 4:06 AM CDT AMYLASE Routine 09/01/2024 4:06 AM CDT MAGNESIUM (MG) Routine 09/01/2024 4:06 AM CDT BASIC METABOLIC PANEL W/ CALCIUM TOTAL Routine 09/01/2024 4:06 AM CDT COMPLETE BLOOD COUNT (CBC) WITH DIFF Routine 09/01/2024 4:06 AM CDT PATHOLOGY SURGICAL Routine 08/31/2024 11:37 AM CDT DE ESOPHAGOGASTRODUODENOSCOP Y TRANSORAL DIAGNOSTIC 08/31/2024 11:30 AM CDT EGD- DUODENAL BULB BIOPSY, ANTRAL BIOPSY RULE OUT H. PYLORI DE EGD FLEXIBLE TRANSNASAL D X W/COLLJ SPEC BR/WA 08/31/2024 11:30 AM CDT EGD- DUODENAL BULB BIOPSY, ANTRAL BIOPSY RULE OUT H. PYLORI GI LAB IMAGING - EGD Routine 08/31/2024 10:46 AM CDT POCT URINE HCG () STAT 08/31 10:43 AM CDT GI LAB IMAGING - EGD Routine 08/31/2024 7:00 AM CDT CBC WITH AUTO DIFFERENTIAL Routine 08/31 4:16 AM CDT LIPASE Routine 08/31/2024 4:16 AM CDT AMYLASE Routine 08/31/2024 4:16 AM CDT MAGNESIUM (MG) Routine 08/31/2024 4:16 AM CDT BASIC METABOLIC PANEL W/ CALCIUM TOTAL Routine 08/31/2024 4:16 AM CDT COMPLETE BLOOD COUNT (CBC) WITH DIFF Routine 08/31/2024 4:16 AM CDT PHOSPHORUS (PO4) Routine 08/31/2024 4:16 AM CDT LACTIC ACID (LACTATE) Routine 08/30/2024 7:16 PM CDT TROPONIN I, HIGH SENSITIVITY (HSTRP) STAT 08/30/2024 9:28 AM CDT CBC WITH AUTO DIFFERENTIAL Routine 08/30 4:38 AM CDT C-REACTIVE PROTEIN (CRP) QUANT STAT 0 08/30/2024 4:38 AM CDT PHOSPHORUS (PO4) STAT 08/30/2024 4:38 AM CDT MAGNESIUM (MG) STAT 08/30/2024 4:38 AM CDT AMYLASE STAT 08/30/2024 4:38 AM CDT LIPASE STAT 08/30/2024 4:38 AM CDT COMPLETE BLOOD COUNT (CBC) WITH DIFF Routine 08/30/2024 4:38 AM CDT BASIC METABOLIC PANEL W/ CALCIUM TOTAL Routine 08/30/2024 4:38 AM CDT LACTIC ACID (LACTATE) STAT 08/29/2024 8:29 PM CDT LACTIC ACID (LACTATE) STAT 08/29/2024 5:32 PM CDT CULTURE, BLOOD STAT 08/29/2024 5:32 PM CDT CULTURE, BLOOD STAT 08/29/2024 5:[address] ABDOMEN PELVIS W/ CONTRAST Stat with Interpretation 08/29/2024 3:04 PM CDT XR CHEST SINGLE VIEW PORTABLE STAT 2:01 PM CDT URINE DRUG SCREEN STAT 08/29/2024 1:55 PM CDT GOLD TOP TUBE STAT 08/29/2024 1:21 PM CDT BLUE TOP TUBE STAT 08/29/2024 1:21 PM CDT CBC WITH AUTO DIFFERENTIAL STAT 08/29 1:21 PM CDT EXTRA TUBES STAT 08/29/2024 1:21 PM CDT ETHYL ALCOHOL (ETHANOL) STAT 08/30/19 1:21 PM CDT LIPASE STAT 08/29/2024 1:21 PM CDT TROPONIN I, HIGH SENSITIVITY (HSTRP) STAT 08/29/2024 1:21 PM CDT COMPLETE BLOOD COUNT (CBC) WITH DIFF STAT 08/29/2024 1:21 PM CDT CMP (COMPREHENSIVE METABOLIC PANEL) STAT 08/29/2024 1:21 PM CDT EKG 12 LEAD STAT 08/29/2024 1:14 PM CDT EKG SCAN 08/29/2024 12:00 AM CDT from Last 3 Months Results * (ABNORMAL) CBC WITH AUTO DIFFERENTIAL (09/04/2024 8:47 AM CDT) Only the most recent of5 resultswithin the time period is included. WBC 10.53 4.00 - 12.00 10(3)/[facility] 09/04/2024 10:55 AM CDT [facility] RBC 4.27 3.80 - 5.30 10(6)/[facility] 09/04/2024 10:55 AM CDT [facility] HEMOGLOBIN (HGB) 12.3 12.0 - 15.8 g/dL 09/04/2024 10:55 AM CDT [facility] HEMATOCRIT (HCT) 37.8 36.0 - 47.0 % 09/04/2024 10:55 AM CDT [facility] MCV 88.5 82.0 - 96.0 fL 09/04/2024 10:55 AM CDT [facility] MCH 28.8 26.0 - 34.0 pg 09/04/2024 10:55 AM CDT [facility] MCHC 32.5 31.0 - 36.0 g/dL 09/04/2024 10:55 AM CDT [facility] PLATELET COUNT 372 140 - 440 10(3)/[facility] 09/04/2024 10:55 AM CDT [facility] RDW 16.7(H) 11.8 - 15.5 % 09/04/2024 10:55 AM CDT [facility] MPV 9.2(L) 9.7 - 12.4 fL 09/04/2024 10:55 AM CDT [facility] NEUTROPHILS 56.3 47.0 - 73.0 % 09/04/2024 10:55 AM CDT [facility] LYMPHOCYTES 30.4 18.0 - 42.0 % 09/04/2024 10:55 AM CDT [facility] MONOCYTES 11.0 4.0 - 12.0 % 09/04/2024 10:55 AM CDT [facility] EOSINOPHILS 1.3 0.0 - 5.0 % 09/04/2024 10:55 AM CDT [facility] BASOPHILS 0.4 0.0 - 1.0 % 09/04/2024 10:55 AM CDT [facility] IMMATURE GRANULOCYTE 0.6(H) 0.0 - 0.4 % 09/04/2024 10:55 AM CDT [facility] Comment:Immature Granulocyte s includes Metamyelocytes, Myelocytes, and Promyelocytes. ABSOLUTE NEUTROPHILS 5.93 1.60 - 7.70 10(3)/[facility] 09/04/2024 10:55 AM CDT [facility] ABSOLUTE LYMPHOCYTES 3.20 1.30 - 3.20 10(3)/[facility] 09/04/2024 10:55 AM CDT [facility] ABSOLUTE MONOCYTES 1.16(H) 0.20 - 1.00 10(3)/[facility] 09/04/2024 10:55 AM CDT [facility] ABSOLUTE EOSINOPHIL 0.14 0.00 - 0.40 10(3)/[facility] 09/04/2024 10:55 AM CDT [facility] ABSOLUTE BASOPHILS 0.04 0.00 - 0.10 10(3)/[facility] 09/04/2024 10:55 AM CDT [facility] ABSOLUTE IMMATURE GRANULOCYTE 0.06(H) 0.00 - 0.03 10 (3) mcL. 09/04/2024 10:55 AM CDT [facility] NRBC PER 100 WBC 0 09/05/19 25 10:55 AM CDT [facility] RESULTS ARE CONSISTENT WITH PERIPHERAL SMEAR REVIEW Yes 09/04/2024 10:55 AM CDT [facility] RBC MORPHOLOGY CONSISTENT WITH INDICES Yes 09/04/2024 10:55 AM CDT [facility] LARGE PLATELETS 1+ 10:55 AM CDT [facility] Blood Venipuncture / Unknown 09/04/2024 8:47 AM CDT 09/04/2024 8:59 AM CDT Narrative [facility] - 09/04/2024 10:55 AM CDT Anisocytosis us Jaydon Sung MD HEMATOLOGY ORDERABLES Final R esult Performing Organization Address City/[facility]/ZIP Co de Phone Number [facility] [address] [place] [address] * (ABNORMAL) LIPASE (09/04/2024 8:47 AM CDT) Only the most recent of5 resultswithin the time period is included. LIPASE 86(H) 8 - 78 U/L 09/04/2024 10:01 AM CDT [facility] Blood Venipuncture / Unknown 09/04/2024 8:47 AM CDT 09/04/2024 8:58 AM CDT us Jaydon Sung MD CHEMISTRY ORDERABLES Final Re sult Performing Organization Address [facility] Co de Phone Number [facility] [address] [place] [address] * (ABNORMAL) CMP (COMPREHENSIVE METABOLIC PANEL) (09/04/2024 8:47 AM CDT) Only the most recent of2 resultswithin the time period is included. Pathologist [facility] SODIUM 138 136 - 145 mmol/L 09/04/2024 10:01 AM CDT [facility] POTASSIUM 3.3(L) 3.5 - 5.1 mmol/L 09/04/2024 10:01 AM CDT [facility] CHLORIDE 107 98 - 107 mmol/L 09/04/2024 10:01 AM CDT [facility] CO2, VENOUS 21(L) 22 - 30 mmol/L 09/04/2024 10:01 AM CDT [facility] ANION GAP 13.3 <18.0 mmol/L 09/04/2024 10:01 AM CDT [facility] GLUCOSE 119(H) 70 - 99 mg/dL 09/04/2024 10:01 AM CDT [facility] BUN 11 5 - 18 mg/dL 09/04/2024 10:01 AM [facility] CREATININE, BLOOD 0.71 0.60 - 1.00 mg/dL 09/04/2024 10:01 AM [facility] BUN/CREATININE RATIO 15 12 - 20 ratio 09/04/2024 10:01 AM [facility] TOTAL PROTEIN 7.4 6.0 - 8.0 g/dL 09/04/2024 10:01 AM [facility] ALBUMIN 4.3 3.5 - 5.0 g/dL 09/04/2024 10:01 AM [facility] A/G RATIO 1.4 1.0 - 2.2 09/04/2024 10:01 AM [facility] CALCIUM 9.1 8.7 - 10.5 mg/dL 09/04/2024 10:01 AM [facility] T BILI 0.2 0.2 - 1.2 mg/dL 09/04/2024 10:01 AM [facility] SGOT (AST) 27 <43 U/L 09/04/2024 10:01 AM [facility] SGPT (ALT) 27 <56 U/L 09/04/2024 10:01 AM [facility] ALKALINE PHOSPHATASE 57 40 - 150 U/L 09/04/2024 10:01 AM [facility] IS THE PATIENT REQUIRED TO BE FASTING? No 09/04/2024 10:01 AM [facility] GFR, ESTIMATED >60 >=60 09/04/2024 10:01 AM [facility] Comment: Creatinine Clearance is the preferred criteria for selecting drug dose adjustments in renally impaired patients. The GFR is provided as additional pertinent clinical information. GFR is reported in mL/min/1.73 sq m. Calculation based on the Chronic Kidney Disease Epidemiology Collaboration (CKD- EPI) equation refit without adjustment for race. GFR, EST. >60 >=60 025 10:01 AM [facility] GFR, EST. NONAFRICAN >60 >=60 09/04/2024 10:01 AM CDT [facility] Blood Venipuncture / Unknown 09/04/2024 8:47 AM CDT 09/04/2024 8:58 AM CDT Jaydon Sung MD CHEMISTRY ORDERABLES Final Re sult Performing Organization Address City/[facility] Co de Phone Number [facility] [address] [place] [address] * AMYLASE (09/04/2024 8:47 AM CDT) Only the most recent of4 resultswithin the time period is included. AMYLASE 101 25 - 125 U/L 09/04/2024 10:01 AM CDT [facility] Blood Venipuncture / Unknown 09/04/2024 8:47 AM CDT 09/04/2024 8:58 AM CDT Jaydon Sung MD CHEMISTRY ORDERABLES Final Re sult Performing Organization Address [facility] de Phone Number [facility] [address] [place] [address] * MAGNESIUM (MG) (09/01/2024 4:06 AM CDT) Only the most recent of3 resultswithin the time period is included. MAGNESIUM 2.0 1.6 - 2.6 mg/dL 09/01/2024 6:01 AM CDT [facility] Blood BLOOD SPECIMEN / Unknown Venipuncture / Unknown 09/01/2024 4:06 AM CDT 09/01/2024 5:29 AM CDT Jaydon Sung MD CHEMISTRY ORDERABLES Final Re sult Performing Organization Address [facility] Co de Phone Number [facility] [address] [place] [address] * (ABNORMAL) BMP AM (09/01/2024 4:06 AM CDT) Only the most recent of3 resultswithin the time period is included. SODIUM 137 136 - 145 mmol/L 09/01/2024 6:01 AM CDT [facility] POTASSIUM 3.5 3.5 - 5.1 mmol/L 09/01/2024 6:01 AM CDT [facility] CHLORIDE 104 98 - 107 mmol/L 09/01/2024 6:01 AM T [facility] CO2, VENOUS 24 22 - 30 mmol/L 09/01/2024 6:01 AM T [facility] ANION GAP 12.5 <18.0 mmol/L 09/01/2024 6:01 AM T [facility] GLUCOSE 106(H) 70 - 99 mg/dL 09/01/2024 6:01 AM CDT [facility] BUN 10 5 - 18 mg/dL 09/01/2024 6:01 AM T [facility] CREATININE, BLOOD 0.66 0.60 - 1.00 mg/dL 09/01/2024 6:01 AM T [facility] BUN/CREATININE RATIO 15 12 - 20 ratio 09/01/2024 6:01 AM T [facility] CALCIUM 8.1(L) 8.7 - 10.5 mg/dL 09/01/2024 6:01 AM T [facility] GFR, ESTIMATED >60 >=60 09/01/2024 6:01 AM T [facility] Comment: Creatinine Clearance is the preferred criteria for selecting drug dose adjustments in renally impaired patients. The GFR is provided as additional pertinent clinical information. GFR is reported in mL/min/1.73 sq m. Calculation based on the Chronic Kidney Disease Epidemiology Collaboration (CKD- EPI) equation refit without adjustment for race. GFR, EST. >60 >=60 025 6:01 AM CDT [facility] GFR, EST. NONAFRICAN >60 >=60 09/01/2024 6:01 AM CDT [facility] Blood BLOOD SPECIMEN / Unknown Venipuncture / Unknown 09/01/2024 4:06 AM CDT 09/01/2024 5:29 AM CDT Jaydon Sung MD CHEMISTRY ORDERABLES Final Re sult [facility] [address] [place] [address] * Pathology Surgical (08/31/2024 11:37 AM CDT) Case Report Surgical Pathology Report Case: [id number] Authorizing Provider: Newton Nunez MD Collected: 08/31/2024 11:37 AM Ordering Location: [facility] Received: 08/31/2024 12:51 PM [facility] Med Surg [address] [place] [address] Pathologist: Paul Parekh MD PhD Specimens: A) - Duodenum, DUODENAL BULB BIOPSY B) - Stomach, ANTRAL BIOPSY RULE OUT H. PYLORI 09/03/2024 9:02 AM CDT [facility] FINAL DIAGNOSIS A. Duodenal bulb biopsy: - Duodenal mucosa, negative for diagnostic abnormalities B. Antrum, rule out H. pylori, biopsy: - Gastric mucosa with focal mild chronic inflammation - Negative for acute inflammation or H. pylori by H&E stain 09/03/2024 9:02 AM CDT [facility] at 0902 CDT Pre-Operative Diagnosis ABNORMAL CT SCAN 09/03/2024 9:02 AM CDT [facility] Gross Description A. DUODENAL BULB BIOPSY The specimen presents in two formalin containers for gross and microscopic examination labeled with the patient's name, Lalitha Canseco. Part A is designated as duodenal bulb biopsy. The specimen consists of two hebert-pink pieces of tissue ranging from 0.3 up to 0.4 cm in greatest dimension. The specimen is entirely submitted in cassette A1. B. ANTRAL BIOPSY RULE OUT H. PYLORI Part B is designated as antral biopsy, rule out H. Pylori. The specimen consists of one hebert-pink piece of tissue measuring 0.3 cm in greatest dimension. The specimen is entirely submitted in cassette B1. Total time of fixation is 58 hours, 9 minutes. AM/sb 09/03/2024 9:02 AM CDT [facility] Microscopic Description Microscopic examination was performed which supports the final diagnosis. All control tissues stained appropriately. 09/03/2024 9:02 AM CDT [facility] Tissue STOMACH STRUCTURE / Unknown 08/31/2024 11:37 AM CDT 08/31/2024 12:51 PM CDT Tissue specimen (specimen) STOMACH STRUCTURE / Unknown 08/31/2024 11:37 AM CDT 08/31/2024 12:51 PM CDT Newton Nunez MD PATHOLOGY/CYTOLOGY ORDERA BLES Final Result [facility] [address] [place] [address] * GI LAB IMAGING - EGD (08/31/2024 10:46 AM CDT) Only the most recent of2 resultswithin the time period is included. Newton Nunez MD IMG DIAGNOSTIC ORDERABLES Final Result * POCT Urine HCG () (08/31/2024 10:43 AM CDT) POC URINE Negative POC URINE CONTROL Organization [employer] Urine 08/31/2024 10:4 3 AM CDT Newton Nunez MD POINT OF CARE TESTING (KATI MCKENZIE) Final Result * PHOSPHORUS (PO4) (08/31/2024 4:16 AM CDT) Only the most recent of2 resultswithin the time period is included. PHOSPHORUS 3.1 2.5 - 4.5 mg/dL 08/31/2024 5:30 AM CDT [facility] Blood Venipuncture / Unknown 08/31/2024 4:16 AM CDT 08/31/2024 4:32 AM CDT Jaydon Sung MD CHEMISTRY ORDERABLES Final Re sult Performing Organization Address City/[facility] Co de Phone Number [facility] [address] [place] [address] * Lactic Acid (Lactate) (08/30/2024 7:16 PM CDT) Only the most recent of3 resultswithin the time period is included. [facility] LACTIC ACID 1.0 0.7 - 2.0 mmol/L 08/30/2024 7:42 PM CDT [facility] Blood Venipuncture / Unknown 08/30/2024 7:16 PM CDT 08/30/2024 7:17 PM CDT Jaydon Sung MD CHEMISTRY ORDERABLES Final Re sult Performing Organization Address [facility] de Phone Number [facility] [address] [place] [address] * TROPONIN I, HIGH SENSITIVITY (HSTRP) (08/30/2024 9:28 AM CDT) Only the most recent of2 resultswithin the time period is included. TROPONIN I, HIGH SENSITIVITY- [place] <3 <=14 ng/L 08/30/2024 9:56 AM CDT [facility] Comment: High-sensitivity troponin I results are reported in ng/L making the result appear to be 1,000 times higher than the contemporary troponin I value which is reported in ng/ml. Results from [place]. Blood Venipuncture / Unknown 08/30/2024 9:28 AM CDT 08/30/2024 9:28 AM CDT Jaydon Sung MD CHEMISTRY ORDERABLES Final Re sult Performing Organization Address City/[facility]/ZIP Co de Phone Number [facility] [address] [place] [address] * (ABNORMAL) C-Reactive Protein (CRP) Quant (08/30/2024 4:38 AM CDT) C-REACTIVE PROTEIN 2.40(H) <0.50 mg/dL 08/30/2024 9:21 AM CDT [facility] Blood Venipuncture / Unknown 08/30/2024 4:38 AM CDT 08/30/2024 4:42 AM CDT Jaydon Sung MD CHEMISTRY ORDERABLES Final Re sult Performing Organization Address City/[facility] Co de Phone Number [facility] [address] [place] [address] * Blood Culture #2 (08/29/2024 5:32 PM CDT) Only the most recent of2 resultswithin the time period is included. CULTURE RESULTS NO GROWTH WITHIN 5 DAYS, FINAL RESULT 09/03/2024 6:02 PM CDT [facility] Culture BLOOD SPECIMEN / Unknown Venipuncture / Unknown 08/29/2024 5:32 PM CDT 08/29/2024 5:41 PM CDT Delfino Plasencia DO MICROBIOLOGY - GENERAL ORDERABLES Final Result Performing Organization Address City/[facility]/ZIP Co de Phone Number [facility] [address] [place] [address], [place] * CT ABDOMEN PELVIS W/ CONTRAST (08/29/2024 3:04 PM CDT) Anatomical Region Laterality Modality Abdomen N/A Computed Tomogra phy 08/29/2024 4:46 PM CDT Impressions 08/29/2024 4:48 PM CDT IMPRESSION: Markedly severe inflammatory changes surrounding the 1st and 2nd portions of the duodenum and the pancreatic head. Inflammatory changes have increased from the prior examination. Differential considerations include duodenitis or paraduodenal pancreatitis. Correlate with lipase and EGD results. An irregular peripheral enhancing focus is seen along the 2nd portion of the duodenum and is difficult to delineate from the esophageal lumen (series 2, image 74). This measures up to 8 mm in maximum dimension, previously 4 mm (series 2, image 74). If the inflammatory changes are due to paraduodenal pancreatitis then this represents a pseudocyst. Conceivably this could also represent a duodenal ulcer as described on prior reports although this did not fill with contrast on 08/09/2024. No extraluminal air bubbles are identified to indicate non-contained perforation. Otherwise no acute process in the abdomen or pelvis. Narrative 08/29/2024 4:48 PM CDT EXAM DESCRIPTION: CT ABDOMEN PELVIS W/ CONTRAST REASON FOR STUDY: Epigastric discomfort, started a couple of days ago with some associated vomiting. History of alcoholic pancreatitis, HTN, gastritis and tubal ligation. TECHNIQUE: CT scan of the abdomen and pelvis performed with intravenous and without oral contrast using helical scanning technique with dynamic intravenous contrast injection. Reconstructed coronal and sagittal MPR images reviewed. All images stored on PACS. Automated exposure control was used as a dose optimization technique for this examination. CONTRAST TYPE/DOSE: 100mL of IOPAMIDOL 76 % IV SOLN injected via Intravenous COMPARISON: 08/09/2024 FINDINGS: LOWER CHEST: No significant pulmonary abnormalities. No effusion. LIVER: Mild diffuse hepatic steatosis. GALLBLADDER: No radiopaque cholelithiasis is identified. The gallbladder is mildly distended. There appears to be a phrygian cap, normal variant. BILE DUCTS: No intrahepatic or extrahepatic ductal dilatation. SPLEEN: Normal size. No focal lesions. PANCREAS: Please see GI section below. No ductal dilation or pancreatic calcification is identified. ADRENALS: Normal. KIDNEYS/URINARY TRACT: No identified significant cystic or solid masses. No visualized stones. No hydronephrosis or hydroureter. Symmetric enhancement. Urinary bladder is unremarkable. GI: Mild distal esophageal wall thickening is noted which is nonspecific. Wall thickening of the gastric pylorus and antrum region is favored to be reactive. There is markedly severe wall thickening and surrounding inflammatory changes along the 1st and 2nd portions of the duodenum and the pancreatic head. This has increased relative to 08/09/2024. There is severe narrowing of the 2nd portion of the duodenum. There is a irregular peripheral enhancing focus which is difficult to delineate from the esophageal lumen (series 2, image 74). This measures up to 8 mm in maximum dimension, previously 4 mm (series 2, image 74). Surrounding free fluid is noted. This finding does not appear to fill with contrast on 08/09/2024. No extraluminal air bubbles are identified. No evidence of small-bowel obstruction. The appendix is normal. There is mild reactive colitis at the hepatic flexure. Otherwise the colon is unremarkable. PERITONEUM: As above. No pneumoperitoneum is identified. RETROPERITONEUM: No mass or adenopathy. REPRODUCTIVE: Nabothian cyst. Otherwise unremarkable. VASCULATURE: No abdominal aortic aneurysm. MUSCULOSKELETAL: No significant abnormality. OTHER: No other abnormality. THIS IS AN ELECTRONICALLY VERIFIED FINAL REPORT 08/29/2024 4:46 PM - Electronically signed by Brent Wallace M.D. MM: MM Report ID: [id number] Reading Location: [id number] Procedure Note Brent Wallace MD - 08/29/2024 EXAM DESCRIPTION: CT ABDOMEN PELVIS W/ CONTRAST REASON FOR STUDY: Epigastric discomfort, started a couple of days ago with some associated vomiting. History of alcoholic pancreatitis, HTN, gastritis and tubal ligation. TECHNIQUE: CT scan of the abdomen and pelvis performed with intravenous and without oral contrast using helical scanning technique with dynamic intravenous contrast injection. Reconstructed coronal and sagittal MPR images reviewed. All images stored on PACS. Automated exposure control was used as a dose optimization technique for this examination. CONTRAST TYPE/DOSE: 100mL of IOPAMIDOL 76 % IV SOLN injected via Intravenous COMPARISON: 08/09/2024 FINDINGS: LOWER CHEST: No significant pulmonary abnormalities. No effusion. LIVER: Mild diffuse hepatic steatosis. GALLBLADDER: No radiopaque cholelithiasis is identified. The gallbladder is mildly distended. There appears to be a phrygian cap, normal variant. BILE DUCTS: No intrahepatic or extrahepatic ductal dilatation. SPLEEN: Normal size. No focal lesions. PANCREAS: Please see GI section below. No ductal dilation or pancreatic calcification is identified. ADRENALS: Normal. KIDNEYS/URINARY TRACT: No identified significant cystic or solid masses. No visualized stones. No hydronephrosis or hydroureter. Symmetric enhancement. Urinary bladder is unremarkable. GI: Mild distal esophageal wall thickening is noted which is nonspecific. Wall thickening of the gastric pylorus and antrum region is favored to be reactive. There is markedly severe wall thickening and surrounding inflammatory changes along the 1st and 2nd portions of the duodenum and the pancreatic head. This has increased relative to 08/09/2024. There is severe narrowing of the 2nd portion of the duodenum. There is a irregular peripheral enhancing focus which is difficult to delineate from the esophageal lumen (series 2, image 74). This measures up to 8 mm in maximum dimension, previously 4 mm (series 2, image 74). Surrounding free fluid is noted. This finding does not appear to fill with contrast on 08/09/2024. No extraluminal air bubbles are identified. No evidence of small-bowel obstruction. The appendix is normal. There is mild reactive colitis at the hepatic flexure. Otherwise the colon is unremarkable. PERITONEUM: As above. No pneumoperitoneum is identified. RETROPERITONEUM: No mass or adenopathy. REPRODUCTIVE: Nabothian cyst. Otherwise unremarkable. VASCULATURE: No abdominal aortic aneurysm. MUSCULOSKELETAL: No significant abnormality. OTHER: No other abnormality. THIS IS AN ELECTRONICALLY VERIFIED FINAL REPORT 08/29/2024 4:46 PM - Electronically signed by Brent Wallace M.D. MM: MM Report ID: [id number] Reading Location: [id number] IMPRESSION: Markedly severe inflammatory changes surrounding the 1st and 2nd portions of the duodenum and the pancreatic head. Inflammatory changes have increased from the prior examination. Differential considerations include duodenitis or paraduodenal pancreatitis. Correlate with lipase and EGD results. An irregular peripheral enhancing focus is seen along the 2nd portion of the duodenum and is difficult to delineate from the esophageal lumen (series 2, image 74). This measures up to 8 mm in maximum dimension, previously 4 mm (series 2, image 74). If the inflammatory changes are due to paraduodenal pancreatitis then this represents a pseudocyst. Conceivably this could also represent a duodenal ulcer as described on prior reports although this did not fill with contrast on 08/09/2024. No extraluminal air bubbles are identified to indicate non-contained perforation. Otherwise no acute process in the abdomen or pelvis. us Delfino Plasencia DO IMG CT ORDERABLES Final Result * XR CHEST SINGLE VIEW PORTABLE (08/29/2024 2:01 PM CDT) Anatomical Region Laterality Modality Chest N/A Digital Radiogra phy 08/29/2024 2:41 PM CDT Impressions 08/29/2024 2:43 PM CDT IMPRESSION: No acute cardiopulmonary findings. Narrative 08/29/2024 2:43 PM CDT EXAM DESCRIPTION: XR CHEST SINGLE VIEW PORTABLE REASON FOR STUDY: sob, mid chest pain, epigastric pain ,,nauseas, vomiting today. HX.smoker TECHNIQUE: 1 radiographic view(s) of the chest. COMPARISON: 08/09/2024. FINDINGS: LUNGS: No pneumonic consolidation or pulmonary edema seen. No pleural effusion or pneumothorax identified. HEART/MEDIASTINUM: Heart size and cardiomediastinal contours are normal. LINES/TUBES: None. BONES: No acute displaced fracture or aggressive bone lesion is identified The visualized abdomen is grossly unremarkable THIS IS AN ELECTRONICALLY VERIFIED FINAL REPORT 08/29/2024 2:41 PM - Electronically signed by Todd Parker M.D. MZ: [place] Report ID: [id number] Reading Location: [id number] Procedure Note Todd Parker MD - 08/29/2024 EXAM DESCRIPTION: XR CHEST SINGLE VIEW PORTABLE REASON FOR STUDY: sob, mid chest pain, epigastric pain ,,nauseas, vomiting today. HX.smoker TECHNIQUE: 1 radiographic view(s) of the chest. COMPARISON: 08/09/2024. FINDINGS: LUNGS: No pneumonic consolidation or pulmonary edema seen. No pleural effusion or pneumothorax identified. HEART/MEDIASTINUM: Heart size and cardiomediastinal contours are normal. LINES/TUBES: None. BONES: No acute displaced fracture or aggressive bone lesion is identified The visualized abdomen is grossly unremarkable THIS IS AN ELECTRONICALLY VERIFIED FINAL REPORT 08/29/2024 2:41 PM - Electronically signed by Todd Parker M.D. MZ: MZ Report ID: [id number] Reading Location: [place] [id number] IMPRESSION: No acute cardiopulmonary findings. us Delfino Plasencia DO IMG DIAGNOSTIC ORDERABL ES Final Result * (ABNORMAL) Urine Drug Screen (08/29/2024 1:55 PM CDT) UR AMPHETAMINE NON DETECTED NON DETECTED 08/29/2024 2:45 PM CDT [facility] Comment: FOR MEDICAL USE ONLY. CUTOFF CONCENTRATION FOR DETECTED RESULT: AMPHETAMINE: 500 NG/ML UR BENZODIAZEPINES NON DETECTED NON DETECTED 08/29/2024 2:45 PM CDT [facility] Comment: FOR MEDICAL USE ONLY. CUTOFF CONCENTRATION FOR DETECTED RESULT: BENZODIAZAPINE: 200 NG/ML UR COCAINE METABOLITE NON DETECTED NON DETECTED 08/29/2024 2:45 PM CDT [facility] Comment: FOR MEDICAL USE ONLY. CUTOFF CONCENTRATION FOR DETECTED RESULT: COCAINE: 150 NG/ML UR OPIATES NON DETECTED NON DETECTED 08/29/2024 2:45 PM CDT [facility] Comment: FOR MEDICAL USE ONLY. CUTOFF CONCENTRATION FOR DETECTED RESULT: OPIATES: 300 NG/ML UR PHENCYCLIDINE NON DETECTED NON DETECTED 08/29/2024 2:45 PM CDT [facility] Comment: FOR MEDICAL USE ONLY. CUTOFF CONCENTRATION FOR DETECTED RESULT: PCP: 25 NG/ML UR CANNABINOID DETECTED(A) NON DETECTED 08/29/2024 2:45 PM CDT [facility] Comment: FOR MEDICAL USE ONLY. CUTOFF CONCENTRATION FOR DETECTED RESULT: THC (MARIJUANA): 50 NG/ML UR BARBITURATE NON DETECTED NON DETECTED 08/29/2024 2:45 PM CDT [facility] Comment: FOR MEDICAL USE ONLY. CUTOFF CONCENTRATION FOR DETECTED RESULT: BARBITUATES: 200 NG/ML UR FENTANYL NON DETECTED NON DETECTED 08/29/2024 2:45 PM CDT [facility] Comment: FOR MEDICAL USE ONLY. CUTOFF CONCENTRATION FOR DETECTED RESULT: FENTANYL: 1.0 NG/ML Urine Non-Phlebotomy Collection / Unknown 08/29/2024 1:55 PM CDT 08/29/2024 1:58 PM CDT Delfino Plasencia DO URINE ORDERABLES Final Result Performing Organization Address [facility] Co de Phone Number [facility] [address] [place] [address] * Gold Top Tube (08/29/2024 1:21 PM CDT) Blood No Phlebotomy Charged / Unknown 08/29/2024 1:21 PM CDT 08/29/2024 1:38 PM CDT Delfino Plasencia DO CHEMISTRY ORDERABLES Fi nal Result Performing Organization Address [facility] Co de Phone Number [facility] [address] [place] [address] * Blue Top Tube (08/29/2024 1:21 PM CDT) Blood No Phlebotomy Charged / Unknown 08/29/2024 1:21 PM CDT 08/29/2024 1:38 PM CDT Delfino Plasencia DO HEMATOLOGY ORDERABLES F inal Result Performing Organization Address [facility] Co de Phone Number [facility] [address] [place] [address] * (ABNORMAL) Ethyl Alcohol (Ethanol) (08/29/2024 1:21 PM CDT) ETHANOL 309(H) <10 mg/dL 08/29/2024 1:58 PM CDT [facility] Blood Venipuncture / Unknown 08/29/2024 1:21 PM CDT 08/29/2024 1:36 PM CDT us Delfino Plasencia DO CHEMISTRY ORDERABLES Fi nal Result Performing Organization Address City/[facility]/ZIP Co de Phone Number [facility] [address] [facility] [place] [address] * EKG 12 LEAD (08/29/2024 1:14 PM CDT) Ventricular Rate 114 BPM EXTERNAL EKG Atrial Rate 114 BPM EXTERNAL EKG P-R Interval 154 ms EXTERNAL EKG QRS Duration 72 ms EXTERNAL EKG Q-T Duration 336 ms EXTERNAL EKG QTC CALCULATION 463 ms EXTERNAL EKG P [place] 64 degrees EXTERNAL EKG R [place] 39 degrees EXTERNAL EKG T [place] 48 degrees EXTERNAL EKG 08/29/2024 1:14 PM CDT Impressions EXTERNAL EKG - 08/30/2024 1:45 PM CDT Sinus tachycardia Possible Left atrial enlargement Borderline ECG When compared with ECG of 09-AUG-2024 07:46, No significant change was found Confirmed by PETRONA BERNABE ([id number]) on 08/30/2024 1:45:04 PM Narrative Procedure Note Petrona Bernabe MD - 08/30/2024 IMPRESSION: Sinus tachycardia Possible Left atrial enlargement Borderline ECG When compared with ECG of 09-AUG-2024 07:46, No significant change was found Confirmed by PETRONA BERNABE ([id number]) on 08/30/2024 1:45:04 PM us Delfino Plasencia DO IMG ECG ORDERABLES Jaqui l Result EXTERNAL EKG * EKG SCAN (08/29/2024 12:00 AM CDT) 08/29/2024 us Provider Scan IMG ECG ORDERABLES Final Result RESULTING AGENCY from Last 3 Months Insurance MEDICAID [facility] Advance Directives * Full Code (Latest Code Status on File) Date Activated Date Inactivated Comments 08/29/2024 5:15 PM CPR-Full Treat ment: FULL ARREST: Attempt Resuscitation/CPR wit intubation and mechanical ventilation. PRE-ARREST: Use entire range of life support measures to stabilize the patient. * Full Code Date Activated Date Inactivated Comments 08/10/2024 3:19 PM 08/29/2024 5:15 PM CPR-Full Jovanny atment: FULL ARREST: Attempt Resuscitation/CPR wit intubation and mechanical ventilation. PRE-ARREST: Use entire range of life support measures to stabilize the patient. * Full Code Date Activated Date Inactivated Comments 04/11/2024 1:36 AM 08/10/2024 3:19 PM CPR-Full Jovanny atment: FULL ARREST: Attempt Resuscitation/CPR [...] measures to stabilize the patient. Care Teams Superintendent Circus Relationship Specialty Start Date End Date Altagracia Briones MD [address] [place] [address] PCP - General Family Medicine 04/10/24
== END 2024-11-16 10:36 | disposition home or self-care (01) ==
PROVIDERS: PCP Family Medicine; Visit Provider Family Medicine
DX: N92.4 Excessive bleeding in the premenopausal period (principal); D25.9 Leiomyoma of uterus, unspecified
CPT/HCPCS: 76856